=== PATIENT | female | born 1940 | race Caucasian/White ===

== ENCOUNTER → 2018-12-17 | Outpatient (CLI) | payer MEDICARE ==
--- NOTE | 2018-12-17 11:00 | Diagnostic Imaging Report ---
INDICATION: Acute back pain. TIME OF EXAM: 10:42 AM COMPARISON: No prior studies are available for comparison. FINDINGS: Curvature and alignment of the lumbar spine is normal. Vertebral body heights are maintained. No acute compression fracture is seen. There is degenerative disc disease with disc space narrowing at L5-S1 level. Left-sided double-J nephroureteral stent is in place. Aorta is heavily calcified. IMPRESSION: No acute bony abnormality is detected. Dictated by: Dictated on workstation # [id number]
--- NOTE | 2018-12-17 11:02 | Diagnostic Imaging Report ---
INDICATION: Recent T8 fracture. Patient complains of back pain. Time of exam 10:42 a.m. COMPARISON: No prior studies are available for comparison. FINDINGS: Curvature and alignment of the thoracic spine is normal. There is moderate compression fracture deformity involving T8 vertebral body. This does show a moderate central and anterior loss of height. No definite retropulsion is seen. Remaining thoracic vertebrae demonstrate normal stature. Pedicles appear to be intact. IMPRESSION: T8 compression fracture. No definite retropulsion is seen. Dictated by: Dictated on workstation # [id number]
== END ==
LOC: RAD FS 10:31
PROVIDERS: ATTEND Family Medicine
DX: S22.060A Wedge compression fracture of T7-T8 vertebra, initial encounter for closed fracture (principal); M54.5 Low back pain
CPT/HCPCS: 72072; 72100

== ENCOUNTER 2019-04-02 12:36 | Emergency (ER) | payer MEDICARE ==
[~2019-04-02] VITALS: Ht 154.9 cm; Wt 59.0 kg
[2019-04-02] MEDS ORDERED: fentaNYL INJECTION 100 MCG/2 ML AMP IVP STA ×2 (12:58→14:01)
[2019-04-02] MEDS ORDERED: TETANUS,DIPTH,PERTUSS P/F (BOOSTRIX) 0.5 ML VIAL IM ONE (13:00)
--- NOTE | 2019-04-02 13:02 | ED Integumentary General ---
General Chief Complaint: Skin/Wound Problems Stated Complaint: LACERATION ON LEG Source: patient, family (MICHELLE VAZQUEZ MD) History of Present Illness Date Seen by Provider: Apr 02, 2019 Time Seen by Provider: 12:36 Initial Comments 78 yo F presenting with injury to her LLE with a large laceration. She was trying to move a table by herself around 1030 this morning and dropped it. When it dropped it scraped down the front of her rae and caused a large cut to the skin down to the bone. She states she tried to doctor it at home and filled 2 towels with blood and finally decided to call her family to get some help. She denies any numbness or tingling in the leg. She has no foreign bodies to the wound. She was unsure of last tetanus update. She has severe pain to the wound, especially with any palpation or movement. She is able to bear weight and walk, but has pain with movement of the left leg. (MICHELLE VAZQUEZ MD) Allergies and Home Medications Allergies Coded Allergies: doxycycline (Verified Allergy, Unknown, 04/02/19) isosorbide (Verified Allergy, Unknown, 04/02/19) pitavastatin (Verified Allergy, Unknown, 04/02/19) shrimp (Verified Allergy, Unknown, 04/02/19) Uncoded Allergies: IV CONTRAST (Allergy, Unknown, 04/02/19) MIRATAZAPINE (Allergy, Unknown, 04/02/19) Home Medications Cephalexin 500 Mg Tablet, 500 MG PO QID Prescribed by: DUNIA PANTOJA on 04/02/19 1613 Hydrocodone Bit/Acetaminophen 1 Tab Tab, 1-2 EACH PO Q6H PRN for PAIN-MODERATE Prescribed by: DUNIA PANTOJA on 04/02/19 1613 Patient Home Medication List Home Medication List Reviewed: Yes (MICHELLE VAZQUEZ MD) Review of Systems Review of Systems Constitutional: No chills, No fever EENTM: no symptoms reported Respiratory: no symptoms reported Cardiovascular: no symptoms reported Gastrointestinal: no symptoms reported Genitourinary: no symptoms reported Musculoskeletal: see HPI Skin: see HPI Psychiatric/Neurological: No Symptoms Reported Endocrine: No Symptoms Reported Hematologic/Lymphatic: Easy Bleeding, Easy Bruising (MICHELLE VAZQUEZ MD) Past Fprtscb-Hpqehl-Fwtmbk Hx Past Med/Social Hx: Reviewed Nursing Past Med/Soc Hx (MICHELLE VAZQUEZ MD) Patient Social History Physical Abuse: No Sexual Abuse: No Mistreated: No Fear: No (MICHELLE VAZQUEZ MD) Past Medical History Coronary Artery Disease, Hypertension (MICHELLE VAZQUEZ MD) Physical Exam Vital Signs Vital Signs - First Documented 04/02/19 12:39 Temp 97.1 Pulse 65 Resp 16 B/P (MAP) 150/41 (77) Pulse Ox 95 O2 Delivery Room Air (BERNOT,DUNIA) Vital Signs Capillary Refill : (MICHELLE VAZQUEZ MD) General Appearance: WD/WN, mild distress Neck: full range of motion, supple Cardiovascular: normal peripheral pulses, regular rate, rhythm Respiratory: chest non-tender, lungs clear, normal breath sounds Extremities: normal range of motion, no pedal edema, normal capillary refill, other (large laceration to left anterior rae with exposed bone. Oozing blood from wound.) Neurologic/Psychiatric: alert, oriented x 3 Skin: normal color, warm/dry, other (large laceration to left rae. multiple areas of bruising in various stages of healing on extremities) Skin Problem Location: lower extremities (laceration left rae) Skin Problem Character: other (20 cm x 8 cm laceration to left anterior rae that extends down to the periosteum of the tibia ) (MICHELLE VAZQUEZ MD) Progress/Results/Core Measures Results/Orders Lab Results Laboratory Tests Test 04/02/19 13:00 04/02/19 13:41 Range/Units White Blood Count 7.2 4.3-11.0 10^3/uL Red Blood Count 3.28 L 4.35-5.85 10^6/uL Hemoglobin 9.8 L 11.5-16.0 G/DL Hematocrit 31 L 35-52 % Mean Corpuscular Volume 94 80-99 FL Mean Corpuscular Hemoglobin 30 25-34 PG Mean Corpuscular Hemoglobin Concent 32 32-36 G/DL Red Cell Distribution Width 15.3 H 10.0-14.5 % Platelet Count 297 130-400 10^3/uL Mean Platelet Volume 9.0 7.4-10.4 FL Neutrophils (%) (Auto) 68 42-75 % Lymphocytes (%) (Auto) 21 12-44 % Monocytes (%) (Auto) 6 0-12 % Eosinophils (%) (Auto) 4 0-10 % Basophils (%) (Auto) 1 0-10 % Neutrophils # (Auto) 4.9 1.8-7.8 X 10^3 Lymphocytes # (Auto) 1.5 1.0-4.0 X 10^3 Monocytes # (Auto) 0.4 0.0-1.0 X 10^3 Eosinophils # (Auto) 0.3 0.0-0.3 10^3/uL Basophils # (Auto) 0.0 0.0-0.1 10^3/uL Sodium Level 135 135-145 MMOL/L Potassium Level 5.2 H 3.6-5.0 MMOL/L Chloride Level 99 98-107 MMOL/L Carbon Dioxide Level 21 21-32 MMOL/L Anion Gap 15 H 5-14 MMOL/L Blood Urea Nitrogen 46 H 7-18 MG/DL Creatinine 1.98 H 0.60-1.30 MG/DL Estimat Glomerular Filtration Rate 24 BUN/Creatinine Ratio 23 Glucose Level 150 H 70-105 MG/DL Calcium Level 9.1 8.5-10.1 MG/DL Corrected Calcium 9.3 8.5-10.1 MG/DL Total Bilirubin 0.2 0.1-1.0 MG/DL Aspartate Amino Transf (AST/SGOT) 26 5-34 U/L Alanine Aminotransferase (ALT/SGPT) 15 0-55 U/L Alkaline Phosphatase 34 L 40-136 U/L Total Protein 6.4 6.4-8.2 GM/DL Albumin 3.7 3.2-4.5 GM/DL (DUNIA PANTOJA) My Orders Orders - DUNIA PANTOJA Fentanyl Injection (Sublimaze Injection (04/02/19 15:15) Lidocaine 1% Inj 20 Ml (Xylocaine 1% Inj (04/02/19 15:15) Lidocaine 1% Inj 20 Ml (Xylocaine 1% Inj (04/02/19 15:10) Morphine Injection (Morphine Injection (04/02/19 15:31) (DUNIA PANTOJA) Medications Given in ED Current Medications Medications Dose Ordered Sig/Brock Route Start Time Stop Time Status Last Admin Dose Admin Diphtheria/ Tetanus/Acell Pertussis 0.5 ml ONCE ONCE IM 04/02/19 13:00 04/02/19 13:01 DC 04/02/19 13:10 0.5 ML Fentanyl Citrate 50 mcg ONCE ONCE IVP 04/02/19 15:15 04/02/19 15:16 DC 04/02/19 15:10 50 MCG (DUNIA PANTOJA) Vital Signs/I&O 04/02/19 04/02/19 12:39 14:10 Temp 97.1 98.2 Pulse 65 54 Resp 16 16 B/P (MAP) 150/41 (77) 157/52 (87) Pulse Ox 95 94 O2 Delivery Room Air Room Air (DUNIA PANTOJA) Progress Progress Note : Progress Note wet dressing placed on wound to keep it moist and prevent it from drying out. IV established to send labs and give Fentanyl for pain and a gram of ancef for antibiotics. will update tetanus as well. Will contact surgeon court commissioner about the wound and see about management options as the wound is extensive and complicated with the depth and since it does extend to the periosteum and the skin has a crush injury to it as well. It might not be able to survive and may end up needing a skin graft ultimately. (MICHELLE VAZQUEZ MD) Progress Note : Time: 15:10 Progress Note I have seen and evaluated the patient. Her pain did return and fentanyl was ordered. Dr. Montez is here to evaluate the patient at this time. 1600: Dr. Montez has set up for the patient to return back to the [place] emergency room for a wound check tomorrow and will follow-up with his office on Thursday. The patient will be sent home with antibiotic prescription and pain medication. Patient agrees with plan of care, plans for discharge, return precautions were given. (DUNIA PANTOJA) Consults : Consulting Physician: AMANDEEP MONTEZ DO Consults Notes D/w Dr. Montez and reviewed the wound with him. Due to the extent of the wound and complexity of it he offered to repair it in the ED at [place] or have me repair it here in [place]. I felt it would be better for him to work on the wound due to the complexity of it so I did request that the pt come down to see him and he accepted her for transfer to the ED and said he planned to work on her at the bedside in the ED. (MICHELLE VAZQUEZ MD) Departure Impression Primary Impression: Lower leg laceration with complication Qualified Codes: S81.812A - Laceration without foreign body, left lower leg, initial encounter Disposition: T-TRM HOSP Condition: Stable Transfer Time Spoke to Accepting Phy: 13:22 Transfer Progress Notes [address] Montez and he accepted the pt to work on the wound in the ED at [facility]. I did update the patient and family. [address] Roca in the ED at [facility] and advised him of the patient coming to the ED for Dr. Montez to see her. Transfer Facility: [facility] ED Method of Transfer: EMS (MICHELLE VAZQUEZ MD) Departure-Patient Inst. Decision time for Depature: 16:11 (DUNIA PANTOJA) Referrals: AMANDEEP MOTNEZ MAXWELL MD (PCP/Family) Primary Care Physician Patient Instructions: Wound Care, Laceration Repair With Stitches (DC) Add. Discharge Instructions: Take medication as directed. Return back to the [place] emergency room tomorrow for a wound recheck. Follow-up with Dr. Montez's office Thursday for further evaluation. Return back to the emergency room for worsening symptoms or concerns as needed. All discharge instructions reviewed with patient and/or family. Voiced understanding. Scripts Cephalexin (Cephalexin) 500 Mg Tablet 500 MG PO QID for 7 Days, #28 TAB 0 Refills Prov: DUNIA PANTOJA 04/02/19 Hydrocodone Bit/Acetaminophen (Hydrocodone/Acetaminophen 5/325mg Tablet) 1 Tab Tab 1-2 EACH PO Q6H PRN for PAIN-MODERATE MDD 10 for 3 Days, #20 TAB 0 Refills Prov: DUNIA PANTOJA 04/02/19 MICHELLE VAZQUEZ MD Apr 02, 2019 13:02 DUNIA PANTOJA Apr 02, 2019 15:24
[2019-04-02 13:06] LABS: BASOPHILS % (AUTO) 1 % (0-10); EOSINOPHILS % (AUTO) 4 % (0-10); HEMATOCRIT 31 % (35-52); HEMOGLOBIN 9.8 G/DL (11.5-16.0); LYMPHOCYTES % (AUTO) 21 % (12-44); MEAN CORPUSCULAR HEMOGLOBIN 30 PG (25-34); MEAN CORPUSCULAR HGB CONC 32 G/DL (32-36); MEAN CORPUSCULAR VOLUME 94 FL (80-99); MONOCYTES % (AUTO) 6 % (0-12); NEUTROPHILS % (AUTO) 68 % (42-75); PLATELET COUNT 297 10^3/uL (130-400); RED CELL DISTRIBUTION WIDTH 15.3 % (10.0-14.5); WHITE BLOOD COUNT 7.2 10^3/uL (4.3-11.0)
[2019-04-02 13:07] LABS: EOSINOPHILS # (AUTO) 0.3 10^3/uL (0.0-0.3); LYMPHOCYTES # (AUTO) 1.5 X 10^3 (1.0-4.0); MONOCYTES # (AUTO) 0.4 X 10^3 (0.0-1.0); NEUTROPHILS # (AUTO) 4.9 X 10^3 (1.8-7.8)
[2019-04-02] MEDS ORDERED: ceFAZolin INJECTION 1,000 MG in WATER (STERILE) FOR INJECTION 10 ML IV STA (13:17)
[2019-04-02 14:09] LABS: ALBUMIN 3.7 GM/DL (3.2-4.5); BILIRUBIN,TOTAL 0.2 MG/DL (0.1-1.0); CALCIUM 9.1 MG/DL (8.5-10.1); CREATININE SERUM 1.98 MG/DL (0.60-1.30); POTASSIUM 5.2 MMOL/L (3.6-5.0); TOTAL PROTEIN 6.4 GM/DL (6.4-8.2)
[2019-04-02] MEDS ORDERED: LIDOCAINE 1% INJ 20 ML 20 ML VIAL ONE (15:10)
[2019-04-02] MEDS ORDERED: LIDOCAINE 1% INJ 20 ML 20 ML VIAL INJ ONE (15:15)
[2019-04-02] MEDS ORDERED: fentaNYL INJECTION 100 MCG/2 ML AMP IVP ONE (15:15)
[2019-04-02] MEDS ORDERED: morphine INJ 10 MG/ML 1ML (SYR OR VIAL) IVP STA (15:30)
[2019-04-02] MEDS ORDERED: morphine INJ 10 MG/ML 1ML (SYR OR VIAL) ONE (15:31)
[2019-04-02] MEDS ORDERED: CEPH500T PO (16:13)
[2019-04-02] MEDS ORDERED: ACHD5005 PO (16:13)
[2019-04-02 16:49] VITALS: BP 171/62
--- NOTE | 2019-04-03 15:23 | Consultation (Surgery) ---
History of Present Illness History of Present Illness Patient Consulted On(soham/time) 04/02/19 15:17 Date Seen by Provider: Apr 02, 2019 Time Seen by Provider: 15:00 History of Present Illness Consult requested by Dr. Lugo for left lower extremity wound Seen and evaluated in ED. Patient is a 78-year-old female who was trying to move a table around 1030 this morning. Patient dropped the table and it struck the left rae which cause laceration/avulsionto the anterior surface of left lower extremity. This was all the way down to the periosteum of the tibia. Patient states that she had quite a bit of bleeding from the wound and just tried keeping pressure on it for approximately 2 hours. She has moderate to severe pain. She is able to move her left lower extremities without difficulty except for the pain. No radiation of pain. She states nothing really makes it better except for the pain medication. Movement makes worse. She did have tetanus shot she states. She has no other complaints at this time. She denies any nausea vomiting fever sweats chills shortness of breath or chest pain. patient did seek evaluation at the emergency department in [place] review the complexity of the wound she was transferred to the emergency department in [place] for my evaluation.she i s approximately 5 hours after injury. Allergies and Home Medications Allergies Coded Allergies: doxycycline (Verified Allergy, Unknown, 04/02/19) isosorbide (Verified Allergy, Unknown, 04/02/19) pitavastatin (Verified Allergy, Unknown, 04/02/19) shrimp (Verified Allergy, Unknown, 04/02/19) Uncoded Allergies: IV CONTRAST (Allergy, Unknown, 04/02/19) MIRATAZAPINE (Allergy, Unknown, 04/02/19) Home Medications Cephalexin 500 Mg Tablet, 500 MG PO QID Prescribed by: DUNIA PANTOJA on 04/02/19 1613 Hydrocodone Bit/Acetaminophen 1 Tab Tab, 1-2 EACH PO Q6H PRN for PAIN-MODERATE Prescribed by: DUNIA PANTOJA on 04/02/19 1613 Patient Home Medication List Home Medication List Reviewed: Yes Past Vxfefam-Yqnxac-Xkdskq Hx Patient Social History Alcohol Use: Denies Use Recreational Drug Use: No Smoking Status: Former Smoker Former Smoker, Quit: Sep 25, 2008 Type Used: Cigarettes 2nd Hand Smoke Exposure: No Recent Foreign Travel: No Contact w/Someone Who Travel: No Recent Infectious Disease Expo: No Recent Hopitalizations: No Seasonal Allergies Seasonal Allergies: No Surgeries History of Surgeries: Yes (Carotid endarterectomy, carpal tunnel release, Rt Nephrectomy) Surgeries: Appendectomy, Cardiac, Gallbladder, Nephrectomy, Orthopedic Respiratory History of Respiratory Disorde: Yes (mycobacterium avium-intracellulare complex) Respiratory Disorders: COPD Cardiovascular History of Cardiac Disorders: Yes Cardiac Disorders: Coronary Artery Disease, Hypertension Neurological History of Neurological Disord: No 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 Genitourinary History of Genitourinary Disor: No (Chronic Kidney Disease) Gastrointestinal History of Gastrointestinal Di: Yes Gastrointestinal Disorders: Gastroesophageal Reflux Musculoskeletal History of Musculoskeletal Dis: Yes Musculoskeletal Disorders: Chronic Back Pain Endocrine History of Endocrine Disorders: Yes Endocrine Disorders: Hypothyroidsim, Diabetes, Non-Insulin dep HEENT History of HEENT Disorders: No Cancer History of Cancer: No Psychosocial History of Psychiatric Problem: Yes Behavioral Health Disorders: Anxiety Integumentary History of Skin or Integumenta: No Blood Transfusions History of Blood Disorders: No Family Medical History Significant Family History: No Pertinent Family Hx Review of Systems-General Constitutional: no symptoms reported EENTM: no symptoms reported Respiratory: no symptoms reported Cardiovascular: no symptoms reported Gastrointestinal: no symptoms reported Genitourinary: no symptoms reported Musculoskeletal: no symptoms reported Skin: see HPI Psychiatric/Neurological: No Symptoms Reported Physical Exam-General Problems Physical Exam Vital Signs Vital Signs - First Documented 04/02/19 12:39 Temp 97.1 Pulse 65 Resp 16 B/P (MAP) 150/41 (77) Pulse Ox 95 O2 Delivery Room Air Capillary Refill : Less Than 3 Seconds General Appearance: WD/WN, no apparent distress HEENT: PERRL/EOMI, normal ENT inspection Neck: non-tender, supple Respiratory: chest non-tender, normal breath sounds, no respiratory distress, no accessory muscle use Cardiovascular: regular rate, rhythm Gastrointestinal: normal bowel sounds Rectal: deferred Back: normal inspection, no CVA tenderness Extremities: other (patient with tenderness left lower extremity with large laceration/avulsion left anterior position with wound down to periosteum of left tibia, dimensions 20 x 8 cm, avulsed skin slightly dusky edges with the remainder of the skin questionable in terms of viability) 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 Patient given pain control. Patient given antibiotics. Patient with complex wound services down through the skin and simultaneous tissue and down to the periosteum of the tibia. discussed with patient that the skin might not be viable. The edges appeared dusky at this time but I feel that because the complexity of the wound that I feel it is worth a chance that if we tacked the skin some the skin might be viable but only time will tell. Patient may need ultimately a skin graft after the wound continues to heal. Patient will have wound check tomorrow at the [place] emergency department will see me Thursday in the office. Patient understands she may need further surgical intervention. Procedure: The wound was irrigated with copious amounts of saline and wound is cleaned and draped in a sterile fashion. The lateral aspect of the wound was injected with 10 mL of 1 percent lidocaine along with the base of the skin flap. The lateral aspect of the skin flap was then tacked with interrupted 3-0 Prolene's for total length of 18 cm. The medial aspect of the wound was tacked with 3-0 Prolene for a total of 3 cm. 5 more milliliters of 1 percent lidocaine was used anesthetize the medial aspect of the wound. At this point the skin could no longer be attached the skin therefore 3-0 Vicryl's were then used to tack the skin edge of the flap down to the subcutaneous tissue. This was done for a total of 15 more centimeters. Overall wound closure being 18 x 6 cm.the area was then washed and dried. The open portion of the wound was then dressed with wet to dry dressing and overall wound had sterile bandage placed. Patient tolerated procedure well without any complications. AMANDEEP MONTEZ DO Apr 03, 2019 15:23
== END 2019-04-02 16:49 | disposition short-term general hospital (02) ==
LOC: EDUNIT# 12:36 → ER FS 12:38 → ER 16:49
DX: S81.812A Laceration without foreign body, left lower leg, initial encounter (principal); I25.10 Atherosclerotic heart disease of native coronary artery without angina pectoris; I10 Essential (primary) hypertension; Z88.1 Allergy status to other antibiotic agents; Z88.8 Allergy status to other drugs, medicaments and biological substances; Z91.041 Radiographic dye allergy status; W20.8XXA Other cause of strike by thrown, projected or falling object, initial encounter
CPT/HCPCS: 12035; 36415; 80053; 85025; 90471; 90715; 96374; 96375; 96376

== ENCOUNTER 2019-04-03 11:47 | Emergency (ER) | payer MEDICARE ==
[~2019-04-03] VITALS: Ht 154.9 cm; Wt 59.0 kg
[~2019-04-03 11:47] MED LIST: ACHD5005 PO; CEPH500T PO
--- OUTSIDE RECORDS SUMMARY | 2019-04-03 11:52 | XMS REPORT | Continuity of Care Document ---
Author Organization Unknown Address Unknown Allergies There is no data. Medications There is no data. Problems There is no data. Procedures There is no data. Results Test Result Range CMP - 03/14/19 09:28 GLUCOSE 105 mg/dL 65-99 UREA NITROGEN (BUN) 48 mg/dL 7-25 CREATININE 2.19 mg/dL 0.60-0.93 eGFR NON-AFR. KAZAKH 21 mL/min/1.73m2 > OR=60 eGFR 24 mL/min/1.73m2 > OR=60 BUN/CREATININE RATIO 22 (calc) 6-22 SODIUM 136 mmol/L 135-146 POTASSIUM 4.4 mmol/L 3.5-5.3 CHLORIDE 102 mmol/L 98-110 CARBON DIOXIDE 19 mmol/L 20-32 CALCIUM 9.6 mg/dL 8.6-10.4 PROTEIN, TOTAL 6.7 g/dL 6.1-8.1 ALBUMIN 4.1 g/dL 3.6-5.1 GLOBULIN 2.6 g/dL (calc) 1.9-3.7 ALBUMIN/GLOBULIN RATIO 1.6 (calc) 1.0-2.5 BILIRUBIN, TOTAL 0.4 mg/dL 0.2-1.2 ALKALINE PHOSPHATASE 33 U/L 33-130 AST 26 U/L 10-35 ALT 13 U/L 6-29 VITAMIN D, 25-H - 03/14/19 09:28 VITAMIN D,25-OH,TOTAL,IA 25 ng/mL 30-100 A1C - 03/14/19 09:28 HEMOGLOBIN A1c 5.8 % of total Hgb <5.7 Encounters ACCT No. Visit Date/Time Discharge Status Pt. Type Provider Facility Loc./Unit Complaint [id number] 03/29/2019 09:20:00 03/29/2019 23:59:59 CLS Outpatient SELF, TYE Puente [facility] [id number] 03/14/2019 13:30:00 Document Registration
--- NOTE | 2019-04-03 12:15 | ED Integumentary General ---
General Stated Complaint: DRESSING CHANGE Source: patient, family, RN notes reviewed, old records Exam Limitations: no limitations History of Present Illness Date Seen by Provider: Apr 03, 2019 Time Seen by Provider: 11:58 Initial Comments Patient returns for recheck of extensive LLE wound incurred yesterday. Patient was initially seen here and transferred to [facility] and seen/treated by Dr. Maynard. Scheduled to see him tomorrow in follow up. Timing/Duration: yesterday Location: extremities (LLE) Possible Cause: other (extensive laceration) Modifying Factors: improves with other (none) Associated Symptoms: denies symptoms Allergies and Home Medications Allergies Coded Allergies: doxycycline (Verified Allergy, Unknown, 04/02/19) isosorbide (Verified Allergy, Unknown, 04/02/19) pitavastatin (Verified Allergy, Unknown, 04/02/19) shrimp (Verified Allergy, Unknown, 04/02/19) Uncoded Allergies: IV CONTRAST (Allergy, Unknown, 04/02/19) MIRATAZAPINE (Allergy, Unknown, 04/02/19) Home Medications Cephalexin 500 Mg Tablet, 500 MG PO QID Prescribed by: DUNIA PANTOJA on 04/02/19 1613 Hydrocodone Bit/Acetaminophen 1 Tab Tab, 1-2 EACH PO Q6H PRN for PAIN-MODERATE Prescribed by: DUNIA PANTOJA on 04/02/19 1613 Patient Home Medication List Home Medication List Reviewed: Yes Review of Systems Review of Systems Constitutional: see HPI Skin: see HPI, other (laceration LLE) All Other Systems Reviewed Negative Unless Noted: Yes (Negative excepted noted.) Past Tiakxxq-Kofyxk-Meexho Hx Patient Social History Type Used: Cigarettes Former Smoker, Quit: Sep 25, 2008 2nd Hand Smoke Exposure: No Recent Hopitalizations: No Seasonal Allergies Seasonal Allergies: No Past Medical History Surgeries: Yes (Carotid endarterectomy, carpal tunnel release, Rt Nephrectomy) Appendectomy, Cardiac, Gallbladder, Nephrectomy, Orthopedic Respiratory: Yes (mycobacterium avium-intracellulare complex) COPD Cardiac: Yes Coronary Artery Disease, Hypertension Neurological: No 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 History: Hysterectomy Genitourinary: No (Chronic Kidney Disease) Gastrointestinal: Yes Gastroesophageal Reflux Musculoskeletal: Yes Chronic Back Pain Endocrine: Yes Hypothyroidsim, Diabetes, Non-Insulin dep HEENT: No Cancer: No Psychosocial: Yes Anxiety Integumentary: No Blood Disorders: No Physical Exam Vital Signs Capillary Refill : General Appearance: WD/WN, no apparent distress Cardiovascular: regular rate, rhythm Respiratory: no respiratory distress Neurologic/Psychiatric: alert Skin: warm/dry Skin Problem Location: lower extremities (LLE) Skin Problem Character: other (extensive flap/partial avulsion laceration anterior LLE. It is clean and dry, although the viability of the large skin flap appears to be in question @ this time based on it's dark, almost black color.) Departure Impression Primary Impression: Encounter for re-check of laceration wound Additional Impression: Dressing change Disposition: 01 HOME, SELF-CARE Condition: Stable Departure-Patient Inst. Decision time for Depature: 12:16 Referrals: AMANDEEP MAYNARD MAXWELL MD (PCP/Family) Primary Care Physician Add. Discharge Instructions: KEEP FOLLOW UP APPOINTMENT TOMORROW, THURSDAY, 04/04, WITH DR. MAYNARD. DEQUAN REESE DO Apr 03, 2019 12:15
[2019-04-03 12:37] VITALS: BP 163/51
== END 2019-04-03 12:37 | disposition home or self-care (01) ==
LOC: EDUNIT# 11:47 → ER FS 11:48
DX: S81.812D Laceration without foreign body, left lower leg, subsequent encounter (principal); J44.9 Chronic obstructive pulmonary disease, unspecified; I25.10 Atherosclerotic heart disease of native coronary artery without angina pectoris; E11.22 Type 2 diabetes mellitus with diabetic chronic kidney disease; I12.9 Hypertensive chronic kidney disease with stage 1 through stage 4 chronic kidney disease, or unspecified chronic kidney disease; N18.9 Chronic kidney disease, unspecified; E03.9 Hypothyroidism, unspecified; F41.9 Anxiety disorder, unspecified; K21.9 Gastro-esophageal reflux disease without esophagitis; Z88.1 Allergy status to other antibiotic agents; Z88.8 Allergy status to other drugs, medicaments and biological substances; Z91.041 Radiographic dye allergy status; Z87.891 Personal history of nicotine dependence; Z90.49 Acquired absence of other specified parts of digestive tract; Z90.5 Acquired absence of kidney; Z98.890 Other specified postprocedural states; X58.XXXD Exposure to other specified factors, subsequent encounter
CPT/HCPCS: 99282

== ENCOUNTER → 2019-04-04 | Outpatient (CLI) | payer MEDICARE ==
--- NOTE | 2019-04-04 17:06 | Diagnostic Imaging Report ---
Indication: Left ankle pain Findings: AP and lateral views of the left ankle show some soft tissue swelling laterally. There is no dislocation. There is a tiny cortical fragment anterior to the distal tibia that could represent a small avulsion. Impression: Probable tiny cortical avulsion of the anterior aspect of the distal tibia near the articular surface. Dictated by: Dictated on workstation # [id number]
== END ==
LOC: RAD 15:58
PROVIDERS: ATTEND Surgery
DX: S99.912A Unspecified injury of left ankle, initial encounter (principal)
CPT/HCPCS: 73600

== ENCOUNTER → 2019-04-11 | Outpatient (CLI) | payer MEDICARE ==
[~2019-04-11] MED LIST changes: +ALPR0.254 PO; +AMLO5TAB9 PO; +ASPI-586 PO; +C250T PO; +CALC500T3 PO; +CHOL200059 PO; +CLIN300C11 PO; +CYCL10TA9 PO; +DILT180C54 PO; +ERGO50006 PO; +FEXO180T84 PO; +FLUO20CA42 PO; +FLUT9.9S NS; +FURO20TA4 PO; +GARL500C PO; +HYDR-3812 PO; +HYDR-700 PO; +LACT1CAP74 PO; +LEVA0.6320 INH; +LEVO75TA6 PO; +MAGN100T5 PO; +MELA10TA7 PO; +MULTIVITAMIN PO; +OM-31CAP4 PO; +OMEP20CA12 PO; +PITA2TAB2 PO; +RANO500T3 PO; +RT-ALBUINH IH; +SENN-137 PO; +TEMA15CA6 PO; +TIZA4TAB3 PO; +TRAM50TA2 PO; +TRAZ-222 PO; +UBID50CA PO; +UMEC1BLS IH
== END | disposition home or self-care (01) ==
LOC: PREOP 14:38
PROVIDERS: ATTEND Surgery
DX: Z01.818 Encounter for other preprocedural examination (principal)

== ENCOUNTER 2019-04-12 05:48 | Day surgery (SDC) | payer MEDICARE ==
[~2019-04-12] VITALS: Ht 154.9 cm; Wt 59.1 kg
[2019-04-12] VITALS (9 sets, daily range): BP systolic 154–185; BP diastolic 51–88
[~2019-04-12 05:48] MED LIST changes: -ALPR0.254 PO; -AMLO5TAB9 PO; -ASPI-586 PO; -C250T PO; -CALC500T3 PO; -CHOL200059 PO; -CLIN300C11 PO; -CYCL10TA9 PO; -DILT180C54 PO; -ERGO50006 PO; -FEXO180T84 PO; -FLUO20CA42 PO; -FLUT9.9S NS; -FURO20TA4 PO; -GARL500C PO; -HYDR-3812 PO; -HYDR-700 PO; -LACT1CAP74 PO; -LEVA0.6320 INH; -LEVO75TA6 PO; -MAGN100T5 PO; -MELA10TA7 PO; -MULTIVITAMIN PO; -OM-31CAP4 PO; -OMEP20CA12 PO; -PITA2TAB2 PO; -RANO500T3 PO; -RT-ALBUINH IH; -SENN-137 PO; -TEMA15CA6 PO; -TIZA4TAB3 PO; -TRAM50TA2 PO; -TRAZ-222 PO; -UBID50CA PO; -UMEC1BLS IH
--- OUTSIDE RECORDS SUMMARY | 2019-04-12 05:53 | XMS REPORT | Continuity of Care Document ---
Author Organization Unknown Address Unknown Allergies There is no data. Medications There is no data. Problems There is no data. Procedures There is no data. Results Test Result Range CMP - 03/14/19 09:28 GLUCOSE 105 mg/dL 65-99 UREA NITROGEN (BUN) 48 mg/dL 7-25 CREATININE 2.19 mg/dL 0.60-0.93 eGFR NON-AFR. GEORGIAN 21 mL/min/1.73m2 > OR=60 eGFR 24 mL/min/1.73m2 [...] Status Pt. Type Provider Facility Loc./Unit Complaint [id number] 03/29/2019 09:20:00 03/29/2019 23:59:59 CLS Outpatient SELF, TYE Puente [facility] [id number] 03/14/2019 13:30:00 Document Registration
[2019-04-12] MEDS ORDERED: NS IV 500 ML 500 ML IV PRN (06:39)
[2019-04-12] MEDS ORDERED: ONDANSETRON 4 MG/2 ML (SDV) Z0FRAN ONE (06:43)
[2019-04-12] MEDS ORDERED: fentaNYL INJECTION 100 MCG/2 ML AMP ONE (06:43)
[2019-04-12] MEDS ORDERED: SEVOFLURANE (ULTANE) 15 ML INHAL SOLN ONE ×6 (06:43→08:26)
[2019-04-12] MEDS ORDERED: LIDOCAINE PF 2% 5 ML (XYLOCAINE) VIAL ONE (06:43)
[2019-04-12] MEDS ORDERED: proPOfol 200 MG/20 ML (DIPRIVAN) VIAL IV ONE (06:43)
[2019-04-12] MEDS ORDERED: NEOSTIGMINE 1 MG/ML 5 ML SYRINGE ONE (06:44)
[2019-04-12] MEDS ORDERED: ROCURONIUM 10 MG/ML 5 ML SYRINGE IV ONE (06:44)
[2019-04-12] MEDS ORDERED: GLYCOPYRROLATE 0.2 MG/ML (ROBINUL) 2 ML VIAL ONE (06:44)
[2019-04-12] MEDS ORDERED: ceFAZolin INJECTION 1,000 MG ONE (06:47)
[2019-04-12 06:58] LABS: HEMOGLOBIN 9.9 G/DL (11.5-16.0); MEAN PLATELET VOLUME 8.8 FL (7.4-10.4); RED CELL DISTRIBUTION WIDTH 14.9 % (10.0-14.5); WHITE BLOOD COUNT 7.8 10^3/uL (4.3-11.0)
[2019-04-12] MEDS ORDERED: ceFAZolin INJECTION 1,000 MG in WATER (STERILE) FOR INJECTION 10 ML IV ONE (07:00)
[2019-04-12 07:20] LABS: CALCIUM 9.5 MG/DL (8.5-10.1); CREATININE SERUM 2.03 MG/DL (0.60-1.30); POTASSIUM 4.3 MMOL/L (3.6-5.0)
--- NOTE | 2019-04-12 07:44 | Progress Note-Pre Operative ---
Pre-Operative Progress Note H&P Reviewed The H&P was reviewed, patient examined and no changes noted. Date Seen by Provider: Apr 12, 2019 Time Seen by Provider: 07:44 Date H&P Reviewed: Apr 12, 2019 Time H&P Reviewed: 07:44 Pre-Operative Diagnosis: left lower ext wound AMANDEEP MONTEZ DO Apr 12, 2019 07:44
[2019-04-12] MEDS ORDERED: RT-ALBUINH IH (07:46)
[2019-04-12] MEDS ORDERED: FEXO180T84 PO (07:46)
[2019-04-12] MEDS ORDERED: ASPI-586 PO (07:46)
[2019-04-12] MEDS ORDERED: ALPR0.254 PO (07:46)
[2019-04-12] MEDS ORDERED: LEVO75TA6 PO (07:46)
[2019-04-12] MEDS ORDERED: DILT180C54 PO (07:46)
[2019-04-12] MEDS ORDERED: UMEC1BLS IH (07:46)
[2019-04-12] MEDS ORDERED: TRAZ-222 PO ×2 (07:46→08:09)
[2019-04-12] MEDS ORDERED: AMLO5TAB9 PO (07:46)
[2019-04-12] MEDS ORDERED: OMEP20CA12 PO (07:46)
[2019-04-12] MEDS ORDERED: MULTIVITAMIN PO (07:46)
[2019-04-12] MEDS ORDERED: GARL500C PO (08:09)
[2019-04-12] MEDS ORDERED: ERGO50006 PO (08:09)
[2019-04-12] MEDS ORDERED: UBID50CA PO (08:09)
[2019-04-12] MEDS ORDERED: FURO20TA4 PO (08:09)
[2019-04-12] MEDS ORDERED: PITA2TAB2 PO (08:09)
[2019-04-12] MEDS ORDERED: LEVA0.6320 INH (08:09)
[2019-04-12] MEDS ORDERED: CYCL10TA9 PO (08:09)
[2019-04-12] MEDS ORDERED: CALC500T3 PO (08:09)
[2019-04-12] MEDS ORDERED: MAGN100T5 PO (08:09)
[2019-04-12] MEDS ORDERED: SENN-137 PO (08:09)
[2019-04-12] MEDS ORDERED: TRAM50TA2 PO (08:09)
[2019-04-12] MEDS ORDERED: FLUO20CA42 PO (08:09)
[2019-04-12] MEDS ORDERED: CHOL200059 PO (08:09)
[2019-04-12] MEDS ORDERED: HYDR-700 PO (08:09)
[2019-04-12] MEDS ORDERED: TEMA15CA6 PO (08:09)
[2019-04-12] MEDS ORDERED: C250T PO (08:09)
[2019-04-12] MEDS ORDERED: OM-31CAP4 PO (08:09)
[2019-04-12] MEDS ORDERED: TIZA4TAB3 PO (08:09)
[2019-04-12] MEDS ORDERED: LACT1CAP74 PO (08:09)
[2019-04-12] MEDS ORDERED: RANO500T3 PO (08:09)
[2019-04-12] MEDS ORDERED: MELA10TA7 PO (08:09)
[2019-04-12] MEDS ORDERED: HYDR-3812 PO ×2 (08:09→08:34)
[2019-04-12] MEDS ORDERED: FLUT9.9S NS (08:09)
[2019-04-12] MEDS ORDERED: CLIN300C11 PO (08:36)
--- NOTE | 2019-04-12 08:37 | Progress Note-Post Operative ---
Post-Operative Progess Note Surgeon (s)/Perioperative Manager (s) Surgeon AMANDEEP MONTEZ DO Perioperative Manager: na Pre-Operative Diagnosis left lower ext wound Post-Operative Diagnosis same Procedure & Operative Findings Date of Procedure 04/12/19 Procedure Performed/Findings excisional debridement skin and subcutaneous tissue 16x6cm left lower extremity. Anesthesia Type gen Estimated Blood Loss Estimated blood loss (mL): min Specimens/Packing Specimens Removed AMANDEEP Berg DO Apr 12, 2019 08:37
[2019-04-12] MEDS ORDERED: morphine INJ 10 MG/ML 1ML (SYR OR VIAL) ONE (08:40)
--- NOTE | 2019-04-12 08:40 | Discharge Inst-Simple/Standard ---
Discharge Inst-Standard Discharge Medications New, Converted or Re-Newed RX: RX on Chart Patient Instructions/Follow Up Plan of Care/Instructions/FU: Set up wound care visits with Dr. Nagle. Maynard 2-3 weeks. Activity as Tolerated: No Discharge Diet: Regular Diet Other Inst to Patient Follow up Appt: Make appointment for 2-[address] Maynard. Set up appointment with wound care. Instructions: No lifting greater than 10 pounds. No strenuous activity. May shower in 24 hours, no tub bath or soaking. Use incentive spirometer at home as directed. No Smoking Skin/Wound Care: May remove bandages daily and prn. Wet to dry dressing as you were doing before. Symptoms to Report: Appetite Changes, Extremity Discoloration, Numbness/Tingling, Swelling Increased, Bleeding Excessive, Eyesight Changes, Pain Increased, Urine Color Change, Constipation(Persistent), Fever over 101 degree F, Pain/Pressure in chest, Urinating Difficulty, Cough Up/Vomit Blood, Heart Beat Irreg/Pounding, Pain/Pressure in jaw, Vaginal Bleeding Increase, Cramps in feet or legs, Lightheadedness, Pain/Pressure in shoulder, Diarrhea(Persistent), Memory Changes Suddenly, Questions/Concerns, Weight gain consecutive days, Dizziness/Fainting, Nausea/Vomiting, Shortness of Breath, Weight gain over 2 pounds If questions or concerns contact your physician Or seek help at emergency department. AMANDEEP MAYNARD DO Apr 12, 2019 08:40
[2019-04-12] MEDS ORDERED: morphine INJ 10 MG/ML 1ML (SYR OR VIAL) IVP ONE (08:45)
[2019-04-12] MEDS ORDERED: ONDANSETRON 4 MG/2 ML (SDV) Z0FRAN IVP PRN (08:45)
[2019-04-12] MEDS ORDERED: MEPERIDINE (DEMEROL) INJ 50 MG/ML IVP ONE (08:45)
[2019-04-12] MEDS ORDERED: HYDROcodone/APAP 5 MG/325 MG (LORTAB) TAB ONE (09:24)
--- NOTE | 2019-04-12 12:16 | Anesthesia-General Post-Op ---
General Patient Condition Mental Status/LOC: Same as Preop Cardiovascular: Satisfactory Nausea/Vomiting: Absent Respiratory: Satisfactory Pain: Controlled Complications: Absent Post Op Complications Complications None Follow Up Care/Instructions Patient Instructions None needed. Anesthesia/Patient Condition Patient Condition Patient is doing well, no complaints, stable vital signs, no apparent adverse anesthesia problems. No complications reported per nursing. JAMARCUS ALEGRE CRNA Apr 12, 2019 12:16
--- NOTE | 2019-04-12 13:55 | OPERATIVE REPORT ---
DATE OF SERVICE: 04/12/2019 PREOPERATIVE DIAGNOSIS: Left lower extremity wound. POSTOPERATIVE DIAGNOSIS: Left lower extremity wound. PROCEDURE: Excisional debridement of skin and subcutaneous tissue 16 x 6 cm, left lower extremity. SURGEON: Amandeep Maynard DO ANESTHESIA: General. ESTIMATED BLOOD LOSS: Minimal. COMPLICATIONS: None. INDICATIONS: The patient is a 78-year-old female who was moving a table when it fell and had a large wound to the left lower extremity with avulsion of the skin. The skin was questionable viability, which was reapproximated onto the wound. Over time, this has continued to become more ischemic. The patient was discussed risks and benefits of having this wound debrided and understands and wishes to proceed with procedure. Consent was signed in the chart. DESCRIPTION OF PROCEDURE: The patient was taken to the operating suite. She was prepped and draped in a sterile fashion. Timeout was performed. The sutures in place was removed. The ischemic skin was then elevated off of the wound with both blunt and . Once elevated to the area of viable skin, this was then transected, removing skin and subcutaneous tissue, removing the flap. Cautery cut was used to transect it. Hemostasis was achieved. The overall wound size of debridement was 16 x 6 cm. The wound was irrigated with copious amounts of irrigation. Hemostasis was achieved. The wound was then packed with wet to dry Kerlix. The patient was taken to the recovery room in stable condition. The patient will be set up with wound care due to the complexity of the wound with ongoing wound care needs. Job ID: [id number] DocumentID: [id number] Dictated Date: 04/12/2019 08:43:33 Business Segment Manager Date: 04/12/2019 13:54:43 Dictated By: AMANDEEP MAYNARD DO
== END 2019-04-12 10:10 | disposition home or self-care (01) ==
LOC: SDC 05:48
PROVIDERS: ATTEND Surgery
DX: S81.812A Laceration without foreign body, left lower leg, initial encounter (principal); I99.8 Other disorder of circulatory system; I10 Essential (primary) hypertension; E11.41 Type 2 diabetes mellitus with diabetic mononeuropathy; J44.9 Chronic obstructive pulmonary disease, unspecified; I25.10 Atherosclerotic heart disease of native coronary artery without angina pectoris; K21.9 Gastro-esophageal reflux disease without esophagitis; W20.8XXA Other cause of strike by thrown, projected or falling object, initial encounter; Z79.82 Long term (current) use of aspirin; Z79.84 Long term (current) use of oral hypoglycemic drugs; Z79.899 Other long term (current) drug therapy; Z87.891 Personal history of nicotine dependence
CPT/HCPCS: 36415; 80048; 85027; 87081

== ENCOUNTER → 2019-04-13 | Outpatient (CLI) | payer MEDICARE ==
[~2019-04-13] MED LIST changes: +ALPR0.254 PO; +AMLO5TAB9 PO; +ASPI-586 PO; +C250T PO; +CALC500T3 PO; +CHOL200059 PO; +CLIN300C11 PO; +CYCL10TA9 PO; +DILT180C54 PO; +ERGO50006 PO; +FEXO180T84 PO; +FLUO20CA42 PO; +FLUT9.9S NS; +FURO20TA4 PO; +GARL500C PO; +HYDR-3812 PO; +HYDR-700 PO; +LACT1CAP74 PO; +LEVA0.6320 INH; +LEVO75TA6 PO; +MAGN100T5 PO; +MELA10TA7 PO; +MULTIVITAMIN PO; +OM-31CAP4 PO; +OMEP20CA12 PO; +PITA2TAB2 PO; +RANO500T3 PO; +RT-ALBUINH IH; +SENN-137 PO; +TEMA15CA6 PO; +TIZA4TAB3 PO; +TRAM50TA2 PO; +TRAZ-222 PO; +UBID50CA PO; +UMEC1BLS IH
== END ==
LOC: WOUNDCARE 12:38
PROVIDERS: ATTEND Surgery
DX: E11.622 Type 2 diabetes mellitus with other skin ulcer (principal); L97.225 Non-pressure chronic ulcer of left calf with muscle involvement without evidence of necrosis; I70.242 Atherosclerosis of native arteries of left leg with ulceration of calf; I87.332 Chronic venous hypertension (idiopathic) with ulcer and inflammation of left lower extremity; S81.812A Laceration without foreign body, left lower leg, initial encounter
CPT/HCPCS: 36415; 84134; 99213

== ENCOUNTER → 2019-04-13 | Outpatient (CLI) | payer MEDICARE | LOC: LAB 11:20 | PROVIDERS: ATTEND Surgery | DX: E11.622 Type 2 diabetes mellitus with other skin ulcer (principal); L97.225 Non-pressure chronic ulcer of left calf with muscle involvement without evidence of necrosis ==

== ENCOUNTER → 2019-04-20 | Outpatient (CLI) | payer MEDICARE | LOC: WOUNDCARE 10:07 | PROVIDERS: ATTEND Surgery | DX: E11.622 Type 2 diabetes mellitus with other skin ulcer (principal); L97.225 Non-pressure chronic ulcer of left calf with muscle involvement without evidence of necrosis; I70.242 Atherosclerosis of native arteries of left leg with ulceration of calf; I87.332 Chronic venous hypertension (idiopathic) with ulcer and inflammation of left lower extremity; S81.812A Laceration without foreign body, left lower leg, initial encounter | CPT/HCPCS: 99212 ==

== ENCOUNTER → 2019-04-22 | Outpatient (CLI) | payer MEDICARE ==
[2019-04-22 12:15] LABS: BILIRUBIN,URINE NEGATIVE (NEGATIVE); GLUCOSE, URINE (UA) NEGATIVE (NEGATIVE); KETONES,URINE NEGATIVE (NEGATIVE); LEUKOCYTE ESTERASE ,URINE 3+ (NEGATIVE); NITRITE,URINE NEGATIVE (NEGATIVE); PH,URINE 6 (5-9); PROTEIN,URINE 4+ (NEGATIVE); UROBILINOGEN,URINE NORMAL (NORMAL)
[2019-04-22 12:15] LABS: ALBUMIN 3.6 GM/DL (3.2-4.5); CALCIUM 9.3 MG/DL (8.5-10.1); CREATININE SERUM 2.09 MG/DL (0.60-1.30); POTASSIUM 4.6 MMOL/L (3.6-5.0)
[2019-04-22 12:17] LABS: BACTERIA,URINE MODERATE /HPF; CLARITY,URINE CLEAR; COLOR,URINE YELLOW; WBC,URINE >100 /HPF
== END ==
LOC: LAB 11:32
PROVIDERS: ATTEND Thoracic Surgery (Cardiothoracic Vascular Surgery)
DX: N28.9 Disorder of kidney and ureter, unspecified (principal)
CPT/HCPCS: 36415; 80069; 81000; 82570; 84156; 87077; 87088; 87186

== ENCOUNTER → 2019-04-26 | Outpatient (CLI) | payer MEDICARE | LOC: WOUNDCARE 14:42 | PROVIDERS: ATTEND Surgery | DX: E11.622 Type 2 diabetes mellitus with other skin ulcer (principal); L97.225 Non-pressure chronic ulcer of left calf with muscle involvement without evidence of necrosis; I70.242 Atherosclerosis of native arteries of left leg with ulceration of calf; I87.332 Chronic venous hypertension (idiopathic) with ulcer and inflammation of left lower extremity; S81.812A Laceration without foreign body, left lower leg, initial encounter | CPT/HCPCS: 11042; 11045; 87070; 87077; 87181; 87205 ==

== ENCOUNTER → 2019-05-03 | Outpatient (CLI) | payer MEDICARE | LOC: WOUNDCARE 13:35 | PROVIDERS: ATTEND Surgery | DX: S81.811A Laceration without foreign body, right lower leg, initial encounter (principal); S81.812A Laceration without foreign body, left lower leg, initial encounter; L97.225 Non-pressure chronic ulcer of left calf with muscle involvement without evidence of necrosis; I70.242 Atherosclerosis of native arteries of left leg with ulceration of calf; I87.332 Chronic venous hypertension (idiopathic) with ulcer and inflammation of left lower extremity; E11.622 Type 2 diabetes mellitus with other skin ulcer; E11.52 Type 2 diabetes mellitus with diabetic peripheral angiopathy with gangrene; I96 Gangrene, not elsewhere classified | CPT/HCPCS: 11042; 11045 ==

== ENCOUNTER → 2019-05-10 | Outpatient (CLI) | payer MEDICARE, OTHER ==
[~2019-05-10] MED LIST changes: -CALC500T3 PO; +CALC500T64 PO; -OMEP20CA12 PO; +OMEP20CA13 PO; -TIZA4TAB3 PO; +TIZA4TAB4 PO
== END ==
LOC: WOUNDCARE 13:00
PROVIDERS: ATTEND Surgery
DX: S81.811A Laceration without foreign body, right lower leg, initial encounter (principal); L97.225 Non-pressure chronic ulcer of left calf with muscle involvement without evidence of necrosis; I70.242 Atherosclerosis of native arteries of left leg with ulceration of calf; I87.332 Chronic venous hypertension (idiopathic) with ulcer and inflammation of left lower extremity; E11.622 Type 2 diabetes mellitus with other skin ulcer; E11.52 Type 2 diabetes mellitus with diabetic peripheral angiopathy with gangrene; E11.22 Type 2 diabetes mellitus with diabetic chronic kidney disease; I96 Gangrene, not elsewhere classified; N18.4 Chronic kidney disease, stage 4 (severe); S81.812A Laceration without foreign body, left lower leg, initial encounter
CPT/HCPCS: 99213

== ENCOUNTER → 2019-05-17 | Outpatient (CLI) | payer MEDICARE, OTHER | LOC: WOUNDCARE 13:16 | PROVIDERS: ATTEND Surgery | DX: S81.811A Laceration without foreign body, right lower leg, initial encounter (principal); L97.225 Non-pressure chronic ulcer of left calf with muscle involvement without evidence of necrosis; I70.242 Atherosclerosis of native arteries of left leg with ulceration of calf; I87.332 Chronic venous hypertension (idiopathic) with ulcer and inflammation of left lower extremity; E11.622 Type 2 diabetes mellitus with other skin ulcer; E11.22 Type 2 diabetes mellitus with diabetic chronic kidney disease; N18.4 Chronic kidney disease, stage 4 (severe); E11.52 Type 2 diabetes mellitus with diabetic peripheral angiopathy with gangrene; I96 Gangrene, not elsewhere classified | CPT/HCPCS: 11042; 11045 ==

== ENCOUNTER → 2019-05-25 | Outpatient (CLI) | payer MEDICARE, OTHER | LOC: WOUNDCARE 13:23 | PROVIDERS: ATTEND Surgery | DX: E11.622 Type 2 diabetes mellitus with other skin ulcer (principal); E11.52 Type 2 diabetes mellitus with diabetic peripheral angiopathy with gangrene; E11.22 Type 2 diabetes mellitus with diabetic chronic kidney disease; N18.4 Chronic kidney disease, stage 4 (severe); I70.262 Atherosclerosis of native arteries of extremities with gangrene, left leg; I87.332 Chronic venous hypertension (idiopathic) with ulcer and inflammation of left lower extremity; L97.222 Non-pressure chronic ulcer of left calf with fat layer exposed; S81.811A Laceration without foreign body, right lower leg, initial encounter | CPT/HCPCS: 11042; 11045 ==

== ENCOUNTER → 2019-06-01 | Outpatient (CLI) | payer MEDICARE | LOC: WOUNDCARE 13:11 | PROVIDERS: ATTEND Surgery | DX: E11.622 Type 2 diabetes mellitus with other skin ulcer (principal); E11.52 Type 2 diabetes mellitus with diabetic peripheral angiopathy with gangrene; E11.22 Type 2 diabetes mellitus with diabetic chronic kidney disease; I70.262 Atherosclerosis of native arteries of extremities with gangrene, left leg; L97.222 Non-pressure chronic ulcer of left calf with fat layer exposed; I87.332 Chronic venous hypertension (idiopathic) with ulcer and inflammation of left lower extremity; N18.4 Chronic kidney disease, stage 4 (severe) | CPT/HCPCS: 11042; 11045 ==

== ENCOUNTER → 2019-06-06 | Outpatient (CLI) | payer MEDICARE ==
[2019-06-06 09:39] LABS: CREATININE SERUM 1.94 MG/DL (0.60-1.30); POTASSIUM 4.7 MMOL/L (3.6-5.0)
== END ==
LOC: LAB 08:47
PROVIDERS: ATTEND Thoracic Surgery (Cardiothoracic Vascular Surgery)
DX: I73.9 Peripheral vascular disease, unspecified (principal); I10 Essential (primary) hypertension
CPT/HCPCS: 36415; 80048

== ENCOUNTER → 2019-06-08 | Outpatient (CLI) | payer MEDICARE | LOC: WOUNDCARE 13:49 | PROVIDERS: ATTEND Surgery | DX: L97.222 Non-pressure chronic ulcer of left calf with fat layer exposed (principal); I87.332 Chronic venous hypertension (idiopathic) with ulcer and inflammation of left lower extremity; I70.242 Atherosclerosis of native arteries of left leg with ulceration of calf; E11.622 Type 2 diabetes mellitus with other skin ulcer; E11.22 Type 2 diabetes mellitus with diabetic chronic kidney disease; N18.4 Chronic kidney disease, stage 4 (severe); S81.811A Laceration without foreign body, right lower leg, initial encounter; E11.52 Type 2 diabetes mellitus with diabetic peripheral angiopathy with gangrene; I96 Gangrene, not elsewhere classified | CPT/HCPCS: 11042; 11045 ==

== ENCOUNTER → 2019-06-15 | Outpatient (CLI) | payer MEDICARE | LOC: WOUNDCARE 13:52 | PROVIDERS: ATTEND Surgery | DX: L97.222 Non-pressure chronic ulcer of left calf with fat layer exposed (principal); I87.332 Chronic venous hypertension (idiopathic) with ulcer and inflammation of left lower extremity; I70.242 Atherosclerosis of native arteries of left leg with ulceration of calf; E11.622 Type 2 diabetes mellitus with other skin ulcer; E11.22 Type 2 diabetes mellitus with diabetic chronic kidney disease; N18.4 Chronic kidney disease, stage 4 (severe); S81.811A Laceration without foreign body, right lower leg, initial encounter; E11.52 Type 2 diabetes mellitus with diabetic peripheral angiopathy with gangrene; I96 Gangrene, not elsewhere classified | CPT/HCPCS: 11042 ==

== ENCOUNTER → 2019-06-22 | Outpatient (CLI) | payer MEDICARE | LOC: WOUNDCARE 13:12 | PROVIDERS: ATTEND Surgery | DX: L97.222 Non-pressure chronic ulcer of left calf with fat layer exposed (principal); I87.332 Chronic venous hypertension (idiopathic) with ulcer and inflammation of left lower extremity; I70.232 Atherosclerosis of native arteries of right leg with ulceration of calf; E11.622 Type 2 diabetes mellitus with other skin ulcer; E11.22 Type 2 diabetes mellitus with diabetic chronic kidney disease; N18.4 Chronic kidney disease, stage 4 (severe); S81.811A Laceration without foreign body, right lower leg, initial encounter; E11.52 Type 2 diabetes mellitus with diabetic peripheral angiopathy with gangrene; I96 Gangrene, not elsewhere classified | CPT/HCPCS: 11042 ==

== ENCOUNTER → 2019-06-29 | Outpatient (CLI) | payer MEDICARE, OTHER ==
[2019-06-29 14:39] LABS: CHOLESTEROL 172 MG/DL (< 200); HDL CHOLESTEROL 49 MG/DL (40-60); TRIGLYCERIDES 139 MG/DL (<150); VLDL CHOLESTEROL 28 MG/DL (5-40)
== END ==
LOC: LAB 13:25
PROVIDERS: ATTEND Family Medicine
DX: E11.22 Type 2 diabetes mellitus with diabetic chronic kidney disease (principal); I12.9 Hypertensive chronic kidney disease with stage 1 through stage 4 chronic kidney disease, or unspecified chronic kidney disease; N18.4 Chronic kidney disease, stage 4 (severe)
CPT/HCPCS: 36415; 80061

== ENCOUNTER → 2019-06-29 | Outpatient (CLI) | payer MEDICARE, OTHER | LOC: WOUNDCARE 13:23 | PROVIDERS: ATTEND Surgery | DX: L97.222 Non-pressure chronic ulcer of left calf with fat layer exposed (principal); I87.332 Chronic venous hypertension (idiopathic) with ulcer and inflammation of left lower extremity; I70.242 Atherosclerosis of native arteries of left leg with ulceration of calf; E11.622 Type 2 diabetes mellitus with other skin ulcer; E11.52 Type 2 diabetes mellitus with diabetic peripheral angiopathy with gangrene; I96 Gangrene, not elsewhere classified; E11.22 Type 2 diabetes mellitus with diabetic chronic kidney disease; N18.4 Chronic kidney disease, stage 4 (severe); S81.811A Laceration without foreign body, right lower leg, initial encounter | CPT/HCPCS: 11042 ==

== ENCOUNTER → 2019-07-06 | Outpatient (CLI) | payer MEDICARE ==
[2019-07-06 13:17] LABS: BASOPHILS % (AUTO) 0 % (0-10); EOSINOPHILS # (AUTO) 0.3 10^3/uL (0.0-0.3); EOSINOPHILS % (AUTO) 4 % (0-10); HEMATOCRIT 32 % (35-52); HEMOGLOBIN 10.1 G/DL (11.5-16.0); LYMPHOCYTES # (AUTO) 1.8 X 10^3 (1.0-4.0); LYMPHOCYTES % (AUTO) 21 % (12-44); MEAN CORPUSCULAR HEMOGLOBIN 29 PG (25-34); MEAN CORPUSCULAR HGB CONC 32 G/DL (32-36); MEAN CORPUSCULAR VOLUME 90 FL (80-99); MONOCYTES # (AUTO) 0.5 X 10^3 (0.0-1.0); MONOCYTES % (AUTO) 6 % (0-12); NEUTROPHILS # (AUTO) 5.8 X 10^3 (1.8-7.8); NEUTROPHILS % (AUTO) 69 % (42-75); PLATELET COUNT 366 10^3/uL (130-400); RED CELL DISTRIBUTION WIDTH 14.5 % (10.0-14.5); WHITE BLOOD COUNT 8.5 10^3/uL (4.3-11.0)
== END ==
LOC: LAB 12:53
PROVIDERS: ATTEND Family Medicine
DX: I12.9 Hypertensive chronic kidney disease with stage 1 through stage 4 chronic kidney disease, or unspecified chronic kidney disease (principal); E11.22 Type 2 diabetes mellitus with diabetic chronic kidney disease; N18.4 Chronic kidney disease, stage 4 (severe)
CPT/HCPCS: 36415; 82306; 85025

== ENCOUNTER → 2019-07-06 | Outpatient (CLI) | payer MEDICARE | LOC: WOUNDCARE 13:24 | PROVIDERS: ATTEND Surgery | DX: L97.222 Non-pressure chronic ulcer of left calf with fat layer exposed (principal); I87.332 Chronic venous hypertension (idiopathic) with ulcer and inflammation of left lower extremity; I70.242 Atherosclerosis of native arteries of left leg with ulceration of calf; E11.622 Type 2 diabetes mellitus with other skin ulcer; E11.22 Type 2 diabetes mellitus with diabetic chronic kidney disease; N18.4 Chronic kidney disease, stage 4 (severe); S81.811A Laceration without foreign body, right lower leg, initial encounter; E11.52 Type 2 diabetes mellitus with diabetic peripheral angiopathy with gangrene | CPT/HCPCS: 11042 ==

== ENCOUNTER → 2019-07-13 | Outpatient (CLI) | payer MEDICARE | LOC: WOUNDCARE 13:31 | PROVIDERS: ATTEND Surgery | DX: L97.222 Non-pressure chronic ulcer of left calf with fat layer exposed (principal); I87.332 Chronic venous hypertension (idiopathic) with ulcer and inflammation of left lower extremity; I70.242 Atherosclerosis of native arteries of left leg with ulceration of calf; E11.622 Type 2 diabetes mellitus with other skin ulcer; E11.22 Type 2 diabetes mellitus with diabetic chronic kidney disease; N18.4 Chronic kidney disease, stage 4 (severe); S81.811A Laceration without foreign body, right lower leg, initial encounter; E11.52 Type 2 diabetes mellitus with diabetic peripheral angiopathy with gangrene | CPT/HCPCS: 11042 ==

== ENCOUNTER → 2019-07-20 | Outpatient (CLI) | payer MEDICARE | LOC: WOUNDCARE 13:45 | PROVIDERS: ATTEND Surgery | DX: L97.222 Non-pressure chronic ulcer of left calf with fat layer exposed (principal); I87.332 Chronic venous hypertension (idiopathic) with ulcer and inflammation of left lower extremity; I70.242 Atherosclerosis of native arteries of left leg with ulceration of calf; E11.622 Type 2 diabetes mellitus with other skin ulcer; E11.22 Type 2 diabetes mellitus with diabetic chronic kidney disease; N18.4 Chronic kidney disease, stage 4 (severe); S81.811A Laceration without foreign body, right lower leg, initial encounter | CPT/HCPCS: 99212 ==

== ENCOUNTER → 2019-08-03 | Outpatient (CLI) | payer MEDICARE | LOC: WOUNDCARE 10:40 | PROVIDERS: ATTEND Surgery | DX: L97.222 Non-pressure chronic ulcer of left calf with fat layer exposed (principal); I87.332 Chronic venous hypertension (idiopathic) with ulcer and inflammation of left lower extremity; I70.242 Atherosclerosis of native arteries of left leg with ulceration of calf; E11.622 Type 2 diabetes mellitus with other skin ulcer; E11.22 Type 2 diabetes mellitus with diabetic chronic kidney disease; N18.4 Chronic kidney disease, stage 4 (severe); E11.52 Type 2 diabetes mellitus with diabetic peripheral angiopathy with gangrene | CPT/HCPCS: 29581 ==

== ENCOUNTER → 2019-08-03 | Outpatient (CLI) | payer MEDICARE ==
[2019-08-03 13:11] LABS: BILIRUBIN,TOTAL 0.2 MG/DL (0.1-1.0); CALCIUM 9.4 MG/DL (8.5-10.1); CREATININE SERUM 2.03 MG/DL (0.60-1.30); POTASSIUM 4.3 MMOL/L (3.6-5.0); TOTAL PROTEIN 7.3 GM/DL (6.4-8.2)
== END ==
LOC: LAB 12:26
PROVIDERS: ATTEND Surgery
DX: E11.622 Type 2 diabetes mellitus with other skin ulcer (principal); L97.222 Non-pressure chronic ulcer of left calf with fat layer exposed
CPT/HCPCS: 36415; 80053; 83036; 84134

== ENCOUNTER → 2019-08-05 | Outpatient (CLI) | payer MEDICARE | LOC: WOUNDCARE 12:55 | PROVIDERS: ATTEND Nurse Practitioner | DX: L97.219 Non-pressure chronic ulcer of right calf with unspecified severity (principal) | CPT/HCPCS: 29581 ==

== ENCOUNTER → 2019-08-10 | Outpatient (CLI) | payer MEDICARE | LOC: WOUNDCARE 13:55 | PROVIDERS: ATTEND Surgery | DX: L97.222 Non-pressure chronic ulcer of left calf with fat layer exposed (principal); I87.332 Chronic venous hypertension (idiopathic) with ulcer and inflammation of left lower extremity; I70.242 Atherosclerosis of native arteries of left leg with ulceration of calf; E11.622 Type 2 diabetes mellitus with other skin ulcer; E11.52 Type 2 diabetes mellitus with diabetic peripheral angiopathy with gangrene; E11.22 Type 2 diabetes mellitus with diabetic chronic kidney disease; N18.4 Chronic kidney disease, stage 4 (severe) | CPT/HCPCS: 11042 ==

== ENCOUNTER → 2019-08-17 | Outpatient (CLI) | payer MEDICARE | LOC: WOUNDCARE 10:45 | PROVIDERS: ATTEND Surgery | DX: E11.622 Type 2 diabetes mellitus with other skin ulcer (principal); E11.22 Type 2 diabetes mellitus with diabetic chronic kidney disease; L97.222 Non-pressure chronic ulcer of left calf with fat layer exposed; I87.332 Chronic venous hypertension (idiopathic) with ulcer and inflammation of left lower extremity; I70.242 Atherosclerosis of native arteries of left leg with ulceration of calf; N18.4 Chronic kidney disease, stage 4 (severe) | CPT/HCPCS: 99212 ==

== ENCOUNTER 2019-12-10 09:42 | Emergency (ER) | payer MEDICARE, OTHER ==
[~2019-12-10] VITALS: Ht 154.9 cm; Wt 58.0 kg
[~2019-12-10 09:42] MED LIST changes: -GARL500C PO; +GARL500C11 PO; +OMEP-280 PO; -OMEP20CA13 PO; -TRAM50TA2 PO; -TRAZ-222 PO; +TRM50T PO; +TRZ50T PO
--- NOTE | 2019-12-10 09:44 | NUR ---
Arrival to ED ambulatory with family reporting patient c/o feeling weak, symptom reported dry mouth. Denies SOA, CP, or generalized pain at this time. Pt saw Dr Park's RESHIPPING CLERK on 12/06/19 and management of uncontrolled HTN continues with additional adjustments yesterday. Pt was stopped on Spironolactone as hx Stage III CKD with worsening functions recently. Pt started on Hydralazine 25 mg to take q 12 hrs and add prn dose for systolic >170 and diastolic>90. So may have up to every 6 hrs. The phone call follow up 12/09/[address] office finds report the patients NIBP remains >200 systolic. The office ordered 2 tabs Hydralazine TID. Pt did take these scheduled doses Thursday and awakens in the night with excessive dry mouth and tongue and feeling weak when getting up from supine position. Pt also has been told magnesium low and replacement magnesium caused diarrhea so patient stopped Mag 400mg. Clinic advised to cut dose in half and unclear if patient is taking it.
--- NOTE | 2019-12-10 10:06 | ED Neurological Problem ---
General Stated Complaint: WEAK,DEHYDRATED,BALANCE OFF Source: patient, family Exam Limitations: no limitations History of Present Illness Date Seen by Provider: Dec 10, 2019 Time Seen by Provider: 09:51 Initial Comments Patient complaints of feeling off balance and possibly dizzy. She does not describe whirling spinning or vertiginous symptoms. This started in the middle the night after she had readjusted her blood pressure medication yesterday by increasing her dose of hydralazine. She also had her diuretics discontinued because of volume depletion and beginning creatinine abnormalities. She denies fever chills dysuria chest pain shortness of breath Allergies and Home Medications Allergies Coded Allergies: doxycycline (Verified Allergy, Unknown, 04/02/19) isosorbide (Verified Allergy, Unknown, 04/02/19) pitavastatin (Verified Allergy, Unknown, 04/02/19) shrimp (Verified Allergy, Unknown, 04/02/19) Uncoded Allergies: IV CONTRAST (Allergy, Unknown, 04/02/19) MIRATAZAPINE (Allergy, Unknown, 04/02/19) Home Medications Alprazolam 0.25 Mg Tablet, 0.25 MG PO HS, (Reported) Amlodipine Besylate 5 Mg Tablet, 5 MG PO DAILY, (Reported) Ascorbic Acid 250 Mg Tab, 250 MG PO DAILY, (Reported) Aspirin 81 Mg Tablet.dr, 81 MG PO DAILY, (Reported) Calcium Carbonate 500 Mg Tablet, 2,000 MG PO DAILY, (Reported) Cholecalciferol (Vitamin D3) 2,000 Unit Tablet, 2,000 UNIT PO DAILY, (Reported) Clindamycin HCl 300 Mg Capsule, 300 MG PO TID Prescribed by: AMANDEEP MONTEZ on 04/12/19 0836 Cyclobenzaprine HCl 10 Mg Tablet, 10 MG PO TID, (Reported) Diltiazem HCl 180 Mg Cap.er.24h, 180 MG PO DAILY, (Reported) Ergocalciferol (Vitamin D2) 50,000 Unit Capsule, 50,000 UNIT PO WEEK, (Reported) Fexofenadine HCl 180 Mg Tablet, 180 MG PO DAILY, (Reported) Fluoxetine HCl 20 Mg Capsule, 20 MG PO DAILY, (Reported) Fluticasone Propionate 9.9 Ml [place].susp, 2 SPRAY NS HS, (Reported) 2 SPRAYS PER NOSTRIL DAILY X 2 DAYS THEN 1 SPRAY DAILY Furosemide 20 Mg Tablet, 20 MG PO UD, (Reported) Garlic 500 Mg Capsule, 500 MCG PO DAILY, (Reported) Hydrocodone/Acetaminophen 1 Each Tablet, 1 TAB PO Q8H Prescribed by: AMANDEEP MONTEZ on 04/12/19 0834 Hydroxyzine HCl 25 Mg Tablet, 25 MG PO TID, (Reported) Lactobacillus Combination No.4 1 Each Capsule, 1 EACH PO DAILY, (Reported) Levalbuterol HCl 0.63 Mg/3 Ml Vial.neb, 2 PUFF INH Q4H, (Reported) Levothyroxine Sodium 75 Mcg Tablet, 75 MCG PO DAILY, (Reported) Magnesium Amino Acid Chelate 100 Mg Tablet, 200 MG PO DAILY, (Reported) Melatonin 10 Mg Tab.rapdis, 10 MG PO HS, (Reported) Om-3/Dha/Epa/Fish Oil/L. Casei 1 Each Capsule, 1 EACH PO DAILY, (Reported) Omeprazole 20 Mg Capsule.dr, 20 MG PO DAILY, (Reported) Pitavastatin Calcium 2 Mg Tablet, 2 MG PO DAILY, (Reported) Ranolazine 500 Mg Tab.er.12h, 500 MG PO Q12H, (Reported) Sennosides 8.6 Mg Tablet, 8.6 MG PO DAILY, (Reported) Temazepam 15 Mg Capsule, 15 MG PO HS, (Reported) Tizanidine HCl 4 Mg Tablet, 4 MG PO Q8H, (Reported) Tramadol HCl 50 Mg Tablet, 100 MG PO Q6H, (Reported) Trazodone HCl 50 Mg Tablet, 50 MG PO DAILY, (Reported) Trazodone HCl 50 Mg Tablet, 50 MG PO HS, (Reported) Ubidecarenone 50 Mg Capsule, 100 MG PO DAILY, (Reported) Umeclidinium Brm/Vilanterol Tr 1 Each Blst.w.dev, 1 EACH IH DAILY, (Reported) [Multivitamin ] , 1 TAB PO DAILY, (Reported) Patient Home Medication List Home Medication List Reviewed: Yes Review of Systems Review of Systems Constitutional: No chills, No fever; weakness Eyes: No Symptoms Reported; Denies Blindness, Denies Blurred Vision, Denies Vision Changes Ears, Nose, Mouth, Throat: no symptoms reported, mouth pain (dry mouth) Respiratory: no symptoms reported; No cough, No dyspnea on exertion Cardiovascular: no symptoms reported; No chest pain, No edema Gastrointestinal: no symptoms reported Genitourinary: no symptoms reported Musculoskeletal: No no symptoms reported Skin: no symptoms reported Under neurologic there's been no change in speech no change in vision no loss of use of arms or legs and the family did report some what appeared to be confusion this morning since resolved Past Qfatrgg-Ndcana-Xjwglp Hx Patient Social History Type Used: Cigarettes Former Smoker, Quit: Sep 25, 2008 2nd Hand Smoke Exposure: No Recent Foreign Travel: No Contact w/Someone Who Travel: No Recent Hopitalizations: No Seasonal Allergies Seasonal Allergies: No Past Medical History Surgeries: Yes (Carotid endarterectomy, carpal tunnel release, Rt Nephrectomy) Appendectomy, Cardiac, Gallbladder, Nephrectomy, Orthopedic Respiratory: Yes (mycobacterium avium-intracellulare complex) COPD Cardiac: Yes Coronary Artery Disease, Hypertension 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 6.0oz. 59.999905go; 24.6 BMI Method:Stated General Appearance: WD/WN, no apparent distress HEENT: PERRL/EOMI, normal ENT inspection, pharynx normal Neck: non-tender, full range of motion, normal inspection Respiratory: chest non-tender, lungs clear, normal breath sounds, no respiratory distress Cardiovascular: normal peripheral pulses, regular rate, rhythm, no edema Gastrointestinal: normal bowel sounds, non tender, soft, no organomegaly Back: normal inspection, no CVA tenderness, no vertebral tenderness Extremities: normal range of motion, non-tender, normal inspection, no pedal edema Neurologic/Psychiatric: 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 II-XII nml as tested, no motor/sensory deficits, alert, oriented x 3 Crainal Nerves: No normal hearing (hard of hearing) Coordination/Gait: normal finger to nose, normal gait, negative Romberg's sign Motor/Sensory: no motor deficit, no sensory deficit, no pronator drift Reflexes: 3+ Bicep (R), 3+ Bicep (L), 3+ Tricep (R), 3+ Tricep (L), 3+ Ankle (R), 3+ Ankle (L) Skin: normal color, warm/dry Lymphatic: no adenopathy Focused Exam Lactate Level 12/10/19 10:50: Lactic Acid Level Laboratory Tests Test 12/10/19 10:50 Progress/Results/Core Measures Results/Orders Lab Results Laboratory Tests Test 12/10/19 10:50 12/10/19 11:12 Range/Units White Blood Count 9.0 4.3-11.0 10^3/uL Red Blood Count 3.73 L 4.35-5.85 10^6/uL Hemoglobin 10.3 L 11.5-16.0 G/DL Hematocrit 33 L 35-52 % Mean Corpuscular Volume 88 80-99 FL Mean Corpuscular Hemoglobin 28 25-34 PG Mean Corpuscular Hemoglobin Concent 32 32-36 G/DL Red Cell Distribution Width 15.1 H 10.0-14.5 % Platelet Count 341 130-400 10^3/uL Mean Platelet Volume 9.3 7.4-10.4 FL Neutrophils (%) (Auto) 75 42-75 % Lymphocytes (%) (Auto) 15 12-44 % Monocytes (%) (Auto) 6 0-12 % Eosinophils (%) (Auto) 2 0-10 % Basophils (%) (Auto) 1 0-10 % Neutrophils # (Auto) 6.8 1.8-7.8 X 10^3 Lymphocytes # (Auto) 1.4 1.0-4.0 X 10^3 Monocytes # (Auto) 0.6 0.0-1.0 X 10^3 Eosinophils # (Auto) 0.2 0.0-0.3 10^3/uL Basophils # (Auto) 0.1 0.0-0.1 10^3/uL Neutrophils % (Manual) 61 % Lymphocytes % (Manual) 12 % Monocytes % (Manual) 5 % Eosinophils % (Manual) 3 % Basophils % (Manual) 1 % Metamyelocytes % 1 % Band Neutrophils 17 % Sodium Level 133 L 135-145 MMOL/L Potassium Level 5.5 H 3.6-5.0 MMOL/L Chloride Level 100 98-107 MMOL/L Carbon Dioxide Level 18 L 21-32 MMOL/L Anion Gap 15 H 5-14 MMOL/L Blood Urea Nitrogen 32 H 7-18 MG/DL Creatinine 2.16 H 0.60-1.30 MG/DL Estimat Glomerular Filtration Rate 22 BUN/Creatinine Ratio 15 Glucose Level 116 H 70-105 MG/DL Calcium Level 9.4 8.5-10.1 MG/DL Corrected Calcium 9.6 8.5-10.1 MG/DL Magnesium Level 1.4 L 1.6-2.4 MG/DL Total Bilirubin 0.2 0.1-1.0 MG/DL Aspartate Amino Transf (AST/SGOT) 21 5-34 U/L Alanine Aminotransferase (ALT/SGPT) 9 0-55 U/L Alkaline Phosphatase 56 40-136 U/L Troponin I < 0.30 <0.30 NG/ML Pro-B-Type Natriuretic Peptide 7125.0 H <75.0 PG/ML Total Protein 6.8 6.4-8.2 GM/DL Albumin 3.7 3.2-4.5 GM/DL Urine Color YELLOW Urine Clarity CLEAR Urine pH 7.5 5-9 Urine Specific [place] 1.020 1.016-1.022 Urine Protein 3+ H NEGATIVE Urine Glucose (UA) NEGATIVE NEGATIVE Urine Ketones NEGATIVE NEGATIVE Urine Nitrite NEGATIVE NEGATIVE Urine Bilirubin NEGATIVE NEGATIVE Urine Urobilinogen 0.2 < = 1.0 MG/DL Urine Leukocyte Esterase TRACE H NEGATIVE Urine RBC (Auto) TRACE H NEGATIVE Urine RBC RARE /HPF Urine WBC 2-5 /HPF Urine Squamous Epithelial Cells 2-5 /HPF Urine Crystals NONE /LPF Urine Bacteria TRACE /HPF Urine Casts NONE /LPF Urine Mucus NONE /LPF Urine Culture Indicated NO My Orders Orders - CHANTAL LOPEZ B DO Ct Head Wo (12/10/19 10:12) Cbc And Manual Diff (12/10/19 10:12) Comprehensive Metabolic Panel (12/10/19 10:12) Troponin I Fs (12/10/19 10:12) Ekg Tracing (12/10/19 10:12) Chest 1 View Ap/Pa Only (12/10/19 10:12) Lactic Acid Analyzer (12/10/19 10:12) Ua Culture If Indicated (12/10/19 10:12) Probnp Fs (12/10/19 10:12) Orthostatic Vital Signs (Adult (12/10/19 10:12) Magnesium (12/10/19 10:33) Ns (Ivpb) (Sodium C... W/Nicardipine Iv (12/10/19 12:15) Magnesium 1 Gm/100 Ml Ivpb (Magnesium [place] (12/10/19 12:45) Vital Signs/I&O 12/10/19 12/10/19 09:44 11:00 Temp 36.7 Pulse 86 77 82 97 Resp 20 B/P (MAP) 210/83 (125) 192/85 (120) 157/109 (125) 144/68 (93) Pulse Ox 96 O2 Delivery Room Air Progress Progress Note : Progress Note Patient presents with elevated blood pressure and some weakness and out of balance. She has no headache no neurologic deficits other than some confusion which seems to have resolved. She says she still feels somewhat dizzy though all of but she walked into the department with a steady gait Romberg's and gait testing at bedside were normal differential is broad given her past history of renal failure diuretic changes blood pressure medicine changes could be a combination of entities as well as ACS CHF and CVA plan will be broad testing including advanced neuro imaging cardiac and chemistry testing EKG and blood pressure monitoring Discussed the case with the program management intern at [facility] who accepts the patient in admission for blood pressure control FELIPE treatment orthostatic treatment replacement of her magnesium Initial ECG Impression Date: Dec 10, 2019 Initial ECG Impression Time: 10:26 Initial ECG Rate: 75 Initial ECG Rhythm: Normal Sinus Initial ECG Intervals: Normal Initial ECG Impression: Normal EKG : Rhythm: Normal Sinus Intervals: Normal ECG Comparisson: No Previous ECG Available ECG Impression: Normal Departure Impression Primary Impression: FELIPE (acute kidney injury) Additional Impressions: Hypertension Orthostasis Hyperkalemia Disposition: T-TRM HOSP Condition: Improved Admissions Decision to Admit Reason: Admit from ER (General) Decision to Admit/Date: Dec 10, 2019 Time/Decision to Admit Time: 12:42 Transfer Transfer Reason: Exceeds level of care Time Spoke to Accepting Phy: 12:43 Transfer Progress Notes Discussed the case with the program management intern at [facility] who accepts the patient for admission Transfer Time: 12:43 Transfer Facility: [facility] step down Dr. Licea Method of Transfer: EMS Departure-Patient Inst. Referrals: SELF,TYE ELAINE (PCP/Family) Primary Care Physician CHANTAL LOPEZ DO Dec 10, 2019 10:06
[2019-12-10 11:00] VITALS: BP_SYST 144; BP_SYST 157; BP_SYST 192; BP_DIAS 109; BP_DIAS 68; BP_DIAS 85
--- NOTE | 2019-12-10 11:00 | NUR ---
Orthostatic BP's taken: lying 192/85, P-79 sitting 157/109, P-82 standing 144/68, P-97. Reported to Dr Stack.
[2019-12-10 11:04] LABS: HEMOGLOBIN 10.3 G/DL (11.5-16.0); MEAN CORPUSCULAR HEMOGLOBIN 28 PG (25-34)
[2019-12-10 11:05] LABS: BASOPHILS # (AUTO) 0.1 10^3/uL (0.0-0.1); BASOPHILS % (AUTO) 1 % (0-10); EOSINOPHILS # (AUTO) 0.2 10^3/uL (0.0-0.3); EOSINOPHILS % (AUTO) 2 % (0-10); HEMATOCRIT 33 % (35-52); LYMPHOCYTES # (AUTO) 1.4 X 10^3 (1.0-4.0); LYMPHOCYTES % (AUTO) 15 % (12-44); MEAN CORPUSCULAR HGB CONC 32 G/DL (32-36); MEAN CORPUSCULAR VOLUME 88 FL (80-99); MEAN PLATELET VOLUME 9.3 FL (7.4-10.4); MONOCYTES # (AUTO) 0.6 X 10^3 (0.0-1.0); MONOCYTES % (AUTO) 6 % (0-12); NEUTROPHILS # (AUTO) 6.8 X 10^3 (1.8-7.8); NEUTROPHILS % (AUTO) 75 % (42-75); PLATELET COUNT 341 10^3/uL (130-400); RED CELL DISTRIBUTION WIDTH 15.1 % (10.0-14.5)
--- NOTE | 2019-12-10 11:06 | Diagnostic Imaging Report ---
PROCEDURE: CT head without contrast. TECHNIQUE: Multiple contiguous axial images were obtained through the brain without the use of intravenous contrast. Auto Exposure Controls were utilized during the CT exam to meet ALARA standards for radiation dose reduction. INDICATION: Generalized weakness and hypertension. No comparison available FINDINGS: There is advanced global volume loss. There also are moderate to advanced chronic microvascular changes demonstrated within the white matter. There is no territorial loss of lindsey-white differentiation to suggest acute ischemia. There is no abnormal low density within the basal ganglia and bhupendra No findings of hemorrhage, mass effect, hydrocephalus or abnormal extra-axial collection. Mastoid air cells are clear. Visualized paranasal sinuses clear. Orbital contents unremarkable. No suspicious calvarial abnormality demonstrated IMPRESSION: 1. Advanced global volume loss with moderate to advanced chronic microvascular changes in the white matter. 2. No CT findings of an acute intracranial abnormality. Dictated by: Dictated on workstation # [id number]
--- NOTE | 2019-12-10 11:11 | Diagnostic Imaging Report ---
CHEST 1 VIEW AP/PA ONLY Indication: Weakness and hypertension Comparison: 10/15/2016 Findings: No focal airspace disease in the visualized lungs. Please note that the posterior lower lobes are poorly evaluated by portable radiography. No pleural effusion or pneumothorax. Normal cardiomediastinal silhouette. Hazy opacities of cardiac apex are compatible with mediastinal fat and are unchanged. Impression: 1. No acute cardiopulmonary process by portable radiography. Dictated by: Dictated on workstation # [id number]
--- NOTE | 2019-12-10 11:15 | NUR ---
Vitals post ambulating 206/63 and pulse 83.
[2019-12-10 11:18] LABS: BAND NEUTROPHILS 17 %; BASOPHILS % (MANUAL) 1 %; EOSINOPHILS % (MANUAL) 3 %; LYMPHOCYTES % (MANUAL) 12 %; METAMYELOCYTES % 1 %; MONOCYTES % (MANUAL) 5 %; NEUTROPHILS % (MANUAL) 61 %
[2019-12-10 11:34] LABS: BILIRUBIN,URINE NEGATIVE (NEGATIVE); CLARITY,URINE CLEAR; COLOR,URINE YELLOW; GLUCOSE, URINE (UA) NEGATIVE (NEGATIVE); KETONES,URINE NEGATIVE (NEGATIVE); LEUKOCYTE ESTERASE ,URINE TRACE (NEGATIVE); NITRITE,URINE NEGATIVE (NEGATIVE); PH,URINE 7.5 (5-9); PROTEIN,URINE 3+ (NEGATIVE)
[2019-12-10 11:35] LABS: BACTERIA,URINE TRACE /HPF; RBC,URINE RARE /HPF
[2019-12-10 11:36] LABS: ALKALINE PHOSPHATASE 56 U/L (40-136); BILIRUBIN,TOTAL 0.2 MG/DL (0.1-1.0); BUN/CREATININE RATIO 15; CALCIUM 9.4 MG/DL (8.5-10.1); CARBON DIOXIDE 18 MMOL/L (21-32); CHLORIDE 100 MMOL/L (98-107); CREATININE SERUM 2.16 MG/DL (0.60-1.30); GFR ESTIMATED 22; GLUCOSE 116 MG/DL (70-105); MAGNESIUM 1.4 MG/DL (1.6-2.4); POTASSIUM 5.5 MMOL/L (3.6-5.0); SODIUM 133 MMOL/L (135-145)
[2019-12-10 11:37] LABS: ALANINE AMINOTRANSFERASE 9 U/L (0-55); ALBUMIN 3.7 GM/DL (3.2-4.5); TOTAL PROTEIN 6.8 GM/DL (6.4-8.2)
[2019-12-10] MEDS ORDERED: niCARdipine IV 50 MG in NS (IVPB) 230 ML IV SCH (12:15)
[2019-12-10] MEDS ORDERED: NITRO DRIP 25000 MCG/D5W 250 ML IV SCH (12:15)
[2019-12-10] MEDS ORDERED: NS (IVPB) 250 ML ONE (12:43)
[2019-12-10] MEDS ORDERED: niCARdipine IV FOR DRIP 50 MG KIT ONE (12:43)
[2019-12-10] MEDS ORDERED: MAGNESIUM 1 GM/100 ML IVPB 100 ML IV SCH (12:45)
--- NOTE | 2019-12-10 13:10 | NUR ---
Began on niCARdipine drip at 5 mg/hr = 25 ml/hr. NIBP-213/83, P-73. Explained to patient and family this requires strict bedrest.
--- NOTE | 2019-12-10 13:30 | NUR ---
Discussed with Dr Stack the poor venous access and multiple attemples with 1 IV obtained 22 ga. The Magnesium is on hold till further access obtained.
--- NOTE | 2019-12-10 14:32 | NUR ---
[facility] with [facility] to ask for assist with transfer to [place] and there are no extra trucks on duty and decline.
--- NOTE | 2019-12-10 14:35 | NUR ---
Call to [facility] to request for mutual assistance to transfer a pt to [facility] on a Nicardepine drip for hypertension. Their county is also in route on transfer with a 3 hr [id number] to getting back into service.
--- NOTE | 2019-12-10 14:40 | NUR ---
Call to Shruthi BARRAGAN and spoke to 2 different stations and no one can take a transfer.
--- NOTE | 2019-12-10 14:55 | NUR ---
Call to [facility]ARRAG[facility] with referral from [facility] BARRAGAN that we are looking for mutual assist to transfer to [facility] a pt on cardiac monitoring with a Nicardipene drip.
--- NOTE | 2019-12-10 15:30 | NUR ---
Patient is resting with eyes closed. No verbalized c/o's.
--- NOTE | 2019-12-10 16:25 | NUR ---
Call placed to [facility] at [place] to request any assistance with ambulance for transfer.
--- NOTE | 2019-12-10 16:27 | NUR ---
Call from [facility] requesting update. Still on hold for transferring as no transportation. Recently placed request to [facility].
--- NOTE | 2019-12-10 16:30 | NUR ---
[facility] declined ability to assist.
--- NOTE | 2019-12-10 17:00 | NUR ---
[facility] updates that they are running the other transfer that is [place] to [place] from [facility] ER and will call next crew on return to [facility] line to respond to [facility] for this [facility] transfer.
--- NOTE | 2019-12-10 17:15 | NUR ---
Called [facility] dispatch to leave pending transfer info and inform that Livan GOODRICH notified Kvng KP in his return to [place] at this time to be prepared shortly for this next transfer.
--- NOTE | 2019-12-10 17:50 | NUR ---
Notified by Livan GOODRICH that they are going to call [facility] dispatch when back on county line from [place], dispatch already has our pending transfer info.
[2019-12-10] MEDS ORDERED: ACETAMINOPHEN 500 MG TAB (TYLENOL) ONE (17:59)
--- NOTE | 2019-12-10 18:05 | NUR ---
Stopped Nicardipine drip per Dr Stack verbal order NIBP down to systolics 140's; NIBP 148/72. End critical care time of frequent assessment of patient vitals with hypertension urgency.
[2019-12-10] MEDS ORDERED: MAGNESIUM 1 GM/100 ML IVPB 100 ML IV ONE (18:07)
[2019-12-10] MEDS ORDERED: ACETAMINOPHEN 500 MG TAB (TYLENOL) PO ONE (18:15)
--- NOTE | 2019-12-10 18:30 | NUR ---
Monitoring of frequent vitals recorded on monitor strips placed into chart. Remains Sinus rhythm without ectopy rate 70's.
[2019-12-10 18:35] VITALS: BP 149/67
--- NOTE | 2019-12-10 18:35 | NUR ---
Departing at this time to [facility] per [facility]. Pt is off Cardene drip 1805 for achieved NIBP goal and is on Magnesium 1 gm drip infusing to [place]. Delay in initiation r/t to limited IV access. Pt was near refusal to this medication as not taking at home as causes diarrhea. Pt hx of known hypomagnesium since 12/06/19 Lab value 1.2 at that time.
--- NOTE | 2019-12-10 18:40 | NUR ---
Called to [facility] Richey RN to update the patient report: 1) in route 1835, 2) Cardene drip stopped 1805 r/t achieving a NIBP range now down to 140's systolic, 3) Pt has used a bedpan numerous times while on strict bedrest on Cardene, 4) Pt is being transported with 1st bag Magnesium 1 GM infusing. Delay was related to poor venous access, 1 IV.
== END 2019-12-10 18:35 | disposition short-term general hospital (02) ==
LOC: EDUNIT# 09:42 → ER FS 09:43
DX: N17.9 Acute kidney failure, unspecified (principal); E11.22 Type 2 diabetes mellitus with diabetic chronic kidney disease; I12.9 Hypertensive chronic kidney disease with stage 1 through stage 4 chronic kidney disease, or unspecified chronic kidney disease; N18.9 Chronic kidney disease, unspecified; I95.1 Orthostatic hypotension; E87.5 Hyperkalemia; J44.9 Chronic obstructive pulmonary disease, unspecified; I25.10 Atherosclerotic heart disease of native coronary artery without angina pectoris; K21.9 Gastro-esophageal reflux disease without esophagitis; E03.9 Hypothyroidism, unspecified; F41.9 Anxiety disorder, unspecified; Z88.1 Allergy status to other antibiotic agents; Z91.041 Radiographic dye allergy status; Z90.5 Acquired absence of kidney; Z88.8 Allergy status to other drugs, medicaments and biological substances; Z79.82 Long term (current) use of aspirin; Z79.51 Long term (current) use of inhaled steroids
CPT/HCPCS: 36415; 70450; 71045; 80053; 81000; 83605; 83735; 83880; 84484; 85007; 85027; 93005; 96365; 96366; 96367

== ENCOUNTER → 2019-12-23 | Outpatient (CLI) | payer MEDICARE ==
[~2019-12-23] MED LIST changes: -HYDR-3812 PO; -OMEP-280 PO; +OMEP20CA18 PO
[2019-12-23 09:58] LABS: HEMOGLOBIN 9.3 G/DL (11.5-16.0); MEAN PLATELET VOLUME 9.4 FL (7.4-10.4); RED CELL DISTRIBUTION WIDTH 14.8 % (10.0-14.5); WHITE BLOOD COUNT 7.7 10^3/uL (4.3-11.0)
[2019-12-23 10:17] LABS: BACTERIA,URINE NEGATIVE /HPF; BILIRUBIN,URINE NEGATIVE (NEGATIVE); CLARITY,URINE CLEAR; COLOR,URINE YELLOW; GLUCOSE, URINE (UA) TRACE (NEGATIVE); KETONES,URINE NEGATIVE (NEGATIVE); LEUKOCYTE ESTERASE ,URINE NEGATIVE (NEGATIVE); NITRITE,URINE NEGATIVE (NEGATIVE); PROTEIN,URINE 3+ (NEGATIVE); RENAL EPITHELIAL CELLS,URINE 0-2 /HPF; SQUAMOUS EPITHELIAL CELL,UR 0-2 /HPF
[2019-12-23 14:56] LABS: PHOSPHORUS 3.3 MG/DL (2.3-4.7)
[2019-12-23 16:11] LABS: ALBUMIN 3.5 GM/DL (3.2-4.5); CALCIUM 8.9 MG/DL (8.5-10.1); CREATININE SERUM 1.62 MG/DL (0.60-1.30); POTASSIUM 4.4 MMOL/L (3.6-5.0)
== END ==
LOC: LAB FS 09:35
PROVIDERS: ATTEND Internal Medicine Nephrology
DX: I13.10 Hypertensive heart and chronic kidney disease without heart failure, with stage 1 through stage 4 chronic kidney disease, or unspecified chronic kidney disease (principal); E11.21 Type 2 diabetes mellitus with diabetic nephropathy; E78.5 Hyperlipidemia, unspecified; N18.4 Chronic kidney disease, stage 4 (severe); Q60.5 Renal hypoplasia, unspecified; Q60.2 Renal agenesis, unspecified; N25.0 Renal osteodystrophy; Z90.5 Acquired absence of kidney
CPT/HCPCS: 80069; 81000; 82570; 84100; 84156; 85027

== ENCOUNTER → 2019-12-23 | Outpatient (CLI) | payer MEDICARE ==
[2019-12-23 10:25] LABS: ALBUMIN 3.5 GM/DL (3.2-4.5); BILIRUBIN,TOTAL 0.2 MG/DL (0.1-1.0); CALCIUM 8.9 MG/DL (8.5-10.1); CREATININE SERUM 1.62 MG/DL (0.60-1.30); POTASSIUM 4.4 MMOL/L (3.6-5.0); TOTAL PROTEIN 6.5 GM/DL (6.4-8.2)
== END ==
LOC: LAB FS 09:33
PROVIDERS: ATTEND Family Medicine
DX: I95.1 Orthostatic hypotension (principal)
CPT/HCPCS: 36415; 80053

== ENCOUNTER → 2020-01-20 | Outpatient (CLI) | payer MEDICARE ==
[2020-01-20 10:43] LABS: HEMOGLOBIN 9.8 G/DL (11.5-16.0); WHITE BLOOD COUNT 8.4 10^3/uL (4.3-11.0)
[2020-01-20 10:44] LABS: MEAN PLATELET VOLUME 9.5 FL (7.4-10.4)
[2020-01-20 10:58] LABS: BACTERIA,URINE TRACE /HPF; BILIRUBIN,URINE NEGATIVE (NEGATIVE); CLARITY,URINE CLEAR; COLOR,URINE YELLOW; GLUCOSE, URINE (UA) NEGATIVE (NEGATIVE); KETONES,URINE NEGATIVE (NEGATIVE); LEUKOCYTE ESTERASE ,URINE TRACE (NEGATIVE); NITRITE,URINE NEGATIVE (NEGATIVE); PROTEIN,URINE 3+ (NEGATIVE); WBC,URINE 25-50 /HPF
[2020-01-20 10:59] LABS: GRANULAR CASTS,URINE RARE /LPF; SQUAMOUS EPITHELIAL CELL,UR 0-2 /HPF
[2020-01-20 15:03] LABS: PHOSPHORUS 4.7 MG/DL (2.3-4.7); URIC ACID 8.3 MG/DL (2.6-7.2)
[2020-01-20 15:28] LABS: POTASSIUM 4.9 MMOL/L (3.6-5.0)
[2020-01-20 15:29] LABS: CALCIUM 9.2 MG/DL (8.5-10.1); CREATININE SERUM 2.71 MG/DL (0.60-1.30)
[2020-01-20 15:32] LABS: ALBUMIN 3.8 GM/DL (3.2-4.5); MAGNESIUM 1.5 MG/DL (1.6-2.4)
== END ==
LOC: LAB FS 09:15
PROVIDERS: ATTEND Nurse Practitioner
DX: I13.10 Hypertensive heart and chronic kidney disease without heart failure, with stage 1 through stage 4 chronic kidney disease, or unspecified chronic kidney disease (principal); E11.21 Type 2 diabetes mellitus with diabetic nephropathy; N90.5 Atrophy of vulva; N25.0 Renal osteodystrophy; N18.4 Chronic kidney disease, stage 4 (severe); E78.5 Hyperlipidemia, unspecified; Z90.5 Acquired absence of kidney
CPT/HCPCS: 36415; 80061; 80069; 81000; 82306; 82570; 83735; 83970; 84156; 84550; 85027; 87088

== ENCOUNTER → 2020-01-30 | Outpatient (CLI) | payer MEDICARE ==
[2020-01-30 16:26] LABS: ALBUMIN 3.7 GM/DL (3.2-4.5); CALCIUM 9.2 MG/DL (8.5-10.1); CREATININE SERUM 2.49 MG/DL (0.60-1.30); POTASSIUM 5.3 MMOL/L (3.6-5.0)
[2020-01-30 18:59] LABS: PHOSPHORUS 3.6 MG/DL (2.3-4.7)
== END ==
LOC: LAB 13:13
PROVIDERS: ATTEND Nurse Practitioner
DX: E78.5 Hyperlipidemia, unspecified (principal); E11.21 Type 2 diabetes mellitus with diabetic nephropathy; E11.22 Type 2 diabetes mellitus with diabetic chronic kidney disease; I13.10 Hypertensive heart and chronic kidney disease without heart failure, with stage 1 through stage 4 chronic kidney disease, or unspecified chronic kidney disease; N18.4 Chronic kidney disease, stage 4 (severe); N25.0 Renal osteodystrophy; D63.1 Anemia in chronic kidney disease; R80.9 Proteinuria, unspecified; Z90.5 Acquired absence of kidney
CPT/HCPCS: 36415; 80069

== ENCOUNTER 2020-05-03 21:39 | Inpatient (IN) | payer MEDICARE ==
[~2020-05-03] VITALS: Ht 154.9 cm; Wt 67.7 kg
[~2020-05-03 21:39] MED LIST changes: -FLUT9.9S NS; +FLUT9.9S NSEACH; -GARL500C11 PO; +GARL500C2 PO
[2020-05-03] MEDS ORDERED: NS IV 1000 ML 1,000 ML ONE (21:55)
[2020-05-03] MEDS ORDERED: VANCOMYCIN INJECTION 1,000 MG in NS (IVPB) 250 ML IV ONE (22:00)
[2020-05-03] MEDS ORDERED: CEFEPIME INJECTION 1,000 MG in WATER (STERILE) FOR INJECTION 10 ML IV ONE (22:00)
[2020-05-03] MEDS ORDERED: NS IV 1000 ML 1,000 ML IV ONE (22:00)
--- NOTE | 2020-05-03 22:07 | ED General ---
General Stated Complaint: COVID-19 SYMPTOMS Source of Information: Patient, Family Exam Limitations: No Limitations History of Present Illness Date Seen by Provider: May 03, 2020 Time Seen by Provider: 21:44 Initial Comments Patient resents ER by private conveyance with chief complaint that she started feeling a little ill and shaky around 4:00 and her family the checked her fever and found it to be 103F. She has no known sick contacts but she was at a picnic for her 80th birthday this afternoon at noon. She has a history of a stent in her left ureter that being replaced every 6 months for the next one being due in less than a month. She is followed by nephrology at [place], [place]. She's not having a cough or shortness of air. She does have baseline oxygen dependence and COPD. She quit smoking 20 years ago. She does not drink alcohol or use recreational drugs. She took Tylenol and upon arrival nursing says her temperature is 37.5C. She says she's not feeling any symptoms right now. No dysuria nausea vomiting diarrhea constipation, sore throat, cough, wheezing. Family thought that she might of been a little confused earlier and this typically happens when she gets a bad urinary tract infection and needs her stent replaced. Allergies and Home Medications Allergies Coded Allergies: doxycycline (Verified Allergy, Unknown, 04/02/19) isosorbide (Verified Allergy, Unknown, 04/02/19) pitavastatin (Verified Allergy, Unknown, 04/02/19) shrimp (Verified Allergy, Unknown, 04/02/19) Uncoded Allergies: IV CONTRAST (Allergy, Unknown, 04/02/19) MIRATAZAPINE (Allergy, Unknown, 04/02/19) Home Medications Albuterol Sulfate 1 Puff Puff, 2 PUFF IH for SHORTNESS OF BREATH, (Reported) Amlodipine Besylate 5 Mg Tablet, 5 MG PO 1600, (Reported) Ascorbic Acid 250 Mg Tab, 250 MG PO DAILY, (Reported) Aspirin 81 Mg Tablet.dr, 81 MG PO DAILY, (Reported) Cholecalciferol (Vitamin D3) 50 Mcg Capsule, 50 MCG PO DAILY, (Reported) Clopidogrel Bisulfate 75 Mg Tablet, 75 MG PO DAILY, (Reported) Diltiazem HCl 180 Mg Cap.er.24h, 180 MG PO DAILY, (Reported) LAST FILLED 01-21-2020 #90) Ergocalciferol (Vitamin D2) 1,250 Mcg Capsule, 1,250 MCG PO THURSDAY, (Reported) Fexofenadine HCl 180 Mg Tablet, 180 MG PO DAILY PRN for ALLERGY SYMPTOMS, (Reported) Fluoxetine HCl 10 Mg Capsule, 10 MG PO DAILY, (Reported) PT TAKES 10MG & 20MG TO EQUAL 30MG DAILY Fluoxetine HCl 20 Mg Capsule, 20 MG PO DAILY, (Reported) TAKES 10MG + 20MG TO EQUAL 30 MG DAILY Fluticasone Propionate 9.9 Ml [place].susp, 2 SPRAY NSEACH HS PRN for CONGESTION, (Reported) Fluticasone/Salmeterol 1 Each Blst.w.dev, 1 EACH IH BID, (Reported) Levothyroxine Sodium 75 Mcg Tablet, 75 MCG PO DAILY, (Reported) Lisinopril 5 Mg Tablet, 5 MG PO DAILY, (Reported) Melatonin 10 Mg Tab.rapdis, 10 MG PO HS PRN for SLEEP, (Reported) Multivitamin 1 Each Tablet, 1 EACH PO DAILY, (Reported) Omeprazole 20 Mg Capsule.dr, 20 MG PO DAILY, (Reported) Sennosides 8.6 Mg Tablet, 8.6 MG PO DAILY PRN for CONSTIPATION-1ST LINE, (Reported) Temazepam 15 Mg Capsule, 15 MG PO HS, (Reported) Ubidecarenone 50 Mg Capsule, 100 MG PO DAILY, (Reported) Patient Home Medication List Home Medication List Reviewed: Yes Review of Systems Review of Systems Constitutional: chills, fever, malaise EENTM: No ear discharge, No ear pain Respiratory: No cough, No phlegm, No short of breath Cardiovascular: No edema, No vascular heart diseas Gastrointestinal: No abdominal pain, No constipation, No diarrhea, No nausea, No vomiting Genitourinary: see HPI; No discharge, No dysuria Musculoskeletal: No back pain, No joint pain Skin: No pruritus, No rash Psychiatric/Neurological: Denies Anxiety, Denies Depressed, Denies Headache, Denies Numbness, Denies Paresthesia All Other Systems Reviewed Negative Unless Noted: Yes Past Lobexyt-Mpgkcx-Rrpoxr Hx Patient Social History Alcohol Use: Denies Use Recreational Drug Use: No Smoking Status: Former Smoker Type Used: Cigarettes Former Smoker, Quit: Sep 25, 2008 2nd Hand Smoke Exposure: No Recent Foreign Travel: No Contact w/Someone Who Travel: No Recent Hopitalizations: No Seasonal Allergies Seasonal Allergies: No Past Medical History Surgeries: Yes (carotid endarterectomy, carpal tunnel release, R nephrectomy) Nephrectomy, Orthopedic Respiratory: Yes (mycobacterium avium-intracellulae complex) COPD Cardiac: Yes High Cholesterol, Hypertension 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 6.0oz. [id number]; 24.00 BMI Method:Stated General Appearance: No Apparent Distress, WD/WN Eyes: Bilateral Eye Normal Inspection, Bilateral Eye PERRL, Bilateral Eye EOMI HEENT: PERRL/EOMI, TMs Normal, Normal ENT Inspection, Pharynx Normal, Moist Mucous Membranes Neck: Full Range of Motion, Normal Inspection Respiratory: Chest Non Tender, Lungs Clear, Normal Breath Sounds, No Accessory Muscle Use, No Respiratory Distress Cardiovascular: Regular Rate, Rhythm, No Edema, Normal Peripheral Pulses Gastrointestinal: Normal Bowel Sounds, Non Tender, Soft Extremity: Normal Capillary Refill, Normal Inspection, No Pedal Edema Neurologic/Psychiatric: Alert, Oriented x3, No Motor/Sensory Deficits, Normal Mood/Affect Skin: normal color, warm/dry Focused Exam Sepsis Stage: Sepsis Possible Source: Genitouriary Lactate Level 05/03/20 22:28: Lactic Acid Level 0.87 Time of Focused Exam: 23:19 Respiratory: Lungs Clear, Normal Breath Sounds, No Accessory Muscle Use, No Respiratory Distress (SpO2 96%) Cardiovascular: Regular Rate, Rhythm, No Edema, Normal Peripheral Pulses Capillary Refill: Less Than 3 Seconds Peripheral Pulses: 2+ Radial Pulses (R), 2+ Radial Pulses (L) Skin: normal color, warm/dry Lactic Acid Level Laboratory Tests Test 05/03/20 22:28 Lactic Acid Level 0.87 MMOL/L (0.50-2.00) Within 3hrs of presentation: Admin fluids, Admin ABX, Blood cultures prior to ABX's, Focus exam, Lactate level Progress/Results/Core Measures Suspected Sepsis SIRS Temperature: Pulse: Respiratory Rate: Laboratory Tests 05/03/20 22:28: White Blood Count 9.4 Blood Pressure / Mean: 05/03/20 22:28: Lactic Acid Level 0.87 Laboratory Tests 05/03/20 22:28: Creatinine 1.82H, INR Comment 0.9, Platelet Count 316, Total Bilirubin < 0.2 Results/Orders Lab Results Laboratory Tests Test 05/03/20 22:28 Range/Units White Blood Count 9.4 4.3-11.0 10^3/uL Red Blood Count 2.70 L 4.35-5.85 10^6/uL Hemoglobin 7.7 L 11.5-16.0 G/DL Hematocrit 24 L 35-52 % Mean Corpuscular Volume 87 80-99 FL Mean Corpuscular Hemoglobin 29 25-34 PG Mean Corpuscular Hemoglobin Concent 33 32-36 G/DL Red Cell Distribution Width 14.9 H 10.0-14.5 % Platelet Count 316 130-400 10^3/uL Mean Platelet Volume 9.3 7.4-10.4 FL Neutrophils (%) (Auto) 86 H 42-75 % Lymphocytes (%) (Auto) 4 L 12-44 % Monocytes (%) (Auto) 5 0-12 % Eosinophils (%) (Auto) 4 0-10 % Basophils (%) (Auto) 0 0-10 % Neutrophils # (Auto) 8.1 H 1.8-7.8 X 10^3 Lymphocytes # (Auto) 0.4 L 1.0-4.0 X 10^3 Monocytes # (Auto) 0.5 0.0-1.0 X 10^3 Eosinophils # (Auto) 0.4 H 0.0-0.3 10^3/uL Basophils # (Auto) 0.0 0.0-0.1 10^3/uL Prothrombin Time 12.9 12.2-14.7 SEC INR Comment 0.9 0.8-1.4 Activated Partial Thromboplast Time 25 24-35 SEC Urine Color YELLOW Urine Clarity CLOUDY Urine pH 7.0 5-9 Urine Specific [place] 1.015 L 1.016-1.022 Urine Protein 3+ H NEGATIVE Urine Glucose (UA) NEGATIVE NEGATIVE Urine Ketones NEGATIVE NEGATIVE Urine Nitrite NEGATIVE NEGATIVE Urine Bilirubin NEGATIVE NEGATIVE Urine Urobilinogen 0.2 < = 1.0 MG/DL Urine Leukocyte Esterase 1+ H NEGATIVE Urine RBC (Auto) TRACE-I NEGATIVE Urine RBC NONE /HPF Urine WBC >100 H /HPF Urine Squamous Epithelial Cells 5-10 /HPF Urine Crystals NONE /LPF Urine Bacteria MODERATE H /HPF Urine Casts NONE /LPF Urine Mucus NEGATIVE /LPF Urine Culture Indicated YES Sodium Level 136 135-145 MMOL/L Potassium Level 5.2 H 3.6-5.0 MMOL/L Chloride Level 107 98-107 MMOL/L Carbon Dioxide Level 17 L 21-32 MMOL/L Anion Gap 12 5-14 MMOL/L Blood Urea Nitrogen 45 H 7-18 MG/DL Creatinine 1.82 H 0.60-1.30 MG/DL Estimat Glomerular Filtration Rate 27 BUN/Creatinine Ratio 25 Glucose Level 132 H 70-105 MG/DL Lactic Acid Level 0.87 0.50-2.00 MMOL/L Calcium Level 8.5 8.5-10.1 MG/DL Corrected Calcium 9.1 8.5-10.1 MG/DL Total Bilirubin < 0.2 0.1-1.0 MG/DL Aspartate Amino Transf (AST/SGOT) 24 5-34 U/L Alanine Aminotransferase (ALT/SGPT) 16 0-55 U/L Alkaline Phosphatase 80 40-136 U/L Total Protein 6.1 L 6.4-8.2 GM/DL Albumin 3.3 3.2-4.5 GM/DL My Orders Orders - LULI,KERRY J Ns Iv 1000 Ml (Sodium Chloride 0.9%) (05/03/20 21:55) Cbc With Automated Diff (05/03/20 21:57) Comprehensive Metabolic Panel (05/03/20 21:57) Blood Culture (05/03/20 21:57) Sputum Culture (05/03/20 21:57) Urinalysis (05/03/20 21:57) Urine Culture (05/03/20 21:57) Protime With Inr (05/03/20 21:57) Partial Thromboplastin Time (05/03/20 21:57) Chest 1 View Ap/Pa Only (05/03/20 21:57) Ed Iv/Invasive Line Start (05/03/20 21:57) Ed Iv/Invasive Line Start (05/03/20 21:57) Vital Signs Adult Sepsis Patie Q15M (05/03/20 21:57) O2 (05/03/20 21:57) Remove Rings In Anticipation O (05/03/20 21:57) Lactic Acid Analyzer (05/03/20 21:57) Ns Iv 1000 Ml (Sodium Chloride 0.9%) (05/03/20 22:00) Cefepime Injection (Maxipime Injection) (05/03/20 22:00) Vancomycin Injection (Vancomycin Injecti (05/03/20 22:00) Manual Differential (05/03/20 22:28) Ct Abdomen/Pelvis Wo (05/03/20 23:00) Medications Given in ED Current Medications Medications Dose Ordered Sig/Brock Route Start Time Stop Time Status Last Admin Dose Admin Cefepime HCl 1000 mg/Sterile Water 10 ml @ 200 mls/hr ONCE ONCE IV 05/03/20 22:00 05/03/20 22:02 DC 05/03/20 22:00 200 MLS/HR Sodium Chloride 1,000 ml @ 1,000 mls/hr ONCE ONCE IV 05/03/20 22:00 05/03/20 23:00 DC 05/03/20 22:00 1,000 MLS/HR Vancomycin HCl 1000 mg/Sodium Chloride 250 ml @ 250 mls/hr ONCE ONCE IV 05/03/20 22:00 05/03/20 23:00 DC 05/03/20 22:00 250 MLS/HR Vital Signs/I&O 05/03/20 05/03/20 21:39 22:57 Temp 37.6 Pulse 90 Resp 16 B/P (MAP) 141/61 (87) Pulse Ox 95 95 O2 Delivery Room Air Nasal Cannula O2 Flow Rate 2.00 05/04/20 00:00 Intake Total 1260 ml Balance 1260 ml Capillary Refill : Progress Note #1: Time: 22:06 Progress Note Septic workup including 20 mL/kg which would be about 1 L of saline based on 125 pounds. We'll give her cefepime and vancomycin in her history of multiple UTIs and stent placement. Progress Note #2: Time: 23:08 Progress Note We don't have ultrasound available but we did add a CT scan looking for evidence of hydronephrosis or other evidence that the stent was failing. [facility] does not have urology available tomorrow or over the weekend. [facility] [place] however they are on diversion. She is not thrilled about the prospect staying in the hospital. We explained to her that it is the only way to get IV antibiotics and fast follow-up with urology if necessary. Patient accepted this plan. Urinalysis likely represents UTI although there is quite a bit of squamous cell contamination. Given her fever and heart rate in the 90s we have pursued a septic workup. 2330: [place], [place]: [place] Triage contacting Dr Myers Medicine team. Dr. Myers returned our phone call and accepted the patient to the floor. Progress Note #3: Time: 00:25 Progress Note Several times patient has stated her desire to go home on oral antibiotics. We do have a room assignment as well as the accepting physician. We have asked the patient speak to her family first before making decision to go AGAINST MEDICAL ADVICE and she talked a couple family members on the phone and her daughter has arrived and were going to allow her to visit with her. I do not feel this time is patient has any significant risk for COVID-19 infection. Progress Note #4: Time: 00:51 Progress Note After several discussions negotiations the patient has agreed to go to [facility] in [place] for IV fluids and antibiotics. Like to go POV which we have recommended against however this is what the patient wants. She is alert and oriented 4 and able to make decisions and has her own capacity. Diagnostic Imaging Diagonstic Imaging: Xray Plain Films/CT/US/NM/MRI: chest (1v) Comments No acute cardiopulmonary process on one view chest x-ray. 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 No significant dilatation left upper renal collecting system. No acute findings in the left side involving the remaining unenhanced solid abdominal organs. There is a fascial defect of the right of midline near the level of the umbilicus that contains a short loop of colon. Hernia does not result in obstruction or evidence of bowel strangulation. The second hernia in the anterior pelvis contains small segments of bowel loops, again without evidence of obstruction or bowel strangulation. There is mild fluid distention of the small bowel and liquid stool in the colon suggestive of acute enteritis. Negative for pneumatosis or pneumoperitoneum. Reviewed: Reviewed by Me Departure Impression Primary Impression: Sepsis Qualified Codes: A41.9 - Sepsis, unspecified organism Additional Impressions: UTI (urinary tract infection) Qualified Codes: N30.00 - Acute cystitis without hematuria History of ureter stent Disposition: ADMITTED INPATIENT Condition: Stable Transfer Transfer Reason: Exceeds level of care (no urology or nephrology.) Time Spoke to Accepting Phy: 00:[address] Espinosa on behalf of [facility] accepts the patient to [facility] for IV fluids and antibiotics to the floor. Transfer Facility: [facility]/[place], [place] Method of Transfer: EMS Departure-Patient Inst. Referrals: TYE ROY MD (PCP/Family) Primary Care Physician KERRY ROCKWELL May 03, 2020 22:07
[2020-05-03 22:39] LABS: CLARITY,URINE CLOUDY; COLOR,URINE YELLOW; GLUCOSE, URINE (UA) NEGATIVE (NEGATIVE); PROTEIN,URINE 3+ (NEGATIVE)
[2020-05-03 22:40] LABS: BILIRUBIN,URINE NEGATIVE (NEGATIVE); KETONES,URINE NEGATIVE (NEGATIVE); LEUKOCYTE ESTERASE ,URINE 1+ (NEGATIVE); NITRITE,URINE NEGATIVE (NEGATIVE); WBC,URINE >100 /HPF
[2020-05-03 22:41] LABS: BACTERIA,URINE MODERATE /HPF
[2020-05-03 22:42] LABS: BASOPHILS % (AUTO) 0 % (0-10); EOSINOPHILS # (AUTO) 0.4 10^3/uL (0.0-0.3); EOSINOPHILS % (AUTO) 4 % (0-10); HEMATOCRIT 24 % (35-52); HEMOGLOBIN 7.7 G/DL (11.5-16.0); LYMPHOCYTES # (AUTO) 0.4 X 10^3 (1.0-4.0); LYMPHOCYTES % (AUTO) 4 % (12-44); MEAN CORPUSCULAR HEMOGLOBIN 29 PG (25-34); MEAN CORPUSCULAR HGB CONC 33 G/DL (32-36); MEAN CORPUSCULAR VOLUME 87 FL (80-99); MEAN PLATELET VOLUME 9.3 FL (7.4-10.4); MONOCYTES # (AUTO) 0.5 X 10^3 (0.0-1.0); MONOCYTES % (AUTO) 5 % (0-12); NEUTROPHILS # (AUTO) 8.1 X 10^3 (1.8-7.8); NEUTROPHILS % (AUTO) 86 % (42-75); PLATELET COUNT 316 10^3/uL (130-400); RED CELL DISTRIBUTION WIDTH 14.9 % (10.0-14.5); WHITE BLOOD COUNT 9.4 10^3/uL (4.3-11.0)
[2020-05-03 22:52] LABS: INR 0.9 (0.8-1.4); PROTHROMBIN TIME PATIENT 12.9 SEC (12.2-14.7)
[2020-05-03 22:53] LABS: POTASSIUM 5.2 MMOL/L (3.6-5.0); SODIUM 136 MMOL/L (135-145)
[2020-05-03 22:54] LABS: ALANINE AMINOTRANSFERASE 16 U/L (0-55); ALBUMIN 3.3 GM/DL (3.2-4.5); ALKALINE PHOSPHATASE 80 U/L (40-136); BILIRUBIN,TOTAL < 0.2 MG/DL (0.1-1.0); BUN/CREATININE RATIO 25; CALCIUM 8.5 MG/DL (8.5-10.1); CARBON DIOXIDE 17 MMOL/L (21-32); CHLORIDE 107 MMOL/L (98-107); CREATININE SERUM 1.82 MG/DL (0.60-1.30); GFR ESTIMATED 27; GLUCOSE 132 MG/DL (70-105); TOTAL PROTEIN 6.1 GM/DL (6.4-8.2)
[2020-05-04] VITALS (9 sets, daily range): BP systolic 141–191; BP diastolic 60–75
--- NOTE | 2020-05-04 02:35 | NUR ---
ALISHA STACK admitted to room 414-1, with an admitting diagnosis of SEPSIS AND UTI, on 05/04/20 from [facility] , accompanied by ED STAFF. ALISHA STACK introduced to surroundings, call light, bed controls, phone, TV, temperature control, lights, meal times, smoking policy, visitor policy, side rail policy, bathrooms and showers. Patient Rights given to patient in the handbook. ALISHA STACK verbalizes understanding that [facility] is not responsible for the loss or damage to any personal effects or valuables that are kept in the patients posession during their hospitalization. ALISHA STACK verbalizes understanding of Interdisciplinary Patient Education. Patient and/or family were informed about the Rapid Response Team and its purpose.
[2020-05-04] MEDS ORDERED: ALPRAZolam 0.25 MG (XANAX) TAB PO PRN (03:00)
[2020-05-04] MEDS: ACETAMINOPHEN 325 MG TABLET PO PRN ×3 (03:26→16:11)
[2020-05-04] MEDS: ONDANSETRON 4 MG/2 ML (SDV) Z0FRAN IV PRN ×2 (03:28→10:15)
[2020-05-04] MEDS: NS IV 1000 ML 1,000 ML IV SCH ×3 (03:28→20:18)
--- OUTSIDE RECORDS SUMMARY | 2020-05-04 03:28 | XMS REPORT ---
Author Author Mirna ROY [facility] Address [address] [place] [address] Care Team Providers Care Matrix Supervisor Name Role Phone LUCILA ROYWELL Unavailable PROBLEMS Type Condition ICD9-CM Code LSB31-CP Code Onset Dates Condition S tatus SNOMED Code Problem Pulmonary hypertension I27.20 February, Acti ve 22310921 Problem Diastolic dysfunction, left ventricle I51.9 Jul, Active 12920530 Problem Hypokalemia E87.6 Active 39523522 Problem Anemia D64.9 Active 844861794 Problem Essential (primary) hypertension I10 Active 80220024 Problem Hypomagnesemia E83.42 Active 94803 5004 Problem Nocturnal hypoxemia G47.34 Active 728691225 Problem CKD (chronic kidney disease) stage 4, GFR 15-29 ml/min N18.4 Active 765202515 Problem Controlled type 2 diabetes mellitus E11.9 Active 430112076 Problem COPD (chronic obstructive pulmonary disease) J44.9 Active 93000607 Problem GERD (gastroesophageal reflux disease) K21.9 Active 388152428 Problem COPD exacerbation J44.1 Active 19 4135989 Problem Osteoporosis M81.0 Active 0884536 6 Problem Chronic kidney disease, stage 3 (moderate) N18.3 Active 170886076 Problem Vitamin D deficiency E55.9 Active 23138153 Problem Acquired hypothyroidism E03.9 February, Act kalli 373334516 Problem Anxiety F41.9 Active 16594715 Problem Major depressive disorder, single episode, mild F3 2.0 Active 63180424 Problem Type 2 diabetes mellitus with diabetic chronic kidney disease E11.22 Active 656509882 Problem Seasonal allergic rhinitis due to pollen J30.1 Active 88752784 ALLERGIES No Information ENCOUNTERS Encounter Location Date Diagnosis [facility] [id number] [place] [address] Dec, [address] [address] Dec, [address] [address] Dec, [address] [place] [address] Nov, Essential (primary) hyperten vannessa I10 and Chronic kidney disease, stage 3 (moderate) N18.3 [address] [address] Nov, Delirium R41.0 [address] [address] Nov, Delirium R41.0 ; Orthostatic hypotension I95.1 and CKD (chronic kidney disease) stage 4, GFR 15-29 ml/min N18.4 [facility] [address] [address] Nov, [address] [place] [address] Nov, [facility] [address] [address] Nov, [facility] [address] [address] Nov, [address] [place] [address] Oct, [address] [place] [address] Sep, Essential (primary) hyperten vannessa I10 ; Anemia D64.9 ; Type 2 diabetes mellitus with diabetic chronic kidney disease E11.22 ; CKD (chronic kidney disease) stage 4, GFR 15-29 ml/min N18.4 ; Acquired hypot hyroidism E03.9 and Vitamin D deficiency E55.9 [address] [place] [address] Sep, Essential (primary) hyperten vannessa I10 and Controlled type 2 diabetes mellitus E11.9 [facility] [place] [address] [place] [address] Sep, [address] [place] [address] Sep, Possible urinary tract infec tion N39.0 ; Essential (primary) hypertension I10 and Controlled type 2 diabetes mellitus E11.9 [facility] [address] [address] [place] [address] Sep, Possible urinary tract infec tion N39.0 [facility] [address] [address] [place] [address] Aug, Essential (primary) hyperten vannessa I10 [facility] [address] [address] [place] [address] Aug, Essential (primary) hyperten vannessa I10 [facility] [place] [address] [place] [address] Aug, Pulmonary hypertension I27.2 0 [facility] [address] [address] [place] [address] Aug, CKD (chronic kidney disease) stage 4, GFR 15-29 ml/min N18.4 and Pulmonary hypertension I27.20 [facility] [place] [address] [place] [address] Aug, [address] [place] [address] Aug, Pulmonary hypertension I27.2 0 and CKD (chronic kidney disease) stage 4, GFR 15-29 ml/min N18.4 [facility] [address] [place] [address] Aug, COPD exacerbation J44.1 [facility] [address] [place] [address] Jul, [facility] [address] [place] [address] Jul, [facility] [address] [facility] [place] [address] Jul, Encounter for wound care Z51.[address] [facility] [place] [address] [place] [address] Jun, [facility] [place] [address] [place] [address] Jun, Cough R[address] [facility] [place] [address] [place] [address] Jun, [facility] [address] [place] [address] Jun, [facility] [address] [place] [address] Jun, Cough R05 [facility] [place] [address] [place] [address] Jun, [facility] [place] [address] [place] [address] Jun, Vitamin D deficiency E55.[address] [place] [facility] [address] [place] [address] May, Seasonal allergic rhinitis d ue to pollen J30.1 [facility] [place] [address] [place] [address] May, Essential (primary) hyperten vannessa I10 ; Type 2 diabetes mellitus with diabetic chronic kidney disease E11.22 and CKD (chronic kidney disease) stage 4, GFR 15-29 ml/min N18.4 [facility] [place] [address] [place] [address] May, [facility] [place] [address] [place] [address] May, [facility] [place] [address] [place] [address] May, [facility] [address] [place] [address] Apr, Encounter for Medicare annua l wellness exam Z00.00 ; Anxiety F41.9 ; CKD (chronic kidney disease) stage 4, GFR 15-29 ml/min N18.4 ; COPD (chronic obstructive pulmonary disease) J44.9 ; Major depressive disorder, single episode, mild F32.0 ; Essential (primary) hypertension I10 ; Acquired hypothyroidism E03.9 ; Osteoporosis M81.0 ; GERD (gastroesophageal reflux disease) K21.9 and Diastolic dysfunction, left ventricle I51.9 [facility] [place] [address] [place] [address] Apr, [facility] [place] [address] [place] [address] Apr, [facility] [place] [address] [place] [address] Apr, [facility] [place] [address] [place] [address] Mar, [facility] [place] [address] [place] [address] Mar, [facility] [place] [address] [place] [address] Mar, [facility] [place] [address] [place] [address] Mar, [facility] [place] [address] [place] [address] Mar, [facility] [place] [facility] [address] [facility] [address] [place] [address] Mar, [facility] [place] [address] [place] [address] Mar, [facility] [place] [address] [place] [address] February, [facility] [place] [address] [place] [address] February, Type 2 diabetes mellitus wit h diabetic chronic kidney disease E11.22 ; CKD (chronic kidney disease) stage 4, GFR 15-29 ml/min N18.4 ; Major depressive disorder, single episode, mild F32.0 ; Osteoporosis M81.0 ; Controlled type 2 diabetes mellitus E11.9 ; Vitamin D deficiency E55.9 and Pulmonary hypertension I27.20 [facility] [address] [place] [address] February, [address] [place] [address] Jan, [facility] [address] [facility] [place] [address] Jan, [address] [place] [address] Dec, [address] [place] [address] Nov, Osteoporosis M81.0 [address] [place] [address] Nov, [address] [place] [address] Nov, Osteoporosis M81.0 ; Essenti al (primary) hypertension I10 ; Anxiety F41.9 ; Depression F32.9 ; Controlled type 2 diabetes mellitus E11.9 ; Hypokalemia E87.6 ; CKD (chronic kidney disease) stage 4, GFR 15-29 ml/min N18.4 ; Hypomagnesemia E83.42 ; GERD (gastroesophageal reflux disease) K21.9 ; Anemia D64.9 ; COPD (chronic obstructive pulmonary disease) J44.9 ; Nocturnal hypoxemia G47.34 and Vitamin D deficiency E55.9 [address] [place] [address] Nov, [address] [place] [address] Nov, Screening mammogram, encount er for Z12.31 [facility] [address] [place] [address] Nov, [facility] [address] [place] [address] Nov, Acute back pain, unspecified back location, unspecified back pain laterality M54.9 [facility] [address] [place] [address] Nov, Essential (primary) hyperten vannessa I10 [facility] [address] [place] [address] Nov, [facility] [address] [place] [address] Nov, [facility] [address] [place] [address] Nov, [facility] [id number] [place] [address] Nov, [facility] [id number] [place] [address] Sep, [facility] [id number] [place] [address] Sep, [facility] [id number] [place] [address] Sep, [facility] [id number] [place] [address] Sep, [facility] [id number] [place] [address] Aug, [facility] [id number] [place] [address] Aug, [facility] [id number] [place] [address] Aug, [facility] [id number] [place] [address] Jul, [facility] [id number] [place] [address] Jul, IMMUNIZATIONS No Known Immunizations SOCIAL HISTORY Never Assessed REASON FOR VISIT zpak PLAN OF CARE VITAL SIGNS MEDICATIONS Medication Instructions Dosage Frequency Start Date End Date Duration S neva Zithromax Z-Josafat 250 MG Orally Once a day 2 tablets on the first day, then 1 tablet daily for 4 days 24h Dec, 5 day(s) Acti ve RESULTS No Results PROCEDURES No Known procedures INSTRUCTIONS MEDICATIONS ADMINISTERED No Known Medications MEDICAL (GENERAL) HISTORY Type Description Date Medical History Osteoporosis Medical History Anxiety Medical History Controlled type 2 diabetes mellitus Medical History Hypokalemia Medical History Hypomagnesemia Medical History Anemia Medical History CKD (chronic kidney disease) stage 4, GF R 15-29 ml/min Medical History Essential (primary) hypertension Medical History GERD (gastroesophageal reflux disease) Medical History COPD (chronic obstructive pulmonary dise ase) Medical History Nocturnal hypoxemia Medical History Vitamin D deficiency Medical History Major depressive disorder, single episod e, mild Medical History Pulmonary hypertension Medical History Diastolic dysfunction, left ventricle Surgical History appendectomy Surgical History carpal tunnel release Surgical History heart cath Surgical History carotid endarterectomy Surgical History EGD Surgical History hysterectomy Surgical History rotator cuff tear repair Surgical History exploratory laparoscopy Surgical History nephrectomy Surgical History cholecystectomy Surgical History EGD Hospitalization History surgeries Hospitalization History pneumonia
--- OUTSIDE RECORDS SUMMARY | 2020-05-04 03:29 | XMS REPORT | Continuity of Care Document ---
Author Organization Unknown Address Unknown Phone Unavailable Allergies Active Description Code Type Severity Reaction Onset Reported/Identified Relationship to Patient Clinical Status Yes doxycycline [id number] Drug Aller gy Unknown N/A 04/02/2019 Yes isosorbide [id number] Drug Allerg y Unknown N/A 04/02/2019 Yes IV CONTRAST IV CONTRAST Unknown N/A 04/02/2019 Yes MIRATAZAPINE MIRATAZAPINE Unknown N/A 04/02/2019 Yes pitavastatin [id number] Drug Allergy Unknown N/A 04/02/2019 Yes shrimp [id number] Drug Allergy Unknown N/A 04/02/2019 Medications There is no data. 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 11/24/2016 DERIK RIVAS MD S Ot J47.9 BRONCHIECTASIS, UNCOMPLICATED 12/03/2016 DERIK RIVAS MD S Ot 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 12/03/2016 DERIK RIVAS MD S Ot J47.9 BRONCHIECTASIS, UNCOMPLICATED 12/17/2018 DERIK RIVAS MD S Ot 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 12/17/2018 DERIK RIVAS MD S Ot J47.9 BRONCHIECTASIS, UNCOMPLICATED 12/22/2018 TYE ROY MD Ot M54.5 LOW BACK PAIN 12/22/2018 SELF TYE ELAINE Ot S22.06 0A WEDGE COMPRESSION FRACTURE OF T7-T8 VERT 01/10/2019 SELF TYE ELAINE Ot M54.5 LOW BACK PAIN 01/10/2019 SELF TYE ELAINE Ot S22.06 0A WEDGE COMPRESSION FRACTURE OF T7-T8 VERT 04/02/2019 DUNIA PANTOJA Ot I10 ESSENTIAL (PRIMARY) HYPERTENSION 04/02/2019 DUNIA PANTOJA Ot I25.10 ATHSCL HEART DISEASE OF [place] CORONARY 04/02/2019 DUNIA PANTOJA Ot S81.812A LACERATION WITHOUT FOREIGN BODY, LEFT LO 04/02/2019 DUNIA PANTOJA Ot W20.8XXA OTH CAUSE OF STRIKE BY THROWN, PROJECTED 04/02/2019 DUNIA PANTOJA Ot Z88.1 ALLERGY STATUS TO OTHER ANTIBIOTIC AGENT 04/02/2019 DUNIA PANTOJA Ot Z88.8 ALLERGY STATUS TO OTH DRUG/MEDS/BIOL SUB 04/02/2019 DUNIA PANTOJA Ot Z91.041 RADIOGRAPHIC DYE ALLERGY STATUS 04/03/2019 DEQUAN REESE DO, Ot E03.9 HYPOTHYROIDISM, UNSPECIFIED 04/03/2019 DEQUAN REESE DO, Ot 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 04/03/2019 DEQUAN REESE DO, Ot F41.9 ANXIETY DISORDER, UNSPECIFIED 04/03/2019 DEQUAN REESE DO, Ot I12.9 HYPERTENSIVE CHRONIC KIDNEY DISEASE W ST 04/03/2019 DEQUAN REESE DO, Ot I25.10 ATHSCL HEART DISEASE OF [place] CORONARY 04/03/2019 DEQUAN REESE DO, Ot J44.9 CHRONIC OBSTRUCTIVE PULMONARY DISEASE, U 04/03/2019 DEQUAN REESE DO, Ot K21.9 GASTRO-ESOPHAGEAL REFLUX DISEASE WITHOUT 04/03/2019 DEQUAN REESE DO, Ot N18.9 CHRONIC KIDNEY DISEASE, UNSPECIFIED 04/03/2019 DEQUAN REESE DO, Ot S81.812D LACERATION WITHOUT FOREIGN BODY, LEFT LO 04/03/2019 DEQUAN REESE DO, Ot X58.XXXD EXPOSURE TO OTHER SPECIFIED FACTORS, SUB 04/03/2019 DEQUAN REESE DO, Ot Z87.891 PERSONAL HISTORY OF NICOTINE DEPENDENCE 04/03/2019 DEQUAN REESE DO, Ot Z88.1 ALLERGY STATUS TO OTHER ANTIBIOTIC AGENT 04/03/2019 DEQUAN REESE DO, Ot Z88.8 ALLERGY STATUS TO OT DRUG/MEDS/BIOL SUB 04/03/2019 DEQUAN REESE DO, Ot Z90.49 ACQUIRED ABSENCE OF OTHER SPECIFIED PART 04/03/2019 DEQUAN REESE DO, Ot Z90.5 ACQUIRED ABSENCE OF KIDNEY 04/03/2019 DEQUAN REESE DO, Ot Z91.041 RADIOGRAPHIC DYE ALLERGY STATUS 04/03/2019 DEQUAN REESE DO, Ot Z98.890 OTHER SPECIFIED POSTPROCEDURAL STATES 04/04/2019 EVELYN ELAINE, DERIK Fried Ot 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 04/04/2019 EVELYN ELAINE, DERIK Fried Ot J47.9 BRONCHIECTASIS, UNCOMPLICATED 04/04/2019 KIRILL ELAINE, TYE Ot M54.5 LOW BACK PAIN 04/04/2019 TYE ROY MD Ot S22.06 0A WEDGE COMPRESSION FRACTURE OF T7-T8 VERT 04/07/2019 DEQUAN REESE DO, Ot E03.9 HYPOTHYROIDISM, UNSPECIFIED 04/07/2019 DEQUAN REESE DO, Ot 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 04/07/2019 DEQUAN REESE DO, Ot F41.9 ANXIETY DISORDER, UNSPECIFIED 04/07/2019 DEQUAN REESE DO, Ot I12.9 HYPERTENSIVE CHRONIC KIDNEY DISEASE W ST 04/07/2019 DEQUAN REESE DO, Ot I25.10 ATHSCL HEART DISEASE OF [place] CORONARY 04/07/2019 DEQUAN REESE DO, Ot J44.9 CHRONIC OBSTRUCTIVE PULMONARY DISEASE, U 04/07/2019 DEQUAN REESE DO, Ot K21.9 GASTRO-ESOPHAGEAL REFLUX DISEASE WITHOUT 04/07/2019 DEQUAN REESE DO, Ot N18.9 CHRONIC KIDNEY DISEASE, UNSPECIFIED 04/07/2019 DEQUAN REESE DO, Ot S81.812D LACERATION WITHOUT FOREIGN BODY, LEFT LO 04/07/2019 DEQUAN REESE DO, Ot X58.XXXD EXPOSURE TO OTHER SPECIFIED FACTORS, SUB 04/07/2019 DEQUAN REESE DO, Ot Z87.891 PERSONAL HISTORY OF NICOTINE DEPENDENCE 04/07/2019 DEQUAN REESE DO, Ot Z88.1 ALLERGY STATUS TO OTHER ANTIBIOTIC AGENT 04/07/2019 HUGH DO, DEQUAN D Ot Z88.8 ALLERGY STATUS TO OTH DRUG/MEDS/BIOL SUB 04/07/2019 DEQUAN REESE DO [employer] Ot Z90.49 ACQUIRED ABSENCE OF OTHER SPECIFIED PART 04/07/2019 DEQUAN REESE DO [employer] Ot Z90.5 ACQUIRED ABSENCE OF KIDNEY 04/07/2019 DEQUAN REESE DO [employer] Ot Z91.041 RADIOGRAPHIC DYE ALLERGY STATUS 04/07/2019 DEQUAN REESE DO [employer] Ot Z98.890 OTHER SPECIFIED POSTPROCEDURAL STATES 04/08/2019 DUNIA PANTOJA Ot I10 ESSENTIAL (PRIMARY) HYPERTENSION 04/08/2019 DUNIA PANTOJA Ot I25.10 ATHSCL HEART DISEASE OF [place] CORONARY 04/08/2019 DUNIA PANTOJA Ot S81.812A LACERATION WITHOUT FOREIGN BODY, LEFT LO 04/08/2019 DUNIA PANTOJA Ot W20.8XXA OTH CAUSE OF STRIKE BY THROWN, PROJECTED 04/08/2019 DUNIA PANTOJA Ot Z88.1 ALLERGY STATUS TO OTHER ANTIBIOTIC AGENT 04/08/2019 DUNIA PANTOJA Ot Z88.8 ALLERGY STATUS TO OTH DRUG/MEDS/BIOL SUB 04/08/2019 DUNIA PANTOJA Ot Z91.041 RADIOGRAPHIC DYE ALLERGY STATUS 04/10/2019 AMANDEEP MONTEZ DO Ot S99.912A UNSPECIFIED INJURY OF LEFT ANKLE, INITIA 04/12/2019 AMANDEEP MONTEZ DO Ot E11. 41 TYPE 2 DIABETES MELLITUS WITH DIABETIC M 04/12/2019 AMANDEEP MONTEZ DO Ot I10 ESSENTIAL (PRIMARY) HYPERTENSION 04/12/2019 AMANDEEP MONTEZ DO Ot I25. 10 ATHSCL HEART DISEASE OF [place] CORONARY 04/12/2019 AMANDEEP MONTEZ DO Ot I99. 8 OTHER DISORDER OF CIRCULATORY SYSTEM 04/12/2019 AMANDEEP MONTEZ DO Ot J44. 9 CHRONIC OBSTRUCTIVE PULMONARY DISEASE, U 04/12/2019 AMANDEEP MONTEZ DO Ot K21. 9 GASTRO-ESOPHAGEAL REFLUX DISEASE WITHOUT 04/12/2019 AMANDEEP MONTEZ DO Ot S81.812A LACERATION WITHOUT FOREIGN BODY, LEFT LO 04/12/2019 AMANDEEP MONTEZ DO Ot W20.8XXA OTH CAUSE OF STRIKE BY THROWN, PROJECTED 04/12/2019 AMANDEEP MONTEZ DO Ot Z79. 82 BROKER ASSISTANT (CURRENT) USE OF ASPIRIN 04/12/2019 AMANDEEP MONTEZ DO Ot Z79. 84 [facility] (CURRENT) USE OF ORAL HYPOGLYC 04/12/2019 AMANDEEP MONTEZ DO, Ot Z79.899 OTHER BROKER ASSISTANT (CURRENT) DRUG THERAPY 04/12/2019 AMANDEEP MONTEZ DO, Ot Z87.891 PERSONAL HISTORY OF NICOTINE DEPENDENCE 04/12/2019 AMANDEEP MONTEZ DO Ot Z01.818 ENCOUNTER FOR OTHER PREPROCEDURAL EXAMIN 04/15/2019 AMANDEEP MONTEZ DO Ot E11. 41 TYPE 2 DIABETES MELLITUS WITH DIABETIC M 04/15/2019 AMANDEEP MONTEZ DO Ot I10 ESSENTIAL (PRIMARY) HYPERTENSION 04/15/2019 AMANDEEP MONTEZ DO Ot I25. 10 ATHSCL HEART DISEASE OF [place] CORONARY 04/15/2019 AMANDEEP MONTEZ DO Ot I99. 8 OTHER DISORDER OF CIRCULATORY SYSTEM 04/15/2019 AMANDEEP MONTEZ DO Ot J44. 9 CHRONIC OBSTRUCTIVE PULMONARY DISEASE, U 04/15/2019 AMANDEEP MONTEZ DO Ot K21. 9 GASTRO-ESOPHAGEAL REFLUX DISEASE WITHOUT 04/15/2019 AMANDEEP MONTEZ DO Ot S81.812A LACERATION WITHOUT FOREIGN BODY, LEFT LO 04/15/2019 AMANDEEP MONTEZ DO Ot W20.8XXA OTH CAUSE OF STRIKE BY THROWN, PROJECTED 04/15/2019 AMANDEEP MONTEZ DO Ot Z79. 82 BROKER ASSISTANT (CURRENT) USE OF ASPIRIN 04/15/2019 AMANDEEP MONTEZ DO Ot Z79. 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 04/17/2019 JONATHAN JACOBSON MD Ot L97.225 NON-PRS CHR ULCER OF LEFT CALF WITH MSL 04/17/2019 JONATHAN JACOBSON MD, Ot S81.812A LACERATION WITHOUT FOREIGN BODY, LEFT LO 04/17/2019 JONATHAN JACOBSON MD, Ot E11.622 TYPE 2 DIABETES MELLITUS WITH OTHER SKIN 04/17/2019 JONATHAN JACOBSON MD, Ot L97.225 NON-PRS CHR ULCER OF LEFT CALF WITH MSL 04/22/2019 JONATHAN JACOBSON MD, Ot E11.622 TYPE 2 DIABETES MELLITUS WITH OTHER SKIN 04/22/2019 JONATHAN JACOBSON MD, Ot 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 04/22/2019 JONATHAN JACOBSON MD, Ot 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 04/22/2019 JONATHAN JACOBSON MD, Ot L97.225 NON-PRS CHR ULCER OF LEFT CALF WITH MSL 04/22/2019 JONATHAN JACOBSON MD, Ot S81.812A LACERATION WITHOUT FOREIGN BODY, LEFT LO 04/26/2019 JONATHAN JACOBSON MD, Ot E11.622 TYPE 2 DIABETES MELLITUS WITH OTHER SKIN 04/26/2019 JONATHAN JACOBSON MD, Ot 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 04/26/2019 JONATHAN JACOBSON MD, Ot 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 04/26/2019 JONATHAN JACOBSON MD, Ot L97.225 NON-PRS CHR ULCER OF LEFT CALF WITH MSL 04/26/2019 JONATHAN JACOBSON MD Ot S81.812A LACERATION WITHOUT FOREIGN BODY, LEFT LO 04/26/2019 FRANCISCA ELAINE, IOANA Solis Ot N28 .9 DISORDER OF KIDNEY AND URETER, UNSPECIFI 04/26/2019 DERIK RIVAS MD Ot 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 04/26/2019 DERIK RIVAS MD Ot J47.9 BRONCHIECTASIS, UNCOMPLICATED 04/26/2019 SELF TYE ELAINE Ot M54.5 LOW BACK PAIN 04/26/2019 TYE ROY MD Ot S22.06 0A WEDGE COMPRESSION FRACTURE OF T7-T8 VERT 04/26/2019 AMANDEEP MONTEZ DO Ot S99.912A UNSPECIFIED INJURY OF LEFT ANKLE, INITIA 04/26/2019 AMANDEEP MONTEZ DO Ot Z01.818 ENCOUNTER FOR OTHER PREPROCEDURAL EXAMIN 04/26/2019 JONATHAN JACOBSON MD, Ot E11.622 TYPE 2 DIABETES MELLITUS WITH OTHER SKIN 04/26/2019 JONATHAN JACOBSON MD Ot 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 [facility] 04/26/2019 JONATHAN JACOBSON MD Ot 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 04/26/2019 JONATHAN JACOBSON MD Ot L97.225 NON-PRS CHR ULCER OF LEFT CALF WITH MSL 04/26/2019 JONATHAN JACOBSON MD Ot S81.812A LACERATION WITHOUT FOREIGN BODY, LEFT LO 04/26/2019 JONATHAN JACOBSON MD, Ot E11.622 TYPE 2 DIABETES MELLITUS WITH OTHER SKIN 04/26/2019 JONATHAN JACOBSON MD, Ot L97.225 NON-PRS CHR ULCER OF LEFT CALF WITH MSL 04/26/2019 JONATHAN JACOBSON MD, Ot E11.622 TYPE 2 DIABETES MELLITUS WITH OTHER SKIN 04/26/2019 JONATHAN JACOBSON MD Ot 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 04/26/2019 JONATHAN JACOBSON MD Ot L97.225 NON-PRS CHR ULCER OF LEFT CALF WITH MSL 04/26/2019 JONATHAN JACOBSON MD Ot S81.812A LACERATION WITHOUT FOREIGN BODY, LEFT LO 04/26/2019 JONATHAN JACOBSON MD Ot E11.622 TYPE 2 DIABETES MELLITUS WITH OTHER SKIN 04/26/2019 JONATHAN JACOBSON MD Ot 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 [facility] 04/26/2019 JONATHAN JACOBSON MD Ot 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 04/26/2019 JONATHAN JACOBSON MD, Ot L97.225 NON-PRS CHR ULCER OF LEFT CALF WITH MSL 04/26/2019 JONATHAN JACOBSON MD Ot S81.812A LACERATION WITHOUT FOREIGN BODY, LEFT LO 04/29/2019 JONATHAN JACOBSON MD Ot E11.622 TYPE 2 DIABETES MELLITUS WITH OTHER SKIN 04/29/2019 JONATHAN JACOBSON MD Ot 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 04/29/2019 JONATHAN JACOBSON MD, Ot 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 04/29/2019 JONATHAN JACOBSON MD, Ot L97.225 NON-PRS CHR ULCER OF LEFT CALF WITH MSL 04/29/2019 JONATHAN JAOCBSON MD, Ot S81.812A LACERATION WITHOUT FOREIGN BODY, LEFT LO 05/09/2019 JONATHAN JACOBSON MD, Ot E11.622 TYPE 2 DIABETES MELLITUS WITH OTHER SKIN 05/09/2019 JONATHAN JACOBSON MD, Ot 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 [facility] 05/09/2019 JONATHAN JACOBSON MD, Ot 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 05/09/2019 JONATHAN JACOBSON MD, Ot L97.225 NON-PRS CHR ULCER OF LEFT CALF WITH MSL 05/09/2019 JONATHAN JACOBSON MD, Ot S81.812A LACERATION WITHOUT FOREIGN BODY, LEFT LO 05/11/2019 JONATHAN JACOBSON MD Ot E11.52 TYPE 2 DIABETES W DIABETIC PERIPHERAL AN 05/11/2019 JONATHAN JACOBSON MD, Ot E11.622 TYPE 2 DIABETES MELLITUS WITH OTHER SKIN 05/11/2019 JONATHAN JACOBSON MD, Ot 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 [facility] 05/11/2019 JONATHAN JACOBSON MD, Ot 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 05/11/2019 JONATHAN JACOBSON MD Ot I96 GANGRENE, NOT ELSEWHERE CLASSIFIED 05/11/2019 JONATHAN JACOBSON MD, Ot L97.225 NON-PRS CHR ULCER OF LEFT CALF WITH MSL 05/11/2019 JONATHAN JACOBSON MD, Ot S81.811A LACERATION W/O FOREIGN BODY, RIGHT LOWER 05/11/2019 JONATHAN JACOBSON MD Ot S81.812A LACERATION WITHOUT FOREIGN BODY, LEFT LO 05/13/2019 FRANCISCA ELAINE, IOANA Solis Ot N28 .9 DISORDER OF KIDNEY AND URETER, UNSPECIFI 05/19/2019 EVELYN ELIANE, DERIK Fried Ot 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 05/19/2019 EVELYN ELAINE, DERIK Fried Ot J47.9 BRONCHIECTASIS, UNCOMPLICATED 05/19/2019 KIRILL ELAINE, TYE Ot M54.5 LOW BACK PAIN 05/19/2019 KIRILL ELAINE, TYE Ot S22.06 0A WEDGE COMPRESSION FRACTURE OF T7-T8 VERT 05/19/2019 AMANDEEP MONTEZ DO Ot S99.912A UNSPECIFIED INJURY OF LEFT ANKLE, INITIA 05/19/2019 AMANDEEP MONTEZ DO Ot Z01.818 ENCOUNTER FOR OTHER PREPROCEDURAL EXAMIN 05/19/2019 JONATHAN JACOBSON MD Ot E11.622 TYPE 2 DIABETES MELLITUS WITH OTHER SKIN 05/19/2019 JONATHAN JACOBSON MD Ot 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 [facility] 05/19/2019 JONATHAN JACOBSON MD Ot 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 05/19/2019 JONATHAN JACOBSON MD Ot L97.225 NON-PRS CHR ULCER OF LEFT CALF WITH MSL 05/19/2019 JONATHAN JACOBSON MD Ot S81.812A LACERATION WITHOUT FOREIGN BODY, LEFT LO 05/19/2019 JONATHAN JACOBSON MD Ot E11.622 TYPE 2 DIABETES MELLITUS WITH OTHER SKIN 05/19/2019 JONATHAN JACOBSON MD Ot L97.225 NON-PRS CHR ULCER OF LEFT CALF WITH MSL 05/19/2019 JONATHAN JACOBSON MD Ot E11.622 TYPE 2 DIABETES MELLITUS WITH OTHER SKIN 05/19/2019 JONATHAN JACOBSON MD Ot 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 05/19/2019 JONATHAN JACOBSON MD Ot 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 05/19/2019 JONATHAN JACOBSON MD Ot L97.225 NON-PRS CHR ULCER OF LEFT CALF WITH MSL 05/19/2019 JONATHAN JACOBSON MD Ot S81.812A LACERATION WITHOUT FOREIGN BODY, LEFT LO 05/19/2019 FRANCISCA ELAINE, IOANA Solis Ot N28 .9 DISORDER OF KIDNEY AND URETER, UNSPECIFI 05/19/2019 JONATHAN JACOBSON MD Ot E11.622 TYPE 2 DIABETES MELLITUS WITH OTHER SKIN 05/19/2019 JONATHAN JACOBSON MD Ot 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 [facility] 05/19/2019 JONATHAN JACOBSON MD Ot 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 05/19/2019 JONATHAN JACOBSON MD, Ot L97.225 NON-PRS CHR ULCER OF LEFT CALF WITH MSL 05/19/2019 JONATHAN JACOBSON MD Ot S81.812A LACERATION WITHOUT FOREIGN BODY, LEFT LO 05/19/2019 JONATHAN JACOBSON MD Ot E11.52 TYPE 2 DIABETES W DIABETIC PERIPHERAL AN 05/19/2019 JONATHAN JACOBSON MD, Ot E11.622 TYPE 2 DIABETES MELLITUS WITH OTHER SKIN 05/19/2019 JONATHAN JACOBSON MD, Ot 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 [facility] 05/19/2019 JONATHAN JACOBSON MD, Ot 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 05/19/2019 JONATHAN JACOBSON MD Ot I96 GANGRENE, NOT ELSEWHERE CLASSIFIED 05/19/2019 JONATHAN JACOBSON MD Ot L97.225 NON-PRS CHR ULCER OF LEFT CALF WITH MSL 05/19/2019 JONATHAN JACOBSON MD Ot S81.811A LACERATION W/O FOREIGN BODY, RIGHT LOWER 05/19/2019 JONATHAN JACOBSON MD, Ot S81.812A LACERATION WITHOUT FOREIGN BODY, LEFT LO 05/19/2019 JONATHAN JACOBSON MD Ot L97.225 NON-PRS CHR ULCER OF LEFT CALF WITH MSL 05/24/2019 JONATHAN JACOBSON MD Ot E11.52 TYPE 2 DIABETES W DIABETIC PERIPHERAL AN 05/24/2019 JONATHAN JACOBSON MD Ot E11.622 TYPE 2 DIABETES MELLITUS WITH OTHER SKIN 05/24/2019 JONATHAN JACOBSON MD Ot 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 [facility] 05/24/2019 JONATHAN JACOBSON MD Ot 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 05/24/2019 JONATHAN JACOBSON MD Ot I96 GANGRENE, NOT ELSEWHERE CLASSIFIED 05/24/2019 JONATHAN JACOBSON MD Ot L97.225 NON-PRS CHR ULCER OF LEFT CALF WITH MSL 05/24/2019 JONATHAN JACOBSON MD, Ot S81.811A LACERATION W/O FOREIGN BODY, RIGHT LOWER 05/24/2019 JONATHAN JACOBSON MD, Ot S81.812A LACERATION WITHOUT FOREIGN BODY, LEFT LO 05/25/2019 EVELYN ELAINE, DERIK Fried Ot 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 05/25/2019 EVELYN ELAINE, DERIK S Ot J47.9 BRONCHIECTASIS, UNCOMPLICATED 05/25/2019 SELF , TYE Ot M54.5 LOW BACK PAIN 05/25/2019 KIRILL ELAINE, TYE Ot S22.06 0A WEDGE COMPRESSION FRACTURE OF T7-T8 VERT 05/25/2019 AMANDEEP MONTEZ DO Ot S99.912A UNSPECIFIED INJURY OF LEFT ANKLE, INITIA 05/25/2019 AMANDEEP MONTEZ DO Ot Z01.818 ENCOUNTER FOR OTHER PREPROCEDURAL EXAMIN 05/25/2019 JONATHAN JACOBSON MD Ot E11.622 TYPE 2 DIABETES MELLITUS WITH OTHER SKIN 05/25/2019 JONATHAN JACOBSON MD Ot 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 05/25/2019 JONATHAN JACOBSON MD Ot 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 05/25/2019 JONATHAN JACOBSON MD, Ot L97.225 NON-PRS CHR ULCER OF LEFT CALF WITH MSL 05/25/2019 JONATHAN JACOBSON MD, Ot S81.812A LACERATION WITHOUT FOREIGN BODY, LEFT LO 05/25/2019 JONATHAN JACOBSON MD Ot E11.622 TYPE 2 DIABETES MELLITUS WITH OTHER SKIN 05/25/2019 JONATHAN JACOBSON MD, Ot L97.225 NON-PRS CHR ULCER OF LEFT CALF WITH MSL 05/25/2019 JONATHAN JACOBSON MD, Ot E11.622 TYPE 2 DIABETES MELLITUS WITH OTHER SKIN 05/25/2019 JONATHAN JACOBSON MD Ot 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 05/25/2019 JONATHAN JACOBSON MD Ot 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 05/25/2019 JONATHAN JACOBSON MD Ot L97.225 NON-PRS CHR ULCER OF LEFT CALF WITH MSL 05/25/2019 KAVON MD, JONATHAN G Ot S81.812A LACERATION WITHOUT FOREIGN BODY, LEFT LO 05/25/2019 FRANCISCA ELAINE, IOANA Will Ot N28 .9 DISORDER OF KIDNEY AND URETER, UNSPECIFI 05/25/2019 JONATHAN JACOBSON MD Ot E11.622 TYPE 2 DIABETES MELLITUS WITH OTHER SKIN 05/25/2019 JONATHAN JACOBSON MD Ot 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 05/25/2019 JONATHAN JACOBSON MD, Ot 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 05/25/2019 JONATHAN JACOBSON MD, Ot L97.225 NON-PRS CHR ULCER OF LEFT CALF WITH MSL 05/25/2019 JONATHAN JACOBSON MD, Ot S81.812A LACERATION WITHOUT FOREIGN BODY, LEFT LO 05/25/2019 JONATHAN JACOBSON MD Ot E11.52 TYPE 2 DIABETES W DIABETIC PERIPHERAL AN 05/25/2019 JONATHAN JACOBSON MD, Ot E11.622 TYPE 2 DIABETES MELLITUS WITH OTHER SKIN 05/25/2019 JONATHAN JACOBSON MD Ot 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 05/25/2019 JONATHAN JACOBSON MD Ot 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 05/25/2019 JONATHAN JACOBSON MD Ot I96 GANGRENE, NOT ELSEWHERE CLASSIFIED 05/25/2019 JONATHAN JACOBSON MD Ot L97.225 NON-PRS CHR ULCER OF LEFT CALF WITH MSL 05/25/2019 JONATHAN JACOBSON MD Ot S81.811A LACERATION W/O FOREIGN BODY, RIGHT LOWER 05/25/2019 JONATHAN JACOBSON MD, Ot S81.812A LACERATION WITHOUT FOREIGN BODY, LEFT LO 05/25/2019 JONATHAN JACOBSON MD Ot L97.225 NON-PRS CHR ULCER OF LEFT CALF WITH MSL 05/25/2019 JONATHAN JACOBSON MD Ot L97.225 NON-PRS CHR ULCER OF LEFT CALF WITH MSL 05/25/2019 JONATHAN JACOBSON MD Ot E11.52 TYPE 2 DIABETES W DIABETIC PERIPHERAL AN 05/25/2019 JONATHAN JACOBSON MD Ot E11.622 TYPE 2 DIABETES MELLITUS WITH OTHER SKIN 05/25/2019 JONATHAN JACOBSON MD Ot 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 05/25/2019 JONATHAN JACOBSON MD Ot 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 05/25/2019 JONATHAN JACOBSON MD Ot I96 GANGRENE, NOT ELSEWHERE CLASSIFIED 05/25/2019 JONATHAN JACOBSON MD, Ot L97.225 NON-PRS CHR ULCER OF LEFT CALF WITH MSL 05/25/2019 JONATHAN JACOBSON MD, Ot S81.811A LACERATION W/O FOREIGN BODY, RIGHT LOWER 05/25/2019 JONATHAN JACOBSON MD, Ot S81.812A LACERATION WITHOUT FOREIGN BODY, LEFT LO 05/25/2019 JONATHAN JACOBSON MD Ot E11.622 TYPE 2 DIABETES MELLITUS WITH OTHER SKIN 05/25/2019 JONATHAN JACOBSON MD, Ot 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 05/25/2019 JONATHAN JACOBSON MD, Ot 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 05/25/2019 JONATHAN JACOBSON MD, Ot L97.225 NON-PRS CHR ULCER OF LEFT CALF WITH MSL 05/25/2019 JONATHAN JACOBSON MD, Ot S81.812A LACERATION WITHOUT FOREIGN BODY, LEFT LO 05/25/2019 JONATHAN JACOBSON MD, Ot E11.622 TYPE 2 DIABETES MELLITUS WITH OTHER SKIN 05/25/2019 JONATHAN JACOBSON MD Ot 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 05/25/2019 JONATHAN JACOBSON MD Ot 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 05/25/2019 JONATHAN JACOBSON MD Ot L97.225 NON-PRS CHR ULCER OF LEFT CALF WITH MSL 05/25/2019 JONATHAN JACOBSON MD, Ot S81.812A LACERATION WITHOUT FOREIGN BODY, LEFT LO 05/25/2019 JONATHAN JACOBSON MD Ot E11.622 TYPE 2 DIABETES MELLITUS WITH OTHER SKIN 05/25/2019 JONATHAN JACOBSON MD Ot 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 05/25/2019 JONATHAN JACOBSON MD, Ot 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 05/25/2019 JONATHAN JACOBSON MD Ot L97.225 NON-PRS CHR ULCER OF LEFT CALF WITH MSL 05/25/2019 JONATHAN JACOBSON MD Ot S81.812A LACERATION WITHOUT FOREIGN BODY, LEFT LO 05/25/2019 AMANDEEP MONTEZ DO Ot S99.912A UNSPECIFIED INJURY OF LEFT ANKLE, INITIA 05/31/2019 JONATHAN JACOBSON MD Ot 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 05/31/2019 JONATHAN JACOBSON MD, Ot E11.52 TYPE 2 DIABETES W DIABETIC PERIPHERAL AN 05/31/2019 JONATHAN JACOBSON MD, Ot E11.622 TYPE 2 DIABETES MELLITUS WITH OTHER SKIN 05/31/2019 JONATHAN JACOBSON MD Ot I70.262 ATHSCL [place] ARTERIES OF EXTREMITIES W 05/31/2019 JONATHAN JACOBSON MD, Ot 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 05/31/2019 JONATHAN JACOBSON MD, Ot L97.222 NON-PRESSURE CHRONIC ULCER OF LEFT CALF 05/31/2019 JONATHAN JACOBSON MD, Ot N18 .4 CHRONIC KIDNEY DISEASE, STAGE 4 (SEVERE) 05/31/2019 JONATHAN JACOBSON MD, Ot S81.811A LACERATION W/O FOREIGN BODY, RIGHT LOWER 05/31/2019 JONATHAN JACOBSON MD, Ot 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 05/31/2019 JONATHAN JACOBSON MD, Ot E11.52 TYPE 2 DIABETES W DIABETIC PERIPHERAL AN 05/31/2019 JONATHAN JACOBSON MD, Ot E11.622 TYPE 2 DIABETES MELLITUS WITH OTHER SKIN 05/31/2019 JONATHAN JACOBSON MD Ot 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 05/31/2019 JONATHAN JACOBSON MD, Ot 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 05/31/2019 JONATHAN JACOBSON MD Ot I96 GANGRENE, NOT ELSEWHERE CLASSIFIED 05/31/2019 JONATHAN JACOBSON MD, Ot L97.225 NON-PRS CHR ULCER OF LEFT CALF WITH MSL 05/31/2019 JONATHAN JACOBSON MD, Ot N18 .4 CHRONIC KIDNEY DISEASE, STAGE 4 (SEVERE) 05/31/2019 JONATHAN JACOBSON MD, Ot S81.811A LACERATION W/O FOREIGN BODY, RIGHT LOWER 05/31/2019 JONATHAN JACOBSON MD, Ot S81.812A LACERATION WITHOUT FOREIGN BODY, LEFT LO 06/02/2019 JONATHAN JACOBSON MD, Ot 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 06/02/2019 JONATHAN JACOBSON MD, Ot E11.52 TYPE 2 DIABETES W DIABETIC PERIPHERAL AN 06/02/2019 KAVON MD, JONATHAN G Ot E11.622 TYPE 2 DIABETES MELLITUS WITH OTHER SKIN 06/02/2019 JONATHAN JACOBSON MD Ot 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 06/02/2019 JONATHAN JACOBSON MD Ot 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 06/02/2019 JONATHAN JACOBSON MD Ot I96 GANGRENE, NOT ELSEWHERE CLASSIFIED 06/02/2019 JONATHAN JACOBSON MD Ot L97.225 NON-PRS CHR ULCER OF LEFT CALF WITH MSL 06/02/2019 JONATHAN JACOBSON MD Ot N18 .4 CHRONIC KIDNEY DISEASE, STAGE 4 (SEVERE) 06/02/2019 JONATHAN JACOBSON MD, Ot S81.811A LACERATION W/O FOREIGN BODY, RIGHT LOWER 06/03/2019 JONATHAN JACOBSON MD, Ot 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 06/03/2019 JONATHAN JACOBSON MD, Ot E11.52 TYPE 2 DIABETES W DIABETIC PERIPHERAL AN 06/03/2019 JONATHAN JACOBSON MD, Ot E11.622 TYPE 2 DIABETES MELLITUS WITH OTHER SKIN 06/03/2019 JONATHAN JACOBSON MD Ot I70.262 ATHSCL [place] ARTERIES OF EXTREMITIES W 06/03/2019 JONATHAN JACOBSON MD Ot 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 06/03/2019 JONATHAN JACOBSON MD Ot L97.222 NON-PRESSURE CHRONIC ULCER OF LEFT CALF 06/03/2019 JONATHAN JACOBSON MD, Ot N18 .4 CHRONIC KIDNEY DISEASE, STAGE 4 (SEVERE) 06/08/2019 FRANCISCA ELAINE, IOANA Solis Ot I10 ESSENTIAL (PRIMARY) HYPERTENSION 06/08/2019 IOANA ESPINOSA MD Ot I73 .9 PERIPHERAL VASCULAR DISEASE, UNSPECIFIED 06/14/2019 JONATHAN JACOBSON MD Ot 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 06/14/2019 JONATHAN JACOBSON MD Ot E11.52 TYPE 2 DIABETES W DIABETIC PERIPHERAL AN 06/14/2019 JONATHAN JACOBSON MD, Ot E11.622 TYPE 2 DIABETES MELLITUS WITH OTHER SKIN 06/14/2019 JONATHAN JACOBSON MD Ot I70.262 A[facility] [place] ARTERIES OF EXTREMITIES W 06/14/2019 JONATHAN JACOBSON MD Ot 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 06/14/2019 JONATHAN JACOBSON MD Ot L97.222 NON-PRESSURE CHRONIC ULCER OF LEFT CALF 06/14/2019 JONATHAN JACOBSON MD Ot N18 .4 CHRONIC KIDNEY DISEASE, STAGE 4 (SEVERE) 06/14/2019 JONATHAN JACOBSON MD, Ot S81.811A LACERATION W/O FOREIGN BODY, RIGHT LOWER 06/16/2019 JONATHAN JACOBSON MD Ot 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 06/16/2019 JONATHAN JACOBSON MD Ot E11.52 TYPE 2 DIABETES W DIABETIC PERIPHERAL AN 06/16/2019 JONATHAN JACOBSON MD, Ot E11.622 TYPE 2 DIABETES MELLITUS WITH OTHER SKIN 06/16/2019 JONATHAN JACOBSON MD Ot 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 06/16/2019 JONATHAN JACOBSON MD Ot 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 06/16/2019 JONATHAN JACOBSON MD Ot I96 GANGRENE, NOT ELSEWHERE CLASSIFIED 06/16/2019 JONATHAN JACOBSON MD Ot L97.225 NON-PRS CHR ULCER OF LEFT CALF WITH MSL 06/16/2019 JONATHAN JACOBSON MD, Ot N18 .4 CHRONIC KIDNEY DISEASE, STAGE 4 (SEVERE) 06/16/2019 JONATHAN JACOBSON MD, Ot S81.811A LACERATION W/O FOREIGN BODY, RIGHT LOWER 06/16/2019 JONATHAN JACOBSON MD Ot 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 06/16/2019 JONATHAN JACOBSON MD Ot E11.52 TYPE 2 DIABETES W DIABETIC PERIPHERAL AN 06/16/2019 JONATHAN JACOBSON MD, Ot E11.622 TYPE 2 DIABETES MELLITUS WITH OTHER SKIN 06/16/2019 JONATHAN JACOBSON MD Ot I70.262 ATHSCL [place] ARTERIES OF EXTREMITIES W 06/16/2019 JONATHAN JACOBSON MD Ot 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 06/16/2019 JONATHAN JACOBSON MD Ot L97.222 NON-PRESSURE CHRONIC ULCER OF LEFT CALF 06/16/2019 JONATHAN JACOBSON MD Ot N18 .4 CHRONIC KIDNEY DISEASE, STAGE 4 (SEVERE) 06/17/2019 JONATHAN JACOBSON MD Ot 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 06/17/2019 JONATHAN JACOBSON MD Ot E11.52 TYPE 2 DIABETES W DIABETIC PERIPHERAL AN 06/17/2019 JONATHAN JACOBSON MD Ot E11.622 TYPE 2 DIABETES MELLITUS WITH OTHER SKIN 06/17/2019 JONATHAN JACOBSON MD Ot 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 06/17/2019 JONATHAN JACOBSON MD Ot 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 06/17/2019 JONATHNA JACOBSON MD Ot I96 GANGRENE, NOT ELSEWHERE CLASSIFIED 06/17/2019 JONATHAN JACOBSON MD Ot L97.222 NON-PRESSURE CHRONIC ULCER OF LEFT CALF 06/17/2019 JONATHAN JACOBSON MD Ot N18 .4 CHRONIC KIDNEY DISEASE, STAGE 4 (SEVERE) 06/17/2019 JONATHAN JACOBSON MD Ot S81.811A LACERATION W/O FOREIGN BODY, RIGHT LOWER 06/21/2019 JONATHAN JACOBSON MD, Ot 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 06/21/2019 JONATHAN JACOBSON MD, Ot E11.52 TYPE 2 DIABETES W DIABETIC PERIPHERAL AN 06/21/2019 JONATHAN JACOBSON MD, Ot E11.622 TYPE 2 DIABETES MELLITUS WITH OTHER SKIN 06/21/2019 JONATHAN JACOBSON MD Ot 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 06/21/2019 JONATHAN JACOBSON MD Ot 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 06/21/2019 JONATHAN JACOBSON MD, Ot I96 GANGRENE, NOT ELSEWHERE CLASSIFIED 06/21/2019 JONATHAN JACOBSON MD Ot L97.222 NON-PRESSURE CHRONIC ULCER OF LEFT CALF 06/21/2019 JONATHAN JACOBSON MD, Ot N18 .4 CHRONIC KIDNEY DISEASE, STAGE 4 (SEVERE) 06/21/2019 JONATHAN JACOBSON MD, Ot S81.811A LACERATION W/O FOREIGN BODY, RIGHT LOWER 06/22/2019 JONATHAN JACOBSON MD Ot 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 06/22/2019 JONATHAN JACOBSON MD Ot E11.52 TYPE 2 DIABETES W DIABETIC PERIPHERAL AN 06/22/2019 JONATHAN JACOBSON MD, Ot E11.622 TYPE 2 DIABETES MELLITUS WITH OTHER SKIN 06/22/2019 JONATHAN JACOBSON MD Ot 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 06/22/2019 JONATHAN JACOBSON MD Ot 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 06/22/2019 JONATHAN JACOBSON MD, Ot I96 GANGRENE, NOT ELSEWHERE CLASSIFIED 06/22/2019 JONATHAN JACOBSON MD, Ot L97.222 NON-PRESSURE CHRONIC ULCER OF LEFT CALF 06/22/2019 JONATHAN JACOBSON MD, Ot N18 .4 CHRONIC KIDNEY DISEASE, STAGE 4 (SEVERE) 06/22/2019 JONATHAN JACOBSON MD, Ot S81.811A LACERATION W/O FOREIGN BODY, RIGHT LOWER 06/24/2019 JONATHAN JACOBSON MD Ot 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 06/24/2019 JONATHAN JACOBSON MD Ot E11.52 TYPE 2 DIABETES W DIABETIC PERIPHERAL AN 06/24/2019 JONATHAN JACOBSON MD, Ot E11.622 TYPE 2 DIABETES MELLITUS WITH OTHER SKIN 06/24/2019 JONATHAN JACOBSON MD, Ot I70.232 A[facility] [place] ARTERIES OF RIGHT LEG W UL 06/24/2019 JONATHAN JACOBSON MD Ot 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 06/24/2019 JONATHAN JACOBSON MD, Ot I96 GANGRENE, NOT ELSEWHERE CLASSIFIED 06/24/2019 JONATHAN JACOBSON MD, Ot L97.222 NON-PRESSURE CHRONIC ULCER OF LEFT CALF 06/24/2019 JONATHAN JACOBSON MD, Ot N18 .4 CHRONIC KIDNEY DISEASE, STAGE 4 (SEVERE) 06/24/2019 JONATHAN JACOBSON MD, Ot S81.811A LACERATION W/O FOREIGN BODY, RIGHT LOWER 06/24/2019 JONATHAN JACOBSON MD, Ot 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 06/24/2019 JONATHAN JACOBSON MD Ot E11.52 TYPE 2 DIABETES W DIABETIC PERIPHERAL AN 06/24/2019 JONATHAN JACOBSON MD, Ot E11.622 TYPE 2 DIABETES MELLITUS WITH OTHER SKIN 06/24/2019 JONATHAN JACOBSON MD Ot 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 06/24/2019 JONATHAN JACOBSON MD, Ot 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 06/24/2019 JONATHAN JACOBSON MD Ot I96 GANGRENE, NOT ELSEWHERE CLASSIFIED 06/24/2019 JONATHAN JACOBSON MD, Ot L97.222 NON-PRESSURE CHRONIC ULCER OF LEFT CALF 06/24/2019 JONATHAN JACOBSON MD, Ot N18 .4 CHRONIC KIDNEY DISEASE, STAGE 4 (SEVERE) 06/24/2019 JONATHAN JACOBSON MD, Ot S81.811A LACERATION W/O FOREIGN BODY, RIGHT LOWER 06/29/2019 JONATHAN JACOBSON MD Ot 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 06/29/2019 JONATHAN JACOBSON MD, Ot E11.52 TYPE 2 DIABETES W DIABETIC PERIPHERAL AN 06/29/2019 JONATHAN JACOBSON MD Ot E11.622 TYPE 2 DIABETES MELLITUS WITH OTHER SKIN 06/29/2019 JONATHAN JACOBSON MD Ot I70.262 A[facility] [place] ARTERIES OF EXTREMITIES W 06/29/2019 JONATHAN JACOBSON MD Ot 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 06/29/2019 JONATHAN JACOBSON MD Ot L97.222 NON-PRESSURE CHRONIC ULCER OF LEFT CALF 06/29/2019 JONATHAN JACOBSON MD, Ot N18 .4 CHRONIC KIDNEY DISEASE, STAGE 4 (SEVERE) 06/29/2019 JONATHAN JACOBSON MD, Ot 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 06/29/2019 JONATHAN JACOBSON MD, Ot E11.52 TYPE 2 DIABETES W DIABETIC PERIPHERAL AN 06/29/2019 JONATHAN JACOBSON MD, Ot E11.622 TYPE 2 DIABETES MELLITUS WITH OTHER SKIN 06/29/2019 JONATHAN JACOBSON MD Ot 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 06/29/2019 JONATHAN JACOBSON MD Ot 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 06/29/2019 JONATHAN JACOBSON MD Ot I96 GANGRENE, NOT ELSEWHERE CLASSIFIED 06/29/2019 JONATHAN JACOBSON MD, Ot L97.222 NON-PRESSURE CHRONIC ULCER OF LEFT CALF 06/29/2019 JONATHAN JACOBSON MD, Ot N18 .4 CHRONIC KIDNEY DISEASE, STAGE 4 (SEVERE) 06/29/2019 JONATHAN JACOBSON MD Ot S81.811A LACERATION W/O FOREIGN BODY, RIGHT LOWER 06/29/2019 JONATHAN JACOBSON MD Ot 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 06/29/2019 JONATHAN JACOBSON MD Ot E11.52 TYPE 2 DIABETES W DIABETIC PERIPHERAL AN 06/29/2019 JONATHAN JACOBSON MD Ot E11.622 TYPE 2 DIABETES MELLITUS WITH OTHER SKIN 06/29/2019 JONATHAN JACOBSON MD Ot 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 06/29/2019 JONATHAN JACOBSON MD Ot 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 06/29/2019 JONATHAN JACOBSON MD Ot I96 GANGRENE, NOT ELSEWHERE CLASSIFIED 06/29/2019 JONATHAN JACOBSON MD Ot L97.222 NON-PRESSURE CHRONIC ULCER OF LEFT CALF 06/29/2019 JONATHAN JACOBSON MD Ot N18 .4 CHRONIC KIDNEY DISEASE, STAGE 4 (SEVERE) 06/29/2019 JONATHAN JACOBSON MD, Ot S81.811A LACERATION W/O FOREIGN BODY, RIGHT LOWER 06/29/2019 TYE ROY MD Ot I10 ESSENTIAL (PRIMARY) HYPERTENSION 06/29/2019 JONATHAN JACOBSON MD Ot 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 06/29/2019 JONATHAN JACOBSON MD Ot E11.52 TYPE 2 DIABETES W DIABETIC PERIPHERAL AN 06/29/2019 JONATHAN JACOBSON MD Ot E11.622 TYPE 2 DIABETES MELLITUS WITH OTHER SKIN 06/29/2019 JONATHAN JACOBSON MD Ot I70.232 ATHSCL [place] ARTERIES OF RIGHT LEG W UL 06/29/2019 JONATHAN JACOBSON MD Ot 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 06/29/2019 JONATHAN JACOBSON MD Ot I96 GANGRENE, NOT ELSEWHERE CLASSIFIED 06/29/2019 JONATHAN JACOBSON MD Ot L97.222 NON-PRESSURE CHRONIC ULCER OF LEFT CALF 06/29/2019 JONATHAN JACOBSON MD Ot N18 .4 CHRONIC KIDNEY DISEASE, STAGE 4 (SEVERE) 06/29/2019 JONATHAN JACOBSON MD Ot S81.811A LACERATION W/O FOREIGN BODY, RIGHT LOWER 07/01/2019 TYE ROY MD Ot 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 07/01/2019 TYE ROY MD Ot I12.9 HYPERTENSIVE CHRONIC KIDNEY DISEASE W ST 07/01/2019 TYE ROY MD Ot N18.4 CHRONIC KIDNEY DISEASE, STAGE 4 (SEVERE) 07/05/2019 EVELYN ELAINE, DERIK Fried Ot 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 07/05/2019 DERIK RIVAS MD Ot J47.9 BRONCHIECTASIS, UNCOMPLICATED 07/05/2019 TYE ROY MD Ot M54.5 LOW BACK PAIN 07/05/2019 TYE ROY MD Ot S22.06 0A WEDGE COMPRESSION FRACTURE OF T7-T8 VERT 07/05/2019 AMANDEEP MONTEZ DO Ot S99.912A UNSPECIFIED INJURY OF LEFT ANKLE, INITIA 07/05/2019 AMANDEEP MONTEZ DO Ot Z01.818 ENCOUNTER FOR OTHER PREPROCEDURAL EXAMIN 07/05/2019 JONATHAN JACOBSON MD, Ot E11.622 TYPE 2 DIABETES MELLITUS WITH OTHER SKIN 07/05/2019 JONATHAN JACOBSON MD, Ot 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 07/05/2019 JONATHAN JACOBSON MD, Ot 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 07/05/2019 JONATHAN JACOBSON MD, Ot L97.225 NON-PRS CHR ULCER OF LEFT CALF WITH MSL 07/05/2019 JONATHAN JACOBSON MD, Ot S81.812A LACERATION WITHOUT FOREIGN BODY, LEFT LO 07/05/2019 JONATHAN JACOBSON MD, Ot E11.622 TYPE 2 DIABETES MELLITUS WITH OTHER SKIN 07/05/2019 JONATHAN JACOBSON MD, Ot L97.225 NON-PRS CHR ULCER OF LEFT CALF WITH MSL 07/05/2019 JONATHAN JACOBSON MD, Ot E11.622 TYPE 2 DIABETES MELLITUS WITH OTHER SKIN 07/05/2019 JONATHAN JACOBSON MD Ot 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 [facility] 07/05/2019 JONATHAN JACOBSON MD Ot 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 07/05/2019 JONATHAN JACOBSON MD Ot L97.225 NON-PRS CHR ULCER OF LEFT CALF WITH MSL 07/05/2019 JONATHAN JACOBSON MD, Ot S81.812A LACERATION WITHOUT FOREIGN BODY, LEFT LO 07/05/2019 FRANCISCA ELAINE, IOANA Solis Ot N28 .9 DISORDER OF KIDNEY AND URETER, UNSPECIFI 07/05/2019 JONATHAN JACOBSON MD, Ot E11.622 TYPE 2 DIABETES MELLITUS WITH OTHER SKIN 07/05/2019 JONATHAN JACOBSON MD Ot 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 [facility] 07/05/2019 JONATHAN JACOBSON MD Ot 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 07/05/2019 JONATHAN JACOBSON MD Ot L97.225 NON-PRS CHR ULCER OF LEFT CALF WITH MSL 07/05/2019 JONATHAN JACOBSON MD Ot S81.812A LACERATION WITHOUT FOREIGN BODY, LEFT LO 07/05/2019 JONATHAN JACOBSON MD Ot E11.52 TYPE 2 DIABETES W DIABETIC PERIPHERAL AN 07/05/2019 JONATHAN JACOBSON MD Ot E11.622 TYPE 2 DIABETES MELLITUS WITH OTHER SKIN 07/05/2019 JONATHAN JACOBSON MD Ot 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 07/05/2019 JONATHAN JACOBSON MD Ot 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 07/05/2019 JONATHAN AJCOBSON MD Ot I96 GANGRENE, NOT ELSEWHERE CLASSIFIED 07/05/2019 JONATHAN JACOBSON MD Ot L97.225 NON-PRS CHR ULCER OF LEFT CALF WITH MSL 07/05/2019 JONATHAN JACOBSON MD, Ot S81.811A LACERATION W/O FOREIGN BODY, RIGHT LOWER 07/05/2019 JONATHAN JACOBSON MD, Ot S81.812A LACERATION WITHOUT FOREIGN BODY, LEFT LO 07/05/2019 JONATHAN JACOBSON MD Ot 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 07/05/2019 JONATHAN JACOBSON MD Ot E11.52 TYPE 2 DIABETES W DIABETIC PERIPHERAL AN 07/05/2019 JONATHAN JACOBOSN MD Ot E11.622 TYPE 2 DIABETES MELLITUS WITH OTHER SKIN 07/05/2019 JONATHAN JACOBSON MD Ot 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 07/05/2019 JONATHAN JACOBSON MD Ot 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 07/05/2019 JONATHAN JACOBSON MD Ot I96 GANGRENE, NOT ELSEWHERE CLASSIFIED 07/05/2019 JONATHAN JACOBSON MD Ot L97.225 NON-PRS CHR ULCER OF LEFT CALF WITH MSL 07/05/2019 JONATHAN JACOBSON MD Ot N18 .4 CHRONIC KIDNEY DISEASE, STAGE 4 (SEVERE) 07/05/2019 JONATHAN JACOBSON MD Ot S81.811A LACERATION W/O FOREIGN BODY, RIGHT LOWER 07/05/2019 JONATHAN JACOBSON MD Ot S81.812A LACERATION WITHOUT FOREIGN BODY, LEFT LO 07/05/2019 JONATHAN JACOBSON MD Ot 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 07/05/2019 JONATHAN JACOBSON MD Ot E11.52 TYPE 2 DIABETES W DIABETIC PERIPHERAL AN 07/05/2019 JONATHAN JACOBSON MD, Ot E11.622 TYPE 2 DIABETES MELLITUS WITH OTHER SKIN 07/05/2019 JONATHAN JACOBSON MD Ot 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 07/05/2019 JONATHAN JACOBSON MD, Ot 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 07/05/2019 JONATHAN JACOBSON MD Ot I96 GANGRENE, NOT ELSEWHERE CLASSIFIED 07/05/2019 JONATHAN JACOBSON MD, Ot L97.225 NON-PRS CHR ULCER OF LEFT CALF WITH MSL 07/05/2019 JONATHAN JACOBSON MD, Ot N18 .4 CHRONIC KIDNEY DISEASE, STAGE 4 (SEVERE) 07/05/2019 JONATHAN JACOBSON MD, Ot S81.811A LACERATION W/O FOREIGN BODY, RIGHT LOWER 07/05/2019 JONATHAN JACOBSON MD, Ot 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 07/05/2019 JONATHAN JACOBSON MD, Ot E11.52 TYPE 2 DIABETES W DIABETIC PERIPHERAL AN 07/05/2019 JONATHAN JACOBSON MD, Ot E11.622 TYPE 2 DIABETES MELLITUS WITH OTHER SKIN 07/05/2019 JONATHAN JACOBSON MD Ot I70.262 ATHSCL [place] ARTERIES OF EXTREMITIES W 07/05/2019 JONATHAN JACOBSON MD, Ot 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 07/05/2019 JONATHAN JACOBSON MD, Ot L97.222 NON-PRESSURE CHRONIC ULCER OF LEFT CALF 07/05/2019 JONATHAN JACOBSON MD, Ot N18 .4 CHRONIC KIDNEY DISEASE, STAGE 4 (SEVERE) 07/05/2019 JONATHAN JACOBSON MD, Ot S81.811A LACERATION W/O FOREIGN BODY, RIGHT LOWER 07/05/2019 JONATHAN JACOBSON MD, Ot 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 07/05/2019 JONATHAN JACOBSON MD Ot E11.52 TYPE 2 DIABETES W DIABETIC PERIPHERAL AN 07/05/2019 JONATHAN JACOBSON MD, Ot E11.622 TYPE 2 DIABETES MELLITUS WITH OTHER SKIN 07/05/2019 JONATHAN JACOBSON MD, Ot I70.262 ATHSCL [place] ARTERIES OF EXTREMITIES W 07/05/2019 JONATHAN JACOBSON MD, Ot 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 07/05/2019 JONATHAN JACOBSON MD, Ot L97.222 NON-PRESSURE CHRONIC ULCER OF LEFT CALF 07/05/2019 JONATHAN JACOBSON MD Ot N18 .4 CHRONIC KIDNEY DISEASE, STAGE 4 (SEVERE) 07/05/2019 FRANCISCA ELAINE, IOANA Solis Ot I10 ESSENTIAL (PRIMARY) HYPERTENSION 07/05/2019 FRANCISCA ELAINE, IOANA Solis Ot I73 .9 PERIPHERAL VASCULAR DISEASE, UNSPECIFIED 07/05/2019 JONATHAN JACOBSON MD Ot 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 07/05/2019 JONATHAN JACOBSON MD Ot E11.52 TYPE 2 DIABETES W DIABETIC PERIPHERAL AN 07/05/2019 JONATHAN JACOBSON MD, Ot E11.622 TYPE 2 DIABETES MELLITUS WITH OTHER SKIN 07/05/2019 JONATHAN JACOBSON MD, Ot 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 07/05/2019 JONATHAN JACOBSON MD, Ot 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 07/05/2019 JONATHAN JACOBSON MD Ot I96 GANGRENE, NOT ELSEWHERE CLASSIFIED 07/05/2019 JONATHAN JACOBSON MD, Ot L97.222 NON-PRESSURE CHRONIC ULCER OF LEFT CALF 07/05/2019 JONATHAN JACOBSON MD, Ot N18 .4 CHRONIC KIDNEY DISEASE, STAGE 4 (SEVERE) 07/05/2019 JONATHAN JACOBSON MD, Ot S81.811A LACERATION W/O FOREIGN BODY, RIGHT LOWER 07/05/2019 JONATHAN JACOBSON MD Ot 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 07/05/2019 JONATHAN JACOBSON MD, Ot E11.52 TYPE 2 DIABETES W DIABETIC PERIPHERAL AN 07/05/2019 JONATHAN JACOBSON MD, Ot E11.622 TYPE 2 DIABETES MELLITUS WITH OTHER SKIN 07/05/2019 JONATHAN JACOBSON MD Ot 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 07/05/2019 JONATHAN JACOBSON MD Ot 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 07/05/2019 JONATHAN JACOBSON MD Ot I96 GANGRENE, NOT ELSEWHERE CLASSIFIED 07/05/2019 JONATHAN JACOBSON MD, Ot L97.222 NON-PRESSURE CHRONIC ULCER OF LEFT CALF 07/05/2019 JONATHAN JACOBSON MD Ot N18 .4 CHRONIC KIDNEY DISEASE, STAGE 4 (SEVERE) 07/05/2019 JONATHAN JACOBSON MD, Ot S81.811A LACERATION W/O FOREIGN BODY, RIGHT LOWER 07/05/2019 JONATHAN JACOBSON MD Ot 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 07/05/2019 JONATHAN JACOBSON MD Ot E11.52 TYPE 2 DIABETES W DIABETIC PERIPHERAL AN 07/05/2019 JONATHAN JACOBSON MD Ot E11.622 TYPE 2 DIABETES MELLITUS WITH OTHER SKIN 07/05/2019 JONATHAN JACOBSON MD Ot I70.232 ATHSCL [place] ARTERIES OF RIGHT LEG W UL 07/05/2019 JONATHAN JACOBSON MD Ot 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 07/05/2019 JONATHAN JACOBSON MD Ot I96 GANGRENE, NOT ELSEWHERE CLASSIFIED 07/05/2019 JONATHAN JACOBSON MD Ot L97.222 NON-PRESSURE CHRONIC ULCER OF LEFT CALF 07/05/2019 JONATHAN JACOBSON MD Ot N18 .4 CHRONIC KIDNEY DISEASE, STAGE 4 (SEVERE) 07/05/2019 JONATHAN JACOBSON MD, Ot S81.811A LACERATION W/O FOREIGN BODY, RIGHT LOWER 07/05/2019 JONATHAN JACOBSON MD Ot 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 07/05/2019 JONATHAN JACOBSON MD Ot E11.52 TYPE 2 DIABETES W DIABETIC PERIPHERAL AN 07/05/2019 JONATHAN JACOBSON MD Ot E11.622 TYPE 2 DIABETES MELLITUS WITH OTHER SKIN 07/05/2019 JONATHAN JACOBSON MD Ot 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 07/05/2019 JONATHAN JACOBSON MD Ot 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 07/05/2019 JONATHAN JACOBSON MD Ot I96 GANGRENE, NOT ELSEWHERE CLASSIFIED 07/05/2019 JONATHAN JACOBSON MD Ot L97.222 NON-PRESSURE CHRONIC ULCER OF LEFT CALF 07/05/2019 JONATHAN JACOBSON MD Ot N18 .4 CHRONIC KIDNEY DISEASE, STAGE 4 (SEVERE) 07/05/2019 JONATHAN JACOBSON MD Ot S81.811A LACERATION W/O FOREIGN BODY, RIGHT LOWER 07/05/2019 TYE ROY MD Ot 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 07/05/2019 TYE ROY MD Ot I12.9 HYPERTENSIVE CHRONIC KIDNEY DISEASE W ST 07/05/2019 TYE ROY MD Ot N18.4 CHRONIC KIDNEY DISEASE, STAGE 4 (SEVERE) 07/05/2019 JONATHAN JACOBSON MD Ot 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 07/05/2019 JONATHAN JACOBSON MD, Ot E11.52 TYPE 2 DIABETES W DIABETIC PERIPHERAL AN 07/05/2019 JONATHAN JACOBSON MD, Ot E11.622 TYPE 2 DIABETES MELLITUS WITH OTHER SKIN 07/05/2019 JONATHAN JACOBSON MD Ot 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 07/05/2019 JONATHAN JACOBSON MD, Ot 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 07/05/2019 JONATHAN JACOBSON MD Ot I96 GANGRENE, NOT ELSEWHERE CLASSIFIED 07/05/2019 JONATHAN JACOBSON MD, Ot L97.222 NON-PRESSURE CHRONIC ULCER OF LEFT CALF 07/05/2019 JONATHAN JACOBSON MD, Ot N18 .4 CHRONIC KIDNEY DISEASE, STAGE 4 (SEVERE) 07/05/2019 JONATHAN JACOBSON MD Ot S81.811A LACERATION W/O FOREIGN BODY, RIGHT LOWER 07/05/2019 JONATHAN JACOBSON MD, Ot 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 07/05/2019 JONATHAN JACOBSON MD, Ot E11.52 TYPE 2 DIABETES W DIABETIC PERIPHERAL AN 07/05/2019 JONATHAN JACOBSON MD, Ot E11.622 TYPE 2 DIABETES MELLITUS WITH OTHER SKIN 07/05/2019 JONATHAN JACOBSON MD, Ot I70.262 ATHSCL [place] ARTERIES OF EXTREMITIES W 07/05/2019 JONATHAN JACOBSON MD, Ot 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 07/05/2019 JONATHAN JACOBSON MD, Ot L97.222 NON-PRESSURE CHRONIC ULCER OF LEFT CALF 07/05/2019 JONATHAN JACOBSON MD Ot N18 .4 CHRONIC KIDNEY DISEASE, STAGE 4 (SEVERE) 07/05/2019 JONATHAN JACOBSON MD Ot 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 07/05/2019 JONATHAN JACOBSON MD, Ot E11.52 TYPE 2 DIABETES W DIABETIC PERIPHERAL AN 07/05/2019 JONATHAN JACOBSON MD, Ot E11.622 TYPE 2 DIABETES MELLITUS WITH OTHER SKIN 07/05/2019 JONATHAN JACOBSON MD Ot I70.262 ATHSCL [place] ARTERIES OF EXTREMITIES W 07/05/2019 JONATHAN JACOBSON MD, Ot 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 07/05/2019 JONATHAN JACOBSON MD Ot L97.222 NON-PRESSURE CHRONIC ULCER OF LEFT CALF 07/05/2019 JONATHAN JACOBSON MD, Ot N18 .4 CHRONIC KIDNEY DISEASE, STAGE 4 (SEVERE) 07/05/2019 JONATHAN JACOBSON MD, Ot S81.811A LACERATION W/O FOREIGN BODY, RIGHT LOWER 07/05/2019 JONATHAN JACOBSON MD Ot 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 07/05/2019 JONATHAN JACOBSON MD Ot E11.52 TYPE 2 DIABETES W DIABETIC PERIPHERAL AN 07/05/2019 JONATHAN JACOBSON MD, Ot E11.622 TYPE 2 DIABETES MELLITUS WITH OTHER SKIN 07/05/2019 JONATHAN JACOBSON MD, Ot 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 07/05/2019 JONATHAN JACOBSON MD Ot 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 07/05/2019 JONATHAN JACOBSON MD Ot I96 GANGRENE, NOT ELSEWHERE CLASSIFIED 07/05/2019 JONATHAN JACOBSON MD, Ot L97.225 NON-PRS CHR ULCER OF LEFT CALF WITH MSL 07/05/2019 JONATHAN JACOBSON MD, Ot N18 .4 CHRONIC KIDNEY DISEASE, STAGE 4 (SEVERE) 07/05/2019 JONATHAN JACOBSON MD, Ot S81.811A LACERATION W/O FOREIGN BODY, RIGHT LOWER 07/05/2019 JONATHAN JACOBSON MD Ot E11.52 TYPE 2 DIABETES W DIABETIC PERIPHERAL AN 07/05/2019 JONATHAN JACOBSON MD Ot E11.622 TYPE 2 DIABETES MELLITUS WITH OTHER SKIN 07/05/2019 JONATHAN JACOBSON MD Ot 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 07/05/2019 JONATHAN JACOBSON MD Ot 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 07/05/2019 JONATHAN JACOBSON MD Ot I96 GANGRENE, NOT ELSEWHERE CLASSIFIED 07/05/2019 JONATHAN JACOBSON MD Ot L97.225 NON-PRS CHR ULCER OF LEFT CALF WITH MSL 07/05/2019 JONATHAN JACOBSON MD, Ot S81.811A LACERATION W/O FOREIGN BODY, RIGHT LOWER 07/05/2019 JONATHAN JACOBSON MD, Ot S81.812A LACERATION WITHOUT FOREIGN BODY, LEFT LO 07/05/2019 JONATHAN JACOBSON MD Ot E11.622 TYPE 2 DIABETES MELLITUS WITH OTHER SKIN 07/05/2019 JONATHAN JACOBSON MD Ot 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 07/05/2019 JONATHAN JACOBSON MD Ot 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 07/05/2019 JONATHAN JACOBSON MD Ot L97.225 NON-PRS CHR ULCER OF LEFT CALF WITH MSL 07/05/2019 JONATHAN JACOBSON MD Ot S81.812A LACERATION WITHOUT FOREIGN BODY, LEFT LO 07/08/2019 SELF , TYE Ot E55.9 VITAMIN D DEFICIENCY, UNSPECIFIED 07/08/2019 SELF TYE ELAINE Ot E55.9 VITAMIN D DEFICIENCY, UNSPECIFIED 07/08/2019 SELF TYE ELAINE Ot 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 07/08/2019 SELF TYE ELAINE Ot I12.9 HYPERTENSIVE CHRONIC KIDNEY DISEASE W ST 07/08/2019 SELF TYE ELAINE Ot N18.4 CHRONIC KIDNEY DISEASE, STAGE 4 (SEVERE) 07/08/2019 SELF TYE ELAINE Ot 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 07/08/2019 SELF TYE ELAINE Ot I12.9 HYPERTENSIVE CHRONIC KIDNEY DISEASE W ST 07/08/2019 SELF TYE ELAINE Ot N18.4 CHRONIC KIDNEY DISEASE, STAGE 4 (SEVERE) 07/11/2019 JONATHAN JACOBSON MD Ot 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 07/11/2019 JONATHAN JACOBSON MD Ot E11.52 TYPE 2 DIABETES W DIABETIC PERIPHERAL AN 07/11/2019 JONATHAN JACOBSON MD Ot E11.622 TYPE 2 DIABETES MELLITUS WITH OTHER SKIN 07/11/2019 JONATHAN JACOBSON MD Ot I70.232 ATHSCL [place] ARTERIES OF RIGHT LEG W UL 07/11/2019 JONATHAN JACOBSON MD Ot 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 07/11/2019 JONATHAN JACOBSON MD Ot I96 GANGRENE, NOT ELSEWHERE CLASSIFIED 07/11/2019 JONATHAN JACOBSON MD Ot L97.222 NON-PRESSURE CHRONIC ULCER OF LEFT CALF 07/11/2019 JONATHAN JACOBSNO MD Ot N18 .4 CHRONIC KIDNEY DISEASE, STAGE 4 (SEVERE) 07/11/2019 KAVON MD, JONATHAN G Ot S81.811A LACERATION W/O FOREIGN BODY, RIGHT LOWER 07/15/2019 JONATHAN JACOBSON MD Ot 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 07/15/2019 JONATHAN JACOBSON MD, Ot E11.52 TYPE 2 DIABETES W DIABETIC PERIPHERAL AN 07/15/2019 JONATHAN JACOBSON MD, Ot E11.622 TYPE 2 DIABETES MELLITUS WITH OTHER SKIN 07/15/2019 JONATHAN JACOBSON MD Ot 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 07/15/2019 JONATHAN JACOBSON MD, Ot 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 07/15/2019 JONATHAN JACOBSON MD Ot L97.222 NON-PRESSURE CHRONIC ULCER OF LEFT CALF 07/15/2019 JONATHAN JACOBSON MD, Ot N18 .4 CHRONIC KIDNEY DISEASE, STAGE 4 (SEVERE) 07/15/2019 JONATHAN JACOBSON MD, Ot S81.811A LACERATION W/O FOREIGN BODY, RIGHT LOWER 07/19/2019 JONATHAN JACOBSON MD, Ot 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 07/19/2019 JONATHAN JACOBSON MD, Ot E11.52 TYPE 2 DIABETES W DIABETIC PERIPHERAL AN 07/19/2019 JONATHAN JACOBSON MD, Ot E11.622 TYPE 2 DIABETES MELLITUS WITH OTHER SKIN 07/19/2019 JONATHAN JACOBSON MD Ot I70.232 ATHSCL HO-[place] ARTERIES OF RIGHT LEG W UL 07/19/2019 JONATHAN JACOBSON MD Ot 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 07/19/2019 JONATHAN JACOBSON MD Ot I96 GANGRENE, NOT ELSEWHERE CLASSIFIED 07/19/2019 JONATHAN JACOBSON MD, Ot L97.222 NON-PRESSURE CHRONIC ULCER OF LEFT CALF 07/19/2019 JONATHAN JACOBSON MD Ot N18 .4 CHRONIC KIDNEY DISEASE, STAGE 4 (SEVERE) 07/19/2019 JONATHAN JACOBSON MD, Ot S81.811A LACERATION W/O FOREIGN BODY, RIGHT LOWER 07/22/2019 JONATHAN JACOBSON MD Ot 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 07/22/2019 JONATHAN JACOBSON MD, Ot E11.622 TYPE 2 DIABETES MELLITUS WITH OTHER SKIN 07/22/2019 JONATHAN JACOBSON MD Ot 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 07/22/2019 JONATHAN JACOBSON MD, Ot 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 07/22/2019 JONATHAN JACOBSON MD, Ot L97.222 NON-PRESSURE CHRONIC ULCER OF LEFT CALF 07/22/2019 JONATHAN JACOBSON MD, Ot N18 .4 CHRONIC KIDNEY DISEASE, STAGE 4 (SEVERE) 07/22/2019 JONATHAN JACOBSON MD, Ot S81.811A LACERATION W/O FOREIGN BODY, RIGHT LOWER 07/29/2019 JONATHAN JACOBSON MD Ot 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 07/29/2019 JONATHAN JACOBSON MD, Ot E11.52 TYPE 2 DIABETES W DIABETIC PERIPHERAL AN 07/29/2019 JONATHAN JACOBSON MD, Ot E11.622 TYPE 2 DIABETES MELLITUS WITH OTHER SKIN 07/29/2019 JONATHAN JACOBSON MD, Ot 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 07/29/2019 JONATHAN JACOBSON MD, Ot 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 07/29/2019 JONATHAN JACOBSON MD, Ot L97.222 NON-PRESSURE CHRONIC ULCER OF LEFT CALF 07/29/2019 JONATHAN JACOBSNO MD, Ot N18 .4 CHRONIC KIDNEY DISEASE, STAGE 4 (SEVERE) 07/29/2019 JONATHAN JACOBSON MD, Ot S81.811A LACERATION W/O FOREIGN BODY, RIGHT LOWER 08/03/2019 JONATHAN JACOBSON MD, Ot 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 08/03/2019 JONATHAN JACOBSON MD, Ot E11.52 TYPE 2 DIABETES W DIABETIC PERIPHERAL AN 08/03/2019 JONATHAN JACOBSON MD, Ot E11.622 TYPE 2 DIABETES MELLITUS WITH OTHER SKIN 08/03/2019 JONATHAN JACOBSON MD Ot 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 08/03/2019 JONATHAN JACOBSON MD, Ot 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 08/03/2019 JONATHAN JACOBSON MD, Ot L97.222 NON-PRESSURE CHRONIC ULCER OF LEFT CALF 08/03/2019 JONATHAN JACOBSON MD Ot N18 .4 CHRONIC KIDNEY DISEASE, STAGE 4 (SEVERE) 08/03/2019 JONATHAN JACOBSON MD, Ot S81.811A LACERATION W/O FOREIGN BODY, RIGHT LOWER 08/05/2019 JONATHAN JACOBSON MD Ot 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 08/05/2019 JONATHAN JACOBSON MD Ot E11.52 TYPE 2 DIABETES W DIABETIC PERIPHERAL AN 08/05/2019 JONATHAN JACOBSON MD, Ot E11.622 TYPE 2 DIABETES MELLITUS WITH OTHER SKIN 08/05/2019 JONATHAN JACOBSON MD Ot 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 08/05/2019 JONATHAN JACOBSON MD Ot 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 08/05/2019 JONATHAN JACOBSON MD Ot L97.222 NON-PRESSURE CHRONIC ULCER OF LEFT CALF 08/05/2019 JONATHAN JACOBSON MD Ot N18 .4 CHRONIC KIDNEY DISEASE, STAGE 4 (SEVERE) 08/07/2019 JONATHAN JACOBSON MD, Ot E11.622 TYPE 2 DIABETES MELLITUS WITH OTHER SKIN 08/07/2019 JONATHAN JACOBSON MD Ot L97.222 NON-PRESSURE CHRONIC ULCER OF LEFT CALF 08/12/2019 ELISABET HERNANDES APRN Ot L97.219 NON-PRESSURE CHRONIC ULCER OF RIGHT CALF 08/12/2019 JONATHAN JAOCBSON MD Ot 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 08/12/2019 JONATHAN JACOBSON MD, Ot E11.52 TYPE 2 DIABETES W DIABETIC PERIPHERAL AN 08/12/2019 JONATHAN JACOBSON MD, Ot E11.622 TYPE 2 DIABETES MELLITUS WITH OTHER SKIN 08/12/2019 JONATHAN JACOBSON MD Ot 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 08/12/2019 JONATHAN JACOBSON MD Ot 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 08/12/2019 JONATHAN JACOBSON MD Ot L97.222 NON-PRESSURE CHRONIC ULCER OF LEFT CALF 08/12/2019 JONATHAN JACOBSON MD Ot N18 .4 CHRONIC KIDNEY DISEASE, STAGE 4 (SEVERE) 08/15/2019 JONATHAN AJCOBSON MD Ot 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 08/15/2019 JONATHAN JACOBSON MD Ot E11.52 TYPE 2 DIABETES W DIABETIC PERIPHERAL AN 08/15/2019 JONATHAN JACOBSON MD, Ot E11.622 TYPE 2 DIABETES MELLITUS WITH OTHER SKIN 08/15/2019 JONATHAN JACOBSON MD Ot 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 08/15/2019 JONATHAN JACOBSON MD Ot 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 08/15/2019 JONATHAN JACOBSON MD Ot L97.222 NON-PRESSURE CHRONIC ULCER OF LEFT CALF 08/15/2019 JONATHAN JACOBSON MD Ot N18 .4 CHRONIC KIDNEY DISEASE, STAGE 4 (SEVERE) 08/15/2019 JONATHAN JACOBSON MD Ot S81.811A LACERATION W/O FOREIGN BODY, RIGHT LOWER 08/29/2019 JONATHAN JACOBSON MD Ot 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 08/29/2019 JONATHAN JACOBSON MD Ot E11.52 TYPE 2 DIABETES W DIABETIC PERIPHERAL AN 08/29/2019 JONATHAN JACOBSON MD, Ot E11.622 TYPE 2 DIABETES MELLITUS WITH OTHER SKIN 08/29/2019 JONATHAN JACOBSON MD Ot 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 08/29/2019 JONATHAN JACOBSON MD Ot 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 08/29/2019 JONATHAN JACOBSON MD Ot L97.222 NON-PRESSURE CHRONIC ULCER OF LEFT CALF 08/29/2019 JONATHAN JACOBSON MD Ot N18 .4 CHRONIC KIDNEY DISEASE, STAGE 4 (SEVERE) 08/29/2019 JONATHAN JACOBSON MD, Ot S81.811A LACERATION W/O FOREIGN BODY, RIGHT LOWER 08/29/2019 JONATHAN JACOBSON MD Ot 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 08/29/2019 JONATHAN JACOBSON MD Ot E11.52 TYPE 2 DIABETES W DIABETIC PERIPHERAL AN 08/29/2019 JONATHAN JACOBSON MD Ot E11.622 TYPE 2 DIABETES MELLITUS WITH OTHER SKIN 08/29/2019 JONATHAN JACOBSON MD Ot 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 08/29/2019 JONATHAN JACOBSON MD Ot 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 08/29/2019 JONATHAN JACOBSON MD Ot L97.222 NON-PRESSURE CHRONIC ULCER OF LEFT CALF 08/29/2019 JONATHAN JACOBSON MD Ot N18 .4 CHRONIC KIDNEY DISEASE, STAGE 4 (SEVERE) 08/29/2019 JONATHAN JACOBSON MD Ot S81.811A LACERATION W/O FOREIGN BODY, RIGHT LOWER 08/29/2019 EVELYN ELAINE, DERIK Fried Ot 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 08/29/2019 EVELYN ELAINE, DERIK Fried Ot J47.9 BRONCHIECTASIS, UNCOMPLICATED 08/29/2019 TYE ROY MD Ot M54.5 LOW BACK PAIN 08/29/2019 TYE ROY MD Ot S22.06 0A WEDGE COMPRESSION FRACTURE OF T7-T8 VERT 08/29/2019 AMANDEEP MONTEZ DO Ot S99.912A UNSPECIFIED INJURY OF LEFT ANKLE, INITIA 08/29/2019 AMANDEEP MONTEZ DO Ot Z01.818 ENCOUNTER FOR OTHER PREPROCEDURAL EXAMIN 08/29/2019 JONATHAN JACOBSON MD Ot E11.622 TYPE 2 DIABETES MELLITUS WITH OTHER SKIN 08/29/2019 JONATHAN JACOBSON MD Ot 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 08/29/2019 JONATHAN JACOBSON MD Ot 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 08/29/2019 JONATHAN JACOBSON MD Ot L97.225 NON-PRS CHR ULCER OF LEFT CALF WITH MSL 08/29/2019 JONATHAN JACOBSON MD Ot S81.812A LACERATION WITHOUT FOREIGN BODY, LEFT LO 08/29/2019 JONATHAN JACOBSON MD Ot E11.622 TYPE 2 DIABETES MELLITUS WITH OTHER SKIN 08/29/2019 JONATHAN JACOBSON MD Ot L97.225 NON-PRS CHR ULCER OF LEFT CALF WITH MSL 08/29/2019 JONATHAN JACOBSON MD Ot E11.622 TYPE 2 DIABETES MELLITUS WITH OTHER SKIN 08/29/2019 JONATHAN JACOBSON MD Ot 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 08/29/2019 JONATHAN JACOBSON MD Ot 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 08/29/2019 JONATHAN JACOBSON MD Ot L97.225 NON-PRS CHR ULCER OF LEFT CALF WITH MSL 08/29/2019 JONATHAN JACOBSON MD Ot S81.812A LACERATION WITHOUT FOREIGN BODY, LEFT LO 08/29/2019 FRANCISCA ELAINE, IOANA Solis Ot N28 .9 DISORDER OF KIDNEY AND URETER, UNSPECIFI 08/29/2019 JONATHAN JACOBSON MD Ot E11.622 TYPE 2 DIABETES MELLITUS WITH OTHER SKIN 08/29/2019 JONATHAN JACOBSON MD Ot 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 08/29/2019 JONATHAN JACOBSON MD Ot 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 08/29/2019 JONATHAN JACOBSON MD Ot L97.225 NON-PRS CHR ULCER OF LEFT CALF WITH MSL 08/29/2019 JONATHAN JACOBSON MD Ot S81.812A LACERATION WITHOUT FOREIGN BODY, LEFT LO 08/29/2019 JONATHAN JACOBSON MD Ot E11.52 TYPE 2 DIABETES W DIABETIC PERIPHERAL AN 08/29/2019 JONATHAN JACOBSON MD Ot E11.622 TYPE 2 DIABETES MELLITUS WITH OTHER SKIN 08/29/2019 JONATHAN JACOBSON MD Ot 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 08/29/2019 JONATHAN JACOBSON MD, Ot 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 08/29/2019 JONATHAN JACOBSON MD Ot I96 GANGRENE, NOT ELSEWHERE CLASSIFIED 08/29/2019 JONATHAN JACOBSON MD, Ot L97.225 NON-PRS CHR ULCER OF LEFT CALF WITH MSL 08/29/2019 JONATHAN JACOBSON MD Ot S81.811A LACERATION W/O FOREIGN BODY, RIGHT LOWER 08/29/2019 JONATHAN JACOBSON MD, Ot S81.812A LACERATION WITHOUT FOREIGN BODY, LEFT LO 08/29/2019 JONATHAN JACOBSON MD Ot 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 08/29/2019 JONATHAN JACOBSON MD Ot E11.52 TYPE 2 DIABETES W DIABETIC PERIPHERAL AN 08/29/2019 JONATHAN JACOBSON MD Ot E11.622 TYPE 2 DIABETES MELLITUS WITH OTHER SKIN 08/29/2019 JONATHAN JACOBSON MD Ot 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 08/29/2019 JONATHAN JACOBSON MD Ot 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 08/29/2019 JONATHAN JACOBSON MD Ot I96 GANGRENE, NOT ELSEWHERE CLASSIFIED 08/29/2019 JONATHAN JACOBSON MD Ot L97.225 NON-PRS CHR ULCER OF LEFT CALF WITH MSL 08/29/2019 JONATHAN JACOBSON MD Ot N18 .4 CHRONIC KIDNEY DISEASE, STAGE 4 (SEVERE) 08/29/2019 JONATHAN JACOBSON MD Ot S81.811A LACERATION W/O FOREIGN BODY, RIGHT LOWER 08/29/2019 JONATHAN JACOBSON MD, Ot S81.812A LACERATION WITHOUT FOREIGN BODY, LEFT LO 08/29/2019 JONATHAN JACOBSON MD Ot 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 08/29/2019 JONATHAN JACOBSON MD, Ot E11.52 TYPE 2 DIABETES W DIABETIC PERIPHERAL AN 08/29/2019 JONATHAN JACOBSON MD, Ot E11.622 TYPE 2 DIABETES MELLITUS WITH OTHER SKIN 08/29/2019 JONATHAN JACOBSON MD Ot 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 08/29/2019 JONATHAN JACOBSON MD Ot 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 08/29/2019 JONATHAN JACOBSON MD Ot I96 GANGRENE, NOT ELSEWHERE CLASSIFIED 08/29/2019 JONATHAN JACOBSON MD Ot L97.225 NON-PRS CHR ULCER OF LEFT CALF WITH MSL 08/29/2019 JONATHAN JACOBSON MD Ot N18 .4 CHRONIC KIDNEY DISEASE, STAGE 4 (SEVERE) 08/29/2019 JONATHAN JACOBSON MD, Ot S81.811A LACERATION W/O FOREIGN BODY, RIGHT LOWER 08/29/2019 JONATHAN JACOBSON MD Ot 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 08/29/2019 JONATHAN JACOBSON MD Ot E11.52 TYPE 2 DIABETES W DIABETIC PERIPHERAL AN 08/29/2019 JONATHAN JACOBSON MD, Ot E11.622 TYPE 2 DIABETES MELLITUS WITH OTHER SKIN 08/29/2019 JONATHAN JACOBSON MD Ot I70.262 ATHSCL [place] ARTERIES OF EXTREMITIES W 08/29/2019 JONATHAN JACOBSON MD Ot 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 08/29/2019 JONATHAN JACOBSON MD Ot L97.222 NON-PRESSURE CHRONIC ULCER OF LEFT CALF 08/29/2019 JONATHAN JACOBSON MD Ot N18 .4 CHRONIC KIDNEY DISEASE, STAGE 4 (SEVERE) 08/29/2019 JONATHAN JACOBSON MD Ot S81.811A LACERATION W/O FOREIGN BODY, RIGHT LOWER 08/29/2019 JONATHAN JACOBSON MD Ot 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 08/29/2019 JONATHAN JACOBSON MD Ot E11.52 TYPE 2 DIABETES W DIABETIC PERIPHERAL AN 08/29/2019 JONATHAN JACOBSON MD Ot E11.622 TYPE 2 DIABETES MELLITUS WITH OTHER SKIN 08/29/2019 JONATHAN JACOBSON MD Ot I70.262 ATHSCL [place] ARTERIES OF EXTREMITIES W 08/29/2019 JONATHAN JACOBSON MD Ot 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 08/29/2019 JONATHAN JACOBSON MD, Ot L97.222 NON-PRESSURE CHRONIC ULCER OF LEFT CALF 08/29/2019 JONATHAN JACOBSON MD, Ot N18 .4 CHRONIC KIDNEY DISEASE, STAGE 4 (SEVERE) 08/29/2019 FRANCISCA ELAINE, IOANA Solis Ot I10 ESSENTIAL (PRIMARY) HYPERTENSION 08/29/2019 FRANCISCA ELAINE, IOANA Solis Ot I73 .9 PERIPHERAL VASCULAR DISEASE, UNSPECIFIED 08/29/2019 JONATHAN JACOBSON MD Ot 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 08/29/2019 JONATHAN JACOBSON MD, Ot E11.52 TYPE 2 DIABETES W DIABETIC PERIPHERAL AN 08/29/2019 JONATHAN JACOBSON MD, Ot E11.622 TYPE 2 DIABETES MELLITUS WITH OTHER SKIN 08/29/2019 JONATHAN JACOBSON MD, Ot 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 08/29/2019 JONATHAN JACOBSON MD, Ot 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 08/29/2019 JONATHAN JACOBSON MD, Ot I96 GANGRENE, NOT ELSEWHERE CLASSIFIED 08/29/2019 JONATHAN JACOBSON MD, Ot L97.222 NON-PRESSURE CHRONIC ULCER OF LEFT CALF 08/29/2019 JONATHAN JACOBSON MD, Ot N18 .4 CHRONIC KIDNEY DISEASE, STAGE 4 (SEVERE) 08/29/2019 JONATHAN JACOBSON MD Ot S81.811A LACERATION W/O FOREIGN BODY, RIGHT LOWER 08/29/2019 JONATHAN JACOBSON MD Ot 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 08/29/2019 JONATHAN JACOBSON MD, Ot E11.52 TYPE 2 DIABETES W DIABETIC PERIPHERAL AN 08/29/2019 JONATHAN JACOBSON MD Ot E11.622 TYPE 2 DIABETES MELLITUS WITH OTHER SKIN 08/29/2019 JONATHAN JACOBSON MD Ot 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 08/29/2019 JONATHAN JACOBSON MD Ot 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 08/29/2019 JONATHAN JACOBSON MD Ot I96 GANGRENE, NOT ELSEWHERE CLASSIFIED 08/29/2019 JONATHAN JACOBSON MD, Ot L97.222 NON-PRESSURE CHRONIC ULCER OF LEFT CALF 08/29/2019 JONATHAN JACOBSON MD, Ot N18 .4 CHRONIC KIDNEY DISEASE, STAGE 4 (SEVERE) 08/29/2019 JONATHAN JACOBSON MD, Ot S81.811A LACERATION W/O FOREIGN BODY, RIGHT LOWER 08/29/2019 JONATHAN JACOBSON MD Ot 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 08/29/2019 JONATHAN JACOBSON MD Ot E11.52 TYPE 2 DIABETES W DIABETIC PERIPHERAL AN 08/29/2019 JONATHAN JACOBSON MD, Ot E11.622 TYPE 2 DIABETES MELLITUS WITH OTHER SKIN 08/29/2019 JONATHAN JACOBSON MD Ot I70.232 ATHSCL [place] ARTERIES OF RIGHT LEG W UL 08/29/2019 JONATHAN JACOBSON MD, Ot 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 08/29/2019 JONATHAN JACOBSON MD, Ot I96 GANGRENE, NOT ELSEWHERE CLASSIFIED 08/29/2019 JONATHAN JACOBSON MD, Ot L97.222 NON-PRESSURE CHRONIC ULCER OF LEFT CALF 08/29/2019 JONATHAN JACOBSON MD, Ot N18 .4 CHRONIC KIDNEY DISEASE, STAGE 4 (SEVERE) 08/29/2019 JONATHAN JACOBSON MD, Ot S81.811A LACERATION W/O FOREIGN BODY, RIGHT LOWER 08/29/2019 JONATHAN JACOBSON MD, Ot 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 08/29/2019 JONATHAN JACOBSON MD, Ot E11.52 TYPE 2 DIABETES W DIABETIC PERIPHERAL AN 08/29/2019 JONATHAN JACOBSON MD, Ot E11.622 TYPE 2 DIABETES MELLITUS WITH OTHER SKIN 08/29/2019 JONATHAN JACOBSON MD Ot 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 08/29/2019 JONATHAN JACOBSON MD, Ot 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 08/29/2019 JONATHAN JACOBSON MD Ot I96 GANGRENE, NOT ELSEWHERE CLASSIFIED 08/29/2019 JONATHAN JACOBSON MD, Ot L97.222 NON-PRESSURE CHRONIC ULCER OF LEFT CALF 08/29/2019 JONATHAN JACOBSON MD, Ot N18 .4 CHRONIC KIDNEY DISEASE, STAGE 4 (SEVERE) 08/29/2019 JONATHAN JACOBSON MD, Ot S81.811A LACERATION W/O FOREIGN BODY, RIGHT LOWER 08/29/2019 TYE ROY MD Ot 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 08/29/2019 SELF , TYE Ot I12.9 HYPERTENSIVE CHRONIC KIDNEY DISEASE W ST 08/29/2019 SELF , TYE Ot N18.4 CHRONIC KIDNEY DISEASE, STAGE 4 (SEVERE) 08/29/2019 SELF , TYE Ot 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 08/29/2019 SELF , TYE Ot I12.9 HYPERTENSIVE CHRONIC KIDNEY DISEASE W ST 08/29/2019 SELF , TYE Ot N18.4 CHRONIC KIDNEY DISEASE, STAGE 4 (SEVERE) 08/29/2019 JONATHAN JACOBSON MD Ot 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 08/29/2019 JONATHAN JACOBSON MD, Ot E11.52 TYPE 2 DIABETES W DIABETIC PERIPHERAL AN 08/29/2019 JONATHAN JACOBSON MD, Ot E11.622 TYPE 2 DIABETES MELLITUS WITH OTHER SKIN 08/29/2019 JONATHAN JACOBSON MD Ot 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 08/29/2019 JONATHAN JACOBSON MD Ot 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 08/29/2019 JONATHAN JACOBSON MD Ot L97.222 NON-PRESSURE CHRONIC ULCER OF LEFT CALF 08/29/2019 JONATHAN JACOBSON MD, Ot N18 .4 CHRONIC KIDNEY DISEASE, STAGE 4 (SEVERE) 08/29/2019 JONATHAN JACOBSON MD Ot S81.811A LACERATION W/O FOREIGN BODY, RIGHT LOWER 08/29/2019 JONATHAN JACOBSON MD Ot 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 08/29/2019 JONATHAN JACOBSON MD Ot E11.52 TYPE 2 DIABETES W DIABETIC PERIPHERAL AN 08/29/2019 JONATHAN JACOBSON MD, Ot E11.622 TYPE 2 DIABETES MELLITUS WITH OTHER SKIN 08/29/2019 JONATHAN JACOBSON MD Ot 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 08/29/2019 JONATHAN JACOBSON MD Ot 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 08/29/2019 JONATHAN JACOBSON MD Ot L97.222 NON-PRESSURE CHRONIC ULCER OF LEFT CALF 08/29/2019 JONATHAN JACOBSON MD Ot N18 .4 CHRONIC KIDNEY DISEASE, STAGE 4 (SEVERE) 08/29/2019 JONATHAN JACOBSON MD, Ot S81.811A LACERATION W/O FOREIGN BODY, RIGHT LOWER 08/29/2019 JONATHAN JACOBSON MD Ot 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 08/29/2019 JONATHAN JACOBSON MD, Ot E11.622 TYPE 2 DIABETES MELLITUS WITH OTHER SKIN 08/29/2019 JONATHAN JACOBSON MD Ot 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 08/29/2019 JONATHAN JACOBSON MD Ot 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 08/29/2019 JONATHAN JACOBSON MD Ot L97.222 NON-PRESSURE CHRONIC ULCER OF LEFT CALF 08/29/2019 JONATHAN JACOBSON MD, Ot N18 .4 CHRONIC KIDNEY DISEASE, STAGE 4 (SEVERE) 08/29/2019 JONATHAN JACOBSON MD, Ot S81.811A LACERATION W/O FOREIGN BODY, RIGHT LOWER 08/29/2019 JONATHAN JACOBSON MD, Ot 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 08/29/2019 JONATHAN JACOBSON MD, Ot E11.52 TYPE 2 DIABETES W DIABETIC PERIPHERAL AN 08/29/2019 JONATHAN JACOBSON MD, Ot E11.622 TYPE 2 DIABETES MELLITUS WITH OTHER SKIN 08/29/2019 JONATHAN JACOBSON MD Ot 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 08/29/2019 JONATHAN JACOBSON MD, Ot 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 08/29/2019 JONATHAN JACOBSON MD Ot L97.222 NON-PRESSURE CHRONIC ULCER OF LEFT CALF 08/29/2019 JONATHAN JACOBSON MD, Ot N18 .4 CHRONIC KIDNEY DISEASE, STAGE 4 (SEVERE) 08/29/2019 JONATHAN JACOBSON MD, Ot E11.622 TYPE 2 DIABETES MELLITUS WITH OTHER SKIN 08/29/2019 JONATHAN JACOBSON MD Ot L97.222 NON-PRESSURE CHRONIC ULCER OF LEFT CALF 08/29/2019 ELISABET HERNANDES APRN Ot L97.219 NON-PRESSURE CHRONIC ULCER OF RIGHT CALF 08/29/2019 JONATHAN JACOBSON MD Ot 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 08/29/2019 JONATHAN JACOBSON MD Ot E11.52 TYPE 2 DIABETES W DIABETIC PERIPHERAL AN 08/29/2019 JONATHAN JACOBSON MD, Ot E11.622 TYPE 2 DIABETES MELLITUS WITH OTHER SKIN 08/29/2019 JONATHAN JACOBSON MD Ot 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 08/29/2019 JONATHAN JACOBSON MD Ot 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 08/29/2019 JONATHAN JACOBSON MD Ot L97.222 NON-PRESSURE CHRONIC ULCER OF LEFT CALF 08/29/2019 JONATHAN JACOBSON MD Ot N18 .4 CHRONIC KIDNEY DISEASE, STAGE 4 (SEVERE) 08/29/2019 JONATHAN JACOBSON MD Ot 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 08/29/2019 JONATHAN JACOBSON MD, Ot E11.622 TYPE 2 DIABETES MELLITUS WITH OTHER SKIN 08/29/2019 JONATHAN JACOBSON MD, Ot 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 [facility] 08/29/2019 JONATHAN JACOBSON MD, Ot 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 08/29/2019 JONATHAN JACOBSON MD Ot L97.222 NON-PRESSURE CHRONIC ULCER OF LEFT CALF 08/29/2019 JONATHAN JACOBSON MD, Ot N18 .4 CHRONIC KIDNEY DISEASE, STAGE 4 (SEVERE) 08/29/2019 ELISABET HERNANDES APRN Ot L97.219 NON-PRESSURE CHRONIC ULCER OF RIGHT CALF 08/29/2019 JONATHAN JACOBSON MD Ot 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 08/29/2019 JONATHAN JACOBSON MD Ot E11.52 TYPE 2 DIABETES W DIABETIC PERIPHERAL AN 08/29/2019 JONATHAN JACOBSON MD, Ot E11.622 TYPE 2 DIABETES MELLITUS WITH OTHER SKIN 08/29/2019 JONATHAN JACOBSON MD Ot 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 08/29/2019 JONATHAN JACOBSON MD Ot 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 08/29/2019 JONATHAN JACOBSON MD Ot L97.222 NON-PRESSURE CHRONIC ULCER OF LEFT CALF 08/29/2019 JONATHAN JACOBSON MD Ot N18 .4 CHRONIC KIDNEY DISEASE, STAGE 4 (SEVERE) 08/29/2019 JONATHAN JACOBSON MD Ot E11.622 TYPE 2 DIABETES MELLITUS WITH OTHER SKIN 08/29/2019 JONATHAN JACOBSON MD Ot L97.222 NON-PRESSURE CHRONIC ULCER OF LEFT CALF 08/29/2019 JONATHAN JACOBSON MD Ot 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 08/29/2019 JONATHAN JACOBSON MD, Ot E11.52 TYPE 2 DIABETES W DIABETIC PERIPHERAL AN 08/29/2019 JONATHAN JACOBSON MD, Ot E11.622 TYPE 2 DIABETES MELLITUS WITH OTHER SKIN 08/29/2019 JONATHAN JACOBSON MD Ot 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 08/29/2019 JONATHAN JACOBSON MD Ot 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 08/29/2019 JONATHAN JACOBSON MD Ot L97.222 NON-PRESSURE CHRONIC ULCER OF LEFT CALF 08/29/2019 JONATHAN JACOBSON MD Ot N18 .4 CHRONIC KIDNEY DISEASE, STAGE 4 (SEVERE) 09/01/2019 JONATHAN JACOBSON MD, Ot E11.622 TYPE 2 DIABETES MELLITUS WITH OTHER SKIN 09/01/2019 JONATHAN JACOBSON MD Ot L97.222 NON-PRESSURE CHRONIC ULCER OF LEFT CALF 09/01/2019 JONATHAN JACOBSON MD, Ot E11.622 TYPE 2 DIABETES MELLITUS WITH OTHER SKIN 09/01/2019 JONATHAN JACOBSON MD Ot L97.222 NON-PRESSURE CHRONIC ULCER OF LEFT CALF 09/06/2019 ELISABET HERNANDES APRN Ot L97.219 NON-PRESSURE CHRONIC ULCER OF RIGHT CALF 09/06/2019 JONATHAN JACOBSON MD, Ot 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 09/06/2019 JONATHAN JACOBSON MD, Ot E11.52 TYPE 2 DIABETES W DIABETIC PERIPHERAL AN 09/06/2019 JONATHAN JACOBSON MD, Ot E11.622 TYPE 2 DIABETES MELLITUS WITH OTHER SKIN 09/06/2019 JONATHAN JACOBSON MD Ot 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 09/06/2019 JONATHAN JACOBSON MD Ot 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 09/06/2019 JONATHAN JACOBSON MD Ot L97.222 NON-PRESSURE CHRONIC ULCER OF LEFT CALF 09/06/2019 JONATHAN JACOBSON MD Ot N18 .4 CHRONIC KIDNEY DISEASE, STAGE 4 (SEVERE) 09/06/2019 JONATHAN JACOBSON MD Ot 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 09/06/2019 JONATHAN JACOBSON MD, Ot E11.622 TYPE 2 DIABETES MELLITUS WITH OTHER SKIN 09/06/2019 JONATHAN JACOBSON MD Ot 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 09/06/2019 JONATHAN JACOBSON MD Ot 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 09/06/2019 JONATHAN JACOBSON MD Ot L97.222 NON-PRESSURE CHRONIC ULCER OF LEFT CALF 09/06/2019 JONATHAN JACOBSON MD, Ot N18 .4 CHRONIC KIDNEY DISEASE, STAGE 4 (SEVERE) 09/07/2019 ELISABET HERNANDES APRN Ot L97.219 NON-PRESSURE CHRONIC ULCER OF RIGHT CALF 09/07/2019 JONATHAN JACOBSON MD Ot 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 09/07/2019 JONATHAN JACOBSON MD, Ot E11.52 TYPE 2 DIABETES W DIABETIC PERIPHERAL AN 09/07/2019 JONATHAN JACOBSON MD, Ot E11.622 TYPE 2 DIABETES MELLITUS WITH OTHER SKIN 09/07/2019 JONATHAN JACOBSON MD Ot 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 09/07/2019 JONATHAN JACOBSON MD, Ot 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 09/07/2019 JONATHAN JACOBSON MD Ot L97.222 NON-PRESSURE CHRONIC ULCER OF LEFT CALF 09/07/2019 JONATHAN JACOBSON MD, Ot N18 .4 CHRONIC KIDNEY DISEASE, STAGE 4 (SEVERE) 09/27/2019 ELISABET HERNANDES APRN Ot L97.219 NON-PRESSURE CHRONIC ULCER OF RIGHT CALF 09/27/2019 JONATHAN JACOBSON MD Ot 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 09/27/2019 JONATHAN JACOBSON MD, Ot E11.52 TYPE 2 DIABETES W DIABETIC PERIPHERAL AN 09/27/2019 JONATHAN JACOBSON MD, Ot E11.622 TYPE 2 DIABETES MELLITUS WITH OTHER SKIN 09/27/2019 JONATHAN JACOBSON MD Ot 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 09/27/2019 JONATHAN JACOBSON MD Ot 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 09/27/2019 JONATHAN JACOBSON MD Ot L97.222 NON-PRESSURE CHRONIC ULCER OF LEFT CALF 09/27/2019 JONATHAN JACOBSON MD Ot N18 .4 CHRONIC KIDNEY DISEASE, STAGE 4 (SEVERE) 09/27/2019 JONATHAN JACOBSON MD Ot 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 09/27/2019 JONATHAN JACOBSON MD, Ot E11.622 TYPE 2 DIABETES MELLITUS WITH OTHER SKIN 09/27/2019 JONATHAN JACOBSON MD Ot 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 09/27/2019 JONATHAN JACOBSON MD Ot 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 09/27/2019 JONATHAN JACOBSON MD, Ot L97.222 NON-PRESSURE CHRONIC ULCER OF LEFT CALF 09/27/2019 JONATHAN JACOBSON MD, Ot N18 .4 CHRONIC KIDNEY DISEASE, STAGE 4 (SEVERE) 10/13/2019 AMANDEEP MONTEZ DO Ot S99.912A UNSPECIFIED INJURY OF LEFT ANKLE, INITIA 10/21/2019 JONATHAN JACOBSON MD, Ot E11.622 TYPE 2 DIABETES MELLITUS WITH OTHER SKIN 10/21/2019 JONATHAN JACOBSON MD, Ot L97.222 NON-PRESSURE CHRONIC ULCER OF LEFT CALF 10/25/2019 JONATHAN JACOBSON MD, Ot 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 10/25/2019 JONATHAN JACOBSON MD Ot E11.52 TYPE 2 DIABETES W DIABETIC PERIPHERAL AN 10/25/2019 JONATHAN JACOBSON MD, Ot E11.622 TYPE 2 DIABETES MELLITUS WITH OTHER SKIN 10/25/2019 JONATHAN JACOBSON MD, Ot 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 10/25/2019 JONATHAN JACOBSON MD, Ot 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 10/25/2019 JONATHAN JACOBSON MD, Ot L97.222 NON-PRESSURE CHRONIC ULCER OF LEFT CALF 10/25/2019 JONATHAN JACOBSON MD Ot N18 .4 CHRONIC KIDNEY DISEASE, STAGE 4 (SEVERE) 12/10/2019 LOPEZ DO, CHANTAL Katelynn Ot E03.9 HYPOTHYROIDISM, UNSPECIFIED 12/10/2019 LOPEZ DO, CHANTAL B Ot E11.2 2 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 12/10/2019 LOPEZ DO, CHANTAL Katelynn Ot E87.5 HYPERKALEMIA 12/10/2019 LOPEZ DO, CHANTAL Katelynn Ot F41.9 ANXIETY DISORDER, UNSPECIFIED 12/10/2019 LOPEZ DO, CHANTAL B Ot I12.9 HYPERTENSIVE CHRONIC KIDNEY DISEASE W ST 12/10/2019 LOPEZ DO, CHANTAL Pace Ot I25.1 0 ATHSCL HEART DISEASE OF [place] CORONARY 12/10/2019 LOPEZ DO, CHANTAL B Ot I95.1 ORTHOSTATIC HYPOTENSION 12/10/2019 LOPEZ DO, CHANTAL Pace Ot J44.9 CHRONIC OBSTRUCTIVE PULMONARY DISEASE, U 12/10/2019 LOPEZ DO, CHANTAL Pace Ot K21.9 GASTRO-ESOPHAGEAL REFLUX DISEASE WITHOUT 12/10/2019 LOPEZ DO, CHANTAL Pace Ot N17.9 ACUTE KIDNEY FAILURE, UNSPECIFIED 12/10/2019 LOPEZ DO, CHANTAL Pace Ot N18.9 CHRONIC KIDNEY DISEASE, UNSPECIFIED 12/10/2019 LOPEZ DO, CHANTAL Pace Ot R53.1 WEAKNESS 12/10/2019 LOPEZ DO, CHANATL Pace Ot Z79.5 1 [facility] (CURRENT) USE OF INHALED STERO 12/10/2019 LOPEZ DO, CHANTAL Pace Ot Z79.8 2 [facility] (CURRENT) USE OF ASPIRIN 12/10/2019 LOPEZ DO, CHANTAL Pace Ot Z88.1 ALLERGY STATUS TO OTHER ANTIBIOTIC AGENT 12/10/2019 LOPEZ DO, CHANTAL Pace Ot Z88.8 ALLERGY STATUS TO OTH DRUG/MEDS/BIOL SUB 12/10/2019 LOPEZ DO, CHANTAL Pace Ot Z90.5 ACQUIRED ABSENCE OF KIDNEY 12/10/2019 LOPEZ DO, CHANTAL Pace Ot Z91.0 41 RADIOGRAPHIC DYE ALLERGY STATUS 12/18/2019 LOPEZ DO, CHANTAL Pace Ot E03.9 HYPOTHYROIDISM, UNSPECIFIED 12/18/2019 LOPEZ DO, CHANTAL Pace Ot E11.2 2 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 12/18/2019 LOPEZ DOCHANTAL Ot E87.5 HYPERKALEMIA 12/18/2019 LOPEZ DO, CHANTAL Pace Ot F41.9 ANXIETY DISORDER, UNSPECIFIED 12/18/2019 LOPEZ DOCHANTAL Ot I12.9 HYPERTENSIVE CHRONIC KIDNEY DISEASE W ST 12/18/2019 LOPEZ DOCHANTAL Ot I25.1 0 ATHSCL HEART DISEASE OF [place] CORONARY 12/18/2019 LOPEZ DO, CHANTAL Pace Ot I95.1 ORTHOSTATIC HYPOTENSION 12/18/2019 LOPEZ DO, CHANTAL Pace Ot J44.9 CHRONIC OBSTRUCTIVE PULMONARY DISEASE, U 12/18/2019 LOPEZ DO, CHANTAL Pace Ot K21.9 GASTRO-ESOPHAGEAL REFLUX DISEASE WITHOUT 12/18/2019 LOPEZ DO, CHANTAL Pace Ot N17.9 ACUTE KIDNEY FAILURE, UNSPECIFIED 12/18/2019 LOPEZ DO, CHANTAL Pace Ot N18.9 CHRONIC KIDNEY DISEASE, UNSPECIFIED 12/18/2019 LOPEZ DO, CHANTAL Pace Ot R53.1 WEAKNESS 12/18/2019 LOPEZ DO, CHANTAL B Ot Z79.5 1 [employer]IST[employer] (CURRENT) USE OF INHALED STERO 12/18/2019 [facility], CHANTAL B Ot 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 12/18/2019 MAYODAN DO, CHANTAL B Ot Z88.1 ALLERGY STATUS TO OTHER ANTIBIOTIC AGENT 12/18/2019 MAYODAN DO, CHANTAL B Ot Z88.8 ALLERGY STATUS TO OTH DRUG/MEDS/BIOL SUB 12/18/2019 [facility], CHANTAL B Ot Z90.5 ACQUIRED ABSENCE OF KIDNEY 12/18/2019 [facility], CHANTAL B Ot Z91.0 41 RADIOGRAPHIC DYE ALLERGY STATUS 12/26/2019 TYE ROY MD Ot I95.1 ORTHOSTATIC HYPOTENSION 12/27/2019 KHANH DOLAN MD Ot 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 12/27/2019 KHANH DOLAN MD Ot E78.5 HYPERLIPIDEMIA, UNSPECIFIED 12/27/2019 KHANH DOLAN MD Ot 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, W S 12/27/2019 KHANH DOLAN MD Ot N18.4 CHRONIC KIDNEY DISEASE, STAGE 4 (SEVERE) 12/27/2019 KHANH DOLAN MD Ot N25.0 RENAL OSTEODYSTROPHY 12/27/2019 KHANH DOLAN MD Ot Q60.2 RENAL AGENESIS, UNSPECIFIED 12/27/2019 KHANH DOLAN MD Ot Q60.5 RENAL HYPOPLASIA, UNSPECIFIED 12/27/2019 KHANH DOLAN MD Ot Z90.5 ACQUIRED ABSENCE OF KIDNEY 01/04/2020 KHANH DOLAN MD Ot 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 01/04/2020 KHANH DOLAN MD Ot E78.5 HYPERLIPIDEMIA, UNSPECIFIED 01/04/2020 KHANH DOLAN MD Ot 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, W S 01/04/2020 KHANH DOLAN MD Ot N18.4 CHRONIC KIDNEY DISEASE, STAGE 4 (SEVERE) 01/04/2020 KHANH DOLAN MD Ot N25.0 RENAL OSTEODYSTROPHY 01/04/2020 MAGDALENO ELAINE, KHANH S Ot Q60.2 RENAL AGENESIS, UNSPECIFIED 01/04/2020 MAGDALENO ELAINE, KHANH S Ot Q60.5 RENAL HYPOPLASIA, UNSPECIFIED 01/04/2020 MAGDALENO ELAINE, KHANH S Ot Z90.5 ACQUIRED ABSENCE OF KIDNEY 01/12/2020 MAGDALENO ELAINE, KHANH S Ot 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 01/12/2020 MAGDALENO ELAINE, MED S Ot E78.5 HYPERLIPIDEMIA, UNSPECIFIED 01/12/2020 MAGDALENO ELAINE, CELENAMED S Ot 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, W S 01/12/2020 MAGDALENO ELAINE, KHANH S Ot N18.4 CHRONIC KIDNEY DISEASE, STAGE 4 (SEVERE) 01/12/2020 MAGDALENO ELAINE, KHANH S Ot N25.0 RENAL OSTEODYSTROPHY 01/12/2020 MAGDALENO ELAINE, KHANH S Ot Q60.2 RENAL AGENESIS, UNSPECIFIED 01/12/2020 MAGDALENO ELAINE, ALICIA S Ot Q60.5 RENAL HYPOPLASIA, UNSPECIFIED 01/12/2020 MAGDALENO ELAINE, KHANH S Ot Z90.5 ACQUIRED ABSENCE OF KIDNEY 01/12/2020 SELF TYE ELAINE Ot I95.1 ORTHOSTATIC HYPOTENSION 01/13/2020 TYE ROY MD Ot I95.1 ORTHOSTATIC HYPOTENSION 01/24/2020 BHARATI FABIAN APRN Ot 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 01/24/2020 BHARATI FABIAN APRN Ot E78.5 HYPERLIPIDEMIA, UNSPECIFIED 01/24/2020 BHARATI FABIAN APRN Ot 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, W S 01/24/2020 BHARATI FABIAN APRN Ot N18.4 CHRONIC KIDNEY DISEASE, STAGE 4 (SEVERE) 01/24/2020 BHARATI FABIAN APRN Ot N25.0 RENAL OSTEODYSTROPHY 01/24/2020 BHARATI FABIAN APRN Ot 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 01/24/2020 BHARATI FABIAN APRN Ot Z90.5 ACQUIRED ABSENCE OF KIDNEY 01/31/2020 BHARATI FABIAN APRN Ot D63.1 ANEMIA IN CHRONIC KIDNEY DISEASE 01/31/2020 BHARATI FABIAN HEAD GREENSKEEPER Ot 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 01/31/2020 DOPARIS, BHARATI Pace HEAD GREENSKEEPER Ot 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 01/31/2020 RUI, BHARATI Pace APRN Ot E78.5 HYPERLIPIDEMIA, UNSPECIFIED 01/31/2020 BHARATI FABIAN APRN Ot 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, W S 01/31/2020 DOPARIS, BHARATI Pace HEAD GREENSKEEPER Ot N18.4 CHRONIC KIDNEY DISEASE, STAGE 4 (SEVERE) 01/31/2020 BHARATI FABIAN HEAD GREENSKEEPER Ot N25.0 RENAL OSTEODYSTROPHY 01/31/2020 BHARATI FABIAN APRN Ot R80.9 PROTEINURIA, UNSPECIFIED 01/31/2020 BHARATI FABIAN APRN Ot Z90.5 ACQUIRED ABSENCE OF KIDNEY 02/02/2020 MAGDALENO ELAINE, KHANH S Ot 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 02/02/2020 MAGDALENO ELAINE, KHANH S Ot E78.5 HYPERLIPIDEMIA, UNSPECIFIED 02/02/2020 MAGDALENO ELAINE, CELENAMED S Ot 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, W S 02/02/2020 MAGDALENO ELAINE, CELENAMED S Ot N18.4 CHRONIC KIDNEY DISEASE, STAGE 4 (SEVERE) 02/02/2020 MAGDALENO ELAINE, CELENAMED S Ot N25.0 RENAL OSTEODYSTROPHY 02/02/2020 MAGDALENO ELAINE, CELENAMED S Ot Q60.2 RENAL AGENESIS, UNSPECIFIED 02/02/2020 MAGDALENO ELAINE, CELENAMED S Ot Q60.5 RENAL HYPOPLASIA, UNSPECIFIED 02/02/2020 MAGDALENO ELAINE, AHMED S Ot Z90.5 ACQUIRED ABSENCE OF KIDNEY 02/09/2020 BHARATI FABIAN HEAD GREENSKEEPER Ot 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 02/09/2020 RUI, BHARATI Pace APRN Ot E78.5 HYPERLIPIDEMIA, UNSPECIFIED 02/09/2020 BHARATI FABIAN APRN Ot 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, W S 02/09/2020 BHARATI FABIAN APRN Ot N18.4 CHRONIC KIDNEY DISEASE, STAGE 4 (SEVERE) 02/09/2020 BHARATI FABIAN APRN Ot N25.0 RENAL OSTEODYSTROPHY 02/09/2020 BHARATI FABIAN APRN Ot 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 02/09/2020 BHARATI FABIAN APRN Ot Z90.5 ACQUIRED ABSENCE OF KIDNEY 02/22/2020 BHARATI FABIAN APRN Ot D63.1 ANEMIA IN CHRONIC KIDNEY DISEASE 02/22/2020 BHARATI FABIAN APRN Ot 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 Results Test Result Range [facility] - 03/14/19 09:28 GLUCOSE 105 mg/dL 65-99 UREA NITROGEN (BUN) 48 mg/dL 7-25 CREATININE 2.19 mg/dL 0.60-0.93 eGFR NON-AFR. QATARI 21 mL/min/1.73m2 > OR = 60 eGFR 24 mL/min/1.73m2 > OR = 60 BUN/CREATININE RATIO 22 (calc) 6-22 SODIUM 136 mmol/L 135-146 POTASSIUM 4.4 mmol/L 3.5-5.3 CHLORIDE 102 mmol/L 98-110 CARBON DIOXIDE 19 mmol/L 20-32 CALCIUM 9.6 mg/dL 8.6-10.4 PROTEIN, TOTAL 6.7 g/dL 6.1-8.1 ALBUMIN 4.1 g/dL 3.6-5.1 GLOBULIN 2.6 g/dL (calc) 1.9-3.7 ALBUMIN/GLOBULIN RATIO 1.6 (calc) 1.0-2. 5 BILIRUBIN, TOTAL 0.4 mg/dL 0.2-1.2 ALKALINE PHOSPHATASE 33 U/L 33-130 AST 26 U/L 10-35 ALT 13 U/L 6-29 VITAMIN D, 25-H - 03/14/19 09:28 VITAMIN D,25-OH,TOTAL,IA 25 ng/mL 30-10 0 A1C - 03/14/19 09:28 HEMOGLOBIN A1c 5.8 % of total Hgb <5.7 Complete blood count (CBC) with automate d white blood cell (WBC) differential - 04/02/19 13:00 Blood leukocytes automated count (number/volume) 7.2 10*3/uL 4.3-11.0 Blood erythrocytes automated count (number/volume) 3.28 10*6/uL 4.35-5.85 Venous blood hemoglobin measurement (mass/volume) 9.8 g/dL 11.5-16.0 Blood hematocrit (volume fraction) 31 % 35-52 Automated erythrocyte mean corpuscular volume 94 [ foz_us] 80-99 Automated erythrocyte mean corpuscular h emoglobin (mass per erythrocyte) 30 pg 25-34 Automated erythrocyte mean corpuscular h emoglobin concentration measurement (mass/volume) 32 g/dL 32-36 Automated erythrocyte distribution width ratio 15. 3 % 10.0- 14.5 Automated blood platelet count (count/volume) 297 10*3/uL 130-400 Automated blood platelet mean volume measurement 9.0 [foz_us] 7.4-10.4 Automated blood neutrophils/100 leukocytes 68 % 42-75 Automated blood lymphocytes/100 leukocytes 21 % 12-44 Blood monocytes/100 leukocytes 6 % 0-12 Automated blood eosinophils/100 leukocytes 4 % 0-10 Automated blood basophils/100 leukocytes 1 % 0-10 Blood neutrophils automated count (number/volume) 4.9 10*3 1.8-7.8 Blood lymphocytes automated count (number/volume) 1.5 10*3 1.0-4.0 Blood monocytes automated count (number/volume) 0. 4 10*3 0.0-1.0 Automated eosinophil count 0.3 10*3/uL 0 .0-0.3 Automated blood basophil count (count/volume) 0.0 10*3/uL 0.0-0.1 Comprehensive metabolic panel - 04/02/19 13:41 Serum or plasma sodium measurement (moles/volume) 135 mmol/L 135-145 Serum or plasma potassium measurement (moles/volume) 5.2 mmol/L 3.6-5.0 Serum or plasma chloride measurement (moles/volume) 99 mmol/L 98-107 Carbon dioxide 21 mmol/L 21-32 Serum or plasma anion gap determination (moles/volume) 15 mmol/L 5-14 Serum or plasma urea nitrogen measurement (mass/volume ) 46 mg/dL 7-18 Serum or plasma creatinine measurement (mass/volume) 1.98 mg/dL 0.60-1.30 Serum or plasma urea nitrogen/creatinine mass ratio 23 NRG Serum or plasma creatinine measurement w ith calculation of estimated glomerular filtration rate 24 NRG Serum or plasma glucose measurement (mass/volume) 150 mg/dL 70-105 Serum or plasma calcium measurement (mass/volume) 9.1 mg/dL 8.5-10.1 Serum or plasma total bilirubin measurement (mass/volu me) 0.2 mg/dL 0.1-1.0 Serum or plasma alkaline phosphatase prema surement (enzymatic activity/volume) 34 U/L 40-136 Serum or plasma aspartate aminotransfera se measurement (enzymatic activity/volume) 26 U/L 5-34 Serum or plasma alanine aminotransferase measurement (enzymatic activity/volume) 15 U/L 0-55 Serum or plasma protein measurement (mass/volume) 6.4 g/dL 6.4-8.2 Serum or plasma albumin measurement (mass/volume) 3.7 g/dL 3.2-4.5 CALCIUM CORRECTED 9.3 mg/dL 8.5-10.1 Methicillin resistant Staphylococcus aur eus (MRSA) screening culture - 04/12/19 06:35 Methicillin resistant Staphylococcus aureus (MRSA) scr eening culture NEG NRG Automated blood complete blood count (he mogram) panel - 04/12/19 06:40 Blood leukocytes automated count (number/volume) 7.8 10*3/uL 4.3-11.0 Blood erythrocytes automated count (number/volume) 3.33 10*6/uL 4.35-5.85 Venous blood hemoglobin measurement (mass/volume) 9.9 g/dL 11.5-16.0 Blood hematocrit (volume fraction) 31 % 35-52 Automated erythrocyte mean corpuscular volume 92 [ foz_us] 80-99 Automated erythrocyte mean corpuscular h emoglobin (mass per erythrocyte) 30 pg 25-34 Automated erythrocyte mean corpuscular h emoglobin concentration measurement (mass/volume) 32 g/dL 32-36 Automated erythrocyte distribution width ratio 14. 9 % 10.0- 14.5 Automated blood platelet count (count/volume) 462 10*3/uL 130-400 Automated blood platelet mean volume measurement 8.8 [foz_us] 7.4-10.4 Whole blood basic metabolic panel - 03/26 06/13 06:40 Serum or plasma sodium measurement (moles/volume) 137 mmol/L 135-145 Serum or plasma potassium measurement (moles/volume) 4.3 mmol/L 3.6-5.0 Serum or plasma chloride measurement (moles/volume) 108 mmol/L 98-107 Carbon dioxide 15 mmol/L 21-32 Serum or plasma anion gap determination (moles/volume) 14 mmol/L 5-14 Serum or plasma urea nitrogen measurement (mass/volume ) 42 mg/dL 7-18 Serum or plasma creatinine measurement (mass/volume) 2.03 mg/dL 0.60-1.30 Serum or plasma urea nitrogen/creatinine mass ratio 21 NRG Serum or plasma creatinine measurement w ith calculation of estimated glomerular filtration rate 24 NRG Serum or plasma glucose measurement (mass/volume) 110 mg/dL 70-105 Serum or plasma calcium measurement (mass/volume) 9.5 mg/dL 8.5-10.1 Serum or plasma renal function panel (Na , K, Cl, CO2, BUN, Cr, glucose,Ca, phos, alb) - 04/22/19 11:50 Serum or plasma sodium measurement (moles/volume) 135 mmol/L 135-145 Serum or plasma potassium measurement (moles/volume) 4.6 mmol/L 3.6-5.0 Serum or plasma chloride measurement (moles/volume) 104 mmol/L 98-107 Carbon dioxide 20 mmol/L 21-32 Serum or plasma anion gap determination (moles/volume) 11 mmol/L 5-14 Serum or plasma urea nitrogen measurement (mass/volume ) 54 mg/dL 7-18 Serum or plasma creatinine measurement (mass/volume) 2.09 mg/dL 0.60-1.30 Serum or plasma urea nitrogen/creatinine mass ratio 26 NRG Serum or plasma creatinine measurement w ith calculation of estimated glomerular filtration rate 23 NRG Serum or plasma glucose measurement (mass/volume) 121 mg/dL 70-105 Serum or plasma calcium measurement (mass/volume) 9.3 mg/dL 8.5-10.1 Serum or plasma albumin measurement (mass/volume) 3.6 g/dL 3.2-4.5 Serum or plasma phosphate measurement (mass/volume) 3.0 mg/dL 2.3-4.7 Complete urinalysis with reflex to cultu re - 04/22/19 11:56 Urine color determination YELLOW NRG Urine clarity determination CLEAR NR G Urine pH measurement by test strip 6 5-9 Specific gravity of urine by test strip 1.015 1.016-1.022 Urine protein assay by test strip, semi-quantitative 4+ NEGATIVE Urine glucose detection by automated test strip NE GATIVE NEGATIVE Erythrocytes detection in urine sediment by light micr oscopy 4+ NEGATIVE Urine ketones detection by automated test strip NE GATIVE NEGATIVE Urine nitrite detection by test strip NEGATIVE NEGATIVE Urine total bilirubin detection by test strip NEGA TIVE NEGATIVE Urine urobilinogen measurement by automated test strip (mass/volume) NORMAL NORMAL Urine leukocyte esterase detection by dipstick 3+ NEGATIVE Automated urine sediment erythrocyte cou nt by microscopy (number/high power field) [HPF] NRG Automated urine sediment leukocyte count by microscopy (number/high power field) > [HPF] NRG Bacteria detection in urine sediment by light microsco py MODERATE NRG Crystals detection in urine sediment by light microsco py NONE NRG Casts detection in urine sediment by light microscopy NONE NRG Mucus detection in urine sediment by light microscopy NEGATIVE NRG Complete urinalysis with reflex to culture YES NRG Urine protein/creatinine mass ratio - 11:56 Urine protein measurement (mass/volume) 282 mg/dL 6-12 Urine creatinine measurement (mass/volume) 80 mg/d L 30-125 Urine protein/creatinine mass ratio 3.53 NRG Bacterial urine culture - 04/22/19 11:56 Bacterial urine culture [id number] NRG COLONY COUNT >100,000/ML NR FTX;REPORTABLE SUSCEPTIBILITY REPORTED 04/25 11:30 NRG Dirithromycin susceptibility test by dis k diffusion - 04/22/19 11:56 Gentamicin susceptibility test by minimum inhibitory c oncentration <= NRG Trimethoprim/sulfamethoxazole susceptibi lity test by minimum inhibitoryconcentration <= NRG Levofloxacin susceptibility test by minimum inhibitory concentration <= NRG Ampicillin susceptibility test by minimum inhibitory c oncentration > NRG Cefazolin susceptibility test by minimum inhibitory co ncentration <= NRG Ceftriaxone susceptibility test by minimum inhibitory concentration <= NRG Ciprofloxacin susceptibility test by minimum inhibitor y concentration <= NRG Meropenem susceptibility test by minimum inhibitory co ncentration <= NRG Nitrofurantoin susceptibility test by mi nimum inhibitory concentration 64 NRG Amoxicillin and clavulanate potassium susc PAVAN <= NRG Dirithromycin susceptibility test by dis k diffusion - 04/22/19 11:56 Gentamicin susceptibility test by minimum inhibitory c oncentration <= NRG Trimethoprim/sulfamethoxazole susceptibi lity test by minimum inhibitoryconcentration <= NRG Levofloxacin susceptibility test by minimum inhibitory concentration <= NRG Ampicillin susceptibility test by minimum inhibitory c oncentration R NRG Cefazolin susceptibility test by minimum inhibitory co ncentration <= NRG Ceftriaxone susceptibility test by minimum inhibitory concentration <= NRG Ciprofloxacin susceptibility test by minimum inhibitor y concentration <= NRG Meropenem susceptibility test by minimum inhibitory co ncentration <= NRG Nitrofurantoin susceptibility test by mi nimum inhibitory concentration 32 NRG Amoxicillin and clavulanate potassium susc PAVAN <= NRG Gram stain microscopy - 04/26/19 15:33 Gram stain microscopy No bacteria seen NR Bacteria identification in wound by cult ure - 04/26/19 15:33 Bacteria identification in wound by culture [id number] NR FREE TEXT EXTERNAL SUSCEPTIBILITY REPORTED 04/29/19 15:35 NRG QUANTITY OF GROWTH Rare NR FREE TEXT ENTRY 2 ID REPORTED 04/28/19 13:05 NRG Whole blood basic metabolic panel - 05/26 12/14 09:11 Serum or plasma sodium measurement (moles/volume) 135 mmol/L 135-145 Serum or plasma potassium measurement (moles/volume) 4.7 mmol/L 3.6-5.0 Serum or plasma chloride measurement (moles/volume) 100 mmol/L 98-107 Carbon dioxide 19 mmol/L 21-32 Serum or plasma anion gap determination (moles/volume) 16 mmol/L 5-14 Serum or plasma urea nitrogen measurement (mass/volume ) 51 mg/dL 7-18 Serum or plasma creatinine measurement (mass/volume) 1.94 mg/dL 0.60-1.30 Serum or plasma urea nitrogen/creatinine mass ratio 26 NRG Serum or plasma creatinine measurement w ith calculation of estimated glomerular filtration rate 25 NRG Serum or plasma glucose measurement (mass/volume) 105 mg/dL 70-105 Serum or plasma calcium measurement (mass/volume) 9.0 mg/dL 8.5-10.1 Lipid 1996 panel - 06/29/19 14:15 Serum or plasma triglyceride measurement (mass/volume) 139 mg/dL <150 Serum or plasma cholesterol measurement (mass/volume) 172 mg/dL < 200 Serum or plasma cholesterol in HDL measurement (mass/v olume) 49 mg/dL 40-60 Cholesterol in LDL [mass/volume] in serum or plasma by direct assay 82 mg/dL 1-129 Serum or plasma cholesterol in VLDL measurement (mass/ volume) 28 mg/dL 5-40 Complete blood count (CBC) with automate d white blood cell (WBC) differential - 07/06/19 12:14 Blood leukocytes automated count (number/volume) 8.5 10*3/uL 4.3-11.0 Blood erythrocytes automated count (number/volume) 3.55 10*6/uL 4.35-5.85 Venous blood hemoglobin measurement (mass/volume) 10.1 g/dL 11.5-16.0 Blood hematocrit (volume fraction) 32 % 35-52 Automated erythrocyte mean corpuscular volume 90 [ foz_us] 80-99 Automated erythrocyte mean corpuscular h emoglobin (mass per erythrocyte) 29 pg 25-34 Automated erythrocyte mean corpuscular h emoglobin concentration measurement (mass/volume) 32 g/dL 32-36 Automated erythrocyte distribution width ratio 14. 5 % 10.0- 14.5 Automated blood platelet count (count/volume) 366 10*3/uL 130-400 Automated blood platelet mean volume measurement 9.0 [foz_us] 7.4-10.4 Automated blood neutrophils/100 leukocytes 69 % 42-75 Automated blood lymphocytes/100 leukocytes 21 % 12-44 Blood monocytes/100 leukocytes 6 % 0-12 Automated blood eosinophils/100 leukocytes 4 % 0-10 Automated blood basophils/100 leukocytes 0 % 0-10 Blood neutrophils automated count (number/volume) 5.8 10*3 1.8-7.8 Blood lymphocytes automated count (number/volume) 1.8 10*3 1.0-4.0 Blood monocytes automated count (number/volume) 0. 5 10*3 0.0-1.0 Automated eosinophil count 0.3 10*3/uL 0 .0-0.3 Automated blood basophil count (count/volume) 0.0 10*3/uL 0.0-0.1 VITAMIN D 25-HYDROXY - 07/06/19 12:14 VITAMIN D 25-HYDROXY (TOTAL) 26.0 % 3 0.0-100.0 Comprehensive metabolic panel - 08/03/19 12:50 Serum or plasma sodium measurement (moles/volume) 139 mmol/L 135-145 Serum or plasma potassium measurement (moles/volume) 4.3 mmol/L 3.6-5.0 Serum or plasma chloride measurement (moles/volume) 108 mmol/L 98-107 Carbon dioxide 19 mmol/L 21-32 Serum or plasma anion gap determination (moles/volume) 12 mmol/L 5-14 Serum or plasma urea nitrogen measurement (mass/volume ) 59 mg/dL 7-18 Serum or plasma creatinine measurement (mass/volume) 2.03 mg/dL 0.60-1.30 Serum or plasma urea nitrogen/creatinine mass ratio 29 NRG Serum or plasma creatinine measurement w ith calculation of estimated glomerular filtration rate 24 NRG Serum or plasma glucose measurement (mass/volume) 80 mg/dL 70-105 Serum or plasma calcium measurement (mass/volume) 9.4 mg/dL 8.5-10.1 Serum or plasma total bilirubin measurement (mass/volu me) 0.2 mg/dL 0.1-1.0 Serum or plasma alkaline phosphatase prema surement (enzymatic activity/volume) 49 U/L 40-136 Serum or plasma aspartate aminotransfera se measurement (enzymatic activity/volume) 39 U/L 5-34 Serum or plasma alanine aminotransferase measurement (enzymatic activity/volume) 32 U/L 0-55 Serum or plasma protein measurement (mass/volume) 7.3 g/dL 6.4-8.2 Serum or plasma albumin measurement (mass/volume) 4.0 g/dL 3.2-4.5 CALCIUM CORRECTED 9.4 mg/dL 8.5-10.1 Hemoglobin A1c measurement - 08/03/19 12 :50 Blood hemoglobin A1C measurement (mass/volume) 5.8 % 4.0-5.6 MEAN BLOOD GLUCOSE 120 % <=126 Prealbumin - 08/03/19 12:50 Serum or plasma prealbumin measurement (mass/volume) 24.2 % 18.0-37.0 CMP - 09/16/19 10:13 GLUCOSE 93 mg/dL 65-99 UREA NITROGEN (BUN) 42 mg/dL 7-25 CREATININE 1.43 mg/dL 0.60-0.93 eGFR NON-AFR. QATARI 35 mL/min/1.73m2 > OR = 60 eGFR 40 mL/min/1.73m2 > OR = 60 BUN/CREATININE RATIO 29 (calc) 6-22 SODIUM 135 mmol/L 135-146 POTASSIUM 5.1 mmol/L 3.5-5.3 CHLORIDE 108 mmol/L 98-110 CARBON DIOXIDE 20 mmol/L 20-32 CALCIUM 8.7 mg/dL 8.6-10.4 PROTEIN, TOTAL 6.1 g/dL 6.1-8.1 ALBUMIN 3.6 g/dL 3.6-5.1 GLOBULIN 2.5 g/dL (calc) 1.9-3.7 ALBUMIN/GLOBULIN RATIO 1.4 (calc) 1.0-2. 5 BILIRUBIN, TOTAL 0.2 mg/dL 0.2-1.2 ALKALINE PHOSPHATASE 42 U/L 33-130 AST 17 U/L 10-35 ALT 13 U/L 6-29 CULTURE, URINE - 10/05/19 13:22 CULTURE, URINE, ROUTINE SEE NOTE NRG Blood CBC with ordered manual differenti al panel - 12/10/19 10:50 Blood leukocytes automated count (number/volume) 9.0 10*3/uL 4.3-11.0 Blood erythrocytes automated count (number/volume) 3.73 10*6/uL 4.35-5.85 Venous blood hemoglobin measurement (mass/volume) 10.3 g/dL 11.5-16.0 Blood hematocrit (volume fraction) 33 % 35-52 Automated erythrocyte mean corpuscular volume 88 [ foz_us] 80-99 Automated erythrocyte mean corpuscular h emoglobin (mass per erythrocyte) 28 pg 25-34 Automated erythrocyte mean corpuscular h emoglobin concentration measurement (mass/volume) 32 g/dL 32-36 Automated erythrocyte distribution width ratio 15. 1 % 10.0- 14.5 Automated blood platelet count (count/volume) 341 10*3/uL 130-400 Automated blood platelet mean volume measurement 9.3 [foz_us] 7.4-10.4 Automated blood neutrophils/100 leukocytes 75 % 42-75 Automated blood lymphocytes/100 leukocytes 15 % 12-44 Blood monocytes/100 leukocytes 5 % NRG Automated blood eosinophils/100 leukocytes 2 % 0-10 Automated blood basophils/100 leukocytes 1 % 0-10 Blood neutrophils automated count (number/volume) 6.8 10*3 1.8-7.8 Blood lymphocytes automated count (number/volume) 1.4 10*3 1.0-4.0 Blood monocytes automated count (number/volume) 0. 6 10*3 0.0-1.0 Automated eosinophil count 0.2 10*3/uL 0 .0-0.3 Automated blood basophil count (count/volume) 0.1 10*3/uL 0.0-0.1 Manual blood segmented neutrophils/100 leukocytes 61 % NRG Blood band neutrophils/100 leukocytes 17 % NRG Manual blood lymphocytes/100 leukocytes 12 % NRG Manual eosinophils/100 leukocytes in nose 3 % NRG Manual blood basophils/100 leukocytes 1 % NRG Manual blood metamyelocytes/100 leukocytes 1 % NRG Comprehensive metabolic panel - 12/10/19 10:50 Serum or plasma sodium measurement (moles/volume) 133 mmol/L 135-145 Serum or plasma potassium measurement (moles/volume) 5.5 mmol/L 3.6-5.0 Serum or plasma chloride measurement (moles/volume) 100 mmol/L 98-107 Carbon dioxide 18 mmol/L 21-32 Serum or plasma anion gap determination (moles/volume) 15 mmol/L 5-14 Serum or plasma urea nitrogen measurement (mass/volume ) 32 mg/dL 7-18 Serum or plasma creatinine measurement (mass/volume) 2.16 mg/dL 0.60-1.30 Serum or plasma urea nitrogen/creatinine mass ratio 15 NRG Serum or plasma creatinine measurement w ith calculation of estimated glomerular filtration rate 22 NRG Serum or plasma glucose measurement (mass/volume) 116 mg/dL 70-105 Serum or plasma calcium measurement (mass/volume) 9.4 mg/dL 8.5-10.1 Serum or plasma total bilirubin measurement (mass/volu me) 0.2 mg/dL 0.1-1.0 Serum or plasma alkaline phosphatase prema surement (enzymatic activity/volume) 56 U/L 40-136 Serum or plasma aspartate aminotransfera se measurement (enzymatic activity/volume) 21 U/L 5-34 Serum or plasma alanine aminotransferase measurement (enzymatic activity/volume) 9 U/L 0-55 Serum or plasma protein measurement (mass/volume) 6.8 g/dL 6.4-8.2 Serum or plasma albumin measurement (mass/volume) 3.7 g/dL 3.2-4.5 CALCIUM CORRECTED 9.6 mg/dL 8.5-10.1 Magnesium - 12/10/19 10:50 Magnesium 1.4 mg/dL 1.6-2.4 TROPONIN I FS - 12/10/19 10:50 TROPONIN I FS < 0.30 <0.30 PROBNP FS - 12/10/19 10:50 PROBNP FS 7125.0 pg/mL <75.0 Blood lactic acid measurement (moles/vol ume) - 12/10/19 10:50 Blood lactic acid measurement (moles/volume) 0.75 mmol/L 0.50-2.00 Complete urinalysis with reflex to cultu re - 12/10/19 11:12 Urine color determination YELLOW NRG Urine clarity determination CLEAR NR G Urine pH measurement by test strip 7.5 5-9 Specific gravity of urine by test strip 1.020 1.016-1.022 Urine protein assay by test strip, semi-quantitative 3+ NEGATIVE Urine glucose detection by automated test strip NE GATIVE NEGATIVE Erythrocytes detection in urine sediment by light micr oscopy TRACE NEGATIVE Urine ketones detection by automated test strip NE GATIVE NEGATIVE Urine nitrite detection by test strip NEGATIVE NEGATIVE Urine total bilirubin detection by test strip NEGA TIVE NEGATIVE Urine urobilinogen measurement by automated test strip (mass/volume) 0.2 mg/dL < = 1.0 Urine leukocyte esterase detection by dipstick TRA CE NEGATIVE Automated urine sediment erythrocyte cou nt by microscopy (number/high power field) RARE NRG Automated urine sediment leukocyte count by microscopy (number/high power field) [HPF] NRG Bacteria detection in urine sediment by light microsco py TRACE NRG Squamous epithelial cells detection in u rine sediment by light microscopy 2-5 NRG Crystals detection in urine sediment by light microsco py NONE NRG Casts detection in urine sediment by light microscopy NONE NRG Mucus detection in urine sediment by light microscopy NONE NRG Complete urinalysis with reflex to culture NO NRG Automated blood complete blood count (he mogram) panel - 12/23/19 09:48 Blood leukocytes automated count (number/volume) 7.7 10*3/uL 4.3-11.0 Blood erythrocytes automated count (number/volume) 3.29 10*6/uL 4.35-5.85 Venous blood hemoglobin measurement (mass/volume) 9.3 g/dL 11.5-16.0 Blood hematocrit (volume fraction) 30 % 35-52 Automated erythrocyte mean corpuscular volume 91 [ foz_us] 80-99 Automated erythrocyte mean corpuscular h emoglobin (mass per erythrocyte) 28 pg 25-34 Automated erythrocyte mean corpuscular h emoglobin concentration measurement (mass/volume) 31 g/dL 32-36 Automated erythrocyte distribution width ratio 14. 8 % 10.0- 14.5 Automated blood platelet count (count/volume) 299 10*3/uL 130-400 Automated blood platelet mean volume measurement 9.4 [foz_us] 7.4-10.4 Comprehensive metabolic panel - 12/23/19 09:48 Serum or plasma sodium measurement (moles/volume) 138 mmol/L 135-145 Serum or plasma potassium measurement (moles/volume) 4.4 mmol/L 3.6-5.0 Serum or plasma chloride measurement (moles/volume) 105 mmol/L 98-107 Carbon dioxide 21 mmol/L 21-32 Serum or plasma anion gap determination (moles/volume) 12 mmol/L 5-14 Serum or plasma urea nitrogen measurement (mass/volume ) 28 mg/dL 7-18 Serum or plasma creatinine measurement (mass/volume) 1.62 mg/dL 0.60-1.30 Serum or plasma urea nitrogen/creatinine mass ratio 17 NRG Serum or plasma creatinine measurement w ith calculation of estimated glomerular filtration rate 31 NRG Serum or plasma glucose measurement (mass/volume) 116 mg/dL 70-105 Serum or plasma calcium measurement (mass/volume) 8.9 mg/dL 8.5-10.1 Serum or plasma total bilirubin measurement (mass/volu me) 0.2 mg/dL 0.1-1.0 Serum or plasma alkaline phosphatase prema surement (enzymatic activity/volume) 61 U/L 40-136 Serum or plasma aspartate aminotransfera se measurement (enzymatic activity/volume) 19 U/L 5-34 Serum or plasma alanine aminotransferase measurement (enzymatic activity/volume) 9 U/L 0-55 Serum or plasma protein measurement (mass/volume) 6.5 g/dL 6.4-8.2 Serum or plasma albumin measurement (mass/volume) 3.5 g/dL 3.2-4.5 CALCIUM CORRECTED 9.3 mg/dL 8.5-10.1 Serum or plasma renal function panel (Na , K, Cl, CO2, BUN, Cr, glucose,Ca, phos, alb) - 12/23/19 09:48 Serum or plasma sodium measurement (moles/volume) 138 mmol/L 135-145 Serum or plasma potassium measurement (moles/volume) 4.4 mmol/L 3.6-5.0 Serum or plasma chloride measurement (moles/volume) 105 mmol/L 98-107 Carbon dioxide 21 mmol/L 21-32 Serum or plasma anion gap determination (moles/volume) 12 mmol/L 5-14 Serum or plasma urea nitrogen measurement (mass/volume ) 28 mg/dL 7-18 Serum or plasma creatinine measurement (mass/volume) 1.62 mg/dL 0.60-1.30 Serum or plasma urea nitrogen/creatinine mass ratio 17 NRG Serum or plasma creatinine measurement w ith calculation of estimated glomerular filtration rate 31 NRG Serum or plasma glucose measurement (mass/volume) 116 mg/dL 70-105 Serum or plasma calcium measurement (mass/volume) 8.9 mg/dL 8.5-10.1 Serum or plasma albumin measurement (mass/volume) 3.5 g/dL 3.2-4.5 Serum or plasma phosphate measurement (mass/volume) 3.3 mg/dL 2.3-4.7 Complete urinalysis with reflex to cultu re - 12/23/19 09:50 Urine color determination YELLOW NRG Urine clarity determination CLEAR NR G Urine pH measurement by test strip 7.0 5-9 Specific gravity of urine by test strip 1.020 1.016-1.022 Urine protein assay by test strip, semi-quantitative 3+ NEGATIVE Urine glucose detection by automated test strip TR JASWINDER NEGATIVE Erythrocytes detection in urine sediment by light micr oscopy NEGATIVE NEGATIVE Urine ketones detection by automated test strip NE GATIVE NEGATIVE Urine nitrite detection by test strip NEGATIVE NEGATIVE Urine total bilirubin detection by test strip NEGA TIVE NEGATIVE Urine urobilinogen measurement by automated test strip (mass/volume) 0.2 mg/dL < = 1.0 Urine leukocyte esterase detection by dipstick NEG ATIVE NEGATIVE Automated urine sediment erythrocyte cou nt by microscopy (number/high power field) NONE NRG Automated urine sediment leukocyte count by microscopy (number/high power field) [HPF] NRG Bacteria detection in urine sediment by light microsco py NEGATIVE NRG Squamous epithelial cells detection in u rine sediment by light microscopy 0-2 NRG Crystals detection in urine sediment by light microsco py NONE NRG Casts detection in urine sediment by light microscopy NONE NRG Mucus detection in urine sediment by light microscopy NONE NRG Complete urinalysis with reflex to culture NO NRG Renal epithelial cells detection in urin e sediment by light microscopy 0-2 NRG Urine protein/creatinine mass ratio - 09:50 Urine protein measurement (mass/volume) 1094 mg/dL 6-12 Urine creatinine measurement (mass/volume) 89 mg/d L 30-125 Urine protein/creatinine mass ratio 12.29 NRG Complete urinalysis with reflex to cultu re - 01/20/20 10:00 Urine color determination YELLOW NRG Urine clarity determination CLEAR NR G Urine pH measurement by test strip 6.0 5-9 Specific gravity of urine by test strip 1.020 1.016-1.022 Urine protein assay by test strip, semi-quantitative 3+ NEGATIVE Urine glucose detection by automated test strip NE GATIVE NEGATIVE Erythrocytes detection in urine sediment by light micr oscopy NEGATIVE NEGATIVE Urine ketones detection by automated test strip NE GATIVE NEGATIVE Urine nitrite detection by test strip NEGATIVE NEGATIVE Urine total bilirubin detection by test strip NEGA TIVE NEGATIVE Urine urobilinogen measurement by automated test strip (mass/volume) 0.2 mg/dL < = 1.0 Urine leukocyte esterase detection by dipstick TRA CE NEGATIVE Automated urine sediment erythrocyte cou nt by microscopy (number/high power field) NONE NRG Automated urine sediment leukocyte count by microscopy (number/high power field) [HPF] NRG Bacteria detection in urine sediment by light microsco py TRACE NRG Squamous epithelial cells detection in u rine sediment by light microscopy 0-2 NRG Crystals detection in urine sediment by light microsco py NONE NRG Casts detection in urine sediment by light microscopy PRESENT NRG Mucus detection in urine sediment by light microscopy NONE NRG Complete urinalysis with reflex to culture YES NRG Granular casts detection in urine sediment by light mi croscopy RARE NRG Urine protein/creatinine mass ratio - 10:00 Urine protein measurement (mass/volume) 656 mg/dL 6-12 Urine creatinine measurement (mass/volume) 104 mg/ dL 30-125 Urine protein/creatinine mass ratio 6.31 NRG Bacterial urine culture - 01/20/20 10:00 Bacterial urine culture 3 OR MORE NRG COLONY COUNT >100,000/ML NRG SUSCEPTIBILITY GRAM POSITIVE; SUGGESTING PROBABLE NRG MRSA SCREEN COLLECTION CONTAMINATION WITH SKIN LIDA RA NRG RAPID ID NO SUSCEPTIBILITY PERFORMED N RG Automated blood complete blood count (he mogram) panel - 01/20/20 10:15 Blood leukocytes automated count (number/volume) 8.4 10*3/uL 4.3-11.0 Blood erythrocytes automated count (number/volume) 3.43 10*6/uL 4.35-5.85 Venous blood hemoglobin measurement (mass/volume) 9.8 g/dL 11.5-16.0 Blood hematocrit (volume fraction) 31 % 35-52 Automated erythrocyte mean corpuscular volume 91 [ foz_us] 80-99 Automated erythrocyte mean corpuscular h emoglobin (mass per erythrocyte) 29 pg 25-34 Automated erythrocyte mean corpuscular h emoglobin concentration measurement (mass/volume) 32 g/dL 32-36 Automated erythrocyte distribution width ratio 14. 0 % 10.0- 14.5 Automated blood platelet count (count/volume) 377 10*3/uL 130-400 Automated blood platelet mean volume measurement 9.5 [foz_us] 7.4-10.4 Serum or plasma renal function panel (Na , K, Cl, CO2, BUN, Cr, glucose,Ca, phos, alb) - 01/20/20 10:30 Serum or plasma sodium measurement (moles/volume) 138 mmol/L 135-145 Serum or plasma potassium measurement (moles/volume) 4.9 mmol/L 3.6-5.0 Serum or plasma chloride measurement (moles/volume) 108 mmol/L 98-107 Carbon dioxide 17 mmol/L 21-32 Serum or plasma anion gap determination (moles/volume) 13 mmol/L 5-14 Serum or plasma urea nitrogen measurement (mass/volume ) 58 mg/dL 7-18 Serum or plasma creatinine measurement (mass/volume) 2.71 mg/dL 0.60-1.30 Serum or plasma urea nitrogen/creatinine mass ratio 21 NRG Serum or plasma creatinine measurement w ith calculation of estimated glomerular filtration rate 17 NRG Serum or plasma glucose measurement (mass/volume) 94 mg/dL 70-105 Serum or plasma calcium measurement (mass/volume) 9.2 mg/dL 8.5-10.1 Serum or plasma albumin measurement (mass/volume) 3.8 g/dL 3.2-4.5 Serum or plasma phosphate measurement (mass/volume) 4.7 mg/dL 2.3-4.7 Serum or plasma uric acid measurement (m ass/volume) - 01/20/20 10:30 Serum or plasma uric acid measurement (mass/volume) 8.3 mg/dL 2.6-7.2 Magnesium - 01/20/20 10:30 Magnesium 1.5 mg/dL 1.6-2.4 Lipid 1996 panel - 01/20/20 10:30 Serum or plasma triglyceride measurement (mass/volume) 311 mg/dL <150 Serum or plasma cholesterol measurement (mass/volume) 182 mg/dL < 200 Serum or plasma cholesterol in HDL measurement (mass/v olume) 37 mg/dL 40-60 Cholesterol in LDL [mass/volume] in serum or plasma by direct assay 89 mg/dL 1-129 Serum or plasma cholesterol in VLDL measurement (mass/ volume) 62 mg/dL 5-40 Serum or plasma intact pararthyroid horm one measurement (mass/volume) - 01/20/20 10:30 Serum or plasma intact parathyroid hormone measurement (mass/volume) 65.7 pg/mL 9.0-77.0 Bio-intact parathyroid hormone (PTH) measurement with calcium 8.8 % 8.5-10.5 VITAMIN D 25-HYDROXY - 01/20/20 10:30 VITAMIN D 25-HYDROXY (TOTAL) 23.0 % 3 0.0-100.0 Serum or plasma renal function panel (Na , K, Cl, CO2, BUN, Cr, glucose,Ca, phos, alb) - 01/30/20 14:10 Serum or plasma sodium measurement (moles/volume) 137 mmol/L 135-145 Serum or plasma potassium measurement (moles/volume) 5.3 mmol/L 3.6-5.0 Serum or plasma chloride measurement (moles/volume) 106 mmol/L 98-107 Carbon dioxide 18 mmol/L 21-32 Serum or plasma anion gap determination (moles/volume) 13 mmol/L 5-14 Serum or plasma urea nitrogen measurement (mass/volume ) 44 mg/dL 7-18 Serum or plasma creatinine measurement (mass/volume) 2.49 mg/dL 0.60-1.30 Serum or plasma urea nitrogen/creatinine mass ratio 18 NRG Serum or plasma creatinine measurement w ith calculation of estimated glomerular filtration rate 19 NRG Serum or plasma glucose measurement (mass/volume) 89 mg/dL 70-105 Serum or plasma calcium measurement (mass/volume) 9.2 mg/dL 8.5-10.1 Serum or plasma albumin measurement (mass/volume) 3.7 g/dL 3.2-4.5 Serum or plasma phosphate measurement (mass/volume) 3.6 mg/dL 2.3-4.7 TSH w/ FREE T4 - 03/14/20 12:19 TSH 0.47 mIU/L 0.40-4.50 T4, FREE 1.1 ng/dL 0.8-1.8 CBC w/MANUAL DIFF - 03/14/20 12:19 WHITE BLOOD CELL COUNT 9.8 Thousand/uL 3 .8-10.8 RED BLOOD CELL COUNT 3.65 Million/uL 3.8 0-5.10 HEMOGLOBIN 9.8 g/dL 11.7-15.5 HEMATOCRIT 31.1 % 35.0-45.0 MCV 85.2 fL 80.0-100.0 MCH 26.8 pg 27.0-33.0 MCHC 31.5 g/dL 32.0-36.0 RDW 14.4 % 11.0-15.0 PLATELET COUNT 304 Thousand/uL 140-400 MPV 9.4 fL 7.5-12.5 ABSOLUTE NEUTROPHILS 4185 cells/uL 1500- 7800 ABSOLUTE MONOCYTES 382 cells/uL 200-950 ABSOLUTE EOSINOPHILS 568 cells/uL 15-500 ABSOLUTE BASOPHILS 284 cells/uL 0-200 NEUTROPHILS 42.7 % NRG LYMPHOCYTES 21.4 % NRG MONOCYTES 3.9 % NRG EOSINOPHILS 5.8 % NRG BASOPHILS 2.9 % NRG ABSOLUTE BAND NEUTROPHILS 2283 cells/uL 0-750 ABSOLUTE LYMPHOCYTES 2097 cells/uL 850-3 900 BAND NEUTROPHILS 23.3 % NRG PLATELET ESTIMATION ADEQUATE ADEQUATE CBC MORPHOLOGY NORMAL COMMENT(S) NRG VITAMIN D, 25-H - 03/14/20 12:19 VITAMIN D,25-OH,TOTAL,IA 18 ng/mL 30-10 0 A1C - 03/14/20 12:19 HEMOGLOBIN A1c 5.8 % of total Hgb <5.7 Complete urinalysis with reflex to cultu re - 05/03/20 22:28 Urine color determination YELLOW NRG Urine clarity determination CLOUDY NR G Urine pH measurement by test strip 7.0 5-9 Specific gravity of urine by test strip 1.015 1.016-1.022 Urine protein assay by test strip, semi-quantitative 3+ NEGATIVE Urine glucose detection by automated test strip NE GATIVE NEGATIVE Erythrocytes detection in urine sediment by light micr oscopy TRACE-I NEGATIVE Urine ketones detection by automated test strip NE GATIVE NEGATIVE Urine nitrite detection by test strip NEGATIVE NEGATIVE Urine total bilirubin detection by test strip NEGA TIVE NEGATIVE Urine urobilinogen measurement by automated test strip (mass/volume) 0.2 mg/dL < = 1.0 Urine leukocyte esterase detection by dipstick 1+ NEGATIVE Automated urine sediment erythrocyte cou nt by microscopy (number/high power field) NONE NRG Automated urine sediment leukocyte count by microscopy (number/high power field) > [HPF] NRG Bacteria detection in urine sediment by light microsco py MODERATE NRG Squamous epithelial cells detection in u rine sediment by light microscopy 5-10 NRG Crystals detection in urine sediment by light microsco py NONE NRG Casts detection in urine sediment by light microscopy NONE NRG Mucus detection in urine sediment by light microscopy NEGATIVE NRG Complete urinalysis with reflex to culture YES NRG Complete blood count (CBC) with automate d white blood cell (WBC) differential - 05/03/20 22:28 Blood leukocytes automated count (number/volume) 9.4 10*3/uL 4.3-11.0 Blood erythrocytes automated count (number/volume) 2.70 10*6/uL 4.35-5.85 Venous blood hemoglobin measurement (mass/volume) 7.7 g/dL 11.5-16.0 Blood hematocrit (volume fraction) 24 % 35-52 Automated erythrocyte mean corpuscular volume 87 [ foz_us] 80-99 Automated erythrocyte mean corpuscular h emoglobin (mass per erythrocyte) 29 pg 25-34 Automated erythrocyte mean corpuscular h emoglobin concentration measurement (mass/volume) 33 g/dL 32-36 Automated erythrocyte distribution width ratio 14. 9 % 10.0- 14.5 Automated blood platelet count (count/volume) 316 10*3/uL 130-400 Automated blood platelet mean volume measurement 9.3 [foz_us] 7.4-10.4 Automated blood neutrophils/100 leukocytes 86 % 42-75 Automated blood lymphocytes/100 leukocytes 4 % 12-44 Blood monocytes/100 leukocytes 5 % 0-12 Automated blood eosinophils/100 leukocytes 4 % 0-10 Automated blood basophils/100 leukocytes 0 % 0-10 Blood neutrophils automated count (number/volume) 8.1 10*3 1.8-7.8 Blood lymphocytes automated count (number/volume) 0.4 10*3 1.0-4.0 Blood monocytes automated count (number/volume) 0. 5 10*3 0.0-1.0 Automated eosinophil count 0.4 10*3/uL 0 .0-0.3 Automated blood basophil count (count/volume) 0.0 10*3/uL 0.0-0.1 Blood lactic acid measurement (moles/vol ume) - 05/03/20 22:28 Blood lactic acid measurement (moles/volume) 0.87 mmol/L 0.50-2.00 PT panel in platelet poor plasma by coag ulation assay - 05/03/20 22:28 Prothrombin time (PT) in platelet poor plasma by coagu lation assay 12.9 s 12.2-14.7 INR in platelet poor plasma or blood by coagulation as say 0.9 0.8-1.4 Activated partial thromboplastin time (a PTT) in platelet poor plasma bycoagulation assay - 05/03/20 22:28 Activated partial thromboplastin time (a PTT) in platelet poor plasma bycoagulation assay 25 s 24-35 Comprehensive metabolic panel - 05/03/20 22:28 Serum or plasma sodium measurement (moles/volume) 136 mmol/L 135-145 Serum or plasma potassium measurement (moles/volume) 5.2 mmol/L 3.6-5.0 Serum or plasma chloride measurement (moles/volume) 107 mmol/L 98-107 Carbon dioxide 17 mmol/L 21-32 Serum or plasma anion gap determination (moles/volume) 12 mmol/L 5-14 Serum or plasma urea nitrogen measurement (mass/volume ) 45 mg/dL 7-18 Serum or plasma creatinine measurement (mass/volume) 1.82 mg/dL 0.60-1.30 Serum or plasma urea nitrogen/creatinine mass ratio 25 NRG Serum or plasma creatinine measurement w ith calculation of estimated glomerular filtration rate 27 NRG Serum or plasma glucose measurement (mass/volume) 132 mg/dL 70-105 Serum or plasma calcium measurement (mass/volume) 8.5 mg/dL 8.5-10.1 Serum or plasma total bilirubin measurement (mass/volu me) < mg/dL 0.1-1.0 Serum or plasma alkaline phosphatase prema surement (enzymatic activity/volume) 80 U/L 40-136 Serum or plasma aspartate aminotransfera se measurement (enzymatic activity/volume) 24 U/L 5-34 Serum or plasma alanine aminotransferase measurement (enzymatic activity/volume) 16 U/L 0-55 Serum or plasma protein measurement (mass/volume) 6.1 g/dL 6.4-8.2 Serum or plasma albumin measurement (mass/volume) 3.3 g/dL 3.2-4.5 CALCIUM CORRECTED 9.1 mg/dL 8.5-10.1 Encounters ACCT No. Visit Date/Time Discharge Status Pt. Type Provider Facility Loc./Unit Complaint [id number] 12/23/2019 11:00:00 12/23/2019 23:59: 59 CLS Outpatient KIRILL, TYE [facility] [id number] 03/14/2020 10:15:00 Document Registration [id number] 10/05/2019 09:45:00 Document Registration [id number] 09/16/2019 10:00:00 Document Registration [id number] 03/14/2019 13:30:00 Document Registration [id number] 01/30/2020 13:53:00 020 23:59:59 CLS Outpatient BHARATI FABIAN APRN [facility] LAB FS OTH UNS HYPERLIPIDEMIA,CHRONIC KIDNEY DISEASE STAG [id number] 01/20/2020 09:15:00 23:59:59 CLS Outpatient BHARATI FABIAN APRN [facility] LAB FS RENAL PNL CBC L IPID VIT D 25 URIC ACID IPTH SPOT P [id number] 12/23/2019 09:35:00 23:59:59 CLS Outpatient MAGDALENO ELAINE, KHANH Fried [facility] LAB FS I12.9 E78.5 I10 Z90.5 Q60.5 N18.4 E11.21 I13.10 [id number] 12/23/2019 09:33:00 23:59:59 CLS Outpatient TYE ROY MD [facility] LAB FS I95.1 [id number] 12/10/2019 09:43:00 18:35:00 DIS Emergency CHANTAL LOPEZ DO [facility] ER FS WEAK,DEHYDRATED,BALANCE OFF [id number] 08/17/2019 10:45:00 23:59:59 CLS Outpatient JONATHAN JACOBSON MD [facility] [id number] 08/10/2019 13:55:00 23:59:59 CLS Outpatient JONATHAN JACOBSON MD [facility] [id number] 08/05/2019 12:55:00 23:59:59 CLS Outpatient ELISABET HERNANDES APRN [facility] [id number] 08/03/2019 12:26:00 23:59:59 CLS Outpatient JONATHAN JACOBSON MD [facility] LAB NON PRESSURE CHRONIC UL CER [id number] 08/03/2019 10:40:00 23:59:59 CLS Outpatient JONATHAN JACOBSON MD [facility] [id number] 07/20/2019 13:45:00 23:59:59 CLS Outpatient JONATHAN JACOBSON MD [facility] WOUND[facility] [id number] 07/13/2019 13:31:00 23:59:59 CLS Outpatient JONATHAN JACOBSON MD [facility] W[facility] [id number] 07/06/2019 13:24:00 23:59:59 CLS Outpatient JONATHAN JCAOBSON MD [facility] WOUNDCARE [id number] 07/06/2019 12:53:00 23:59:59 CLS Outpatient SELF TYE ELAINE [facility] LAB CBC W MANUAL DIFF, RAMSES MIN D [id number] 06/29/2019 13:25:00 23:59:59 CLS Outpatient TYE ROY MD [facility] LAB I10 [id number] 06/29/2019 13:23:00 23:59:59 CLS Outpatient JONATHAN JACOBSON MD [facility] WOUNDCARE [id number] 06/22/2019 13:12:00 23:59:59 CLS Outpatient JONATHAN JACOBSON MD [facility] WOUND[facility] [id number] 06/15/2019 13:52:00 23:59:59 CLS Outpatient JONATHAN JACOBSON MD [facility] WOUND[facility] [id number] 06/08/2019 13:49:00 23:59:59 CLS Outpatient JONATHAN JACOBSON MD [facility] WOUND[facility] [id number] 06/06/2019 08:47:00 23:59:59 CLS Outpatient IOANA ESPINOSA MD [facility] LAB HTN,PAD [id number] 06/01/2019 13:11:00 23:59:59 CLS Outpatient JONATHAN JACOBSON MD [facility] WOUNDCARE [id number] 05/25/2019 13:23:00 23:59:59 CLS Outpatient JONATHAN JACOBSON MD [facility] WOUND[facility] [id number] 05/17/2019 13:16:00 23:59:59 CLS Outpatient JONATHAN JACOBSON MD [facility] WOUND[facility] [id number] 05/10/2019 13:00:00 23:59:59 CLS Outpatient JONATHAN JACOBSON MD [facility] WOUND[facility] [id number] 05/03/2019 13:35:00 23:59:59 CLS Outpatient JONATHAN JACOBSON MD [facility] WOUND[facility] [id number] 04/26/2019 14:42:00 23:59:59 CLS Outpatient JONATHAN JACOBSON MD [facility] [id number] 04/22/2019 11:32:00 23:59:59 CLS Outpatient IOANA ESPINOSA MD [facility] LAB RENAL INSUF [id number] 04/20/2019 12:29:00 23:59:59 CLS Outpatient JONATHAN JACOBSON MD [facility] WOUNDCARE [id number] 04/13/2019 12:38:00 23:59:59 CLS Outpatient JONATHAN JACOBSON MD [facility] WOUND[facility] [id number] 04/13/2019 11:20:00 23:59:59 CLS Outpatient JONATHAN JACOBSON MD [facility] LAB 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 [id number] 04/12/2019 05:48:00 10:10:00 DIS Outpatient AMANDEEP MONTEZ DO [facility] SDC LEFT LEG LACERATION [id number] 04/11/2019 14:38:00 23:59:59 CLS Outpatient AMANDEEP MONTEZ DO [facility] PREOP LEFT LEG LACERATION [id number] 04/04/2019 15:58:00 23:59:59 CLS Outpatient AMANDEEP MONTEZ DO [facility] RAD X-RAY ON ANKLE [id number] 04/03/2019 11:48:00 019 12:37:00 DIS Emergency DEQUAN REESE DO [facility] ER FS DRESSING CHANGE [id number] 04/02/2019 12:38:00 019 16:49:00 DIS Emergency DUNIA PANTOJA [facility] ER LACERATION ON LEG [id number] 12/17/2018 10:31:00 23:59:59 CLS Outpatient TYE ROY MD [facility] RAD FS M54.9 [id number] 10/15/2016 10:03:00 016 23:59:59 CLS Outpatient EVELYN ELAINE, DERIK Fried [facility] RAD A31.2,J47.9 [id number] 05/03/2020 22:41:00 Document Registration
[2020-05-04] MEDS ORDERED: RT-ALBUTEROL SULF 2.5 MG/3 ML PRE-MIX VIAL INH PRN (04:15)
[2020-05-04] MEDS ORDERED: CEFEPIME 1 GM (MAXIPIME) VIAL ONE ×3 (05:40→22:10)
[2020-05-04] MEDS ORDERED: WATER (STERILE) FOR INJECTION 10 ML ONE ×3 (05:40→22:11)
[2020-05-04] MEDS: CEFEPIME 1,000 MG/SWFI 10 ML IV PUSH IV SCH ×6 (05:48→22:20)
[2020-05-04] MEDS: LEVOTHYROXINE 75 MCG (LEVOTHROID) TABLET PO SCH (05:50)
[2020-05-04 06:26] LABS: BASOPHILS % (AUTO) 0 % (0-10); EOSINOPHILS # (AUTO) 0.3 10^3/uL (0.0-0.3); EOSINOPHILS % (AUTO) 4 % (0-10); HEMATOCRIT 26 % (35-52); HEMOGLOBIN 8.2 G/DL (11.5-16.0); LYMPHOCYTES # (AUTO) 0.4 X 10^3 (1.0-4.0); LYMPHOCYTES % (AUTO) 5 % (12-44); MEAN CORPUSCULAR HEMOGLOBIN 28 PG (25-34); MEAN CORPUSCULAR HGB CONC 32 G/DL (32-36); MEAN CORPUSCULAR VOLUME 88 FL (80-99); MEAN PLATELET VOLUME 9.5 FL (7.4-10.4); MONOCYTES # (AUTO) 0.5 X 10^3 (0.0-1.0); MONOCYTES % (AUTO) 6 % (0-12); NEUTROPHILS # (AUTO) 6.7 X 10^3 (1.8-7.8); NEUTROPHILS % (AUTO) 85 % (42-75); PLATELET COUNT 247 10^3/uL (130-400); RED CELL DISTRIBUTION WIDTH 14.9 % (10.0-14.5); WHITE BLOOD COUNT 7.9 10^3/uL (4.3-11.0)
[2020-05-04 06:45] LABS: POTASSIUM 4.9 MMOL/L (3.6-5.0)
[2020-05-04 06:46] LABS: CALCIUM 7.9 MG/DL (8.5-10.1)
[2020-05-04 06:48] LABS: TOTAL PROTEIN 5.5 GM/DL (6.4-8.2)
[2020-05-04 06:49] LABS: BILIRUBIN,TOTAL 0.2 MG/DL (0.1-1.0)
[2020-05-04 06:51] LABS: CREATININE SERUM 1.77 MG/DL (0.60-1.30)
--- NOTE | 2020-05-04 07:00 | Diagnostic Imaging Report ---
PROCEDURE: CT abdomen and pelvis without contrast. TECHNIQUE: Multiple contiguous axial images were obtained through the abdomen and pelvis without the use of intravenous contrast. Auto Exposure Controls were utilized during the CT exam to meet ALARA standards for radiation dose reduction. INDICATION: Fever, abdominal pain. COMPARISON: None FINDINGS: The lung bases are clear. The gallbladder is nonvisualized and presumed surgically absent. Otherwise, solid organs are unremarkable. The right kidney is severely atrophied. There is compensatory hypertrophy of the left kidney. Left kidney does contain a double-J stent, which extends from the left renal collecting system into the urinary bladder. There is no overt hydronephrosis. There is no free air or free fluid. Mild to moderate diverticulosis of the sigmoid colon is seen without diverticulitis. Distal left ureter and urinary bladder are grossly unremarkable. There are 2 abdominal wall hernias. There is a right periumbilical abdominal wall hernia containing a loop of transverse colon as well as a 2nd hernia overlying the pelvis which contains small bowel loops. There is no distention or obstruction. No inflammatory process is seen. Osseous structures are age-appropriate. IMPRESSION: 1. Severe atrophy of the right kidney, compensatory hypertrophy of the left kidney containing the double-J stent. No hydronephrosis is seen. 2. Abdominal wall hernias without obstruction. 3. Diverticulosis of the sigmoid colon without diverticulitis. 4. Not mentioned above, surgically absent uterus and likely surgically absent gallbladder. 5. Not mentioned above, atherosclerosis is seen throughout the abdominal aorta and visceral branch vessels. There appears to be significant atherosclerotic disease of the SMA. However, there is no direct evidence of bowel ischemia. Consider CTA of the abdomen and pelvis. Please note preliminary report was not provided. Dictated by: Dictated on workstation # [id number]
--- NOTE | 2020-05-04 07:13 | Diagnostic Imaging Report ---
Indication: Fever, shortness of breath. Comparison: 12/10/2019 Findings: Single view of the chest demonstrates new interstitial infiltrates throughout both lungs. This is most pronounced in the left upper lobe. There is no pneumothorax or effusion. The heart is prominent. Osseous structures stable. Impression: Bilateral interstitial infiltrates. Followup recommended. Dictated by: Dictated on workstation # [id number]
--- NOTE | 2020-05-04 07:47 | NUR ---
PHARMACY TO DOSE VANCOMYCIN: PATIENT WEIGHT 56.3KG, SCr 1.77, CrCl 19.1, BMI 23.5. PATIENT RECEIVED LOADING DOSE OF 1 G 05/03 @ 2200 (20MG/KG X 56.3KG = 1126 ~ 1G); MAINTENANCE DOSE 15MG/KG X 56.3KG = 844.5 ~ 750MG Q24H STARTING 05/04 @ 2200. VANCOMYCIN TROUGH DUE 05/06 @ 2100. IF TROUGH IS >20, HOLD DOSE AND NOTIFY PHARMACY FOR ADJUSTMENTS.
--- NOTE | 2020-05-04 08:35 | History & Physical-Hospitalist ---
BERNICE BARRAZA MED STUDENT 05/04/20 0835: History of Present Illness HPI/Chief Complaint Ms. Nassar is an 80 year old female who had a 103F fever yesterday and was brought to the ER. She describes having a fever and chills yesterday, and being brought to the ER by her family. She reports having a headache at the time, denies having any confusion or lightheadedness. While interviewing her, her granddaughter called on the phone, and speaking to me stated that over the past three days she had been to several graduation parties around children and teenagers, and is concerned about the possibility of Covid-19. The granddaughter is aware that the ER suspected a UTI, but reported that she is still concerned since Ms. Nassar has UTIs fairly frequently, and they do not normally cause a fever as high as 103F. Today Ms. Nassar reports feeling cold, and is wrapped in many blankets. She continues to have a headache. She reports coughing up white sputum overnight. She denies having a cough at the time I spoke to her, and denies having any SOB beyond what she normally has due to her COPD. Source: patient, family Exam Limitations: no limitations Date Seen 05/04/20 Time Seen by a Provider: 08:[address] Ventura, DO PCP Self,Jose Manuel ELAINE Referring Physician Date of Admission May 04, 2020 at 02:30 Home Medications & Allergies Home Medications Reviewed patient Home Medication Reconciliation performed by pharmacy medication reconciliations ground water technician and/or nursing. Patients Allergies have been reviewed. Allergies Allergies Coded Allergies doxycycline (Verified Allergy, Unknown, 04/02/19) isosorbide (Verified Allergy, Unknown, 04/02/19) pitavastatin (Verified Allergy, Unknown, 04/02/19) shrimp (Verified Allergy, Unknown, 04/02/19) Uncoded Allergies IV CONTRAST ( Allergy, Unknown, 04/02/19) MIRATAZAPINE ( Allergy, Unknown, 04/02/19) Past Sbivoef-Bejqwp-Jcwhbq Hx Patient Social History Employed/Student: retired Alcohol Use: Rarely Uses Recreational Drug Use: No Smoking Status: Former Smoker (quit 20 years ago, smoked cigarettes for 13 years) Former Smoker, Quit: Sep 25, 2008 Type Used: Cigarettes 2nd Hand Smoke Exposure: No Recent Foreign Travel: No Contact w/other who traveled: No Recent Hopitalizations: No Recent Infectious Disease Expo: No Seasonal Allergies Seasonal Allergies: No Past Medical History Surgeries: Gallbladder, Nephrectomy, Orthopedic Respiratory: COPD Cardiac: High Cholesterol, Hypertension Hysterectomy Gastrointestinal: Gastroesophageal Reflux Musculoskeletal: Chronic Back Pain Endocrine: Diabetes, Non-Insulin dep Psychosocial: Anxiety History of Blood Disorders: No Family History Diabetes (Mother, father, siblings, several children), Stroke (mother, brother), Other Conditions/Hx (ALS - brother) Review of Systems Constitutional: chills; No dizziness; fever EENTM: No blurred vision, No double vision, No vision loss, No nose congestion Respiratory: cough, phlegm (coughing up white sputum), short of breath (attributes to COPD) Cardiovascular: No chest pain, No palpitations, No syncope Gastrointestinal: No abdominal pain, No constipation, No diarrhea, No nausea, No vomiting Genitourinary: No decreased output, No dysuria; frequency (attributes to drinking lots of water) Psychiatric/Neurological: Denies Anxiety, Denies Depressed, Denies Numbness, Denies Tingling Physical Exam Physical Exam Vital Signs Vital Signs - First Documented 05/03/20 05/03/20 21:39 22:57 Temp 37.6 Pulse 90 Resp 16 B/P (MAP) 141/61 (87) Pulse Ox 95 O2 Delivery Room Air O2 Flow Rate 2.00 Capillary Refill : Less Than 3 Seconds Height, Weight, BMI Height: 5'1.00" Weight: 130lbs. 6.0oz. 59.240961fc; 23.46 BMI Method:Stated General Appearance: No Apparent Distress, WD/WN HEENT: PERRL/EOMI; No Pale Conjunctivae (L), No Pale Conjunctivae (R), No Photophobia Neck: Normal Inspection, Non Tender, Supple; No Lymphadenopathy (L), No Lymphadenopathy (R) Respiratory: Lungs Clear, Normal Breath Sounds, No Accessory Muscle Use, No Respiratory Distress Cardiovascular: Regular Rate, Rhythm, No Edema, No Gallop, No Murmur, Normal Peripheral Pulses Gastrointestinal: Normal Bowel Sounds, No Organomegaly, No Pulsatile Mass, Non Tender, Soft, Hernia (RLQ) Extremity: Normal Capillary Refill, Non Tender, No Pedal Edema Neurologic/Psychiatric: Alert, Oriented x3, Normal Mood/Affect Skin: Normal Color, Warm/Dry, Ecchymosis (scattered on distal upper and low extremities) Results Results/Procedures Labs Laboratory Tests 05/03/20 22:28 05/04/20 05:27 Patient resulted labs reviewed. Assessment/Plan Admission Diagnosis Sepsis, suspected UTI Assessment and Plan Assessment: 1. Sepsis 2. Suspected UTI 3. HTN 4. COPD 5. CKD s/p R nephrectomy 6. HChl 7. DM 8. GERD 9. Hypothyroid Plan: 1. Continue cefepime/vancomycin, IV fluids 2. Start Norvasc 5 mg 3. Continue O2, Albuterol 4. Continue levothyroxine Clinical Quality Measures DVT/VTE Risk/Contraindication: Risk Factor Score Per Nursin RFS Level Per Nursing on Admit: 2=Moderate VENTURADIANN CALDWELL DO 05/04/20 1108: History of Present Illness HPI/Chief Complaint CC: Fever with UTI HPI: This is an 80 year old white female who presented to ER with fever and chest Xray revealed normal no evidence of PNA so she was diagnosed with UTI placed on Cefepime and Vancomycin and culture is pending. Will restart her home meds and oxygen. Consulting Dr. Velasquez and he requested COVID swab to be done and that will be done. Source: patient Exam Limitations: no limitations Past Ihrnzcq-Nbkota-Qhhjqb Hx Past Med/Social Hx: Reviewed Nursing Past Med/Soc Hx, Reviewed and Corrections made Patient Social History Marrital Status: single Employed/Student: retired Alcohol Use: Rarely Uses Smoking Status: Former Smoker (quit 20 years ago, smoked cigarettes for 13 years) Review of Systems Constitutional: see HPI, fever, malaise, weakness Respiratory: dyspnea on exertion Physical Exam Physical Exam General Appearance: Anxious, Chronically ill, Cachetic Respiratory: Crackles, Decreased Breath Sounds, Wheezing Cardiovascular: Regular Rate, Rhythm Neurologic/Psychiatric: Alert, Oriented x3, No Motor/Sensory Deficits, Normal Mood/Affect Assessment/Plan Admission Diagnosis Assessment: Sepsis UTI Oxygen dependent Dyspnea COVID swab pending PVD CAD Plan: Broad spectrum antibiotics COVID swab Dr. Velasquez consultation Admission Status: Inpatient Order (span 2 midnights) Reason for Inpatient Admission: fever with uti and O2 dependence Assessment and Plan Assessment: Fever Sepsis UTI COPD PVD CAD Frail status Plan: COVID swab Oxyen Home meds IV antibiotics Diagnosis/Problems Diagnosis/Problems (1) Sepsis Status: Acute Qualifiers: Sepsis type: sepsis due to unspecified organism Sepsis acute organ dysfunction status: without acute organ dysfunction Qualified Codes: A41.9 - Sepsis, unspecified organism (2) UTI (urinary tract infection) Status: Acute Qualifiers: Urinary tract infection type: acute cystitis Hematuria presence: without hematuria Qualified Codes: N30.00 - Acute cystitis without hematuria (3) Hypertension Status: Acute (4) History of ureter stent Status: Acute (5) FELIPE (acute kidney injury) Status: Acute Supervisory-Addendum Brief Verification & Attestation Participated in pt care: history, MDM, physical Personally performed: exam, history, MDM, supervision of care Care discussed with: Medical Student Procedures: n/a Results interpretation: Verified all documentation Verification and Attestation of Medical Student E/M Service A medical student performed and documented this service in my presence. I reviewed and verified all information documented by the medical student and made modifications to such information, when appropriate. I personally performed the physical exam and medical decision making. Diann Ventura, May 04, 2020,17:27 BERNICE BARRAZA MED STUDENT May 04, 2020 08:35 DIANN VENTURA DO May 04, 2020 11:08
[2020-05-04] MEDS: traZODone 50 MG (DESYREL) TAB PO SCH ×2 (10:09→20:15)
[2020-05-04] MEDS: RANOLAZINE ER 500 MG TAB (RANEXA) PO SCH ×2 (10:09→20:15)
[2020-05-04] MEDS ORDERED: amLODIPine 5 MG (NORVASC) TAB PO ONE (10:15)
--- NOTE | 2020-05-04 10:36 | NUR ---
CM/SS: Visited with pt as to plan for discharge Plan: Pt is from home, and reports she lives alone, and has supportive family living near her. Summary: Pt's initial complaint is she is cold. This worker gets a blanket from the warmer and gives it to pt. Pt reports coming from home and that she has a granddaughter and daughter that live near her. Both daughter and granddaughter are known to this worker from the [facility]. She report that they can help her if needed and check on her. Pt is asked about home care and she reports she had it in the past when she hurt her leg, and they were very helpful. She had [facility]. Pt seems to be open if she were to need home care again upon dismissal. This worker will follow up.
[2020-05-04] MEDS ORDERED: FLUT1DIS26 IH (10:48)
[2020-05-04] MEDS ORDERED: FLUO20CA46 PO (10:48)
[2020-05-04] MEDS ORDERED: CLOP75TA28 PO (10:48)
[2020-05-04] MEDS ORDERED: CHOL20002 PO (10:48)
[2020-05-04] MEDS ORDERED: MULT-1136 PO (10:48)
[2020-05-04] MEDS ORDERED: FLUO10CA30 PO (10:48)
[2020-05-04] MEDS ORDERED: TEMA15CA PO (10:48)
[2020-05-04] MEDS ORDERED: LISI-556 PO (10:48)
[2020-05-04] MEDS ORDERED: DILT180C85 PO (10:48)
[2020-05-04] MEDS ORDERED: ERGO50006 PO (10:48)
--- NOTE | 2020-05-04 11:03 | NUR ---
SPOKE WITH THE PT, WENT THRU THE EXT MED HISTORY AND CALLED [facility] AND [facility] IN [place] TO COMPLETE THE MED REC 04-20-2020 ADVAIR 250/50 #1- THIS IS NOT LISTED ON THE EXT MED HISTORY CLONIDINE 0.1MG (LAST FILLED 12-29-2019 #30) HYDRALAZINE 50MG (LAST FILLED 12-16-2019) AND METOPROLOL SUCC 50MG (LAST FILLED 12-16-2019 #30) ARE ALL MEDS THE PT SAYS SHE ISNT TAKING AND INDICATED THAT OVER THE LAST COUPLE MONTHS A LOT OF HER BP MEDS HAVE BEEN CHANGED. OTC MEDS: VIT C VIT D COQ10 SENNA JEROME PRN FLONASE PRN MELATONIN PRN MTV ASPIRIN 81
[2020-05-04] MEDS: PHENAZOPYRIDINE 100 MG (PYRIDIUM) TABLET PO SCH ×3 (11:30→18:33)
[2020-05-04 11:46] LABS: BAND NEUTROPHILS 4 %; BASOPHILS % (MANUAL) 0 %; EOSINOPHILS % (MANUAL) 4 %; LYMPHOCYTES % (MANUAL) 4 %; MONOCYTES % (MANUAL) 3 %; NEUTROPHILS % (MANUAL) 83 %
[2020-05-04 11:47] LABS: RBC MORPH NORMAL
--- NOTE | 2020-05-04 13:00 | NUR ---
RECEIVED REPORT FROM ANGELINA CHUN RN, THIS NURSE ENGINE RESEARCH ENGINEER NOW TAKING OVER CARE OF PT. SHE IS NOW IN ROOM 422
--- NOTE | 2020-05-04 13:00 | NUR ---
REPORT GIVEN TO MELE ARROYO
--- NOTE | 2020-05-04 15:35 | NUR ---
PTS FAMILY BROUGHT HER BELONGINGS TO HER IN A LARGE PINK BAG. IN THE BAG THERE WAS HER PURSE, GLASSES AND A BOOK. STAFF ALSO BROUGHT HER SHOES FROM HER FORMER ROOM TO HER IN A PLASTIC BAG. PT IS AWARE OF BELONGINGS ARE NOW WITH HER IN ROOM.
--- NOTE | 2020-05-04 16:56 | Consultation-Cardiology ---
HPI-Cardiology Cardiology Consultation Date of Consultation 05/04/20 Date of Admission Time Seen by Provider: 08:45 HPI 80 years old lady with history of coronary artery disease, cardiac arrhythmia, following with Dr. Pacheco. Admitted for generalized weakness and fever. Has been having fever and chills came in to the emergency room and admitted, currently PUI for COVID-19, reported some shortness of breath while she is having high fever. She has been having increased urinary frequency. Reported that she has renal stent that get replaced every 6 months. Usually start having symptoms prior to changing her stent. On my evaluation she was laying down in bed, still having chills and fatigue. No chest pain. No shortness of breath at this time. Home Medications & Allergies Allergies: Coded Allergies: doxycycline (Verified Allergy, Unknown, 04/02/19) isosorbide (Verified Allergy, Unknown, 04/02/19) pitavastatin (Verified Allergy, Unknown, 04/02/19) shrimp (Verified Allergy, Unknown, 04/02/19) Uncoded Allergies: IV CONTRAST (Allergy, Unknown, 04/02/19) MIRATAZAPINE (Allergy, Unknown, 04/02/19) Home Medication List Reviewed: Yes BTX-Xautxp-Nemcbv Hx Patient Social History Marital Status: Employed/Student: retired Alcohol Use: Rarely Uses Recreational Drug Use: No Smoking Status: Former Smoker (quit 20 years ago, smoked cigarettes for 13 years) Type Used: Cigarettes 2nd Hand Smoke Exposure: No Recent Foreign Travel: No Recent Infectious Disease Expo: No Recent Hopitalizations: No Past Medical History Discussed below Family Medical History Significant Family History: Diabetes (Mother, father, siblings, several children), Stroke (mother, brother), Other Conditions/Hx (ALS - brother) Family Medical Hx Noncontributory Review of Systems-General Review of Systems Constitutional: see HPI, chills; No dizziness; fever, malaise EENTM: see HPI; No blurred vision, No double vision, No vision loss, No nose congestion Respiratory: see HPI, cough, phlegm (coughing up white sputum), short of breath (attributes to COPD) Cardiovascular: see HPI; No chest pain, No palpitations, No syncope Gastrointestinal: no symptoms reported, see HPI; No abdominal pain, No constipation, No diarrhea, No nausea, No vomiting Genitourinary: see HPI; No decreased output, No dysuria; frequency (attributes to drinking lots of water) Musculoskeletal: see HPI; No back pain, No joint pain Skin: see HPI; No pruritus, No rash Psychiatric/Neurological: See HPI; Denies Anxiety, Denies Depressed, Denies Numbness, Denies Tingling All Other Systems Reviewed Negative Unless Noted: Yes Reviewed Test Results Reviewed Test Results Lab Laboratory Tests Test 05/03/20 22:28 05/04/20 05:27 05/04/20 12:10 Range/Units White Blood Count 9.4 7.9 4.3-11.0 10^3/uL Red Blood Count 2.70 L 2.92 L 4.35-5.85 10^6/uL Hemoglobin 7.7 L 8.2 L 11.5-16.0 G/DL Hematocrit 24 L 26 L 35-52 % Mean Corpuscular Volume 87 88 80-99 FL Mean Corpuscular Hemoglobin 29 28 25-34 PG Mean Corpuscular Hemoglobin Concent 33 32 32-36 G/DL Red Cell Distribution Width 14.9 H 14.9 H 10.0-14.5 % Platelet Count 316 247 130-400 10^3/uL Mean Platelet Volume 9.3 9.5 7.4-10.4 FL Neutrophils (%) (Auto) 86 H 85 H 42-75 % Lymphocytes (%) (Auto) 4 L 5 L 12-44 % Monocytes (%) (Auto) 5 6 0-12 % Eosinophils (%) (Auto) 4 4 0-10 % Basophils (%) (Auto) 0 0 0-10 % Neutrophils # (Auto) 8.1 H 6.7 1.8-7.8 X 10^3 Lymphocytes # (Auto) 0.4 L 0.4 L 1.0-4.0 X 10^3 Monocytes # (Auto) 0.5 0.5 0.0-1.0 X 10^3 Eosinophils # (Auto) 0.4 H 0.3 0.0-0.3 10^3/uL Basophils # (Auto) 0.0 0.0 0.0-0.1 10^3/uL Neutrophils % (Manual) 83 % Lymphocytes % (Manual) 4 % Monocytes % (Manual) 3 % Eosinophils % (Manual) 4 % Basophils % (Manual) 0 % Band Neutrophils 4 % Blood Morphology Comment NORMAL Prothrombin Time 12.9 12.2-14.7 SEC INR Comment 0.9 0.8-1.4 Activated Partial Thromboplast Time 25 24-35 SEC Urine Color YELLOW Urine Clarity CLOUDY Urine pH 7.0 5-9 Urine Specific Arminto 1.015 L 1.016-1.022 Urine Protein 3+ H NEGATIVE Urine Glucose (UA) NEGATIVE NEGATIVE Urine Ketones NEGATIVE NEGATIVE Urine Nitrite NEGATIVE NEGATIVE Urine Bilirubin NEGATIVE NEGATIVE Urine Urobilinogen 0.2 < = 1.0 MG/DL Urine Leukocyte Esterase 1+ H NEGATIVE Urine RBC (Auto) TRACE-I NEGATIVE Urine RBC NONE /HPF Urine WBC >100 H /HPF Urine Squamous Epithelial Cells 5-10 /HPF Urine Crystals NONE /LPF Urine Bacteria MODERATE H /HPF Urine Casts NONE /LPF Urine Mucus NEGATIVE /LPF Urine Culture Indicated YES Sodium Level 136 139 135-145 MMOL/L Potassium Level 5.2 H 4.9 3.6-5.0 MMOL/L Chloride Level 107 114 H 98-107 MMOL/L Carbon Dioxide Level 17 L 15 L 21-32 MMOL/L Anion Gap 12 10 5-14 MMOL/L Blood Urea Nitrogen 45 H 39 H 7-18 MG/DL Creatinine 1.82 H 1.77 H 0.60-1.30 MG/DL Estimat Glomerular Filtration Rate 27 28 BUN/Creatinine Ratio 25 22 Glucose Level 132 H 123 H 70-105 MG/DL Lactic Acid Level 0.87 0.50-2.00 MMOL/L Calcium Level 8.5 7.9 L 8.5-10.1 MG/DL Corrected Calcium 9.1 8.7 8.5-10.1 MG/DL Total Bilirubin < 0.2 0.2 0.1-1.0 MG/DL Aspartate Amino Transf (AST/SGOT) 24 51 H 5-34 U/L Alanine Aminotransferase (ALT/SGPT) 16 28 0-55 U/L Alkaline Phosphatase 80 72 40-136 U/L Total Protein 6.1 L 5.5 L 6.4-8.2 GM/DL Albumin 3.3 3.0 L 3.2-4.5 GM/DL Physical Exam Physical Exam Vital Signs Vital Signs - First Documented 05/03/20 05/03/20 05/04/20 21:39 22:57 14:17 Temp 37.6 Pulse 90 Resp 16 B/P (MAP) 141/61 (87) Pulse Ox 95 O2 Delivery Room Air O2 Flow Rate 2.00 FiO2 28 Capillary Refill : Less Than 3 Seconds Height, Weight, BMI Height: 5'1.00" Weight: 130lbs. 6.0oz. 59.248718cu; 23.46 BMI Method:Stated General Appearance: No Apparent Distress, WD/WN Eyes: Bilateral Eye Normal Inspection, Bilateral Eye PERRL, Bilateral Eye EOMI HEENT: PERRL/EOMI; No Pale Conjunctivae (L), No Pale Conjunctivae (R), No Photophobia Neck: Normal Inspection, Non Tender, Supple; No Lymphadenopathy (L), No Lymphadenopathy (R) Respiratory: Lungs Clear, Normal Breath Sounds, No Accessory Muscle Use, No Respiratory Distress Cardiovascular: Regular Rate, Rhythm, No Edema, No Gallop, No Murmur, Normal Peripheral Pulses Gastrointestinal: Normal Bowel Sounds, No Organomegaly, No Pulsatile Mass, Non Tender, Soft, Hernia (RLQ) Extremity: Normal Capillary Refill, Non Tender, No Pedal Edema Neurologic/Psychiatric: Alert, Oriented x3, Normal Mood/Affect Skin: Normal Color, Warm/Dry, Ecchymosis (scattered on distal upper and low extremities) A/P-Cardiology Admission Diagnosis UTI Sepsis Coronary artery disease Hypertension Assessment/Plan UTI, sepsis, managed by primary care team asked Fever and chills secondary to sepsis History of coronary artery disease, history of cardiac arrhythmia, following with Dr. Pacheco, currently asymptomatic Cough and shortness of breath, feeling better at this time. Managed by primary care team Hypertension, restart home medication and monitor blood pressure Hyperlipidemia, monitor lipids COVID pending, patient had significant exposure to multiple family members teenager and young adults recent Clinical Quality Measures DVT/VTE Risk/Contraindication: Risk Factor Score Per Nursin RFS Level Per Nursing on Admit: 2=Moderate BETTY CHEW MD May 04, 2020 16:56
[2020-05-04] MEDS ORDERED: RT-ALBUTEROL INHALER HFA (VENTOLIN HFA) 18 GM IH PRN (17:00)
[2020-05-04] MEDS ORDERED: NON-FORMULARY MEDICATION 1 EA EA (Fexofenadine HCl (Allegra Allergy) 180 MG) PO PRN (17:45)
[2020-05-04] MEDS ORDERED: NON-FORMULARY MEDICATION 1 EA EA (Melatonin 10 MG) PO PRN (17:45)
[2020-05-04] MEDS ORDERED: diphenhydrAMINE 25 MG TAB (BENADRYL) PO PRN (18:00)
[2020-05-04] MEDS ORDERED: CALCIUM CARBONATE 500 MG (TUMS) TAB.CHEW PO PRN (18:00)
[2020-05-04] MEDS ORDERED: BISACODYL 10 MG SUPP (DULCOLAX) PR PRN (18:00)
[2020-05-04] MEDS ORDERED: DOCUSATE SODIUM 100 MG (COLACE) CAP PO PRN (18:00)
[2020-05-04] MEDS: HYDROcodone/APAP 7.5 MG/325 MG (LORTAB, LORCET PLUS) TABLET PO PRN (18:34)
[2020-05-04] MEDS ORDERED: LORATADINE (CLARITIN) 10 MG TAB PO PRN (18:45)
[2020-05-04] MEDS: MELATONIN 10 MG TABLET PO PRN (20:15)
[2020-05-04] MEDS: TEMAZEPAM 15 MG (RESTORIL) CAP PO SCH (20:16)
[2020-05-04] MEDS: ALPRAZolam 0.25 MG (XANAX) TAB PO PRN (20:16)
[2020-05-04] MEDS ORDERED: NON-FORMULARY MEDICATION 1 EA EA (Fluticasone/Salmeterol (Advair 250-50 Diskus) 1 EACH) IH SCH (21:00)
[2020-05-04 21:31] LABS: SMEAR SCAN COMMENT PELGER-HUET ANAMOLY
[2020-05-04] MEDS: RT-ALBUTEROL INHALER HFA (VENTOLIN HFA) 18 GM IH SCH ×2 (21:38→22:24)
[2020-05-04] MEDS: ADVAIR HFA 115/21 MCG INHALER 8 GM IH SCH (21:39)
[2020-05-04] MEDS: VANCOMYCIN 750 MG/NS 250 ML IVPB IV SCH ×2 (22:24)
[2020-05-05] VITALS: BP 152/60
[2020-05-05] MEDS: RT-ALBUTEROL INHALER HFA (VENTOLIN HFA) 18 GM IH SCH ×4 (03:00→20:05)
[2020-05-05] MEDS ORDERED: CEFEPIME 1 GM (MAXIPIME) VIAL ONE (06:02)
[2020-05-05] MEDS ORDERED: WATER (STERILE) FOR INJECTION 10 ML ONE (06:02)
[2020-05-05] MEDS: LEVOTHYROXINE 75 MCG (LEVOTHROID) TABLET PO SCH (06:14)
[2020-05-05] MEDS: CEFEPIME 1,000 MG/SWFI 10 ML IV PUSH IV SCH ×4 (06:14→15:48)
[2020-05-05] MEDS: MULTIVIT W/MINERALS TAB (THERAGRAN M) PO SCH (06:14)
[2020-05-05] MEDS: ACETAMINOPHEN 325 MG TABLET PO PRN (06:15)
--- NOTE | 2020-05-05 07:24 | NUR ---
pt is covid neg dr corona is aware and gave the ok order to move to a reg room
[2020-05-05] MEDS: CLOPIDOGREL 75 MG (PLAVIX) TABLET PO SCH (08:02)
[2020-05-05] MEDS: FLUoxetine HCL 20 MG (PROzac) CAP PO SCH (08:02)
[2020-05-05] MEDS: FLUoxetine HCL 10 MG (PROzac) CAPSULE/TABLET PO SCH (08:03)
[2020-05-05] MEDS: lisINopril 5 MG (PRINIVIL) TABLET PO SCH (08:04)
[2020-05-05] MEDS: RANOLAZINE ER 500 MG TAB (RANEXA) PO SCH ×2 (08:04→21:05)
[2020-05-05] MEDS: ASPIRIN E.C. 81 MG (ECOTRIN) TAB PO SCH (08:04)
[2020-05-05] MEDS: PHENAZOPYRIDINE 100 MG (PYRIDIUM) TABLET PO SCH ×3 (08:04→18:21)
[2020-05-05] MEDS: traZODone 50 MG (DESYREL) TAB PO SCH ×2 (08:04→21:05)
[2020-05-05] MEDS: PANTOPRAZOLE 20 MG TABLET (PROTONIX) PO SCH (08:05)
[2020-05-05] MEDS: HYDROcodone/APAP 7.5 MG/325 MG (LORTAB, LORCET PLUS) TABLET PO PRN ×2 (08:13→19:34)
[2020-05-05] MEDS ORDERED: UBIDECARENONE 100 MG PO SCH (09:00)
[2020-05-05] MEDS ORDERED: NON-FORMULARY MEDICATION 1 EA EA (Multivitamin 1 EACH) PO SCH (09:00)
[2020-05-05] MEDS ORDERED: amLODIPine 5 MG (NORVASC) TAB PO SCH (09:00)
[2020-05-05] MEDS ORDERED: LEVOTHYROXINE 75 MCG (LEVOTHROID) TABLET PO SCH (09:00)
[2020-05-05] MEDS ORDERED: OMEPRAZOLE 20 MG (PriLOSEC) CAP NON-FORMULARY PO SCH (09:00)
[2020-05-05] MEDS: ADVAIR HFA 115/21 MCG INHALER 8 GM IH SCH ×2 (09:41→20:05)
--- NOTE | 2020-05-05 10:26 | Progress Note - Hospitalist ---
Subjective HPI/CC On Admission Date Seen by Provider: May 05, 2020 Time Seen by Provider: 10:30 CC: Fever with UTI HPI: This is an 80 year old white female who presented to ER with fever and chest Xray revealed normal no evidence of PNA so she was diagnosed with UTI placed on Cefepime and Vancomycin and culture is pending. Will restart her home meds and oxygen. Consulting Dr. Velasquez and he requested COVID swab to be done and that will be done. 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 of Systems General: Fatigue, Malaise Focused Exam Lactate Level 05/03/20 22:28: Lactic Acid Level 0.87 Time of Focused Exam: 23:19 Objective Exam Vital Signs Vital Signs Date Time Temp Pulse Resp B/P (MAP) Pulse Ox O2 Delivery O2 Flow Rate FiO2 05/05/20 16:00 37.1 60 20 124/65 (84) 96 Nasal Cannula 2.00 05/04/20 14:17 28 Capillary Refill : Less Than 3 Seconds General Appearance: No Apparent Distress, WD/WN, Chronically ill, Thin Respiratory: Chest Non Tender, Lungs Clear, Normal Breath Sounds, No Accessory Muscle Use, No Respiratory Distress Cardiovascular: Regular Rate, Rhythm, No Edema, No Gallop, No JVD, No Murmur, Normal Peripheral Pulses Neurologic/Psychiatric: Alert, Oriented x3, No Motor/Sensory Deficits, Normal Mood/Affect Results/Procedures Lab Laboratory Tests 05/05/20 10:46 Patient resulted labs reviewed. Assessment/Plan Assessment and Plan Assess & Plan/Chief Complaint Assessment: Fever Sepsis UTI COPD PVD CAD Frail status CRF Plan: COVID swab negative Oxyen Home meds IV antibiotics Monitor creatinine Diagnosis/Problems Diagnosis/Problems (1) Sepsis Status: Acute Qualifiers: Sepsis type: sepsis due to unspecified organism Sepsis acute organ dysfunction status: without acute organ dysfunction Qualified Codes: A41.9 - Sepsis, unspecified organism (2) UTI (urinary tract infection) Status: Acute Qualifiers: Urinary tract infection type: acute cystitis Hematuria presence: without hematuria Qualified Codes: N30.00 - Acute cystitis without hematuria (3) Hypertension Status: Acute (4) History of ureter stent Status: Acute (5) FELIPE (acute kidney injury) Status: Acute Clinical Quality Measures DVT/VTE Risk/Contraindication: Risk Factor Score Per Nursin RFS Level Per Nursing on Admit: 2=Moderate MARTHA VENTURA DO May 05, 2020 10:26
[2020-05-05 11:08] LABS: BASOPHILS % (AUTO) 0 % (0-10); EOSINOPHILS # (AUTO) 0.3 10^3/uL (0.0-0.3); EOSINOPHILS % (AUTO) 3 % (0-10); HEMATOCRIT 25 % (35-52); HEMOGLOBIN 7.8 G/DL (11.5-16.0); LYMPHOCYTES # (AUTO) 1.2 X 10^3 (1.0-4.0); LYMPHOCYTES % (AUTO) 12 % (12-44); MEAN CORPUSCULAR HEMOGLOBIN 28 PG (25-34); MEAN CORPUSCULAR HGB CONC 32 G/DL (32-36); MEAN CORPUSCULAR VOLUME 90 FL (80-99); MEAN PLATELET VOLUME 9.4 FL (7.4-10.4); MONOCYTES # (AUTO) 0.6 X 10^3 (0.0-1.0); MONOCYTES % (AUTO) 6 % (0-12); NEUTROPHILS # (AUTO) 7.5 X 10^3 (1.8-7.8); NEUTROPHILS % (AUTO) 79 % (42-75); PLATELET COUNT 198 10^3/uL (130-400); RED CELL DISTRIBUTION WIDTH 15.5 % (10.0-14.5); WHITE BLOOD COUNT 9.5 10^3/uL (4.3-11.0)
[2020-05-05 11:15] LABS: ALBUMIN 2.8 GM/DL (3.2-4.5)
[2020-05-05 11:16] LABS: POTASSIUM 4.4 MMOL/L (3.6-5.0)
[2020-05-05 11:17] LABS: CALCIUM 7.9 MG/DL (8.5-10.1)
[2020-05-05 11:18] LABS: TOTAL PROTEIN 5.3 GM/DL (6.4-8.2)
[2020-05-05 11:20] LABS: BILIRUBIN,TOTAL 0.2 MG/DL (0.1-1.0)
[2020-05-05 11:22] LABS: CREATININE SERUM 2.01 MG/DL (0.60-1.30)
--- NOTE | 2020-05-05 11:48 | NUR ---
PT HAS NO IV ACCESS AT THIS TIME. DR. VENTURA IS AWARE AND OK WITH THAT PENDING LABS.
[2020-05-05 12:00] VITALS: BP 109/58
--- NOTE | 2020-05-05 12:22 | Physical Therapy Evaluation ---
PT Evaluation-General Medical Diagnosis Admission Date May 04, 2020 at 02:30 Medical Diagnosis: UTI; sepsis Onset Date: Apr 25, 2020 Therapy Diagnosis Therapy Diagnosis: weakness Height/Weight Height (Feet): 5 Height (Inches): 1.00 Weight (Pounds): 130 Weight (Ounces): 6.0 Precautions Precautions/Isolations: Standard Precautions Weight Bear Status Full Weight Bearing Full Weight Bearing Referral Physician: Berhane Reason for Referral: Evaluation/Treatment Medical History Pertinent Medical History: COPD, HTN Current History Admitted via ER secondary to fever. Found to have UTI. Social History Home: Single Level Current Living Status: Alone Entry Into Home: Stairs With Railing PT Steps Into Home: 3 Prior Prior Level of Function SCALE: Activities may be completed with or without assistive devices. 9-Ymfgvxwqof-wiayuit completes the activity by him/herself with no assistance from a helper. 5-Set-up or Clean-up Assistance-helper sets up or cleans up; patient completes activity. [place] assists only prior to or following the activity. 4-Supervision or Touching Assistance-helper provides verbal cues and/or touchi ng/steadying and/or contact guard assistance as patient completes activity. Assistance may be provided throughout the activity or intermittently. 3-Partial/Moderate Assistance-helper does LESS THAN HALF the effort. [place] lifts, holds or supports trunk or limbs, but provides less than half the effort. 2-Substantial/Maximal Assistance-helper does MORE THAN HALF the effort. [place] lifts or holds trunk or limbs and provides more than half the effort. 1-Cgprfeudp-qyslco does ALL the effort. Patient does none of the effort to complete the activity. Or, the assistance of 2 or more helpers is required for the patient to complete the activity. If activity was not attempted, code reason: 7-Patient Refused. 9-Not Applicable-not attempted and the patient did not perform the activity before the current illness, exacerbation or injury. 10-Not Attempted due to Environmental Limitations-(lack of equipment, weather restraints, etc.). 88-Not Attempted due to Medical Conditions or Safety Concerns. Bed Mobility: 6 Transfers (B,C,W/C): 6 Gait: 6 Stairs: 6 PT Evaluation-Current Subjective Pt lives home alone. She has family available to help. She has attended several graduation parties this summer and when she came down with a fever, family was afraid of COVID 19. Pt admitted with fever and found to have UTI. Objective Patient Orientation: Normal For Age ROM/Strength ROM Upper Extremities normal ROM Lower Extremities normal Strength Upper Extremities gross 4/5 Strength Lower Extremities gross 4/5 Sensory Vision: Functional Hearing: Functional Sensation Right Lower Extremit: Intact Sensation Left Lower Extremity: Intact Transfers Roll Left to Right (QC): 6 Sit to Lying (QC): 6 Lying to Sitting/Side of Bed(Q: 6 Sit to Stand (QC): 6 Chair/Nwa-ek-Zvojj Xfer(QC): 6 Toilet Transfer (QC): 6 Pt stable with mobility in her room including up to bathroom, bathing, and bed mobility. Gait Does the Patient Walk?: Yes Mode of Locomotion: Walk Walk 150 ft (QC): 5 Gait Assistive Device: Cane Single Point Comments/Gait Description Ambulate 300ft with 2 standing rests to recover breathing. Pt had one loss of balance with self correct but did require 2 lateral steps to regain balance. Balance Sitting Static: Normal Sitting Dynamic: Normal Standing Static: Good Standing Dynamic: Fair Assessment/Needs Patient demonstrates safe mobility in the room where she has jonas and furniture for intermittent steadying of balance. When walking in wide open spaces with single point cane she has fair balance. She demonstrated loss of balance when distracted by conversation. Pt will benefit from increased out of bed activity and progressive return to long distance walking. Rehab Potential: Good PT Snf Goals Motor Mechanic Goals PT Motor Mechanic Goals Time Frame: May 09, 2020 Roll Left & Right (QC): 6 Sit to Lying (QC): 6 Lying-Sitting on Side/Bed(QC): 6 Sit to Stand (QC): 6 Chair/Glb-vx-Prjfx Xfer(QC): 6 Toilet Transfer (QC): 6 Does the Patient Walk: Yes Walk 10 feet (QC): 6 Walk 50ft with 2 Turns (QC): 5 Walk 150 ft (QC): 5 PT Plan Problem List Problem List: Balance, Gait Treatment/Plan Treatment Plan: Continue Plan of Care Treatment Plan: Gait, Safety Treatment Duration: May 09, 2020 Frequency: 6 times per week Estimated Hrs Per Day: .25 hour per day Patient and/or Family Agrees t: Yes Discharge Recommendations Target Placement home with intermittent supervision from family Time/GCodes Time In: 1225 Time Out: 1245 Total Billed Treatment Time: 20 Total Billed Treatment visit, eval low complexity 20 min SHAYY SAINI PT May 05, 2020 12:22
--- NOTE | 2020-05-05 14:51 | Cardiology Progress Note ---
Cardiology SOAP Progress Note Subjective: No significant cardiac complaints. Objective: I&O/Vital Signs 05/05/20 05/05/20 05/05/20 03:00 08:00 12:00 Temp 36.3 Pulse 55 Resp 18 B/P (MAP) 109/58 (75) Pulse Ox 93 93 90 O2 Delivery Room Air Room Air Room Air 05/05/20 00:00 Intake Total 1150 ml Output Total 1600 ml Balance -450 ml Weight (Pounds): 130 Weight (Ounces): 6.0 Weight (Calculated Kilograms): 59.521455 Constitutional: AAO x 3, PERRL, well-developed, well-nourished Respiratory: chest is bilaterally symmetric, lungs clear to auscultation Cardiovascular: regular rate-rhythm, S1 and S2 Gastrointestional: soft, audible bowel sounds Extremities: normal range of motion, non-tender, normal inspection Neurologic/Psychiatric: no motor/sensory deficits, alert, normal mood/affect, oriented x 3 Skin: normal color, warm/dry Results/Procedures: Labs Laboratory Tests 05/05/20 10:46: White Blood Count 9.5, Red Blood Count 2.76L, Hemoglobin 7.8L, Hematocrit 25L, Mean Corpuscular Volume 90, Mean Corpuscular Hemoglobin 28, Mean Corpuscular Hemoglobin Concent 32, Red Cell Distribution Width 15.5H, Platelet Count 198, Mean Platelet Volume 9.4, Neutrophils (%) (Auto) 79H, Lymphocytes (%) (Auto) 12, Monocytes (%) (Auto) 6, Eosinophils (%) (Auto) 3, Basophils (%) (Auto) 0, Neutrophils # (Auto) 7.5, Lymphocytes # (Auto) 1.2, Monocytes # (Auto) 0.6, Eosinophils # (Auto) 0.3, Basophils # (Auto) 0.0, Sodium Level 139, Potassium Level 4.4, Chloride Level 115H, Carbon Dioxide Level 15L, Anion Gap 9, Blood Urea Nitrogen 35H, Creatinine 2.01H, Estimat Glomerular Filtration Rate 24, BUN/Creatinine Ratio 17, Glucose Level 116H, Calcium Level 7.9L, Corrected Calcium 8.9, Total Bilirubin 0.2, Aspartate Amino Transf (AST/SGOT) 39H, Alanine Aminotransferase (ALT/SGPT) 42, Alkaline Phosphatase 89, Total Protein 5.3L, Albumin 2.8L Microbiology 05/03/20 Urine Culture - Preliminary, Resulted Culture In Progress 05/03/20 Gram Stain - Final, Resulted 05/03/20 Sputum Culture - Preliminary, Resulted Usual upper respiratory shailesh A/P: Assessment/Dx: UTI Sepsis Coronary artery disease Hypertension Plan: UTI, sepsis, managed by primary care team Fever and chills secondary to sepsis History of coronary artery disease, history of cardiac arrhythmia, following with Dr. Pacheco, currently asymptomatic Cough and shortness of breath, feeling better at this time. Managed by primary care team Hypertension, restart home medication and monitor blood pressure Hyperlipidemia, monitor lipids COVID negative. Thank you for your consultation. Please call me if you have any questions. Ivania Roberson MD, FACP, FACC, FSCAI, FHRS, CCDS Interventional Cardiology Cardiac Electrophysiology Vascular Medicine and Endovascular Interventions Focused Exam Lactate Level 05/03/20 22:28: Lactic Acid Level 0.87 Time of Focused Exam: 23:19 Merary ROBERSON MD May 05, 2020 14:51
[2020-05-05] MEDS ORDERED: CEFEPIME 1,000 MG/SWFI 10 ML IV PUSH IV SCH ×2 (15:08)
[2020-05-05] MEDS: amLODIPine 5 MG (NORVASC) TAB PO SCH (15:48)
[2020-05-05 16:00] VITALS: BP 124/65
[2020-05-05 20:00] VITALS: BP 137/61
[2020-05-05 21:03] VITALS: BP 124/65
[2020-05-05] MEDS: TEMAZEPAM 15 MG (RESTORIL) CAP PO SCH (21:05)
[2020-05-05] MEDS: VANCOMYCIN 750 MG/NS 250 ML IVPB IV SCH ×2 (22:35)
[2020-05-06] VITALS: BP 120/56
[2020-05-06 04:06] VITALS: BP 131/65
[2020-05-06] MEDS: MULTIVIT W/MINERALS TAB (THERAGRAN M) PO SCH (06:32)
[2020-05-06] MEDS: LEVOTHYROXINE 75 MCG (LEVOTHROID) TABLET PO SCH (06:32)
[2020-05-06 07:04] LABS: BASOPHILS % (AUTO) 0 % (0-10); EOSINOPHILS # (AUTO) 0.7 10^3/uL (0.0-0.3); EOSINOPHILS % (AUTO) 9 % (0-10); HEMATOCRIT 23 % (35-52); HEMOGLOBIN 7.2 G/DL (11.5-16.0); LYMPHOCYTES # (AUTO) 0.7 X 10^3 (1.0-4.0); LYMPHOCYTES % (AUTO) 10 % (12-44); MEAN CORPUSCULAR HEMOGLOBIN 28 PG (25-34); MEAN CORPUSCULAR HGB CONC 31 G/DL (32-36); MEAN CORPUSCULAR VOLUME 89 FL (80-99); MEAN PLATELET VOLUME 9.8 FL (7.4-10.4); MONOCYTES # (AUTO) 0.5 X 10^3 (0.0-1.0); MONOCYTES % (AUTO) 7 % (0-12); NEUTROPHILS # (AUTO) 5.5 X 10^3 (1.8-7.8); NEUTROPHILS % (AUTO) 75 % (42-75); PLATELET COUNT 189 10^3/uL (130-400); RED CELL DISTRIBUTION WIDTH 15.2 % (10.0-14.5); WHITE BLOOD COUNT 7.3 10^3/uL (4.3-11.0)
[2020-05-06 07:27] LABS: ALBUMIN 2.6 GM/DL (3.2-4.5); POTASSIUM 4.7 MMOL/L (3.6-5.0)
[2020-05-06] MEDS: ADVAIR HFA 115/21 MCG INHALER 8 GM IH SCH ×2 (07:28→18:28)
[2020-05-06 07:30] LABS: TOTAL PROTEIN 4.9 GM/DL (6.4-8.2)
[2020-05-06 07:32] LABS: BILIRUBIN,TOTAL 0.2 MG/DL (0.1-1.0)
[2020-05-06 07:33] LABS: CREATININE SERUM 2.33 MG/DL (0.60-1.30)
[2020-05-06 08:00] VITALS: BP 125/57
[2020-05-06] MEDS: FLUoxetine HCL 20 MG (PROzac) CAP PO SCH (08:52)
[2020-05-06] MEDS: PHENAZOPYRIDINE 100 MG (PYRIDIUM) TABLET PO SCH ×3 (08:52→18:45)
[2020-05-06] MEDS: CLOPIDOGREL 75 MG (PLAVIX) TABLET PO SCH (08:52)
[2020-05-06] MEDS: PANTOPRAZOLE 20 MG TABLET (PROTONIX) PO SCH (08:52)
[2020-05-06] MEDS: RANOLAZINE ER 500 MG TAB (RANEXA) PO SCH ×2 (08:52→20:54)
[2020-05-06] MEDS: lisINopril 5 MG (PRINIVIL) TABLET PO SCH (08:52)
[2020-05-06] MEDS: traZODone 50 MG (DESYREL) TAB PO SCH ×2 (08:53→20:54)
[2020-05-06] MEDS: ASPIRIN E.C. 81 MG (ECOTRIN) TAB PO SCH (08:53)
[2020-05-06] MEDS: FLUoxetine HCL 10 MG (PROzac) CAPSULE/TABLET PO SCH (08:53)
--- NOTE | 2020-05-06 10:54 | Progress Note - Hospitalist ---
Subjective HPI/CC On Admission Date Seen by Provider: May 06, 2020 Time Seen by Provider: 10:00 CC: Fever with UTI HPI: This is an 80 year old white female who presented to ER with fever and chest Xray revealed normal no evidence of PNA so she was diagnosed with UTI placed on Cefepime and Vancomycin and culture is pending. Will restart her home meds and oxygen. Consulting Dr. Velasquez and he requested COVID swab to be done and that will be done. Subjective/Events-last exam Creatinine keep rising Unknown what her baseline creatinine is and she doesn't know She sees Nephrology at [facility] so may need to reach out to them tomorrow Awaiting UCx results Vanc and Cefepime maintained Prelim Enterococcus so need Vanc to maintain Breathing ok No pain reported Needs BM so ordered meds Iron infusion given, level 15 Review of Systems General: Fatigue, Malaise Neurological: Weakness Focused Exam Lactate Level 05/03/20 22:28: Lactic Acid Level 0.87 Time of Focused Exam: 23:19 Objective Exam Vital Signs Vital Signs Date Time Temp Pulse Resp B/P (MAP) Pulse Ox O2 Delivery O2 Flow Rate FiO2 05/06/20 16:45 37.0 05/06/20 16:00 64 20 137/58 (84) 97 Nasal Cannula 3.00 05/04/20 14:17 28 Capillary Refill : Less Than 3 Seconds General Appearance: No Apparent Distress, WD/WN, Chronically ill Respiratory: Chest Non Tender, Lungs Clear, Normal Breath Sounds, No Accessory Muscle Use, No Respiratory Distress Cardiovascular: Regular Rate, Rhythm, No Edema, No Gallop, No JVD, No Murmur, Normal Peripheral Pulses Neurologic/Psychiatric: Alert, Oriented x3, No Motor/Sensory Deficits, Normal Mood/Affect Results/Procedures Lab Laboratory Tests 05/06/20 06:27 Patient resulted labs reviewed. Assessment/Plan Assessment and Plan Assess & Plan/Chief Complaint Assessment: Fever Sepsis UTI COPD PVD CAD Frail status CRF worsened Iron deficiency Plan: COVID swab negative Oxyen Home meds IV antibiotics Monitor creatinine Iron infusions Await UCx Diagnosis/Problems Diagnosis/Problems (1) Sepsis Status: Acute Qualifiers: Sepsis type: sepsis due to unspecified organism Sepsis acute organ dysfunction status: without acute organ dysfunction Qualified Codes: A41.9 - Sepsis, unspecified organism (2) UTI (urinary tract infection) Status: Acute Qualifiers: Urinary tract infection type: acute cystitis Hematuria presence: without hematuria Qualified Codes: N30.00 - Acute cystitis without hematuria (3) Hypertension Status: Acute (4) History of ureter stent Status: Acute (5) FELIPE (acute kidney injury) Status: Acute Clinical Quality Measures DVT/VTE Risk/Contraindication: Risk Factor Score Per Nursin RFS Level Per Nursing on Admit: 2=Moderate MARTHA VENTURA DO May 06, 2020 10:54
[2020-05-06] MEDS ORDERED: IRON SUCROSE 200 MG/10 ML (VENOFER) VIAL IV ONE (11:45)
[2020-05-06 12:00] VITALS: BP 138/60
[2020-05-06] MEDS ORDERED: LACTULOSE SYRUP 10GM/15ML (ENULOSE) 30ML UDC PO ONE (12:00)
[2020-05-06] MEDS ORDERED: polyethylene glycoL POWDER 17 GM (MIRALAX) PACK PO ONE (12:00)
[2020-05-06] MEDS ORDERED: BISACODYL 10 MG SUPP (DULCOLAX) PR PRN (12:00)
[2020-05-06] MEDS ORDERED: SENNA W/DOCUSATE (SENOKOT S) TABLET PO ONE (12:00)
[2020-05-06] MEDS: 1/2 NS IV SOLUTION 1,000 ML IV SCH (12:58)
--- NOTE | 2020-05-06 15:14 | Cardiology Progress Note ---
Cardiology SOAP Progress Note Subjective: No cardiac complaints. Objective: I&O/Vital Signs 05/06/20 05/06/20 05/06/20 05/06/20 04:06 08:00 08:01 12:00 Temp 37.5 36.8 37.0 Pulse 68 61 65 Resp 18 18 16 B/P (MAP) 131/65 (87) 125/57 (79) 138/60 (86) Pulse Ox 92 95 91 O2 Delivery Nasal Cannula Nasal Cannula Nasal Cannula Nasal Cannula O2 Flow Rate 2.00 2.00 2.00 2.00 05/06/20 00:00 Intake Total 1710 ml Balance 1710 ml Weight (Pounds): 130 Weight (Ounces): 6.0 Weight (Calculated Kilograms): 59.594517 Constitutional: AAO x 3, PERRL, well-developed, well-nourished Respiratory: chest is bilaterally symmetric, lungs clear to auscultation Cardiovascular: regular rate-rhythm, S1 and S2 Gastrointestional: soft, audible bowel sounds Extremities: normal range of motion, non-tender, normal inspection Neurologic/Psychiatric: no motor/sensory deficits, alert, normal mood/affect, oriented x 3 Skin: normal color, warm/dry Results/Procedures: Labs Laboratory Tests 05/06/20 06:27: White Blood Count 7.3, Red Blood Count 2.57L, Hemoglobin 7.2L, Hematocrit 23L, Mean Corpuscular Volume 89, Mean Corpuscular Hemoglobin 28, Mean Corpuscular Hemoglobin Concent 31L, Red Cell Distribution Width 15.2H, Platelet Count 189, Mean Platelet Volume 9.8, Neutrophils (%) (Auto) 75, Lymphocytes (%) (Auto) 10L, Monocytes (%) (Auto) 7, Eosinophils (%) (Auto) 9, Basophils (%) (Auto) 0, Neutrophils # (Auto) 5.5, Lymphocytes # (Auto) 0.7L, Monocytes # (Auto) 0.5, Eosinophils # (Auto) 0.7H, Basophils # (Auto) 0.0, Sodium Level 136, Potassium Level 4.7, Chloride Level 113H, Carbon Dioxide Level 13L, Anion Gap 10, Blood Urea Nitrogen 39H, Creatinine 2.33H, Estimat Glomerular Filtration Rate 20, BUN/Creatinine Ratio 17, Glucose Level 113H, Calcium Level 8.0L, Corrected Calcium 9.1, Total Bilirubin 0.2, Aspartate Amino Transf (AST/SGOT) 27, Alanine Aminotransferase (ALT/SGPT) 31, Alkaline Phosphatase 85, Total Protein 4.9L, Albumin 2.6L Microbiology 05/03/20 Urine Culture - Preliminary, Resulted Culture In Progress 05/03/20 Gram Stain - Final, Resulted 05/03/20 Sputum Culture - Preliminary, Resulted Usual upper respiratory shailesh 05/03/20 Blood Culture - Preliminary, Resulted No growth A/P: Assessment/Dx: UTI Sepsis Coronary artery disease Hypertension Plan: UTI, sepsis, managed by primary care team Fever and chills secondary to sepsis History of coronary artery disease, history of cardiac arrhythmia, following with Dr. Pacheco, currently asymptomatic Cough and shortness of breath, feeling better at this time. Managed by primary care team Hypertension, restart home medication and monitor blood pressure Hyperlipidemia, monitor lipids COVID negative. Thank you for your consultation. Please call me if you have any questions. Ivania Roberson MD, FACP, FACC, FSCAI, FHRS, CCDS Interventional Cardiology Cardiac Electrophysiology Vascular Medicine and Endovascular Interventions Focused Exam Lactate Level 05/03/20 22:28: Lactic Acid Level 0.87 Time of Focused Exam: 23:19 Merary ROBERSON MD May 06, 2020 15:14
[2020-05-06] MEDS: CEFEPIME 1,000 MG/SWFI 10 ML IV PUSH IV SCH ×2 (15:44)
[2020-05-06] MEDS: amLODIPine 5 MG (NORVASC) TAB PO SCH (15:45)
[2020-05-06 16:00] VITALS: BP 137/58
[2020-05-06] MEDS: CHLORASEPTIC SPRAY 177 ML LIQUID MC PRN (16:15)
--- NOTE | 2020-05-06 16:25 | NUR ---
NOTE THAT PT C/O SORE THROAT -- PT VOICED IT WAS DUE TO INHALERS -- REMINDED PT TO HAVE RT HAVE HER RINSE HER MOUTH OUT AFTER THE INHALER TREATMENTS -- AND PER PT REQUEST DR VENTURA CALLED AND MESSAGE LEFT FOR CHLORASEPTIC SPRAY -PER PT SHE USES THIS AT HOME -- GOT ORDER AND IT IS AT BEDSIDE
[2020-05-06 20:00] VITALS: BP 157/66
[2020-05-06] MEDS: TEMAZEPAM 15 MG (RESTORIL) CAP PO SCH (20:54)
[2020-05-06] MEDS: LACTULOSE SYRUP 10GM/15ML (ENULOSE) 30ML UDC PO SCH (20:56)
[2020-05-06] MEDS: polyethylene glycoL POWDER 17 GM (MIRALAX) PACK PO SCH (20:57)
[2020-05-06] MEDS ORDERED: TROUGH ORDER-PHARMACY XX NR (21:00)
[2020-05-06] MEDS: VANCOMYCIN 750 MG/NS 250 ML IVPB IV SCH ×2 (21:44)
--- NOTE | 2020-05-06 21:46 | NUR ---
VANCO TROUGH 21.6, PM DOSE OF VANCOMYCIN HELD PER PROTOCOL
[2020-05-07] VITALS (15 sets, daily range): BP systolic 103–151; BP diastolic 39–113
[2020-05-07] MEDS: HYDROcodone/APAP 7.5 MG/325 MG (LORTAB, LORCET PLUS) TABLET PO PRN ×2 (00:53→07:57)
[2020-05-07] MEDS: LEVOTHYROXINE 75 MCG (LEVOTHROID) TABLET PO SCH (05:38)
[2020-05-07] MEDS: MULTIVIT W/MINERALS TAB (THERAGRAN M) PO SCH (05:39)
[2020-05-07] MEDS: 1/2 NS IV SOLUTION 1,000 ML IV SCH (05:39)
[2020-05-07 05:57] LABS: BASOPHILS % (AUTO) 0 % (0-10); EOSINOPHILS # (AUTO) 0.4 10^3/uL (0.0-0.3); EOSINOPHILS % (AUTO) 6 % (0-10); HEMATOCRIT 21 % (35-52); LYMPHOCYTES % (AUTO) 13 % (12-44); MEAN CORPUSCULAR HGB CONC 32 G/DL (32-36); MEAN CORPUSCULAR VOLUME 89 FL (80-99); MEAN PLATELET VOLUME 9.4 FL (7.4-10.4); MONOCYTES # (AUTO) 0.6 X 10^3 (0.0-1.0); MONOCYTES % (AUTO) 8 % (0-12); NEUTROPHILS # (AUTO) 5.4 X 10^3 (1.8-7.8); NEUTROPHILS % (AUTO) 73 % (42-75); PLATELET COUNT 193 10^3/uL (130-400); RED CELL DISTRIBUTION WIDTH 15.4 % (10.0-14.5); WHITE BLOOD COUNT 7.5 10^3/uL (4.3-11.0)
[2020-05-07 05:58] LABS: MEAN CORPUSCULAR HEMOGLOBIN 29 PG (25-34)
[2020-05-07 06:06] LABS: ALBUMIN 2.6 GM/DL (3.2-4.5); POTASSIUM 4.9 MMOL/L (3.6-5.0)
[2020-05-07 06:08] LABS: CALCIUM 8.3 MG/DL (8.5-10.1)
[2020-05-07 06:11] LABS: BILIRUBIN,TOTAL 0.2 MG/DL (0.1-1.0)
[2020-05-07 06:12] LABS: CREATININE SERUM 2.35 MG/DL (0.60-1.30)
[2020-05-07] MEDS: CLOPIDOGREL 75 MG (PLAVIX) TABLET PO SCH (07:57)
[2020-05-07] MEDS: SENNOSIDES 8.6 MG (SENOKOT) TAB PO PRN (07:57)
[2020-05-07] MEDS: ASPIRIN E.C. 81 MG (ECOTRIN) TAB PO SCH (07:57)
[2020-05-07] MEDS: RANOLAZINE ER 500 MG TAB (RANEXA) PO SCH ×2 (07:58→20:40)
[2020-05-07] MEDS: PANTOPRAZOLE 20 MG TABLET (PROTONIX) PO SCH (07:58)
[2020-05-07] MEDS: FLUoxetine HCL 10 MG (PROzac) CAPSULE/TABLET PO SCH (07:58)
[2020-05-07] MEDS: traZODone 50 MG (DESYREL) TAB PO SCH (07:58)
[2020-05-07] MEDS: FLUoxetine HCL 20 MG (PROzac) CAP PO SCH (07:58)
[2020-05-07] MEDS: lisINopril 5 MG (PRINIVIL) TABLET PO SCH (07:59)
[2020-05-07] MEDS: polyethylene glycoL POWDER 17 GM (MIRALAX) PACK PO SCH (08:12)
[2020-05-07] MEDS: LACTULOSE SYRUP 10GM/15ML (ENULOSE) 30ML UDC PO SCH ×2 (08:15→20:49)
[2020-05-07] MEDS: PHENAZOPYRIDINE 100 MG (PYRIDIUM) TABLET PO SCH ×3 (08:19→20:41)
[2020-05-07] MEDS: ONDANSETRON 4 MG/2 ML (SDV) Z0FRAN IV PRN (08:25)
--- NOTE | 2020-05-07 09:50 | NUR ---
DR. VENTURA NOTIFIED OF PT. SOA AND WHEEZES SCATTERED ISAAC WHEN LUNGS ASCULATED. NEW ORDER. SALINE LOCKED IV FLUIDS.
--- NOTE | 2020-05-07 10:10 | NUR ---
DR. VENTURA HERE. NEW ORDER'S NOTED.
[2020-05-07 10:29] LABS: ABG BASE EXCESS -9.8 MMOL/L (-2.5-2.5); ABG OXYGEN SATURATION 94 % (94-100); ABG PCO2 32 MMHG (35-45); ABG PO2 72 MMHG (79-93); ABG TCO2 16.5 MMOL/L (21.0-31.0)
[2020-05-07 10:34] LABS: ALLENS TEST YES-POS
--- NOTE | 2020-05-07 10:34 | Physical Therapy Daily Note ---
PT Daily Note-Current Subjective Pt. in bed, states "Im not doing well at all, they are taking me to ICU" Communication with nurse reveals pt. TRFing to ICU, possible CHF exacerbation Transfers SCALE: Activities may be completed with or without assistive devices. 3-Mcreegxbli-odvsrwl completes the activity by him/herself with no assistance from a helper. 5-Set-up or Clean-up Assistance-helper sets up or cleans up; patient completes activity. [place] assists only prior to or following the activity. 4-Supervision or Touching Assistance-helper provides verbal cues and/or touching/steadying and/or contact guard assistance as patient completes activity. Assistance may be provided throughout the activity or intermittently. 3-Partial/Moderate Assistance-helper does LESS THAN HALF the effort. [place] lifts, holds or supports trunk or limbs, but provides less than half the effort. 2-Substantial/Maximal Assistance-helper does MORE THAN HALF the effort. [place] lifts or holds trunk or limbs and provides more than half the effort. 0-Zozjgjwnh-lewppt does ALL the effort. Patient does none of the effort to complete the activity. Or, the assistance of 2 or more helpers is required for the patient to complete the activity. If activity was not attempted, code reason: 7-Patient Refused. 9-Not Applicable-not attempted and the patient did not perform the activity before the current illness, exacerbation or injury. 10-Not Attempted due to Environmental Limitations-(lack of equipment, weather restraints, etc.). 88-Not Attempted due to Medical Conditions or Safety Concerns. Weight Bearing Full Weight Bearing Full Weight Bearing Assessment Current Status: Hold Per Dr/Nursing pt. TRFing to ICU from medical floor PT Longterm Goals Longterm Goals PT Longterm Goals Time Frame: May 09, 2020 Roll Left & Right (QC): 6 Sit to Lying (QC): 6 Lying-Sitting on Side/Bed(QC): 6 Sit to Stand (QC): 6 Chair/Bxk-ym-Fwffu Xfer(QC): 6 Toilet Transfer (QC): 6 Does the Patient Walk: Yes Walk 10 feet (QC): 6 Walk 50ft with 2 Turns (QC): 5 Walk 150 ft (QC): 5 PT Plan Treatment/Plan Treatment Plan: Modify Plan, see comments (check pt. status in ICU dly) Treatment Plan: Gait, Safety Treatment Duration: May 09, 2020 Frequency: 6 times per week Estimated Hrs Per Day: .25 hour per day Patient and/or Family Agrees t: Yes Time/GCodes Time In: 1025 Time Out: 1030 Total Billed Treatment Time: 0 Total Billed Treatment 1,no RX, no CHG MAT TRIPATHI BUNCH BREAKER May 07, 2020 10:34
[2020-05-07 10:35] LABS: INSPIRED O2 3 L; PATIENT TEMP 36.4; VENTILATOR NO
--- NOTE | 2020-05-07 10:55 | NUR ---
TRANSFERRED TO ICU PER BED.
--- NOTE | 2020-05-07 11:12 | Diagnostic Imaging Report ---
INDICATION: Shortness of air. TECHNIQUE: Single view chest 10:35 AM. CORRELATION STUDY: 05/03/2020 FINDINGS: Heart size is enlarged. There is presence of pulmonary vascular congestion with rather significant perihilar edema, significantly changed from prior study. Superimposed infiltrate would be difficult to exclude. Moderate left pleural effusion also appears present with likely trace right pleural effusion. Surgical clips over the soft tissues left neck as well as prior right rotator cuff surgery. IMPRESSION: 1. Findings suggest development of a pulmonary vascular congestion along with perihilar and likely pulmonary edema. Superimposed infiltrate would be difficult to exclude. Moderate left and small right pleural effusion also adversely changed. Dictated by: Dictated on workstation # [id number]
--- NOTE | 2020-05-07 11:16 | Progress Note - Hospitalist ---
BERNICE BARRAZA MED STUDENT 05/07/20 1116: Subjective HPI/CC On Admission Date Seen by Provider: May 07, 2020 Time Seen by Provider: 11:15 CC: Fever with UTI HPI: This is an 80 year old white female who presented to ER with fever and chest Xray revealed normal no evidence of PNA so she was diagnosed with UTI placed on Cefepime and Vancomycin and culture is pending. Will restart her home meds and oxygen. Consulting Dr. Velasquez and he requested COVID swab to be done and that will be done. Subjective/Events-last exam Ms. Dominguez has been transferred from Med/Surg to ICU due to respiratory distress. Reports that she has had increased cough and SOB today, has continued to have dry heaves, coughing up clear sputum. She denies having any fever, chills, nausea. She had difficulty communicating while on BiPap. Review of Systems General: No Chills, No Other (fever) Pulmonary: Dyspnea, Cough Cardiovascular: No: Chest Pain, Palpitations Gastrointestinal: No: Nausea, Vomiting, Abdominal Pain, Diarrhea Genitourinary: No Dysuria Focused Exam Time of Focused Exam: 23:19 Objective Exam Vital Signs Vital Signs Date Time Temp Pulse Resp B/P (MAP) Pulse Ox O2 Delivery O2 Flow Rate FiO2 05/07/20 11:15 36.4 52 96 50 05/07/20 10:59 NIV Bilevel 50.00 05/07/20 10:55 21 Capillary Refill : Less Than 3 Seconds General Appearance: Chronically ill, Mild Distress HEENT: PERRL/EOMI; No Pale Conjunctivae (L), No Pale Conjunctivae (R), No Scleral Icterus (L), No Scleral Icterus (R) Respiratory: Chest Non Tender, Accessory Muscle Use, Crackles Cardiovascular: No Edema, No Murmur, Normal Peripheral Pulses, Bradycardia Extremity: Normal Capillary Refill, Non Tender, No Calf Tenderness, No Pedal Edema Neurologic/Psychiatric: Alert, Oriented x3, Normal Mood/Affect Skin: Normal Color, Warm/Dry Results/Procedures Lab Laboratory Tests 05/07/20 05:29 Patient resulted labs reviewed. Assessment/Plan Assessment and Plan Assess & Plan/Chief Complaint Assessment: 1. Respiratory distress 2. Sepsis 3. Metabolic acidosis 4. UTI 5. iron deficiency 6. HTN 7. COPD 8. CKD s/p R nephrectomy, stent Plan: 1. continue BiPap 2. continue vanc/cefepime 3. monitor creatinine 4. monitor iron Clinical Quality Measures DVT/VTE Risk/Contraindication: Risk Factor Score Per Nursin RFS Level Per Nursing on Admit: 2=Moderate DIANN VENTURA DO 05/07/20 1244: Subjective Subjective/Events-last exam Having some significant difficulties with respiratory insufficiency and wheezing BNP and ABG ordered Metabolic acidosis from renal failure continues, bicarb: 13 Attempted to transfer into [facility] ICU, but they were on diversion so I spoke with Dr. Newton, although we don't have Nephrology here, her creatinine did remain stable yesterday at 2.3 and we will go ahead and transfer up to the ICU and likely biPAP will be initiated along with IV Lasix and monitor closely. At 80 years old she has a very poor to guarded prognosis, and I will consult palliative care. Hgb 7.0 receiving IV iron infusion. Review of Systems Pulmonary: Dyspnea, Cough Objective Exam General Appearance: Chronically ill, Moderate Distress, Thin, Other (sammy confusion) Respiratory: Crackles, Decreased Breath Sounds, Wheezing Neurologic/Psychiatric: Alert, Oriented x3, No Motor/Sensory Deficits, Normal Mood/Affect, Other (confusion) Assessment/Plan Assessment and Plan Assess & Plan/Chief Complaint Assessment: Respiratory failure Fluid overload UTI enterococcus Chronic renal failure Metabolic acidosis Plan: Transfer to ICU Spoke with Dr. Newton Supervisory-Addendum Brief Verification & Attestation Participated in pt care: history, MDM, physical Personally performed: exam, history, MDM, supervision of care Care discussed with: Medical Student Procedures: n/a Results interpretation: Verified all documentation Verification and Attestation of Medical Student E/M Service A medical student performed and documented this service in my presence. I reviewed and verified all information documented by the medical student and made modifications to such information, when appropriate. I personally performed the physical exam and medical decision making. Diann Ventura, May 07, 2020,21:17 BERNICE BARRAZA MED STUDENT May 07, 2020 11:16 DIANN VENTURA DO May 07, 2020 12:44
[2020-05-07] MEDS: ADVAIR HFA 115/21 MCG INHALER 8 GM IH SCH ×2 (11:40→19:43)
[2020-05-07 12:21] LABS: ABG BASE EXCESS -9.9 MMOL/L (-2.5-2.5); ABG OXYGEN SATURATION 97 % (94-100); ABG PCO2 35 MMHG (35-45); ABG PO2 94 MMHG (79-93); ABG TCO2 16.9 MMOL/L (21.0-31.0)
[2020-05-07 12:25] LABS: ABG PH 7.28 (7.37-7.43); ALLENS TEST YES-POS; INSPIRED O2 50%; PATIENT TEMP 36.2; VENTILATOR NO
--- NOTE | 2020-05-07 12:55 | Physician Query Clarification ---
"Physician Query-General Query to Physician: The medical record reflects the following clinical scenario: History/Risk factors: COPD, Sepsis, Oxygen dependent Clinical Findings: Sp02 decrease to 90%, CXR: Pulmonary vascular Congestion/infiltrates, RR 20s, SOA at rest Treatment: ICU, Bilevel Non invasive ventilation, FIO2 50%, ABX Question: What condition best reflects the above clinical scenario? Please document response in the Progress notes or Discharge Summary. 1. Acute on Chronic Respiratory Failure 2. Respiratory Distress (as currently documented) 3. Other , with explanation of the clinical findings 4. Clinically undetermined, no explanation for the clinical findings Please remember a lack of response to the above will prompt a phone page by CDI/coding staff In responding to this query, please exercise your independent professional judgment. The purpose of this communication is to more accurately reflect the complexity of your patients condition. The fact that a question is asked does not imply that any particular answer is desired or expected. Thank you for timely response to this clarification. Gaby Yost, MSN, RN RN Specialist-Clinical Doc Improvement CD -Health Info Mgmt Operations [address] [facility] t: [phone] | f: [phone] If you are unable to reach me at my extension, I may be working from home. Please contact me at [phone] PHYSICIAN RESPONSE: Based on the clinical findings in the record, please respond to the query above on this document as an addendum. Physician Response: Physician Response acute on chronic resp failure If you have questions please contact: Supervisor Phosphoric Acid: Ext: Thank you for your time and cooperation. Clinical Asic Design Engineer/Supervisor Phosphoric Acid This is a permanent part of the medical record GABY YOST May 07, 2020 12:55 MARTHA VENTURA DO May 07, 2020 20:43"
--- NOTE | 2020-05-07 12:59 | NUR ---
This RN notified Dr. Newton and Dr. Roberson of pt decreased HR. Pt was running in the 60s when down on 4th floor, but has maintained low 40s while in ICU. Pt BP stable, pt lethargic but easy to wake. Dr. Roberson reviewed medications, and gave telephone order to stop cardizem. This RN stopped order. Will continue to monitor.
[2020-05-07] MEDS ORDERED: RT-ALBUTEROL INHALER HFA (VENTOLIN HFA) 18 GM IH SCH (14:00)
[2020-05-07] MEDS ORDERED: SODIUM BICARB 8.4% 50 MEQ/50 ML VIAL IV NR (14:00)
--- NOTE | 2020-05-07 14:08 | Pulmonary Consultation ---
History of Present Illness History of Present Illness Date Seen by Provider: May 07, 2020 Time Seen by Provider: 14:03 Date of Admission History of Present Illness 80yo with hx of CAD, and left ureter stent 6mo ago presented to ED on 05/03 secondary to fever of 103 and not feeling well. She has no known sick contacts but she was at a picnic for her 80th birthday prior to admission. She is followed by nephrology at [place], [place].She was not hypoxic at time of admission. She was admitted to 4th floor and treated for UTI. She has become more SOB and hypoxic. Her renal function has worsened. PT was transferred to ICU and Dr. Last has consulted me for ICU management. Allergies and Home Medications Allergies Coded Allergies: doxycycline (Verified Allergy, Unknown, 04/02/19) isosorbide (Verified Allergy, Unknown, 04/02/19) pitavastatin (Verified Allergy, Unknown, 04/02/19) shrimp (Verified Allergy, Unknown, 04/02/19) Uncoded Allergies: IV CONTRAST (Allergy, Unknown, 04/02/19) MIRATAZAPINE (Allergy, Unknown, 04/02/19) Home Medications Albuterol Sulfate 1 Puff Puff, 2 PUFF IH for SHORTNESS OF BREATH, (Reported) Amlodipine Besylate 5 Mg Tablet, 5 MG PO 1600, (Reported) Ascorbic Acid 250 Mg Tab, 250 MG PO DAILY, (Reported) Aspirin 81 Mg Tablet.dr, 81 MG PO DAILY, (Reported) Cholecalciferol (Vitamin D3) 50 Mcg Capsule, 50 MCG PO DAILY, (Reported) Clopidogrel Bisulfate 75 Mg Tablet, 75 MG PO DAILY, (Reported) Diltiazem HCl 180 Mg Cap.er.24h, 180 MG PO DAILY, (Reported) LAST FILLED 01-21-2020 #90) Ergocalciferol (Vitamin D2) 1,250 Mcg Capsule, 1,250 MCG PO THURSDAY, (Reported) Fexofenadine HCl 180 Mg Tablet, 180 MG PO DAILY PRN for ALLERGY SYMPTOMS, (Reported) Fluoxetine HCl 10 Mg Capsule, 10 MG PO DAILY, (Reported) PT TAKES 10MG & 20MG TO EQUAL 30MG DAILY Fluoxetine HCl 20 Mg Capsule, 20 MG PO DAILY, (Reported) TAKES 10MG + 20MG TO EQUAL 30 MG DAILY Fluticasone Propionate 9.9 Ml [place].susp, 2 SPRAY NSEACH HS PRN for CONGESTION, (Reported) Fluticasone/Salmeterol 1 Each Blst.w.dev, 1 EACH IH BID, (Reported) Levothyroxine Sodium 75 Mcg Tablet, 75 MCG PO DAILY, (Reported) Lisinopril 5 Mg Tablet, 5 MG PO DAILY, (Reported) Melatonin 10 Mg Tab.rapdis, 10 MG PO HS PRN for SLEEP, (Reported) Multivitamin 1 Each Tablet, 1 EACH PO DAILY, (Reported) Omeprazole 20 Mg Capsule.dr, 20 MG PO DAILY, (Reported) Sennosides 8.6 Mg Tablet, 8.6 MG PO DAILY PRN for CONSTIPATION-1ST LINE, (Reported) Temazepam 15 Mg Capsule, 15 MG PO HS, (Reported) Ubidecarenone 50 Mg Capsule, 100 MG PO DAILY, (Reported) Past Kxmhqud-Vqffur-Oesmvt Hx Past Med/Social Hx: Reviewed Nursing Past Med/Soc Hx, Reviewed and Corrections made Patient Social History Alcohol Use: Rarely Uses Recreational Drug Use: No Smoking Status: Former Smoker (quit 20 years ago, smoked cigarettes for 13 years) Type Used: Cigarettes Former Smoker, Quit: Sep 25, 2008 2nd Hand Smoke Exposure: No Recent Foreign Travel: No Contact w/Someone Who Travel: No Recent Infectious Disease Expo: No Recent Hopitalizations: No Physical Abuse: No Sexual Abuse: No Mistreated: No Fear: No Seasonal Allergies Seasonal Allergies: No Past Medical History Surgeries: Yes (carotid endarterectomy, carpal tunnel release, R nephrectomy) Gallbladder, Nephrectomy, Orthopedic Respiratory: Yes (mycobacterium avium-intracellulae complex) COPD Cardiac: Yes High Cholesterol, Hypertension 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 6.0oz. 59.968028mu; 23.46 BMI Method:Stated Exam Exam Vital Signs Date Time Temp Pulse Resp B/P (MAP) Pulse Ox O2 Delivery O2 Flow Rate FiO2 05/07/20 12:00 36.4 05/07/20 12:00 45 13 120/43 (68) 97 NIV Bilevel 50.00 05/07/20 11:30 49 136/46 (76) 97 NIV Bilevel 50.00 05/07/20 11:15 36.4 52 96 50 05/07/20 10:59 36.4 NIV Bilevel 50.00 05/07/20 10:55 52 21 96 50.00 05/07/20 08:00 36.5 62 16 114/45 (68) 92 Nasal Cannula 2.00 05/07/20 08:00 Nasal Cannula 3.50 05/07/20 04:58 37.1 65 20 130/65 (86) 91 Nasal Cannula 3.00 05/07/20 00:04 37.0 65 16 147/66 (93) 90 Nasal Cannula 3.00 05/06/20 20:10 Nasal Cannula 3.00 05/06/20 20:00 37.1 63 20 157/66 (96) 93 Nasal Cannula 3.00 05/06/20 18:31 92 Nasal Cannula 2.00 05/06/20 18:30 92 Nasal Cannula 2.00 05/06/20 16:45 37.0 05/06/20 16:00 37.0 64 20 137/58 (84) 97 Nasal Cannula 3.00 I & O 05/07/20 07:00 Intake Total 2730 ml Balance 2730 ml Height & Weight Height: 5'1.00" Weight: 130lbs. 6.0oz. 59.361226qi; 23.46 BMI Method:Stated General Appearance: No Apparent Distress, WD/WN HEENT: PERRL/EOMI, TMs Normal, Normal ENT Inspection, Pharynx Normal, Moist Mucous Membranes Neck: Full Range of Motion, Normal Inspection Respiratory: Lungs Clear, Normal Breath Sounds, No Accessory Muscle Use, No Respiratory Distress (SpO2 96%) Cardiovascular: Regular Rate, Rhythm, No Edema, Normal Peripheral Pulses Capillary Refill: Less Than 3 Seconds Peripheral Pulses: 2+ Radial Pulses (R), 2+ Radial Pulses (L) Extremity: Normal Capillary Refill, Normal Inspection, No Pedal Edema Neurologic/Psychiatric: Alert, Oriented x3, No Motor/Sensory Deficits, Normal Mood/Affect Skin: Normal Color, Warm/Dry Results Lab Laboratory Tests 05/06/20 06:27 05/07/20 05:29 Assessment/Plan Assessment/Plan Acute respiratory distress secondary to pulmonary edema and metabolic acidosis -Currently on BiPAP. Start Vapotherm PRN -Since this is not a respiratory acidosis will change to Vapotherm as tolerated. BiPAP PRN -COVID negative x 1 . Will repeat COVID swab and IgG -CXR reviewed Acute on chronic renal failure with nonanion gapped metabolic acidosis -Give 2 amps of Bicarb IV -Start 1/2NS with 2 amps of bicarb -repeat labs at 1700 and include phos, and mag -Gore catheter placed and Pt had 300ml of UO -LA is normal Anemia -If Hb drops < 7 or pt becomes hypotensive will transfuse 1 unit PRBC -Hold lovenox secondary to anemia -protonix -Check occult stool -repeat labs at 1700 COPDAE -breathing treatments UTI with enterococcus -Change Vanco to Zyvox secondary to worsening renal failure -Will hold antidepressents secondary to adding zyvox CAD -Cardiology following ARPITA MACARIO DO May 07, 2020 14:08
--- NOTE | 2020-05-07 15:31 | Cardiology Progress Note ---
Cardiology SOAP Progress Note Subjective: Shortness of breath on BiPAP. Objective: I&O/Vital Signs 05/07/20 05/07/20 05/07/20 05/07/20 04:58 08:00 08:00 10:55 Temp 37.1 36.5 Pulse 65 62 52 Resp 20 16 21 B/P (MAP) 130/65 (86) 114/45 (68) Pulse Ox 91 92 96 O2 Delivery Nasal Cannula Nasal Cannula Nasal Cannula O2 Flow Rate 3.00 3.50 2.00 50.00 05/07/20 05/07/20 05/07/20 05/07/20 10:59 11:15 11:30 12:00 Temp 36.4 36.4 Pulse 52 49 45 Resp 13 B/P (MAP) 136/46 (76) 120/43 (68) Pulse Ox 96 97 97 O2 Delivery NIV Bilevel NIV Bilevel NIV Bilevel O2 Flow Rate 50.00 50.00 50.00 FiO2 50 05/07/20 05/07/20 12:00 14:28 Temp 36.4 Pulse Ox 93 O2 Delivery Vapotherm O2 Flow Rate 30.00 FiO2 35 05/07/20 00:00 Intake Total 2530 ml Balance 2530 ml Weight (Pounds): 130 Weight (Ounces): 6.0 Weight (Calculated Kilograms): 59.771923 Constitutional: AAO x 3, PERRL, well-developed, well-nourished Respiratory: respiratory distress, chest is bilaterally symmetric, other (Decreased breath sounds bilaterally.) Cardiovascular: regular rate-rhythm, S1 and S2 Gastrointestional: soft, audible bowel sounds Extremities: normal range of motion, non-tender, normal inspection Neurologic/Psychiatric: no motor/sensory deficits, alert, normal mood/affect, oriented x 3 Skin: normal color, warm/dry Results/Procedures: Labs Laboratory Tests 05/06/20 21:00: Vancomycin Level Trough 21.6H 05/07/20 05:29: White Blood Count 7.5, Red Blood Count 2.41L, Hemoglobin 7.0L, Hematocrit 21L, Mean Corpuscular Volume 89, Mean Corpuscular Hemoglobin 29, Mean Corpuscular Hemoglobin Concent 32, Red Cell Distribution Width 15.4H, Platelet Count 193, Mean Platelet Volume 9.4, Neutrophils (%) (Auto) 73, Lymphocytes (%) (Auto) 13, Monocytes (%) (Auto) 8, Eosinophils (%) (Auto) 6, Basophils (%) (Auto) 0, Neutrophils # (Auto) 5.4, Lymphocytes # (Auto) 1.0, Monocytes # (Auto) 0.6, Eosinophils # (Auto) 0.4H, Basophils # (Auto) 0.0, Sodium Level 133L, Potassium Level 4.9, Chloride Level 111H, Carbon Dioxide Level 13L, Anion Gap 9, Blood Urea Nitrogen 37H, Creatinine 2.35H, Estimat Glomerular Filtration Rate 20, BUN/Creatinine Ratio 16, Glucose Level 103, Calcium Level 8.3L, Corrected Calcium 9.4, Total Bilirubin 0.2, Aspartate Amino Transf (AST/SGOT) 24, Alanine Aminotransferase (ALT/SGPT) 27, Alkaline Phosphatase 107, B-Type Natriuretic Peptide 1494.8H, Total Protein 5.0L, Albumin 2.6L 05/07/20 10:22: Blood Gas Puncture Site LT RAD, Blood Gas Patient Temperature 36.4, Arterial Blood pH 7.30*L, Arterial Blood Partial Pressure CO2 32L, Arterial Blood Partial Pressure O2 72L, Arterial Blood HCO3 16*L, Arterial Blood Total CO2 16.5L, Arterial Blood Oxygen Saturation 94, Arterial Blood Base Excess -9.8L, [place] Test YES-POS, Blood Gas Ventilator Setting NO, Blood Gas Inspired Oxygen 3 L 05/07/20 11:45: Lactic Acid Level 0.36L 05/07/20 12:05: Blood Gas Puncture Site RT RAD, Blood Gas Patient Temperature 36.2, Arterial Blood pH 7.28*L, Arterial Blood Partial Pressure CO2 35, Arterial Blood Partial Pressure O2 94H, Arterial Blood HCO3 16*L, Arterial Blood Total CO2 16.9L, Arterial Blood Oxygen Saturation 97, Arterial Blood Base Excess -9.9L, [place] T est YES-POS, Blood Gas Ventilator Setting NO, Blood Gas Inspired Oxygen 50% Microbiology 05/03/20 Urine Culture - Final, Complete Mixed Bacterial Shailesh Enterococcus faecium 05/03/20 Gram Stain - Final, Complete 05/03/20 Sputum Culture - Final, Complete Usual upper respiratory shailesh 05/03/20 Blood Culture - Preliminary, Resulted No growth A/P: Assessment/Dx: UTI Sepsis Coronary artery disease Hypertension Plan: UTI, sepsis, managed by primary care team Fever and chills secondary to sepsis History of coronary artery disease, history of cardiac arrhythmia, following with Dr. Pacheco, currently asymptomatic Acute respiratory failure, Cough and shortness of breath, feeling better at this time. On BiPAP. Managed by primary care team Hypertension, restart home medication and monitor blood pressure Hyperlipidemia, monitor lipids COVID negative. Thank you for your consultation. Please call me if you have any questions. Ivania Roberson MD, FACP, FACC, FSCAI, FHRS, CCDS Interventional Cardiology Cardiac Electrophysiology Vascular Medicine and Endovascular Interventions Focused Exam Lactate Level 05/07/20 11:45: Lactic Acid Level 0.36L Time of Focused Exam: 23:19 Lactic Acid Level Laboratory Tests Test 05/07/20 11:45 Lactic Acid Level 0.36 MMOL/L (0.50-2.00) Merary GALAVIZ MD May 07, 2020 15:31
--- NOTE | 2020-05-07 15:31 | Diagnostic Imaging Report ---
INDICATION: PICC line placement. Portable chest at 03:17 p.m. FINDINGS: Left upper extremity PICC line tip projects over the SVC. There are some bilateral perihilar infiltrates or atelectasis. There is some basilar atelectasis and possibly small effusions. IMPRESSION: PICC line tip projects over the SVC. There appears to be less vascular congestion and alveolar consolidation compared to earlier in the day. This may be resolving pulmonary edema. Dictated by: Dictated on workstation # [id number]
[2020-05-07] MEDS: amLODIPine 5 MG (NORVASC) TAB PO SCH (16:02)
[2020-05-07] MEDS: SODIUM BICARBONATE 8.4% VIAL 100 MEQ in 1/2 NS IV SOLUTION 1,000 ML IV SCH (16:02)
[2020-05-07 16:05] LABS: BASOPHILS % (AUTO) 0 % (0-10); EOSINOPHILS # (AUTO) 0.6 10^3/uL (0.0-0.3); EOSINOPHILS % (AUTO) 7 % (0-10); HEMATOCRIT 24 % (35-52); HEMOGLOBIN 7.5 G/DL (11.5-16.0); LYMPHOCYTES # (AUTO) 0.9 X 10^3 (1.0-4.0); LYMPHOCYTES % (AUTO) 11 % (12-44); MEAN CORPUSCULAR HEMOGLOBIN 28 PG (25-34); MEAN CORPUSCULAR HGB CONC 32 G/DL (32-36); MEAN CORPUSCULAR VOLUME 89 FL (80-99); MEAN PLATELET VOLUME 9.1 FL (7.4-10.4); MONOCYTES # (AUTO) 0.8 X 10^3 (0.0-1.0); MONOCYTES % (AUTO) 11 % (0-12); NEUTROPHILS # (AUTO) 5.5 X 10^3 (1.8-7.8); NEUTROPHILS % (AUTO) 70 % (42-75); PLATELET COUNT 216 10^3/uL (130-400); RED CELL DISTRIBUTION WIDTH 15.5 % (10.0-14.5); WHITE BLOOD COUNT 7.8 10^3/uL (4.3-11.0)
[2020-05-07 16:18] LABS: ALBUMIN 2.8 GM/DL (3.2-4.5); POTASSIUM 5.3 MMOL/L (3.6-5.0)
[2020-05-07 16:19] LABS: CALCIUM 8.7 MG/DL (8.5-10.1)
[2020-05-07 16:20] LABS: TOTAL PROTEIN 5.5 GM/DL (6.4-8.2)
[2020-05-07 16:22] LABS: BILIRUBIN,TOTAL 0.4 MG/DL (0.1-1.0)
[2020-05-07 16:24] LABS: CREATININE SERUM 2.47 MG/DL (0.60-1.30); PHOSPHORUS 3.3 MG/DL (2.3-4.7)
[2020-05-07 16:26] LABS: MAGNESIUM 1.4 MG/DL (1.6-2.4)
[2020-05-07 17:08] LABS: BAND NEUTROPHILS 1 %; EOSINOPHILS % (MANUAL) 8 %; HYPOCHROMASIA SLIGHT; LYMPHOCYTES % (MANUAL) 14 %; MICROCYTOSIS SLIGHT; MONOCYTES % (MANUAL) 10 %; NEUTROPHILS % (MANUAL) 67 %
[2020-05-07] MEDS: RT-ALBUTEROL INHALER HFA (VENTOLIN HFA) 18 GM IH SCH ×2 (19:44→23:43)
[2020-05-07] MEDS: TEMAZEPAM 15 MG (RESTORIL) CAP PO SCH (20:40)
[2020-05-07] MEDS: LINEZOLID IVPB 300 ML IV SCH (20:41)
[2020-05-08] VITALS (21 sets, daily range): BP systolic 109–147; BP diastolic 44–74
[2020-05-08 01:49] LABS: BASOPHILS % (AUTO) 0 % (0-10); EOSINOPHILS # (AUTO) 0.3 10^3/uL (0.0-0.3); EOSINOPHILS % (AUTO) 5 % (0-10); HEMATOCRIT 21 % (35-52); LYMPHOCYTES # (AUTO) 0.9 X 10^3 (1.0-4.0); LYMPHOCYTES % (AUTO) 14 % (12-44); MEAN CORPUSCULAR HEMOGLOBIN 28 PG (25-34); MEAN CORPUSCULAR HGB CONC 32 G/DL (32-36); MEAN CORPUSCULAR VOLUME 88 FL (80-99); MEAN PLATELET VOLUME 9.3 FL (7.4-10.4); MONOCYTES # (AUTO) 0.7 X 10^3 (0.0-1.0); MONOCYTES % (AUTO) 10 % (0-12); NEUTROPHILS # (AUTO) 4.7 X 10^3 (1.8-7.8); NEUTROPHILS % (AUTO) 71 % (42-75); PLATELET COUNT 212 10^3/uL (130-400); RED CELL DISTRIBUTION WIDTH 15.3 % (10.0-14.5); WHITE BLOOD COUNT 6.6 10^3/uL (4.3-11.0)
[2020-05-08 01:51] LABS: ABG BASE EXCESS -3.3 MMOL/L (-2.5-2.5); ABG OXYGEN SATURATION 98 % (94-100); ABG PCO2 35 MMHG (35-45); ABG PH 7.39 (7.37-7.43); ABG PO2 102 MMHG (79-93); ABG TCO2 21.9 MMOL/L (21.0-31.0)
[2020-05-08 01:54] LABS: HEMOGLOBIN 6.7 G/DL (11.5-16.0)
[2020-05-08 01:55] LABS: ALLENS TEST YES-POS; INSPIRED O2 40%; PATIENT TEMP 36.8; VENTILATOR NO
[2020-05-08 02:01] LABS: POTASSIUM 4.7 MMOL/L (3.6-5.0)
[2020-05-08 02:02] LABS: CALCIUM 8.3 MG/DL (8.5-10.1)
[2020-05-08 02:06] LABS: CREATININE SERUM 2.31 MG/DL (0.60-1.30)
[2020-05-08 02:09] LABS: MAGNESIUM 1.3 MG/DL (1.6-2.4)
--- NOTE | 2020-05-08 02:35 | NUR ---
[facility]oke to [facility] informed doctor that pts hemoglobin critical at 6.7. Also informed dr that magnesium is 1.3 but bun-39 and creat-2.31. Orders received for 2gm magnesium. Addendum: 05/08/20 at 0238 by HECTOR LOVELACE RN Per RADHA no orders for blood at this time until palliative care to speak to pt in am. This rn to call [facility] if pt actively bleeding.
[2020-05-08] MEDS: RT-ALBUTEROL INHALER HFA (VENTOLIN HFA) 18 GM IH SCH ×6 (03:13→21:25)
[2020-05-08] MEDS: MAGNESIUM 1 GM/100 ML IVPB 100 ML IV SCH ×3 (04:58→05:00)
[2020-05-08] MEDS: LEVOTHYROXINE 75 MCG (LEVOTHROID) TABLET PO SCH (04:59)
[2020-05-08] MEDS: KCL 20 MEQ TAB (K-DUR) PO SCH (04:59)
[2020-05-08] MEDS: POTASSIUM CL 10MEQ/50ML IVPB 50 ML IV SCH (04:59)
[2020-05-08] MEDS: MULTIVIT W/MINERALS TAB (THERAGRAN M) PO SCH (04:59)
--- NOTE | 2020-05-08 05:15 | Pulmonary Progress Note ---
Subjective Time Seen by a Provider: 05:10 Sepsis Event Evaluation Height, Weight, BMI Height: 5'1.00" Weight: 130lbs. 6.0oz. 59.860064xo; 23.46 BMI Method:Stated Focused Exam Lactate Level 05/07/20 11:45: Lactic Acid Level 0.36L Time of Focused Exam: 23:19 Exam Exam Vital Signs Date Time Temp Pulse Resp B/P (MAP) Pulse Ox O2 Delivery O2 Flow Rate FiO2 05/08/20 04:00 NIV Bilevel 40 05/08/20 04:00 59 20 135/46 (75) 95 NIV Bilevel 40.00 05/08/20 03:14 61 20 94 35.00 05/08/20 03:00 61 20 141/51 (81) 95 NIV Bilevel 40.00 05/08/20 02:00 67 22 134/63 (86) 94 NIV Bilevel 40.00 05/08/20 01:23 36.8 NIV Bilevel 40.00 05/08/20 01:00 60 05/08/20 01:00 NIV Bilevel 40 05/08/20 01:00 60 17 137/48 (77) 95 Vapotherm 40.00 50.00 05/08/20 00:00 64 20 147/50 (82) 94 Vapotherm 40.00 50.00 05/07/20 23:44 72 27 93 40.00 05/07/20 23:00 62 18 137/49 (78) 95 Vapotherm 40.00 50.00 05/07/20 22:00 71 19 143/51 (81) 95 Vapotherm 40.00 50.00 05/07/20 21:35 96 40.00 50 05/07/20 21:12 Vapotherm 40.00 50.00 05/07/20 21:00 74 32 145/58 (87) 89 Vapotherm 30.00 40.00 05/07/20 20:58 Vapotherm 30.00 40 05/07/20 20:56 36.2 Vapotherm 30.00 40.00 05/07/20 20:00 71 16 151/61 (91) 92 Vapotherm 30.00 40.00 05/07/20 19:44 94 Vapotherm 30.00 35 05/07/20 19:00 62 15 130/52 (78) 95 Vapotherm 30.00 40.00 05/07/20 19:00 62 05/07/20 18:00 62 19 136/47 (76) 91 Vapotherm 30.00 40.00 05/07/20 17:00 59 22 146/57 (86) 93 Vapotherm 30.00 40.00 05/07/20 16:00 49 22 120/113 (115) 92 Vapotherm 30.00 40.00 05/07/20 16:00 36.0 05/07/20 15:00 52 19 91 NIV Bilevel 50.00 05/07/20 14:28 93 Vapotherm 30.00 35 05/07/20 14:00 44 14 99 NIV Bilevel 50.00 05/07/20 13:00 40 13 103/39 (60) 97 NIV Bilevel 50.00 05/07/20 12:50 43 05/07/20 12:00 36.4 05/07/20 12:00 45 13 120/43 (68) 97 NIV Bilevel 50.00 05/07/20 11:30 49 136/46 (76) 97 NIV Bilevel 50.00 05/07/20 11:15 36.4 52 96 50 05/07/20 10:59 36.4 NIV Bilevel 50.00 05/07/20 10:55 52 21 96 50.00 05/07/20 08:00 36.5 62 16 114/45 (68) 92 Nasal Cannula 2.00 05/07/20 08:00 Nasal Cannula 3.50 I & O 05/08/20 07:00 Intake Total 540 ml Output Total 775 ml Balance -235 ml Height & Weight Height: 5'1.00" Weight: 130lbs. 6.0oz. 59.339924ay; 23.46 BMI Method:Stated General Appearance: Chronically ill, Mild Distress, Thin, Other (sammy con fusion) HEENT: PERRL/EOMI, TMs Normal, Normal ENT Inspection, Pharynx Normal, Moist Mucous Membranes Neck: Full Range of Motion, Normal Inspection Respiratory: Crackles, Decreased Breath Sounds, Wheezing Cardiovascular: Regular Rate, Rhythm, No Edema, Normal Peripheral Pulses Capillary Refill: Less Than 3 Seconds Peripheral Pulses: 2+ Radial Pulses (R), 2+ Radial Pulses (L) Extremity: Normal Capillary Refill, Normal Inspection, No Pedal Edema Neurologic/Psychiatric: Alert, Oriented x3, No Motor/Sensory Deficits, Normal Mood/Affect, Other (confusion) Skin: Normal Color, Warm/Dry Results Lab Laboratory Tests 05/06/20 06:27 05/07/20 05:29 05/07/20 15:55 05/08/20 01:35 Assessment/Plan Assessment/Plan Acute respiratory distress secondary to pulmonary edema and metabolic acidosis -Currently on BiPAP. Start Vapotherm PRN -Since this is not a respiratory acidosis will change to Vapotherm as tolerated. BiPAP PRN -COVID negative x 1 . repeat COVID swab- pending -CXR reviewed Acute on chronic renal failure with nonanion gapped metabolic acidosis -Continue 1/2NS with 2 amps of bicarb at 30cc/hr for now -Gore catheter placed and Pt had 300ml of UO -LA is normal Metabolic acidosis - improving Anemia -Transfuse 1 unit PRBC -Hold lovenox secondary to anemia -protonix -Check occult stool COPDAE -breathing treatments UTI with enterococcus - Vanco Changed to Zyvox 05/07 secondary to worsening renal failure - holding antidepressents secondary to adding zyvox Hypomag -replace CAD -Cardiology following ARPITA MACARIO DO May 08, 2020 05:15
[2020-05-08] MEDS: ADVAIR HFA 115/21 MCG INHALER 8 GM IH SCH ×2 (07:04→19:30)
[2020-05-08] MEDS: LACTULOSE SYRUP 10GM/15ML (ENULOSE) 30ML UDC PO SCH ×2 (08:01→21:25)
[2020-05-08] MEDS: ASPIRIN E.C. 81 MG (ECOTRIN) TAB PO SCH (08:01)
[2020-05-08] MEDS: PHENAZOPYRIDINE 100 MG (PYRIDIUM) TABLET PO SCH ×3 (08:01→21:22)
[2020-05-08] MEDS: LINEZOLID IVPB 300 ML IV SCH ×2 (08:01→21:25)
[2020-05-08] MEDS: PANTOPRAZOLE 40 MG (PROTONIX) VIAL IV SCH (08:01)
[2020-05-08] MEDS: RANOLAZINE ER 500 MG TAB (RANEXA) PO SCH ×2 (08:01→21:22)
[2020-05-08] MEDS: CLOPIDOGREL 75 MG (PLAVIX) TABLET PO SCH (08:02)
--- NOTE | 2020-05-08 08:06 | Physical Therapy Progress Note ---
Therapy Progress Note Patient transferred to ICU due to critical labs. PT will require new orders when patient is medically stable and able to actively participate with skilled therapy. FRANSISCO PEREZ PT May 08, 2020 08:06
[2020-05-08] MEDS ORDERED: NS IV 500 ML 500 ML IV SCH (09:45)
[2020-05-08] MEDS: HYDROcodone/APAP 7.5 MG/325 MG (LORTAB, LORCET PLUS) TABLET PO PRN ×2 (09:47→21:22)
--- NOTE | 2020-05-08 10:12 | NUR ---
PALLIATIVE CARE RN in to see patient at the request of initially Dr. Last and then now RADHA. Upon entering the room patient is groaning, having coughing spells which produced a significant amount of blood tinged sputum. She reports pain all over and nausea associated with her coughs. Patient was difficult to talk with due to the previously mentioned complaints but we did manage to discuss her acute on chronic illness. We talked of her drop in Hgb and the need for transfusion. She asks "where is the blood going", I showed her her Kleenex that had bloody sputum as well as explained the role her chronic disease pays int he productions. We discussed CODE status and she indicated that I would need to talk to her daughter Nakia, which I did. At the end of the visit and the discussion with the daughter we are no closer to a decision for a DNR. She will get a blood transfusion today and her daughter will have a conversation with her regarding CODE status once the results from her 2nd COVID swab are back. Daughter did indicate during discussion that in November she almost related to her Kidney disease...but she is tough and bounced back. I will continue to follow and offer support in decision making as needed.
--- NOTE | 2020-05-08 10:42 | Progress Note - Hospitalist ---
Subjective HPI/CC On Admission Date Seen by Provider: May 08, 2020 Time Seen by Provider: 09:30 CC: Fever with UTI HPI: This is an 80 year old white female who presented to ER with fever and chest Xray revealed normal no evidence of PNA so she was diagnosed with UTI placed on Cefepime and Vancomycin and culture is pending. Will restart her home meds and oxygen. Consulting Dr. Velasquez and he requested COVID swab to be done and that will be done. Subjective/Events-last exam Pt on Vapotherm now Transfusion of one unit of blood today Denies any significant pain Gore catheter maintained Creatinine stable at 2.3 Do not intubate Very guarded prognosis considering her advanced age of 80 and significant comorbidities Review of Systems General: Fatigue, Malaise Pulmonary: Dyspnea Cardiovascular: Edema Focused Exam Lactate Level 05/07/20 11:45: Lactic Acid Level 0.36L Time of Focused Exam: 23:19 Objective Exam Vital Signs Vital Signs Date Time Temp Pulse Resp B/P (MAP) Pulse Ox O2 Delivery O2 Flow Rate FiO2 05/08/20 20:00 37.0 67 20 146/69 (94) 93 Vapotherm 40.00 55.00 05/08/20 19:34 50 Capillary Refill : Less Than 3 Seconds General Appearance: No Apparent Distress, WD/WN, Chronically ill Respiratory: Chest Non Tender, Lungs Clear, Normal Breath Sounds, No Accessory Muscle Use, No Respiratory Distress, Decreased Breath Sounds Cardiovascular: Regular Rate, Rhythm, No Edema, No Gallop, No JVD, No Murmur, Normal Peripheral Pulses Results/Procedures Lab Laboratory Tests 05/08/20 01:35 Patient resulted labs reviewed. Assessment/Plan Assessment and Plan Assess & Plan/Chief Complaint Assessment: Respiratory failure Fluid overload UTI enterococcus Chronic renal failure Metabolic acidosis Respiratory distress requiring ICU transfer and Vapotherm in a do not intubate patient AECOPD CRI Anemia requiring transfusion today PVD CAD Plan: Transfer to ICU Spoke with Dr. Newton Transfuse blood today COVID swab pending again she's been swabbed twice Monitor renal function Gore catheter Prognosis guarded Diagnosis/Problems Diagnosis/Problems (1) Sepsis Status: Acute Qualifiers: Sepsis type: sepsis due to unspecified organism Sepsis acute organ dysfunction status: without acute organ dysfunction Qualified Codes: A41.9 - Sepsis, unspecified organism (2) UTI (urinary tract infection) Status: Acute Qualifiers: Urinary tract infection type: acute cystitis Hematuria presence: without hematuria Qualified Codes: N30.00 - Acute cystitis without hematuria (3) Hypertension Status: Acute (4) History of ureter stent Status: Acute (5) FELIPE (acute kidney injury) Status: Acute Clinical Quality Measures DVT/VTE Risk/Contraindication: Risk Factor Score Per Nursin RFS Level Per Nursing on Admit: 2=Moderate MARTHA VENTURA DO May 08, 2020 10:42
[2020-05-08] MEDS ORDERED: NS IV 500 ML 500 ML ONE (15:19)
--- NOTE | 2020-05-08 15:38 | Cardiology Progress Note ---
Cardiology SOAP Progress Note Subjective: Shortness of breath. On BiPAP. Objective: I&O/Vital Signs 05/08/20 05/08/20 05/08/20 05/08/20 04:00 04:00 05:00 05:08 Temp 36.7 Pulse 59 65 Resp 20 25 B/P (MAP) 135/46 (75) 139/45 (76) Pulse Ox 95 94 O2 Delivery NIV Bilevel NIV Bilevel NIV Bilevel NIV Bilevel O2 Flow Rate 40.00 40.00 35.00 FiO2 40 05/08/20 05/08/20 05/08/20 05/08/20 06:00 06:43 07:00 07:00 Pulse 64 69 60 Resp 17 18 B/P (MAP) 136/48 (77) 132/46 (74) Pulse Ox 94 94 O2 Delivery NIV Bilevel Vapotherm Vapotherm O2 Flow Rate 35.00 40.00 40.00 50.00 50.00 05/08/20 05/08/20 05/08/20 05/08/20 07:04 08:00 08:00 09:00 Pulse 60 67 76 Resp 18 18 29 B/P (MAP) 134/51 (78) 142/56 (84) Pulse Ox 94 93 87 O2 Delivery Vapotherm Vapotherm Vapotherm O2 Flow Rate 35.00 40.00 40.00 40.00 50.00 50.00 FiO2 55 05/08/20 05/08/20 05/08/20 05/08/20 09:35 09:45 10:00 11:00 Pulse 76 75 Resp 29 15 B/P (MAP) 143/48 (79) 127/54 (78) Pulse Ox 94 94 95 O2 Delivery Vapotherm Vapotherm Vapotherm Vapotherm O2 Flow Rate 40.00 40.00 40.00 40.00 55.00 55.00 55.00 FiO2 55 05/08/20 05/08/20 05/08/20 05/08/20 12:00 12:00 12:46 14:56 Pulse 64 68 Resp 12 B/P (MAP) 109/44 (65) Pulse Ox 95 98 O2 Delivery Vapotherm Vapotherm Vapotherm O2 Flow Rate 40.00 40.00 40.00 55.00 FiO2 55 50 05/08/20 00:00 Intake Total 540 ml Output Total 775 ml Balance -235 ml Weight (Pounds): 130 Weight (Ounces): 6.0 Weight (Calculated Kilograms): 59.644266 Constitutional: AAO x 3, PERRL, well-developed, well-nourished Respiratory: respiratory distress, chest is bilaterally symmetric, other (Decreased breath sounds bilaterally.) Cardiovascular: regular rate-rhythm, S1 and S2 Gastrointestional: soft, audible bowel sounds Extremities: normal range of motion, non-tender, normal inspection Neurologic/Psychiatric: no motor/sensory deficits, alert, normal mood/affect, oriented x 3 Skin: normal color, warm/dry Results/Procedures: Labs Laboratory Tests 05/07/20 15:55: White Blood Count 7.8, Red Blood Count 2.67L, Hemoglobin 7.5L, Hematocrit 24L, Mean Corpuscular Volume 89, Mean Corpuscular Hemoglobin 28, Mean Corpuscular Hemoglobin Concent 32, Red Cell Distribution Width 15.5H, Platelet Count 216, Mean Platelet Volume 9.1, Neutrophils (%) (Auto) 70, Lymphocytes (%) (Auto) 11L, Monocytes (%) (Auto) 11, Eosinophils (%) (Auto) 7, Basophils (%) (Auto) 0, Neutrophils # (Auto) 5.5, Lymphocytes # (Auto) 0.9L, Monocytes # (Auto) 0.8, Eosinophils # (Auto) 0.6H, Basophils # (Auto) 0.0, Neutrophils % (Manual) 67, Lymphocytes % (Manual) 14, Monocytes % (Manual) 10, Eosinophils % (Manual) 8, Band Neutrophils 1, Hypochromasia SLIGHT, Microcytosis SLIGHT, Sodium Level 134L , Potassium Level 5.3H, Chloride Level 109H, Carbon Dioxide Level 14L, Anion Gap 11, Blood Urea Nitrogen 40H, Creatinine 2.47H, Estimat Glomerular Filtration Rate 19, BUN/Creatinine Ratio 16, Glucose Level 87, Calcium Level 8.7, Corrected Calcium 9.7, Phosphorus Level 3.3, Magnesium Level 1.4L, Total Bilirubin 0.4, Aspartate Amino Transf (AST/SGOT) 22, Alanine Aminotransferase (ALT/SGPT) 28, Alkaline Phosphatase 128, Total Protein 5.5L, Albumin 2.8L, SARS-CoV-2 IgG Antibody Negative 05/07/20 17:19: 05/08/20 01:35: White Blood Count 6.6, Red Blood Count 2.39L, Hemoglobin 6.7*L, Hematocrit 21L, Mean Corpuscular Volume 88, Mean Corpuscular Hemoglobin 28, Mean Corpuscular Hemoglobin Concent 32, Red Cell Distribution Width 15.3H, Platelet Count 212, Mean Platelet Volume 9.3, Neutrophils (%) (Auto) 71, Lymphocytes (%) (Auto) 14, Monocytes (%) (Auto) 10, Eosinophils (%) (Auto) 5, Basophils (%) (Auto) 0, Neutrophils # (Auto) 4.7, Lymphocytes # (Auto) 0.9L, Monocytes # (Auto) 0.7, Eosinophils # (Auto) 0.3, Basophils # (Auto) 0.0, Sodium Level 137, Potassium Level 4.7, Chloride Level 107, Carbon Dioxide Level 19L, Anion Gap 11, Blood Urea Nitrogen 39H, Creatinine 2.31H, Estimat Glomerular Filtration Rate 20, BUN/Creatinine Ratio 17, Glucose Level 87, Calcium Level 8.3L, Phosphorus Level 3.0, Magnesium Level 1.3L, Blood Gas Puncture Site LEFT RADIAL, Blood Gas Patient Temperature 36.8, Arterial Blood pH 7.39, Arterial Blood Partial Pressure CO2 35, Arterial Blood Partial Pressure O2 102H, Arterial Blood HCO3 21L, Arterial Blood Total CO2 21.9, Arterial Blood Oxygen Saturation 98, Arterial Blood Base Excess -3.3L, [place] Test YES-POS, Blood Gas Ventilator Setting NO, Blood Gas Inspired Oxygen 40% Microbiology 05/07/20 MRSA Screen - Final, Complete MRSA not isolated 05/03/20 Urine Culture - Final, Complete Mixed Bacterial Maria Elena Enterococcus faecium 05/03/20 Blood Culture - Preliminary, Resulted No growth A/P: Assessment/Dx: UTI Sepsis Coronary artery disease Hypertension Plan: UTI, sepsis, managed by primary care team Fever and chills secondary to sepsis History of coronary artery disease, history of cardiac arrhythmia, following with Dr. Pacheco, currently asymptomatic Acute respiratory failure, Cough and shortness of breath. On BiPAP. Managed by primary care team Hypertension, restart home medication and monitor blood pressure Hyperlipidemia, monitor lipids First COVID negative. Dr. Newton has requested repeat COVID testing. Thank you for your consultation. Please call me if you have any questions. Ivania Roberson MD, FACP, FACC, FSCAI, FHRS, CCDS Interventional Cardiology Cardiac Electrophysiology Vascular Medicine and Endovascular Interventions Focused Exam Lactate Level 05/07/20 11:45: Lactic Acid Level 0.36L Time of Focused Exam: 23:19 Merary ROBERSON MD May 08, 2020 15:38
[2020-05-08] MEDS: SODIUM BICARBONATE 8.4% VIAL 100 MEQ in 1/2 NS IV SOLUTION 1,000 ML IV SCH (15:52)
[2020-05-08] MEDS: amLODIPine 5 MG (NORVASC) TAB PO SCH (15:52)
[2020-05-08] MEDS: polyethylene glycoL POWDER 17 GM (MIRALAX) PACK PO SCH (21:21)
[2020-05-08] MEDS: TEMAZEPAM 15 MG (RESTORIL) CAP PO SCH (21:24)
[2020-05-09] VITALS (7 sets, daily range): BP systolic 131–149; BP diastolic 49–76
[2020-05-09] MEDS: RT-ALBUTEROL INHALER HFA (VENTOLIN HFA) 18 GM IH SCH ×6 (02:19→22:28)
[2020-05-09 03:26] LABS: BASOPHILS % (AUTO) 1 % (0-10); EOSINOPHILS # (AUTO) 0.5 10^3/uL (0.0-0.3); EOSINOPHILS % (AUTO) 8 % (0-10); HEMATOCRIT 26 % (35-52); HEMOGLOBIN 8.5 G/DL (11.5-16.0); LYMPHOCYTES # (AUTO) 1.1 X 10^3 (1.0-4.0); LYMPHOCYTES % (AUTO) 16 % (12-44); MEAN CORPUSCULAR HEMOGLOBIN 29 PG (25-34); MEAN CORPUSCULAR HGB CONC 32 G/DL (32-36); MEAN CORPUSCULAR VOLUME 89 FL (80-99); MONOCYTES # (AUTO) 0.9 X 10^3 (0.0-1.0); MONOCYTES % (AUTO) 13 % (0-12); NEUTROPHILS # (AUTO) 4.1 X 10^3 (1.8-7.8); NEUTROPHILS % (AUTO) 62 % (42-75); PLATELET COUNT 222 10^3/uL (130-400); RED CELL DISTRIBUTION WIDTH 15.1 % (10.0-14.5); WHITE BLOOD COUNT 6.6 10^3/uL (4.3-11.0)
[2020-05-09 03:39] LABS: POTASSIUM 4.5 MMOL/L (3.6-5.0)
[2020-05-09 03:40] LABS: CALCIUM 8.5 MG/DL (8.5-10.1)
[2020-05-09 03:45] LABS: CREATININE SERUM 2.15 MG/DL (0.60-1.30); PHOSPHORUS 3.7 MG/DL (2.3-4.7)
[2020-05-09 03:47] LABS: MAGNESIUM 1.9 MG/DL (1.6-2.4)
[2020-05-09] MEDS: KCL 20 MEQ TAB (K-DUR) PO SCH (04:04)
[2020-05-09] MEDS: POTASSIUM CL 10MEQ/50ML IVPB 50 ML IV SCH (04:04)
[2020-05-09] MEDS: MAGNESIUM 1 GM/100 ML IVPB 100 ML IV SCH (04:04)
[2020-05-09] MEDS: LEVOTHYROXINE 75 MCG (LEVOTHROID) TABLET PO SCH (05:55)
[2020-05-09] MEDS: MULTIVIT W/MINERALS TAB (THERAGRAN M) PO SCH (05:55)
--- NOTE | 2020-05-09 06:24 | Pulmonary Progress Note ---
Subjective Time Seen by a Provider: 06:18 Subjective/Events-last exam Pt appears to be improving Sepsis Event Evaluation Height, Weight, BMI Height: 5'1.00" Weight: 130lbs. 6.0oz. 59.418939py; 23.46 BMI Method:Stated Focused Exam Lactate Level 05/07/20 11:45: Lactic Acid Level 0.36L Time of Focused Exam: 23:19 Exam Exam Vital Signs Date Time Temp Pulse Resp B/P (MAP) Pulse Ox O2 Delivery O2 Flow Rate FiO2 05/09/20 06:00 92 Vapotherm 25.00 35.00 05/09/20 03:48 Vapotherm 30.00 40 05/09/20 03:16 93 Vapotherm 30.00 40.00 05/09/20 03:02 36.7 70 22 131/49 (76) 92 Vapotherm 40.00 45.00 05/09/20 02:19 95 Vapotherm 40.00 40 05/09/20 00:01 36.5 69 20 136/52 (80) 94 05/08/20 23:52 Vapotherm 40.00 45 05/08/20 21:33 94 40.00 45.00 05/08/20 21:32 94 Vapotherm 40.00 45 05/08/20 20:15 Vapotherm 40.00 45 05/08/20 20:00 37.0 67 20 146/69 (94) 93 Vapotherm 40.00 55.00 05/08/20 20:00 37.0 67 20 146/69 93 NIV Bilevel 40.00 55 05/08/20 19:34 98 Vapotherm 40.00 50 05/08/20 16:20 36.7 58 16 126/74 95 Vapotherm 05/08/20 16:04 36.8 78 22 128/72 94 Vapotherm 40.00 50 05/08/20 16:00 Vapotherm 40.00 55.00 05/08/20 15:59 Vapotherm 40.00 50 05/08/20 15:49 64 12 109/44 (65) 95 Vapotherm 40.00 55.00 05/08/20 15:00 65 46 123/50 (74) 96 Vapotherm 40.00 55.00 05/08/20 14:56 98 Vapotherm 40.00 50 05/08/20 14:00 62 12 117/50 (72) 97 Vapotherm 40.00 55.00 05/08/20 13:00 61 11 120/50 (73) 97 Vapotherm 40.00 55.00 05/08/20 12:46 68 05/08/20 12:00 64 12 109/44 (65) 95 Vapotherm 40.00 55.00 05/08/20 12:00 Vapotherm 40.00 55 05/08/20 11:00 75 15 127/54 (78) 95 Vapotherm 40.00 55.00 05/08/20 10:00 76 29 143/48 (79) 94 Vapotherm 40.00 55.00 05/08/20 09:45 Vapotherm 40.00 55.00 05/08/20 09:35 94 Vapotherm 40.00 55 05/08/20 09:00 76 29 142/56 (84) 87 Vapotherm 40.00 50.00 05/08/20 08:00 67 18 134/51 (78) 93 Vapotherm 40.00 50.00 05/08/20 08:00 Vapotherm 40.00 55 05/08/20 07:04 60 18 94 35.00 05/08/20 07:00 60 18 132/46 (74) 94 Vapotherm 40.00 50.00 05/08/20 07:00 Vapotherm 40.00 50.00 05/08/20 06:43 69 I & O 05/09/20 07:00 Intake Total 1900 ml Output Total 1625 ml Balance 275 ml Height & Weight Height: 5'1.00" Weight: 130lbs. 6.0oz. 59.656177gj; 23.46 BMI Method:Stated General Appearance: No Apparent Distress, WD/WN, Chronically ill HEENT: PERRL/EOMI, TMs Normal, Normal ENT Inspection, Pharynx Normal, Moist Mucous Membranes Neck: Full Range of Motion, Normal Inspection Respiratory: Chest Non Tender, Lungs Clear, Normal Breath Sounds, No Accessory Muscle Use, No Respiratory Distress, Decreased Breath Sounds Cardiovascular: Regular Rate, Rhythm, No Edema, No Gallop, No JVD, No Murmur, Normal Peripheral Pulses Capillary Refill: Less Than 3 Seconds Peripheral Pulses: 2+ Radial Pulses (R), 2+ Radial Pulses (L) Extremity: Normal Capillary Refill, Normal Inspection, No Pedal Edema Neurologic/Psychiatric: Alert, Oriented x3, No Motor/Sensory Deficits, Normal Mood/Affect, Other (confusion) Skin: Normal Color, Warm/Dry Results Lab Laboratory Tests 05/07/20 15:55 05/08/20 01:35 05/09/20 03:10 Assessment/Plan Assessment/Plan Acute respiratory distress secondary to pulmonary edema and metabolic acidosis -Currently on Vapotherm -- Change to regular NC. -Since this is not a respiratory acidosis will change to Vapotherm as tolerated. BiPAP PRN -COVID negative x 1 . repeat COVID swab- pending -CXR reviewed Acute on chronic renal failure with nonanion gapped metabolic acidosis - improving -Continue 1/2NS with 2 amps of bicarb at 30cc/hr for now -Will most likely d/c tomorrow morning -Gore catheter placed and Pt had 300ml of UO -LA is normal Metabolic acidosis - improving Anemia -s/p 1 unit PRBC -Hold lovenox secondary to anemia -protonix -Check occult stool COPDAE -breathing treatments UTI with enterococcus - Vanco Changed to Zyvox 05/07 secondary to worsening renal failure - holding antidepressents secondary to adding zyvox Hypomag -replace CAD -Cardiology following ARPITA MACARIO DO May 09, 2020 06:24
[2020-05-09] MEDS: ADVAIR HFA 115/21 MCG INHALER 8 GM IH SCH ×2 (06:43→18:38)
[2020-05-09] MEDS: LACTULOSE SYRUP 10GM/15ML (ENULOSE) 30ML UDC PO SCH ×2 (10:48→20:45)
[2020-05-09] MEDS: PHENAZOPYRIDINE 100 MG (PYRIDIUM) TABLET PO SCH ×3 (10:49→18:18)
[2020-05-09] MEDS: LINEZOLID IVPB 300 ML IV SCH ×2 (10:49→22:12)
[2020-05-09] MEDS: PANTOPRAZOLE 40 MG (PROTONIX) VIAL IV SCH (10:49)
[2020-05-09] MEDS: ASPIRIN E.C. 81 MG (ECOTRIN) TAB PO SCH (10:49)
[2020-05-09] MEDS: CLOPIDOGREL 75 MG (PLAVIX) TABLET PO SCH (10:49)
[2020-05-09] MEDS: RANOLAZINE ER 500 MG TAB (RANEXA) PO SCH ×2 (10:49→20:45)
--- NOTE | 2020-05-09 11:50 | Progress Note - Hospitalist ---
BERNICE BARRAZA MED STUDENT 05/09/20 1150: Subjective HPI/CC On Admission Date Seen by Provider: May 09, 2020 Time Seen by Provider: 09:15 CC: Fever with UTI HPI: This is an 80 year old white female who presented to ER with fever and chest Xray revealed normal no evidence of PNA so she was diagnosed with UTI placed on Cefepime and Vancomycin and culture is pending. Will restart her home meds and oxygen. Consulting Dr. Velasquez and he requested COVID swab to be done and that will be done. Subjective/Events-last exam Ms. Dominguez reports having a productive cough of white sputum with occasional hemoptysis, as well as SOB that she reports has improved somewhat but is still bothersome. Has a ko catheter placed, denies having any dysuria. Denies CP, palpitations, n/v, fever, or chills. Review of Systems General: No Chills; Fatigue; No Other (fever) HEENT: No Sinus Congestion, No Post Nasal Drip, No Sore Throat Pulmonary: Dyspnea, Cough, Other (hemoptosis) Cardiovascular: No: Chest Pain, Palpitations, Lt Headedness Gastrointestinal: Constipation; No: Nausea, Vomiting, Abdominal Pain, Diarrhea Genitourinary: No Dysuria; Other (ko) Focused Exam Lactate Level 05/07/20 11:45: Lactic Acid Level 0.36L Time of Focused Exam: 23:19 Objective Exam Vital Signs Vital Signs Date Time Temp Pulse Resp B/P (MAP) Pulse Ox O2 Delivery O2 Flow Rate FiO2 05/09/20 10:22 94 Nasal Cannula 3.00 05/09/20 03:48 40 05/09/20 03:02 36.7 70 22 131/49 (76) Capillary Refill : Less Than 3 Seconds General Appearance: WD/WN, Chronically ill HEENT: PERRL/EOMI; No Pale Conjunctivae (L), No Pale Conjunctivae (R), No Scleral Icterus (L), No Scleral Icterus (R) Neck: Non Tender, Supple; No Lymphadenopathy (L), No Lymphadenopathy (R) Respiratory: Crackles (lower lung posts bilaterally), Wheezing Cardiovascular: Regular Rate, Rhythm, No Murmur, Normal Peripheral Pulses Gastrointestinal: No Organomegaly, Non Tender, Soft, Abnormal Bowel Sounds (decreased) Extremity: Non Tender, No Calf Tenderness Neurologic/Psychiatric: Alert, Oriented x3, Normal Mood/Affect Skin: Normal Color, Warm/Dry Results/Procedures Lab Laboratory Tests 05/09/20 03:10 Patient resulted labs reviewed. Assessment/Plan Assessment and Plan Assess & Plan/Chief Complaint Assessment: 1. Respiratory distress 2. Sepsis 3. non gap Metabolic acidosis 4. anemia 5. UTI 6. iron deficiency 7. HTN 8. COPD 9. CKD s/p R nephrectomy, stent Plan: 1. oxygen to change from vapotherm to NC 2. continue linezolid 3. continue 1/2 NS and bicarb 4. monitor creatinine 5. monitor anemia s/p packed RBC infusion 6. COVID negative x1, second swab pending Clinical Quality Measures DVT/VTE Risk/Contraindication: Risk Factor Score Per Nursin RFS Level Per Nursing on Admit: 2=Moderate DIANN VENTURA DO 05/09/20 1324: Subjective Subjective/Events-last exam Pt having improvement but slow Creatinine 2.1 Hgb 8.5 after one unit of blood yesterday Bicarb drip managed by Dr. Newton Still wheezing a bit on breathing treatments and O2 supplementation Maintain on broad spectrum antibiotics Guarded prognosis still at age 80 and so many comorbidities Review of Systems General: Fatigue, Malaise HEENT: Dysphasia Pulmonary: Dyspnea Objective Exam General Appearance: No Apparent Distress, WD/WN, Chronically ill Respiratory: Crackles (lower lung posts bilaterally), Wheezing Assessment/Plan Assessment and Plan Assess & Plan/Chief Complaint Assessment/Plan: Transferred to 4th floor Creatinine monitored closely COVID swab pending for the second time Supervisory-Addendum Brief Verification & Attestation Participated in pt care: history, MDM, physical Personally performed: exam, history, MDM, supervision of care Care discussed with: Medical Student Procedures: n/a Results interpretation: Verified all documentation Verification and Attestation of Medical Student E/M Service A medical student performed and documented this service in my presence. I reviewed and verified all information documented by the medical student and made modifications to such information, when appropriate. I personally performed the physical exam and medical decision making. Diann Ventura, May 09, 2020,20:58 BERNICE BARRAZA MED STUDENT May 09, 2020 11:50 DIANN VENTURA DO May 09, 2020 13:24
[2020-05-09] MEDS: HYDROcodone/APAP 7.5 MG/325 MG (LORTAB, LORCET PLUS) TABLET PO PRN ×2 (12:06→20:45)
[2020-05-09] MEDS: ALPRAZolam 0.25 MG (XANAX) TAB PO PRN (12:06)
--- NOTE | 2020-05-09 13:53 | NUR ---
"RD ASSESSMENT PMHx: COPD; hypercholesterolemia; HTN; GERD; DM PT INTERACTION: Note pt is PUI for COVID-19. Note all information gathered is per chart review. Note avg PO intake 43% x3d. Note no BM has been recorded, and pt currently on bowel regimen of miralax HS. Note recent 22# wt gain x5mon. Note unable to determine current level of DM management or recent HbA1c. ABNORMAL NUTRITION-RELATED LAB VALUES LOW: HIGH: BUN 38; cr 2.15 Est. kcal needs: 1350 kcal | 20 kcal/kg Est. Pro needs: 54 g Pro | 0.8 g Pro/kg PES STATEMENT: Inadequate oral intake (NI-2.1) related to loss of appetite as evidenced by chart review | avg PO intake 43% x3d INTERVENTION: Continue with current diet order of DYS2 Mechanically Altered diet. Pt may benefit from consistent CHO restriction if blood glucose levels become elevated. Pt may benefit from nutrition supplementation if PO intake declines. Did not offer DM education at this time, d/t pt isolation status. May offer again when isolation is lifted. Will continue to follow and reassess as pt needs, intake, and status change. MONITOR/EVALUATE: PO Intake; Plan of Care; Hydration Status; Weight Status; Lab Values Yue Benitez, MS, RD, LD"
--- NOTE | 2020-05-09 14:40 | Physical Therapy Daily Note ---
PT Daily Note-Current Subjective Pt supine in bed upon arrival to room, agreeable to work with therapy at this time. Pt has no complaints of pain. New orders received following pts change of status and transfer to higher level of care, pt reassessed this visit Appearance Following session, pt supine in bed with call light and tray within reach. All needs met Mental Status Patient Orientation: Person, Place, Situation Attachments: Oxygen, Gore Catheter, IV Transfers SCALE: Activities may be completed with or without assistive devices. 9-[id number]-[id number] completes the activity by him/herself with no assistance from a helper. 5-Set-up or Clean-up Assistance-helper sets up or cleans up; patient completes activity. [place] assists only prior to or following the activity. 4-Supervision or Touching Assistance-helper provides verbal cues and/or touching/steadying and/or contact guard assistance as patient completes activity. Assistance may be provided throughout the activity or intermittently. 3-Partial/Moderate Assistance-helper does LESS THAN HALF the effort. [place] lifts, holds or supports trunk or limbs, but provides less than half the effort. 2-Substantial/Maximal Assistance-helper does MORE THAN HALF the effort. [place] lifts or holds trunk or limbs and provides more than half the effort. 5-[place]-tmtwuq does ALL the effort. Patient does none of the effort to complete the activity. Or, the assistance of 2 or more helpers is required for the patient to complete the activity. If activity was not attempted, code reason: 7-Patient Refused. 9-Not Applicable-not attempted and the patient did not perform the activity before the current illness, exacerbation or injury. 10-Not Attempted due to Environmental Limitations-(lack of equipment, weather restraints, etc.). 88-Not Attempted due to Medical Conditions or Safety Concerns. Sit to Lying (QC): 4 Lying to Sitting/Side of Bed(Q: 4 Sit to Stand (QC): 3 Min A to achieve standing position at EOB. Pt initially has trouble catching her balance, requiring min A to steady her. Then is able to stand 3 x 30 sec each. Weight Bearing Full Weight Bearing Full Weight Bearing Gait Training Does the Patient Walk?: Yes Distance: 5 Gait Assistive Device: Cane Single Point Pt able to take steps to head of bed with min A for safety. Pt refuses to use a walker this visit, states that she only needs her cane but is very off balance with cane, requires physical assistance to maintain upright posture. Exercises Supine Ex: Bridging, Quad Set, Glut sets Supine Reps: 20 Seated Therapy Exercises: Long arc quads, Hip abd/add Seated Reps: 20 Treatments Pt seated EOB and completed seated exercises x 20 reps. Pt then completed sit- stand x 3 for 30 seconds each then took steps to head of bed. Pt returned to supine and gown and linens changed due to them being wet. Pt positioned supine in bed following treatment, Assessment Current Status: Fair Progress Pt is a 80 year old female with limitations in strength, balance, activity tolerance and safety which impact her overall functional mobility. Pt is a fall risk and not safe to return home at this time, would benefit from continued therapy. PT Supervisor Malted Milk Goals Supervisor [place] Goals PT Senior Living Goals Time Frame: May 09, 2020 Roll Left & Right (QC): 6 Sit to Lying (QC): 6 Lying-Sitting on Side/Bed(QC): 6 Sit to Stand (QC): 6 Chair/Kby-nr-Ggfjr Xfer(QC): 6 Toilet Transfer (QC): 6 Does the Patient Walk: Yes Walk 10 feet (QC): 6 Walk 50ft with 2 Turns (QC): 5 Walk 150 ft (QC): 5 PT Plan Problem List Problem List: Activity Tolerance, Functional Strength, Safety, Balance, Gait, Transfer, Bed Mobility Treatment/Plan Treatment Plan: Continue Plan of Care Treatment Plan: Gait, Safety Treatment Duration: May 09, 2020 Frequency: 6 times per week Estimated Hrs Per Day: .25 hour per day Patient and/or Family Agrees t: Yes New orders received and pt reassessed, will continue with POC of 6x/week for .25 hours/day. Time/GCodes Time In: 1340 Time Out: 1400 Total Billed Treatment 1 visit 1 FA (15 min) AUSTIN HINTON PT May 09, 2020 14:40
[2020-05-09] MEDS: SODIUM BICARBONATE 8.4% VIAL 100 MEQ in 1/2 NS IV SOLUTION 1,000 ML IV SCH (15:15)
[2020-05-09] MEDS: amLODIPine 5 MG (NORVASC) TAB PO SCH (15:19)
[2020-05-09] MEDS: SENNOSIDES 8.6 MG (SENOKOT) TAB PO PRN (15:29)
--- NOTE | 2020-05-09 18:18 | Cardiology Progress Note ---
Cardiology SOAP Progress Note Subjective: Improved shortness of breath. Objective: I&O/Vital Signs 05/09/20 05/09/20 05/09/20 05/09/20 06:43 06:43 08:00 08:00 Temp 37.2 Pulse 68 Resp 20 B/P (MAP) 146/76 (99) Pulse Ox 93 93 94 O2 Delivery Nasal Cannula Nasal Cannula Nasal Cannula Nasal Cannula O2 Flow Rate 4.00 4.00 4.00 4.00 05/09/20 05/09/20 05/09/20 05/09/20 09:00 10:22 12:00 12:00 Temp 37.2 Pulse 78 Resp 24 B/P (MAP) 138/68 (91) Pulse Ox 94 94 O2 Delivery Nasal Cannula Nasal Cannula Nasal Cannula Nasal Cannula O2 Flow Rate 4.00 3.00 4.00 4.00 05/09/20 05/09/20 05/09/20 15:29 15:37 16:00 Temp 37.0 Pulse 72 Resp 20 B/P (MAP) 135/53 (80) Pulse Ox 94 95 O2 Delivery Nasal Cannula Nasal Cannula Nasal Cannula O2 Flow Rate 5.00 4.00 4.00 05/09/20 00:00 Intake Total 1400 ml Output Total 1275 ml Balance 125 ml Weight (Pounds): 130 Weight (Ounces): 6.0 Weight (Calculated Kilograms): 59.187999 Constitutional: AAO x 3, PERRL, well-developed, well-nourished Respiratory: chest is bilaterally symmetric, other (Decreased breath sounds bilaterally.) Cardiovascular: regular rate-rhythm, S1 and S2 Gastrointestional: soft, audible bowel sounds Extremities: normal range of motion, non-tender, normal inspection Neurologic/Psychiatric: no motor/sensory deficits, alert, normal mood/affect, oriented x 3 Skin: normal color, warm/dry Results/Procedures: Labs Laboratory Tests 05/09/20 03:10: White Blood Count 6.6, Red Blood Count 2.97L, Hemoglobin 8.5#L, Hematocrit 26L, Mean Corpuscular Volume 89, Mean Corpuscular Hemoglobin 29, Mean Corpuscular He moglobin Concent 32, Red Cell Distribution Width 15.1H, Platelet Count 222, Mean Platelet Volume 9.0, Neutrophils (%) (Auto) 62, Lymphocytes (%) (Auto) 16, Monocytes (%) (Auto) 13H, Eosinophils (%) (Auto) 8, Basophils (%) (Auto) 1, Neutrophils # (Auto) 4.1, Lymphocytes # (Auto) 1.1, Monocytes # (Auto) 0.9, Eosinophils # (Auto) 0.5H, Basophils # (Auto) 0.0, Sodium Level 136, Potassium Level 4.5, Chloride Level 105, Carbon Dioxide Level 20L, Anion Gap 11, Blood Urea Nitrogen 38H, Creatinine 2.15H, Estimat Glomerular Filtration Rate 22, BUN/Creatinine Ratio 18, Glucose Level 87, Calcium Level 8.5, Phosphorus Level 3.7, Magnesium Level 1.9 Microbiology 05/07/20 MRSA Screen - Final, Complete MRSA not isolated 05/03/20 Urine Culture - Final, Complete Mixed Bacterial Maria Elena Enterococcus faecium 05/03/20 Blood Culture - Final, Complete No growth A/P: Assessment/Dx: UTI Sepsis Coronary artery disease Hypertension Plan: UTI, sepsis, managed by primary care team Fever and chills secondary to sepsis History of coronary artery disease, history of cardiac arrhythmia, following with Dr. Pacheco, currently asymptomatic Acute respiratory failure, Cough and shortness of breath. On BiPAP. Managed by primary care team. Improved today. Hypertension, restart home medication and monitor blood pressure Hyperlipidemia, monitor lipids First COVID negative. Dr. Newton has requested repeat COVID testing. Thank you for your consultation. Please call me if you have any questions. Ivania Roberson MD, FACP, FACC, FSCAI, FHRS, CCDS Interventional Cardiology Cardiac Electrophysiology Vascular Medicine and Endovascular Interventions Focused Exam Lactate Level 05/07/20 11:45: Lactic Acid Level 0.36L Time of Focused Exam: 23:19 Merary ROBERSON MD May 09, 2020 18:18
[2020-05-09] MEDS: polyethylene glycoL POWDER 17 GM (MIRALAX) PACK PO SCH (20:46)
[2020-05-09] MEDS: TEMAZEPAM 15 MG (RESTORIL) CAP PO SCH (20:46)
[2020-05-10] MEDS: RT-ALBUTEROL INHALER HFA (VENTOLIN HFA) 18 GM IH SCH ×6 (02:19→22:18)
[2020-05-10 04:07] VITALS: BP 128/47
[2020-05-10] MEDS: HYDROcodone/APAP 7.5 MG/325 MG (LORTAB, LORCET PLUS) TABLET PO PRN ×4 (04:15→21:07)
[2020-05-10 04:19] LABS: BASOPHILS % (AUTO) 0 % (0-10); EOSINOPHILS # (AUTO) 0.6 10^3/uL (0.0-0.3); EOSINOPHILS % (AUTO) 9 % (0-10); HEMATOCRIT 26 % (35-52); HEMOGLOBIN 8.5 G/DL (11.5-16.0); LYMPHOCYTES # (AUTO) 1.3 X 10^3 (1.0-4.0); LYMPHOCYTES % (AUTO) 18 % (12-44); MEAN CORPUSCULAR HEMOGLOBIN 29 PG (25-34); MEAN CORPUSCULAR HGB CONC 33 G/DL (32-36); MEAN CORPUSCULAR VOLUME 88 FL (80-99); MEAN PLATELET VOLUME 8.8 FL (7.4-10.4); MONOCYTES # (AUTO) 0.8 X 10^3 (0.0-1.0); MONOCYTES % (AUTO) 11 % (0-12); NEUTROPHILS # (AUTO) 4.4 X 10^3 (1.8-7.8); NEUTROPHILS % (AUTO) 62 % (42-75); PLATELET COUNT 222 10^3/uL (130-400); RED CELL DISTRIBUTION WIDTH 14.9 % (10.0-14.5); WHITE BLOOD COUNT 7.1 10^3/uL (4.3-11.0)
[2020-05-10 04:40] LABS: ALBUMIN 2.5 GM/DL (3.2-4.5); BILIRUBIN,TOTAL 0.4 MG/DL (0.1-1.0); CALCIUM 8.5 MG/DL (8.5-10.1); CREATININE SERUM 1.86 MG/DL (0.60-1.30); POTASSIUM 4.8 MMOL/L (3.6-5.0); TOTAL PROTEIN 5.1 GM/DL (6.4-8.2)
[2020-05-10] MEDS: POTASSIUM CL 10MEQ/50ML IVPB 50 ML IV SCH (05:06)
[2020-05-10] MEDS: KCL 20 MEQ TAB (K-DUR) PO SCH (05:06)
[2020-05-10] MEDS: MAGNESIUM 1 GM/100 ML IVPB 100 ML IV SCH (05:07)
--- NOTE | 2020-05-10 05:16 | Pulmonary Progress Note ---
Subjective Time Seen by a Provider: 05:11 Subjective/Events-last exam Pt appears to be doing better. Sepsis Event Evaluation Height, Weight, BMI Height: 5'1.00" Weight: 130lbs. 6.0oz. 59.650361lq; 23.46 BMI Method:Stated Focused Exam Lactate Level 05/07/20 11:45: Lactic Acid Level 0.36L Time of Focused Exam: 23:19 Exam Exam Vital Signs Date Time Temp Pulse Resp B/P (MAP) Pulse Ox O2 Delivery O2 Flow Rate FiO2 05/10/20 04:17 Nasal Cannula 4.00 05/10/20 04:07 36.6 70 14 128/47 (74) 91 Nasal Cannula 4.00 05/10/20 02:19 93 Nasal Cannula 4.00 05/10/20 00:00 Nasal Cannula 4.00 05/09/20 23:11 37.1 74 18 149/56 (87) 94 Nasal Cannula 4.00 05/09/20 22:29 94 Nasal Cannula 4.00 05/09/20 20:48 Nasal Cannula 4.00 05/09/20 20:00 Nasal Cannula 4.00 05/09/20 19:30 37.0 71 20 143/53 (83) 92 Nasal Cannula 4.00 05/09/20 18:38 94 Nasal Cannula 5.00 05/09/20 16:00 Nasal Cannula 4.00 05/09/20 15:37 37.0 72 20 135/53 (80) 95 Nasal Cannula 4.00 05/09/20 15:29 94 Nasal Cannula 5.00 05/09/20 12:00 Nasal Cannula 4.00 05/09/20 12:00 37.2 78 24 138/68 (91) 94 Nasal Cannula 4.00 05/09/20 10:22 94 Nasal Cannula 3.00 05/09/20 09:00 Nasal Cannula 4.00 05/09/20 08:00 37.2 68 20 146/76 (99) 94 Nasal Cannula 4.00 05/09/20 08:00 Nasal Cannula 4.00 05/09/20 06:43 93 Nasal Cannula 4.00 05/09/20 06:43 93 Nasal Cannula 4.00 05/09/20 06:00 92 Vapotherm 25.00 35.00 I & O 05/10/20 07:00 Intake Total 1675 ml Output Total 2350 ml Balance -675 ml Height & Weight Height: 5'1.00" Weight: 130lbs. 6.0oz. 59.142334yk; 23.46 BMI Method:Stated General Appearance: No Apparent Distress, WD/WN, Chronically ill HEENT: PERRL/EOMI; No Pale Conjunctivae (L), No Pale Conjunctivae (R), No Scleral Icterus (L), No Scleral Icterus (R) Neck: Non Tender, Supple; No Lymphadenopathy (L), No Lymphadenopathy (R) Respiratory: Crackles (lower lung posts bilaterally), Wheezing Cardiovascular: Regular Rate, Rhythm, No Murmur, Normal Peripheral Pulses Capillary Refill: Less Than 3 Seconds Peripheral Pulses: 2+ Radial Pulses (R), 2+ Radial Pulses (L) Extremity: Non Tender, No Calf Tenderness Neurologic/Psychiatric: Alert, Oriented x3, Normal Mood/Affect Skin: Normal Color, Warm/Dry Results Lab Laboratory Tests 05/09/20 03:10 05/10/20 04:05 Assessment/Plan Assessment/Plan Acute respiratory distress secondary to pulmonary edema and metabolic acidosis -Currently on regular NC. -Since this is not a respiratory acidosis will change to Vapotherm as tolerated. BiPAP PRN -COVID negative x 1 . repeat COVID swab- pending -CXR reviewed Acute on chronic renal failure with nonanion gapped metabolic acidosis - improving -D/C bicarb gtt. Will SL IVF for now. If Cr goes up tomorrow may need to start LR at a low rate. -Gore catheter placed and Pt had 300ml of UO -LA is normal Metabolic acidosis - improving Anemia -s/p 1 unit PRBC -Hold lovenox secondary to anemia -protonix -Check occult stool COPDAE -breathing treatments UTI with enterococcus - s/p Zyvox tx Hypomag -replace CAD -Cardiology following ARPITA MACARIO DO May 10, 2020 05:16
[2020-05-10] MEDS: LEVOTHYROXINE 75 MCG (LEVOTHROID) TABLET PO SCH (06:12)
[2020-05-10] MEDS: MULTIVIT W/MINERALS TAB (THERAGRAN M) PO SCH (06:12)
[2020-05-10] MEDS: ADVAIR HFA 115/21 MCG INHALER 8 GM IH SCH ×3 (06:54→21:08)
[2020-05-10 07:46] VITALS: BP 145/59
[2020-05-10] MEDS: PANTOPRAZOLE 40 MG (PROTONIX) VIAL IV SCH (07:54)
[2020-05-10] MEDS: RANOLAZINE ER 500 MG TAB (RANEXA) PO SCH ×2 (07:55→21:20)
[2020-05-10] MEDS: ASPIRIN E.C. 81 MG (ECOTRIN) TAB PO SCH (07:55)
[2020-05-10] MEDS: CLOPIDOGREL 75 MG (PLAVIX) TABLET PO SCH (07:55)
[2020-05-10] MEDS: LACTULOSE SYRUP 10GM/15ML (ENULOSE) 30ML UDC PO SCH ×2 (07:56→21:00)
--- NOTE | 2020-05-10 09:36 | Progress Note - Hospitalist ---
Subjective HPI/CC On Admission Date Seen by Provider: May 10, 2020 Time Seen by Provider: 09:30 CC: Fever with UTI HPI: This is an 80 year old white female who presented to ER with fever and chest Xray revealed normal no evidence of PNA so she was diagnosed with UTI placed on Cefepime and Vancomycin and culture is pending. Will restart her home meds and oxygen. Consulting Dr. Velasquez and he requested COVID swab to be done and that will be done. Subjective/Events-last exam Pt doing much better Bicarb drip discontinued Upper airway wheezing but lungs sound good Creatinine down to 1.86 Hgb 8.5 maintain since 1 unit of blood transfusion two days ago Bowels not moving, gave her Senna and will give her an additional MiraLax Re-swabbing for COVID because the reagent was unavailable Inpatient rehab candidate Updated daughter Nakia on the phone on speakerphone Review of Systems Pulmonary: Dyspnea Gastrointestinal: Constipation Focused Exam Lactate Level Time of Focused Exam: 23:19 Objective Exam Vital Signs Vital Signs Date Time Temp Pulse Resp B/P (MAP) Pulse Ox O2 Delivery O2 Flow Rate FiO2 05/10/20 18:43 95 Nasal Cannula 4.00 05/10/20 17:04 36.0 68 20 141/63 (89) 05/09/20 03:48 40 Capillary Refill : Less Than 3 Seconds General Appearance: No Apparent Distress, WD/WN, Anxious, Chronically ill Respiratory: Chest Non Tender, Lungs Clear, Normal Breath Sounds, No Accessory Muscle Use, No Respiratory Distress, Decreased Breath Sounds Cardiovascular: Regular Rate, Rhythm, No Edema, No Gallop, No JVD, No Murmur, Normal Peripheral Pulses Neurologic/Psychiatric: Alert, Oriented x3, No Motor/Sensory Deficits, Normal Mood/Affect Results/Procedures Lab Laboratory Tests 05/10/20 04:05 Patient resulted labs reviewed. Assessment/Plan Assessment and Plan Assess & Plan/Chief Complaint Assessment: Respiratory distress Sepsis Non gap Metabolic acidosis Anemia UTI Iron deficiency HTN COPD CKD s/p R nephrectomy, stent Plan: Oxygen to change from vapotherm to NC Continue linezolid Monitor creatinine Monitor anemia s/p packed RBC infusion COVID negative x1, second swab pending Transferred to 4th floor Creatinine monitored closely COVID swab pending for the second time Re-swab for COVID since reagent was unavailable Bowel treatment for constipation Inpatient rehab for Thursday or Thursday Diagnosis/Problems Diagnosis/Problems (1) Sepsis Status: Acute Qualifiers: Sepsis type: sepsis due to unspecified organism Sepsis acute organ dysfunction status: without acute organ dysfunction Qualified Codes: A41.9 - Sepsis, unspecified organism (2) UTI (urinary tract infection) Status: Acute Qualifiers: Urinary tract infection type: acute cystitis Hematuria presence: without hematuria Qualified Codes: N30.00 - Acute cystitis without hematuria (3) Hypertension Status: Acute (4) History of ureter stent Status: Acute (5) FELIPE (acute kidney injury) Status: Acute Clinical Quality Measures DVT/VTE Risk/Contraindication: Risk Factor Score Per Nursin RFS Level Per Nursing on Admit: 2=Moderate MARTHA VENTURA DO May 10, 2020 09:36
[2020-05-10] MEDS: PHENAZOPYRIDINE 100 MG (PYRIDIUM) TABLET PO SCH ×3 (09:51→18:59)
[2020-05-10] MEDS: SENNOSIDES 8.6 MG (SENOKOT) TAB PO PRN (09:51)
[2020-05-10] MEDS: LINEZOLID (ZYVOX) 600 MG TAB PO SCH ×2 (09:52→21:19)
[2020-05-10 10:34] VITALS: BP 145/59
[2020-05-10] MEDS ORDERED: polyethylene glycoL POWDER 17 GM (MIRALAX) PACK PO ONE (10:45)
[2020-05-10] MEDS: ONDANSETRON 4 MG/2 ML (SDV) Z0FRAN IV PRN (11:52)
--- NOTE | 2020-05-10 12:03 | Physical Therapy Daily Note ---
PT Daily Note-Current Subjective Patient agrees to PT. C/o nausea. Mental Status Patient Orientation: Normal For Age Attachments: Oxygen, Gore Catheter Transfers SCALE: Activities may be completed with or without assistive devices. 8-Hqdczbasun-rpdbxuv completes the activity by him/herself with no assistance from a helper. 5-Set-up or Clean-up Assistance-helper sets up or cleans up; patient completes activity. [place] assists only prior to or following the activity. 4-Supervision or Touching Assistance-helper provides verbal cues and/or touching/steadying and/or contact guard assistance as patient completes activity. Assistance may be provided throughout the activity or intermittently. 3-Partial/Moderate Assistance-helper does LESS THAN HALF the effort. [place] lifts, holds or supports trunk or limbs, but provides less than half the effort. 2-Substantial/Maximal Assistance-helper does MORE THAN HALF the effort. [place] lifts or holds trunk or limbs and provides more than half the effort. 1-Bbewxscii-nimdxe does ALL the effort. Patient does none of the effort to complete the activity. Or, the assistance of 2 or more helpers is required for the patient to complete the activity. If activity was not attempted, code reason: 7-Patient Refused. 9-Not Applicable-not attempted and the patient did not perform the activity before the current illness, exacerbation or injury. 10-Not Attempted due to Environmental Limitations-(lack of equipment, weather restraints, etc.). 88-Not Attempted due to Medical Conditions or Safety Concerns. Sit to Stand (QC): 3 up in recliner performed sit to stand x 4 sets Weight Bearing Full Weight Bearing Full Weight Bearing Gait Training Does the Patient Walk?: Yes Distance: 10' x 3 Walk 10 feet (QC): 3 Gait Assistive Device: Cane Single Point unsteady with cane/will utilize FWW in a.m. due to patient vomiting and treatment ceased. Exercises Seated Therapy Exercises: Ankle pumps, Long arc quads, Hip flexion Seated Reps: 12 (3 sets) Standing: Sit to Stand (4), Weight shifts Assessment Patient tolerated treatment well and remains up in recliner with needs met. Patient vomiting after session with RN notified. PT to increase activity as tolerated by patient. PT Musical String Maker Goals Mcfp Goals PT Mcfp Goals Time Frame: May 16, 2020 Roll Left & Right (QC): 6 Sit to Lying (QC): 6 Lying-Sitting on Side/Bed(QC): 6 Sit to Stand (QC): 6 Chair/Oxy-xe-Nuipc Xfer(QC): 6 Toilet Transfer (QC): 6 Does the Patient Walk: Yes Walk 10 feet (QC): 6 Walk 50ft with 2 Turns (QC): 5 Walk 150 ft (QC): 5 PT Plan Treatment/Plan Treatment Plan: Continue Plan of Care Treatment Plan: Gait, Safety Treatment Duration: May 16, 2020 Frequency: 6 times per week Estimated Hrs Per Day: .25 hour per day Patient and/or Family Agrees t: Yes Time/GCodes Time In: 1130 Time Out: 1153 Total Billed Treatment Time: 23 Total Billed Treatment 1 visit EX x 2 23 min FRANSISCO PEREZ PT May 10, 2020 12:03
--- NOTE | 2020-05-10 12:06 | Occupational Therapy Eval ---
OT Evaluation-General/PLF Medical Diagnosis Admission Date May 04, 2020 at 02:30 Medical Diagnosis: UTI; sepsis Onset Date: Apr 25, 2020 Therapy Diagnosis Therapy Diagnosis: Decreased ADL status Height/Weight Height (Feet): 5 Height (Inches): 1.00 Weight (Pounds): 130 Weight (Ounces): 6.0 Precautions Precautions/Isolations: Airborne Isolation, Fall Prevention, Standard Precautions Referral Physician: Berhane Referral Reason: Activity Tolerance, Self Care, Evaluation/Treatment, Strengthening/ROM Medical History Pertinent Medical History: COPD, HTN Current History Pt admits to ER due to fever, UTI found. Sepsis. 1st COVID test neg 2nd COVID test pending (7.16) Reviewed History: Yes Social History Home: Single Level Current Living Status: Alone Entry Into Home: Stairs With Railing Steps Into Home: 3 ADL-Prior Level of Function SCALE: Activities may be completed with or without assistive devices. 6-Wunggxeuje-qlzikui completes the activity by him/herself with no assistance from a helper. 5-Set-up or Clean-up Assistance-helper sets up or cleans up; patient completes activity. [place] assists only prior to or following the activity. 4-Supervision or Touching Assistance-helper provides verbal cues and/or touching/steadying and/or contact guard assistance as patient completes activity. Assistance may be provided throughout the activity or intermittently. 3-Partial/Moderate Assistance-helper does LESS THAN HALF the effort. [place] lifts, holds or supports trunk or limbs, but provides less than half the effort. 2-Substantial/Maximal Assistance-helper does MORE THAN HALF the effort. [place] lifts or holds trunk or limbs and provides more than half the effort. 3-Dvdqtkyhb-oghjli does ALL the effort. Patient does none of the effort to complete the activity. Or, the assistance of 2 or more helpers is required for the patient to complete the activity. If activity was not attempted, code reason: 7-Patient Refused. 9-Not Applicable-not attempted and the patient did not perform the activity before the current illness, exacerbation or injury. 10-Not Attempted due to Environmental Limitations-(lack of equipment, weather restraints, etc.). 88-Not Attempted due to Medical Conditions or Safety Concerns. ADL PLOF Comments Pt states IND with use of SPC. Pt states daughter has been assisting with IADLs (grocery shopping). Self Care: Independent Functional Cognition: Independent DME/Equipment: Tub/Shower Occupation: retired. Drive Self: Yes OT Current Status Subjective Pt seen in bed. Pt alert/ oriented. Pt states pain in back, likely due to "being stiff" stating she hasn't been able to move as much. pt agrees to OT eval/ treat. Mental Status/Objective Patient Orientation: Normal For Age Attachments: Gore Catheter, Oxygen (4L) Current Glasses/Contacts: Yes Upper Extremity ROM Decreased R UE shoulder scaption due to "RTC injury", though WFL Upper Extremity Coordination WFL BUE Upper Extremity Sensation WFL BUE Upper Extremity Strength WFL BUE (4-/5) ADL-Treatment Eating (QC): 6 (states no trouble with eating, brings cup to mouth at end of session to drink.) Lower Body Dressing (QC): 2 (Based on clinical judgment pt would require max A with this task in stance due to lack of balance and standing endurance. ) On/Off Footwear (QC): 3 (mod A- pt able to doff, requires assist to don EOB.) Other Treatments Pt seen in bed. Provides hx with clarity. Pt completes bed mob with SBA, doffs sock EOB. No SOB noted through tx. Pt states feels weak/ tired, wishes to move around more. Pt agrees to ambulation to chair. Pt utilizes her SPC from home with CGA and min A for righting 1x to ambulate from bed to chair. Pt stands and gains balance, steps with small steps to recliner .Pt requires cues to continue stepping to bring bottom to mid-chair. Pt sits with mod control. Pt's ROM/ MMT tested, WFL though pt states feels weak. Pt will benefit from skilled OT to ad dress fx activities and home d/c. Pt left in chair with all needs met, call light in reach. Education OT Patient Education: Correct positioning, Purpose of tx/functional activities, Safety issues, Transfer techniques Teaching Recipient: Patient Teaching Methods: Demonstration, Discussion Response to Teaching: Verbalize Understanding, Return Demonstration, Reinforcement Needed OT Correction Goals Dye Worker Goals Time Frame: May 17, 2020 Eating (QC): 6 Oral Hygiene (QC): 6 Toileting Hygiene (QC): 4 Shower/Bathe Self (QC): 4 Upper Body Dressing (QC): 6 Lower Body Dressing (QC): 4 On/Off Footwear (QC): 6 Additional Goals: 1-Demonstrate ADL Tasks, 2-Verbalize Understanding, 3- ImproveStrength/Morales 1=Demonstrate adherence to instructed precautions during ADL tasks. 2=Patient will verbalize/demonstrate understanding of assistive devices/modifications for ADL. 3=Patient will improve strength/tolerance for activity to enable patient to perform ADL's. OT Education/Plan Problem List/Assessment Assessment: Decreased Activ Tolerance, Decreased UE Strength, Dependent Transfers, Impaired Funct Balance, Impaired I ADL's, Impaired Self-Care Skills, Restricted Funct UE ROM Discharge Recommendations Plan/Recommendations: Continue POC Therapy Discharge Recommendati: Intermittent Supervision, Post Acute OT Treatment Plan/Plan of Care Treatment,Training & Education: Yes Patient would benefit from OT for education, treatment and training to promote independence in ADL's, mobility, safety and/or upper extremity function for ADL's. Plan of Care: ADL Retraining, Functional Mobility, UE Funct Exercise/Act Treatment Duration: May 17, 2020 Frequency: 5 times per week Estimated Hrs Per Day: .25 hour per day Agreement: Yes Rehab Potential: Good Time/GCodes Start Time: 10:30 Stop Time: 10:42 Total Time Billed (hr/min): 12 Billed Treatment Time ERIN Rios (12) VANCE RODRIGUEZ OTR May 10, 2020 12:06
[2020-05-10 13:02] VITALS: BP 154/63
[2020-05-10] MEDS: ALPRAZolam 0.25 MG (XANAX) TAB PO PRN ×2 (14:02→21:06)
--- NOTE | 2020-05-10 15:44 | NUR ---
IRF Evaluation Determination: Accepted Chart review complete and findings discussed with Dr. Last. Anticipate admission, 05/12/20. Thank you for this referral.
[2020-05-10 17:04] VITALS: BP 141/63
[2020-05-10] MEDS: amLODIPine 5 MG (NORVASC) TAB PO SCH (17:07)
--- NOTE | 2020-05-10 17:09 | Cardiology Progress Note ---
Cardiology SOAP Progress Note Subjective: Improved shortness of breath. Objective: I&O/Vital Signs 05/10/20 05/10/20 05/10/20 05/10/20 07:02 07:46 08:00 09:34 Pulse 82 Resp 18 B/P (MAP) 145/59 (87) Pulse Ox 90 95 O2 Delivery Nasal Cannula Nasal Cannula Nasal Cannula Nasal Cannula O2 Flow Rate 4.00 3.00 4.00 4.00 05/10/20 05/10/20 05/10/20 05/10/20 10:31 10:34 13:02 13:14 Temp 36.6 37.0 Pulse 82 85 Resp 20 B/P (MAP) 154/63 (93) Pulse Ox 91 91 95 O2 Delivery Nasal Cannula Nasal Cannula Nasal Cannula O2 Flow Rate 4.00 3.00 3.00 05/10/20 05/10/20 05/10/20 14:59 16:11 17:04 Temp 36.0 Pulse 68 Resp 20 B/P (MAP) 141/63 (89) Pulse Ox 95 O2 Delivery Nasal Cannula Nasal Cannula Nasal Cannula O2 Flow Rate 4.00 3.00 4.00 05/10/20 00:00 Intake Total 1675 ml Output Total 2350 ml Balance -675 ml Weight (Pounds): 130 Weight (Ounces): 6.0 Weight (Calculated Kilograms): 59.340156 Constitutional: AAO x 3, PERRL, well-developed, well-nourished Respiratory: other (Decreased breath sounds bilaterally.) Extremities: normal range of motion, normal inspection Neurologic/Psychiatric: alert, normal mood/affect, oriented x 3 Skin: normal color Results/Procedures: Labs Laboratory Tests 05/10/20 04:05: White Blood Count 7.1, Red Blood Count 2.94L, Hemoglobin 8.5L, Hematocrit 26L, Mean Corpuscular Volume 88, Mean Corpuscular Hemoglobin 29, Mean Corpuscular Hemoglobin Concent 33, Red Cell Distribution Width 14.9H, Platelet Count 222, Mean Platelet Volume 8.8, Neutrophils (%) (Auto) 62, Lymphocytes (%) (Auto) 18, Monocytes (%) (Auto) 11, Eosinophils (%) (Auto) 9, Basophils (%) (Auto) 0, N eutrophils # (Auto) 4.4, Lymphocytes # (Auto) 1.3, Monocytes # (Auto) 0.8, Eosinophils # (Auto) 0.6H, Basophils # (Auto) 0.0, Sodium Level 132L, Potassium Level 4.8, Chloride Level 101, Carbon Dioxide Level 22, Anion Gap 9, Blood Urea Nitrogen 36H, Creatinine 1.86H, Estimat Glomerular Filtration Rate 26, BUN/Creatinine Ratio 19, Glucose Level 86, Calcium Level 8.5, Corrected Calcium 9.7, Phosphorus Level 3.6, Magnesium Level 1.5L, Total Bilirubin 0.4, Aspartate Amino Transf (AST/SGOT) 20, Alanine Aminotransferase (ALT/SGPT) 21, Alkaline Phosphatase 195H, Total Protein 5.1L, Albumin 2.5L 05/10/20 11:20: Microbiology 05/07/20 MRSA Screen - Final, Complete MRSA not isolated 05/03/20 Urine Culture - Final, Complete Mixed Bacterial Maria Elena Enterococcus faecium 05/03/20 Blood Culture - Final, Complete No growth A/P: Assessment/Dx: UTI Sepsis Coronary artery disease Hypertension Plan: UTI, sepsis, managed by primary care team Fever and chills secondary to sepsis History of coronary artery disease, history of cardiac arrhythmia, following with Dr. Pacheco, currently asymptomatic Acute respiratory failure, Cough and shortness of breath. On BiPAP. Managed by primary care team. Improved today. Hypertension, restart home medication and monitor blood pressure Hyperlipidemia, monitor lipids First COVID negative. Dr. Newton has requested repeat COVID testing. Thank you for your consultation. Please call me if you have any questions. Ivania Roberson MD, FACP, FACC, FSCAI, FHRS, CCDS Interventional Cardiology Cardiac Electrophysiology Vascular Medicine and Endovascular Interventions Focused Exam Time of Focused Exam: 23:19 Merary ROBERSON MD May 10, 2020 17:09
--- NOTE | 2020-05-10 19:00 | NUR ---
TRANSFERRED TO MED/SURG ROOM 424, WITH PORTABLE O2 AT 4 LITERS, REPORT TO CECE ARROYO, PICC LINE WITHOUT REDNESS OR SWELLING, NÚÑEZ PATENT, ORIENTED TO ROOM, CALL LIGHT WITHIN REACH
[2020-05-10 20:00] VITALS: BP 133/63
[2020-05-10] MEDS: polyethylene glycoL POWDER 17 GM (MIRALAX) PACK PO SCH (21:00)
[2020-05-10] MEDS: TEMAZEPAM 15 MG (RESTORIL) CAP PO SCH (21:07)
[2020-05-10] MEDS: MELATONIN 10 MG TABLET PO PRN (21:20)
[2020-05-11] VITALS (7 sets, daily range): BP systolic 122–173; BP diastolic 65–82
[2020-05-11] MEDS: RT-ALBUTEROL INHALER HFA (VENTOLIN HFA) 18 GM IH SCH ×6 (02:00→22:12)
[2020-05-11] MEDS: LEVOTHYROXINE 75 MCG (LEVOTHROID) TABLET PO SCH (06:36)
[2020-05-11] MEDS: MULTIVIT W/MINERALS TAB (THERAGRAN M) PO SCH (06:36)
[2020-05-11] MEDS: HYDROcodone/APAP 7.5 MG/325 MG (LORTAB, LORCET PLUS) TABLET PO PRN ×3 (06:37→20:16)
[2020-05-11 07:11] LABS: BASOPHILS % (AUTO) 0 % (0-10); EOSINOPHILS # (AUTO) 0.6 10^3/uL (0.0-0.3); EOSINOPHILS % (AUTO) 9 % (0-10); HEMATOCRIT 28 % (35-52); HEMOGLOBIN 8.8 G/DL (11.5-16.0); LYMPHOCYTES # (AUTO) 1.2 X 10^3 (1.0-4.0); LYMPHOCYTES % (AUTO) 16 % (12-44); MEAN CORPUSCULAR HGB CONC 32 G/DL (32-36); MEAN CORPUSCULAR VOLUME 89 FL (80-99); MEAN PLATELET VOLUME 8.9 FL (7.4-10.4); MONOCYTES # (AUTO) 0.6 X 10^3 (0.0-1.0); MONOCYTES % (AUTO) 8 % (0-12); NEUTROPHILS # (AUTO) 4.9 X 10^3 (1.8-7.8); NEUTROPHILS % (AUTO) 67 % (42-75); PLATELET COUNT 257 10^3/uL (130-400); RED CELL DISTRIBUTION WIDTH 14.9 % (10.0-14.5); WHITE BLOOD COUNT 7.3 10^3/uL (4.3-11.0)
[2020-05-11 07:12] LABS: MEAN CORPUSCULAR HEMOGLOBIN 28 PG (25-34)
[2020-05-11 07:24] LABS: ALBUMIN 2.5 GM/DL (3.2-4.5); BILIRUBIN,TOTAL 0.3 MG/DL (0.1-1.0); CALCIUM 8.6 MG/DL (8.5-10.1); CREATININE SERUM 1.76 MG/DL (0.60-1.30); POTASSIUM 4.6 MMOL/L (3.6-5.0)
[2020-05-11] MEDS: MAGNESIUM 1 GM/100 ML IVPB 100 ML IV SCH (07:36)
[2020-05-11] MEDS: POTASSIUM CL 10MEQ/50ML IVPB 50 ML IV SCH (07:36)
[2020-05-11] MEDS: KCL 20 MEQ TAB (K-DUR) PO SCH (07:37)
[2020-05-11] MEDS: LACTULOSE SYRUP 10GM/15ML (ENULOSE) 30ML UDC PO SCH ×2 (08:13→21:12)
[2020-05-11] MEDS: CLOPIDOGREL 75 MG (PLAVIX) TABLET PO SCH (08:13)
[2020-05-11] MEDS: LINEZOLID (ZYVOX) 600 MG TAB PO SCH ×2 (08:13→20:16)
[2020-05-11] MEDS: ASPIRIN E.C. 81 MG (ECOTRIN) TAB PO SCH (08:13)
[2020-05-11] MEDS: RANOLAZINE ER 500 MG TAB (RANEXA) PO SCH ×2 (08:13→20:16)
[2020-05-11] MEDS: PANTOPRAZOLE 40 MG (PROTONIX) TAB PO SCH (08:13)
[2020-05-11] MEDS: PHENAZOPYRIDINE 100 MG (PYRIDIUM) TABLET PO SCH ×3 (08:13→18:36)
[2020-05-11] MEDS: CHLORASEPTIC SPRAY 177 ML LIQUID MC PRN (08:17)
[2020-05-11] MEDS ORDERED: IRON SUCROSE 200 MG/10 ML (VENOFER) VIAL IV SCH (09:00)
--- NOTE | 2020-05-11 09:06 | NUR ---
PT NOTIFIED BY THIS RN THAT SHE IS NEGATIVE FOR COVID PER LAB TEST RESULTS THAT CAME THRU THIS MORNING. HEALTH INFORMATION CLERK RN, DEBRA GARCIA, NOTIFIED DOCTOR TO SEE WHAT NEXT STEP IS FOR PT.
--- NOTE | 2020-05-11 09:19 | NUR ---
DR ROMERO ROUNDED ON PT AND ORDERED FOR NÚÑEZ TO BE REMOVED, DO ANOTHER UA ON PT AND PUSH FLUIDS TODAY. DR SAID THAT PT GOING TO REHAB WAS UP TO DR VENTURA.
--- NOTE | 2020-05-11 09:35 | Occupational Ther Daily Note ---
OT Current Status-Daily Note Subjective Pt seen in bed. No c/o pain, states fatigue. Pt agrees to OT eval. Pt pleasant, alert, oriented. Mental Status/Objective Patient Orientation: Normal For Age Attachments: Gore Catheter, Oxygen ADL-Treatment Therapy Code Descriptions/Definitions Functional [place]er Measure: 0=Not Assessed/NA 4=Minimal Assistance 1=Total Assistance 5=Supervision or Setup 2=Maximal Assistance 6=Modified [place]er 3=Moderate Assistance 7=Complete IndependenceSCALE: Activities may be completed with or without assistive devices. 7-Axbbsjodlx-lukyeoc completes the activity by him/herself with no assistance from a helper. 5-Set-up or Clean-up Assistance-helper sets up or cleans up; patient completes activity. [place] assists only prior to or following the activity. 4-Supervision or Touching Assistance-helper provides verbal cues and/or touching/steadying and/or contact guard assistance as patient completes acti vity. Assistance may be provided throughout the activity or intermittently. 3-Partial/Moderate Assistance-helper does LESS THAN HALF the effort. [place] lifts, holds or supports trunk or limbs, but provides less than half the effort. 2-Substantial/Maximal Assistance-helper does MORE THAN HALF the effort. [place] lifts or holds trunk or limbs and provides more than half the effort. 3-Evtnswlmj-lrysbq does ALL the effort. Patient does none of the effort to complete the activity. Or, the assistance of 2 or more helpers is required for the patient to complete the activity. If activity was not attempted, code reason: 7-Patient Refused. 9-Not Applicable-not attempted and the patient did not perform the activity before the current illness, exacerbation or injury. 10-Not Attempted due to Environmental Limitations-(lack of equipment, weather restraints, etc.). 88-Not Attempted due to Medical Conditions or Safety Concerns. Eating (QC): 6 (preps coffee and drinks IND.) Bathing Location: L Arm, R Arm, L Upper Leg, R Upper Leg, Chest, Abdomen, Perineal Area Shower/Bathe Self (QC): 3 (min A for LB (feet) and bottom (CGA in stance, use of SPC)) Upper Body Dressing (QC): 5 (s/u gown.) On/Off Footwear: 2 (able to attempt socks- pushes down, requires assist to doff/ don.) Other Treatment Nursing states COVID negative. Pt seen in bed. Iron removed by nursing. Pt completes bed mob with min A to reach EOB. pt completes sponge bath EOB, no LOB. Pt not able to reach B feet. Completes with assist. Pt requires min A sit to stand from low bed position. Stands with SPC, bottom washed with TD while pt maintains stance/ balance. Pt ambulates to chair with SPC and CGA. Pt positioned in chair, all needs met, BLE elevated. Call light in reach. Education OT Patient Education: Correct positioning, Modified ADL techniques, Progress toward Goal/Update tx plan, Purpose of tx/functional activities, Transfer techniques Teaching Recipient: Patient Teaching Methods: Demonstration, Discussion Response to Teaching: Verbalize Understanding, Return Demonstration OT Care Home Goals Senior Designer/Art Director Goals Time Frame: May 17, 2020 Eating (QC): 6 Oral Hygiene (QC): 6 Toileting Hygiene (QC): 4 Shower/Bathe Self (QC): 4 Upper Body Dressing (QC): 6 Lower Body Dressing (QC): 4 On/Off Footwear (QC): 6 Additional Goals: 1-Demonstrate ADL Tasks, 2-Verbalize Understanding, 3- ImproveStrength/Morales 1=Demonstrate adherence to instructed precautions during ADL tasks. 2=Patient will verbalize/demonstrate understanding of assistive devices/modifications for ADL. 3=Patient will improve strength/tolerance for activity to enable patient to perform ADL's. OT Education/Plan Problem List/Assessment Assessment: Decreased Activ Tolerance, Decreased UE Strength, Dependent Transfers, Edema (minimal pitting L ankle.), Impaired Bed Mobility, Impaired Funct Balance, Impaired I ADL's, Impaired Self-Care Skills, Restricted Funct UE ROM Discharge Recommendations Plan/Recommendations: Continue POC Therapy Discharge Recommendati: Post Acute OT Treatment Plan/Plan of Care Treatment,Training & Education: Yes Patient would benefit from OT for education, treatment and training to promote independence in ADL's, mobility, safety and/or upper extremity function for ADL's. Plan of Care: ADL Retraining, Functional Mobility, UE Funct Exercise/Act Treatment Duration: May 17, 2020 Frequency: 5 times per week Estimated Hrs Per Day: .25 hour per day Agreement: Yes Rehab Potential: Good Time/GCodes Start Time: 09:00 Stop Time: 09:30 Total Time Billed (hr/min): 30 Billed Treatment Time 1, ADL 2 (30) VANCE RODRIGUEZ OTR May 11, 2020 09:35
--- NOTE | 2020-05-11 10:04 | Progress Note - Hospitalist ---
Subjective HPI/CC On Admission Date Seen by Provider: May 11, 2020 Time Seen by Provider: 10:00 CC: Fever with UTI HPI: This is an 80 year old white female who presented to ER with fever and chest Xray revealed normal no evidence of PNA so she was diagnosed with UTI placed on Cefepime and Vancomycin and culture is pending. Will restart her home meds and oxygen. Consulting Dr. Velasquez and he requested COVID swab to be done and that will be done. Subjective/Events-last exam Patient is requesting to go home to see her dog. She doesn't really want her Gore catheter out but she'll allow for it. She is COVID negative. She is not sure she wants to go to rehabilitation she is on Zyvox. Almost appears jaundiced today but Bili is normal Review of Systems Neurological: Weakness Focused Exam Time of Focused Exam: 23:19 Objective Exam Vital Signs Vital Signs Date Time Temp Pulse Resp B/P (MAP) Pulse Ox O2 Delivery O2 Flow Rate FiO2 05/11/20 13:57 95 Nasal Cannula 4.00 05/11/20 12:29 36.5 78 18 146/72 (96) 05/09/20 03:48 40 Capillary Refill : Less Than 3 Seconds General Appearance: No Apparent Distress HEENT: Normal ENT Inspection Neck: Non Tender, Supple Respiratory: Lungs Clear, Normal Breath Sounds, No Accessory Muscle Use, No Respiratory Distress Cardiovascular: Regular Rate, Rhythm, No Gallop, Systolic Murmur Gastrointestinal: Normal Bowel Sounds, Non Tender, Soft Back: Normal Inspection, No CVA Tenderness Extremity: No Pedal Edema Results/Procedures Lab Laboratory Tests 05/11/20 06:00 Patient resulted labs reviewed. Assessment/Plan Assessment and Plan Assess & Plan/Chief Complaint Respiratory distress-resolved Sepsis-resolved Non gap Metabolic acidosis-resolved Anemia-chronic UTI-on Zyvox Iron deficiency HTN COPD CKD s/p R nephrectomy, stent Weakness-PT/ot Clinical Quality Measures DVT/VTE Risk/Contraindication: Risk Factor Score Per Nursin RFS Level Per Nursing on Admit: 2=Moderate ALLEGRA ROMERO MD May 11, 2020 10:04
[2020-05-11] MEDS: ADVAIR HFA 115/21 MCG INHALER 8 GM IH SCH ×2 (10:10→20:19)
--- NOTE | 2020-05-11 10:17 | Physical Therapy Daily Note ---
PT Daily Note-Current Subjective Patient agrees to PT. No c/o. Pain Numeric Pain Scale: 0-No Pain Location: No Pain Reported Mental Status Patient Orientation: Normal For Age Attachments: Oxygen (4-5L NC), Gore Catheter Transfers SCALE: Activities may be completed with or without assistive devices. 0-Mbdvgdodjj-kfyvsgm completes the activity by him/herself with no assistance from a helper. 5-Set-up or Clean-up Assistance-helper sets up or cleans up; patient completes activity. [place] assists only prior to or following the activity. 4-Supervision or Touching Assistance-helper provides verbal cues and/or touching/steadying and/or contact guard assistance as patient completes activity. Assistance may be provided throughout the activity or intermittently. 3-Partial/Moderate Assistance-helper does LESS THAN HALF the effort. [place] lifts, holds or supports trunk or limbs, but provides less than half the effort. 2-Substantial/Maximal Assistance-helper does MORE THAN HALF the effort. [place] lifts or holds trunk or limbs and provides more than half the effort. 7-Mjabuzssa-ssbtgj does ALL the effort. Patient does none of the effort to complete the activity. Or, the assistance of 2 or more helpers is required for the patient to complete the activity. If activity was not attempted, code reason: 7-Patient Refused. 9-Not Applicable-not attempted and the patient did not perform the activity before the current illness, exacerbation or injury. 10-Not Attempted due to Environmental Limitations-(lack of equipment, weather restraints, etc.). 88-Not Attempted due to Medical Conditions or Safety Concerns. Sit to Stand (QC): 4 Weight Bearing Full Weight Bearing Full Weight Bearing Gait Training Does the Patient Walk?: Yes Distance: 275' Walk 10 feet (QC): 4 Walk 50 ft with 2 Turns(QC): 4 Walk 150 ft (QC): 4 Gait Assistive Device: FWW extended UE's and shuffle gait sequence Assessment Patient is up in recliner with needs met. PT to increase activity as tolerated by patient. PT Election Judge Goals Election Judge Goals PT Election Judge Goals Time Frame: May 16, 2020 Roll Left & Right (QC): 6 Sit to Lying (QC): 6 Lying-Sitting on Side/Bed(QC): 6 Sit to Stand (QC): 6 Chair/Xhb-cq-Jabgr Xfer(QC): 6 Toilet Transfer (QC): 6 Does the Patient Walk: Yes Walk 10 feet (QC): 6 Walk 50ft with 2 Turns (QC): 5 Walk 150 ft (QC): 5 PT Plan Treatment/Plan Treatment Plan: Continue Plan of Care Treatment Plan: Gait, Safety Treatment Duration: May 16, 2020 Frequency: 6 times per week Estimated Hrs Per Day: .25 hour per day Patient and/or Family Agrees t: Yes Time/GCodes Time In: 955 Time Out: 1009 Total Billed Treatment Time: 14 Total Billed Treatment 1 visit GT 14 min FRANSISCO PEREZ PT May 11, 2020 10:17
[2020-05-11 10:27] LABS: CLARITY,URINE CLEAR; COLOR,URINE ORANGE; GLUCOSE, URINE (UA) TRACE (NEGATIVE); KETONES,URINE NEGATIVE (NEGATIVE); LEUKOCYTE ESTERASE ,URINE TRACE (NEGATIVE); NITRITE,URINE POSITIVE (NEGATIVE); PROTEIN,URINE 3+ (NEGATIVE)
[2020-05-11 10:35] LABS: BACTERIA,URINE FEW /HPF; BILIRUBIN,URINE 1+ (NEGATIVE)
--- NOTE | 2020-05-11 14:15 | NUR ---
ASSUMED PT CARE
--- NOTE | 2020-05-11 14:21 | Cardiology Progress Note ---
Cardiology SOAP Progress Note Subjective: No cardiac complaints. Objective: I&O/Vital Signs 05/11/20 05/11/20 05/11/20 05/11/20 04:00 06:37 07:44 08:00 Temp 36.4 36.4 36.0 Pulse 88 83 Resp 20 18 B/P (MAP) 159/65 (96) 173/65 (101) Pulse Ox 98 97 96 O2 Delivery Nasal Cannula Nasal Cannula Nasal Cannula O2 Flow Rate 4.00 4.00 4.00 05/11/20 05/11/20 05/11/20 05/11/20 09:00 10:10 12:29 13:57 Temp 36.5 Pulse 78 Resp 18 B/P (MAP) 146/72 (96) Pulse Ox 95 95 95 O2 Delivery Nasal Cannula Nasal Cannula Nasal Cannula Nasal Cannula O2 Flow Rate 4.00 4.00 4.00 4.00 05/11/20 00:00 Intake Total 1200 ml Output Total 1500 ml Balance -300 ml Weight (Pounds): 130 Weight (Ounces): 6.0 Weight (Calculated Kilograms): 59.237441 Constitutional: AAO x 3, PERRL, well-developed, well-nourished Respiratory: chest is bilaterally symmetric, lungs clear to auscultation, other (Decreased breath sounds bilaterally.) Cardiovascular: regular rate-rhythm, S1 and S2 Gastrointestional: soft Extremities: normal range of motion, non-tender, normal inspection, no lower extremity edema bilateral Neurologic/Psychiatric: no motor/sensory deficits, alert, normal mood/affect, oriented x 3, power is 5/5 both on sides Skin: normal color, warm/dry Results/Procedures: Labs Laboratory Tests 05/11/20 06:00: White Blood Count 7.3, Red Blood Count 3.09L, Hemoglobin 8.8L, Hematocrit 28L, Mean Corpuscular Volume 89, Mean Corpuscular Hemoglobin 28, Mean Corpuscular Hemoglobin Concent 32, Red Cell Distribution Width 14.9H, Platelet Count 257, Mean Platelet Volume 8.9, Neutrophils (%) (Auto) 67, Lymphocytes (%) (Auto) 16, Monocytes (%) (Auto) 8, Eosinophils (%) (Auto) 9, Basophils (%) (Auto) 0, Neutrophils # (Auto) 4.9, Lymphocytes # (Auto) 1.2, Monocytes # (Auto) 0.6, Eosinophils # (Auto) 0.6H, Basophils # (Auto) 0.0, Sodium Level 133L, Potassium Level 4.6, Chloride Level 101, Carbon Dioxide Level 23, Anion Gap 9, Blood Urea Nitrogen 34H, Creatinine 1.76H, Estimat Glomerular Filtration Rate 28, BUN/Creatinine Ratio 19, Glucose Level 118H, Calcium Level 8.6, Corrected Calcium 9.8, Total Bilirubin 0.3, Aspartate Amino Transf (AST/SGOT) 21, Alanine Aminotransferase (ALT/SGPT) 19, Alkaline Phosphatase 203H, Total Protein 5.0L, Albumin 2.5L 05/11/20 10:17: Urine Color ORANGE, Urine Clarity CLEAR, Urine pH 7.0, Urine Specific [place] 1.015L, Urine Protein 3+H, Urine Glucose (UA) TRACEH, Urine Ketones NEGATIVE, Urine Nitrite POSITIVEH, Urine Bilirubin 1+H, Urine Urobilinogen 2.0, Urine Leukocyte Esterase TRACEH, Urine RBC (Auto) TRACE-L, Urine RBC 2-5H, Urine WBC 2-5, Urine Squamous Epithelial Cells 2-5, Urine Crystals NONE, Urine Bacteria FEWH, Urine Casts NONE, Urine Mucus NEGATIVE, Urine Culture Indicated YES 05/11/20 11:30: Lab Scanned Report Transfusion Reaction Form Microbiology 05/07/20 MRSA Screen - Final, Complete MRSA not isolated 05/03/20 Urine Culture - Final, Complete Mixed Bacterial Maria Elena Enterococcus faecium 05/03/20 Blood Culture - Final, Complete No growth A/P: Assessment/Dx: UTI Sepsis Coronary artery disease Hypertension Plan: UTI, sepsis, managed by primary care team. Resolved. Fever and chills secondary to sepsis. Resolved. History of coronary artery disease, history of cardiac arrhythmia, following with Dr. Pacheco, currently asymptomatic Acute respiratory failure, Cough and shortness of breath. On BiPAP. Managed by primary care team. Resolved. Hypertension, slightly elevated. Hyperlipidemia, monitor lipids COVID negative 2. Thank you for your consultation. Please call me if you have any questions. Ivania Roberson MD, FACP, FACC, FSCAI, FHRS, CCDS Interventional Cardiology Cardiac Electrophysiology Vascular Medicine and Endovascular Interventions Focused Exam Time of Focused Exam: 23:19 Merary ROBERSON MD May 11, 2020 14:21
[2020-05-11] MEDS: amLODIPine 5 MG (NORVASC) TAB PO SCH (15:58)
[2020-05-11] MEDS: MELATONIN 10 MG TABLET PO PRN (20:16)
[2020-05-11] MEDS: TEMAZEPAM 15 MG (RESTORIL) CAP PO SCH (20:16)
[2020-05-11] MEDS: ALPRAZolam 0.25 MG (XANAX) TAB PO PRN (20:16)
[2020-05-11] MEDS: polyethylene glycoL POWDER 17 GM (MIRALAX) PACK PO SCH (20:16)
[2020-05-12] MEDS: RT-ALBUTEROL INHALER HFA (VENTOLIN HFA) 18 GM IH SCH ×2 (02:56→06:46)
[2020-05-12 04:40] VITALS: BP 168/71
[2020-05-12 06:34] LABS: POTASSIUM 5.2 MMOL/L (3.6-5.0)
[2020-05-12 06:36] LABS: CALCIUM 8.8 MG/DL (8.5-10.1)
[2020-05-12] MEDS: POTASSIUM CL 10MEQ/50ML IVPB 50 ML IV SCH (06:37)
[2020-05-12] MEDS: KCL 20 MEQ TAB (K-DUR) PO SCH (06:37)
[2020-05-12 06:40] LABS: CREATININE SERUM 1.81 MG/DL (0.60-1.30)
[2020-05-12 06:42] LABS: MAGNESIUM 1.6 MG/DL (1.6-2.4)
[2020-05-12] MEDS: ADVAIR HFA 115/21 MCG INHALER 8 GM IH SCH (06:46)
[2020-05-12] MEDS: MAGNESIUM 1 GM/100 ML IVPB 100 ML IV SCH ×3 (06:46→07:24)
[2020-05-12] MEDS: MULTIVIT W/MINERALS TAB (THERAGRAN M) PO SCH (06:51)
[2020-05-12] MEDS: LEVOTHYROXINE 75 MCG (LEVOTHROID) TABLET PO SCH (06:51)
[2020-05-12] MEDS: HYDROcodone/APAP 7.5 MG/325 MG (LORTAB, LORCET PLUS) TABLET PO PRN (07:02)
[2020-05-12 08:00] VITALS: BP 151/67
[2020-05-12] MEDS: LACTULOSE SYRUP 10GM/15ML (ENULOSE) 30ML UDC PO SCH (08:00)
[2020-05-12] MEDS ORDERED: RANO500T3 PO (08:49)
[2020-05-12] MEDS: CLOPIDOGREL 75 MG (PLAVIX) TABLET PO SCH (08:56)
[2020-05-12] MEDS: PHENAZOPYRIDINE 100 MG (PYRIDIUM) TABLET PO SCH (08:56)
[2020-05-12] MEDS: PANTOPRAZOLE 40 MG (PROTONIX) TAB PO SCH (08:56)
[2020-05-12] MEDS: LINEZOLID (ZYVOX) 600 MG TAB PO SCH (08:56)
[2020-05-12] MEDS: ASPIRIN E.C. 81 MG (ECOTRIN) TAB PO SCH (08:56)
[2020-05-12] MEDS: RANOLAZINE ER 500 MG TAB (RANEXA) PO SCH (08:56)
--- NOTE | 2020-05-12 09:21 | NUR ---
TO ARU WITH PT. REPORT TO JESUS ALBERTO ARROYO. PT PACKED ALL PERSONAL BELONGINGS AND TRANSFERRED WITH THEM.
--- NOTE | 2020-05-12 10:23 | Discharge Summary ---
Diagnosis/Chief Complaint Date of Admission May 04, 2020 at 02:30 Date of Discharge May 12, 2020 at 09:22 Discharge Date: May 12, 2020 Discharge Time: 1000 Admission Diagnosis Assessment: Sepsis UTI Oxygen dependent Dyspnea COVID swab pending PVD CAD Plan: Broad spectrum antibiotics COVID swab Dr. Velasquez consultation Primary Care Self,Jose Manuel ELAINE Discharge Diagnosis Sepsis secondary to urinary tract infection Anemia Hypertension COPD Coronary artery disease Acute kidney injury Chronic renal insufficiency (1) Sepsis Status: Acute (2) UTI (urinary tract infection) Status: Acute (3) Hypertension Status: Acute (4) History of ureter stent Status: Acute (5) FELIPE (acute kidney injury) Status: Acute Discharge Summary Procedures/Consulations Dr. [facility] Discharge Physical Exam Allergies: Coded Allergies: doxycycline (Verified Allergy, Unknown, 04/02/19) isosorbide (Verified Allergy, Unknown, 04/02/19) pitavastatin (Verified Allergy, Unknown, 04/02/19) shrimp (Verified Allergy, Unknown, 04/02/19) Uncoded Allergies: IV CONTRAST (Allergy, Unknown, 04/02/19) MIRATAZAPINE (Allergy, Unknown, 04/02/19) Vitals & I&Os Vital Signs Date Time Temp Pulse Resp B/P (MAP) Pulse Ox O2 Delivery O2 Flow Rate FiO2 05/12/20 09:02 96 Nasal Cannula 4.50 05/12/20 08:00 36.4 71 20 151/67 (95) 05/09/20 03:48 40 General Appearance: No Apparent Distress, WD/WN HEENT: Normal ENT Inspection Respiratory: Chest Non Tender, No Accessory Muscle Use, No Respiratory Distress, Wheezing Cardiovascular: Systolic Murmur, Tachycardia Gastrointestinal: Normal Bowel Sounds, No Organomegaly, Non Tender, Soft Extremity: No Calf Tenderness, No Pedal Edema Skin: Normal Color, Warm/Dry Neurologic/Psychiatric: Alert, Oriented x3, No Motor/Sensory Deficits, semi driver II- XII Norm as Tested, Depressed Affect Hospital Course Was the Problem List Reviewed?: Yes Patient was admitted with sepsis and placed on vancomycin and meropenem. She turned around quickly but has remained weak and will be going to inpatient rehabilitation to improve her strength. Labs (last 24 hrs) Laboratory Tests 05/11/20 11:30: Lab Scanned Report Transfusion Reaction Form 05/12/20 06:05: Sodium Level 134L, Potassium Level 5.2H, Chloride Level 102, Carbon Dioxide Level 21, Anion Gap 11, Blood Urea Nitrogen 35H, Creatinine 1.81H, Estimat Glomerular Filtration Rate 27, BUN/Creatinine Ratio 19, Glucose Level 85, Calcium Level 8.8, Magnesium Level 1.6 Microbiology 05/11/20 Urine Culture - Final, Complete NO GROWTH 05/07/20 MRSA Screen - Final, Complete MRSA not isolated 05/03/20 Blood Culture - Final, Complete No growth Patient resulted labs reviewed. Pending Labs Laboratory Tests 05/12/20 06:05: Sodium Level 134, Potassium Level 5.2, Chloride Level 102, Carbon Dioxide Level 21, Anion Gap 11, Blood Urea Nitrogen 35, Creatinine 1.81, Estimat Glomerular Filtration Rate 27, BUN/Creatinine Ratio 19, Glucose Level 85, Calcium Level 8.8, Magnesium Level 1.6 Discussion & Recommendations Discharge Planning: <30 minutes discharge planning Discharge Home Medications: Active Scripts Active Ranexa (Ranolazine) 500 Mg Tab.er.12h 500 Mg PO BID 30 Days Reported Advair 250-50 Diskus (Fluticasone/Salmeterol) 1 Each Blst.w.dev 1 Each IH BID Diltiazem 24Hr ER (Diltiazem HCl) 180 Mg Cap.er.24h 180 Mg PO DAILY LAST FILLED 01-21-2020 #90) Fluoxetine HCl 20 Mg Capsule 20 Mg PO DAILY TAKES 10MG + 20MG TO EQUAL 30 MG DAILY Lisinopril 5 Mg Tablet 5 Mg PO DAILY Fluoxetine HCl 10 Mg Capsule 10 Mg PO DAILY PT TAKES 10MG & 20MG TO EQUAL 30MG DAILY Temazepam 15 Mg Capsule 15 Mg PO HS Clopidogrel (Clopidogrel Bisulfate) 75 Mg Tablet 75 Mg PO DAILY Vitamin D2 (Ergocalciferol (Vitamin D2)) 1,250 Mcg Capsule 1,250 Mcg PO THURSDAY Vitamin D3 (Cholecalciferol (Vitamin D3)) 50 Mcg Capsule 50 Mcg PO DAILY Multivitamin 1 Each Tablet 1 Each PO DAILY Natural Vegetable Laxative (Sennosides) 8.6 Mg Tablet 8.6 Mg PO DAILY PRN Melatonin 10 Mg Tab.rapdis 10 Mg PO HS PRN Flonase Allergy Relief (Fluticasone Propionate) 9.9 Ml [place].susp 2 [place] NSEACH HS PRN Vitamin C (Ascorbic Acid) 250 Mg Tab 250 Mg PO DAILY Coenzyme Q-10 (Ubidecarenone) 50 Mg Capsule 100 Mg PO DAILY Omeprazole 20 Mg Capsule.dr 20 Mg PO DAILY Levothyroxine Sodium 75 Mcg Tablet 75 Mcg PO DAILY Aspir 81 (Aspirin) 81 Mg Tablet.dr 81 Mg PO DAILY Proair Hfa (Albuterol Sulfate) 1 Puff Puff 2 Puff IH PRN Amlodipine Besylate 5 Mg Tablet 5 Mg PO 1600 Zuly Allergy (Fexofenadine HCl) 180 Mg Tablet 180 Mg PO DAILY PRN Condition at discharge Stable Instructions to patient/family Please see electronic discharge instructions given to patient. Clinical Quality Measures DVT/VTE Risk/Contraindication: Risk Factor Score Per Nursin RFS Level Per Nursing on Admit: 2=Moderate Problem Qualifiers (1) Sepsis: Sepsis type: sepsis due to unspecified organism Sepsis acute organ dysfunction status: without acute organ dysfunction Qualified Codes: A41.9 - Sepsis, unspecified organism (2) UTI (urinary tract infection): Urinary tract infection type: acute cystitis Hematuria presence: without hematuria Qualified Codes: N30.00 - Acute cystitis without hematuria ALLEGRA ROMERO MD May 12, 2020 10:23
[2020-05-15] MEDS ORDERED: IRON100V2 IV (08:09)
[2020-05-15] MEDS ORDERED: METH40VI2 IV (08:09)
[2020-05-15] MEDS ORDERED: FURO20TA4 PO (08:09)
== END 2020-05-12 09:22 | DRG 871 ==
LOC: EDUNIT# 21:39 → ER FS 21:40 → 4TH 05-04 02:30 → ICU 05-07 10:48 → CSD 05-08 15:40 → 4TH 05-10 19:00
PROVIDERS: ADMIT Family Medicine; ATTEND Family Medicine
DX: A41.9 Sepsis, unspecified organism (principal); J96.20 Acute and chronic respiratory failure, unspecified whether with hypoxia or hypercapnia; N39.0 Urinary tract infection, site not specified; E87.2 Acidosis; N17.9 Acute kidney failure, unspecified; J44.1 Chronic obstructive pulmonary disease with (acute) exacerbation; D50.9 Iron deficiency anemia, unspecified; E11.22 Type 2 diabetes mellitus with diabetic chronic kidney disease; E83.42 Hypomagnesemia; I12.9 Hypertensive chronic kidney disease with stage 1 through stage 4 chronic kidney disease, or unspecified chronic kidney disease; I25.10 Atherosclerotic heart disease of native coronary artery without angina pectoris; Z20.828 Contact with and (suspected) exposure to other viral communicable diseases; E78.00 Pure hypercholesterolemia, unspecified; N18.9 Chronic kidney disease, unspecified; K21.9 Gastro-esophageal reflux disease without esophagitis; E03.9 Hypothyroidism, unspecified; F41.9 Anxiety disorder, unspecified; Z96.0 Presence of urogenital implants; Z90.5 Acquired absence of kidney; Z87.891 Personal history of nicotine dependence; Z99.81 Dependence on supplemental oxygen
CPT/HCPCS: 36415; 36600; 71045; 74176; 80048; 80053; 80202; 81000; 82805; 83540; 83605; 83735; 83880; 84100; 85007; 85025; 85027; 85610; 85730; 86769; 86850; 86900; 86901; 86920; 87040; 87070; 87077; 87081; 87088; 87186; 87205; 87635; 93306; 94640; 94660; 94664; 94760; 96361; 96365; 96375

== ENCOUNTER 2020-05-12 09:10 | Inpatient (IN) | payer MEDICARE ==
[~2020-05-12] VITALS: Ht 158 cm; Wt 64.2 kg
[~2020-05-12 09:10] MED LIST changes: +ALPRAZolam 0.25 MG (XANAX) TAB PO PRN; +BISACODYL 10 MG SUPP (DULCOLAX) PR PRN; +CALCIUM CARBONATE 500 MG (TUMS) TAB.CHEW PO PRN; +CHOL20002 PO; +CLOP75TA28 PO; +DILT180C85 PO; +DOCUSATE SODIUM 100 MG (COLACE) CAP PO PRN; +FLEET ENEMA ADULT 1 EA BTL PR PRN; +FLUO10CA30 PO; +FLUO20CA46 PO; +FLUT1DIS26 IH; +LACTULOSE SYRUP 10GM/15ML (ENULOSE) 30ML UDC PO PRN; +LISI-556 PO; +LOPERAMIDE 2 MG (IMODIUM) TABLET PO PRN; +MELATONIN 3 MG TABLET PO PRN; +MULT-1136 PO; +ONDANSETRON 4 MG (ZOFRAN) ORAL DISSOLVE TAB PO PRN; +TEMA15CA PO; +diphenhydrAMINE 25 MG TAB (BENADRYL) PO PRN
--- NOTE | 2020-05-12 09:10 | NUR ---
ALISHA STACK admitted to room 230-1, with an admitting diagnosis of GENERAL DEBILITY, on 05/12/20 from via , accompanied by STAFF.SEDAALISHA E introduced to surroundings, call light, bed controls, phone, TV, temperature control, lights, meal times, smoking policy, visitor policy, side rail policy, bathrooms and showers. Patient Rights given to patient in the handbook.ALISHA STACK verbalizes understanding that [facility] is not responsible for the loss or damage to any personal effects or valuables that are kept in the patients posession during their hospitalization. The following Patient Care Plans were discussed with the PATIENT: Discharge Planning, IMPAIRED MOBILITY,ALTERED COMFORT, and SELF CARE DEFICIT. ALISHA STACK verbalizes understanding of Interdisciplinary Patient Education. Patient and/or family were informed about the Rapid Response Team and its purpose. Patient received Patient Rights Booklet, which includes Privacy Act Statement and Data Collection Information Summary. Addendum: 05/12/20 at 1016 by JESUS ALBERTO COOL RN REPORT FROM Lesly GREER RN
--- NOTE | 2020-05-12 09:39 | Physical Therapy Evaluation ---
PT Evaluation-General Medical Diagnosis Admission Date April Medical Diagnosis: UTI/sepsis Onset Date: May 03, 2020 Therapy Diagnosis Therapy Diagnosis: debility/weakness Height/Weight Height (Feet): 5 Height (Inches): 1.00 Weight (Pounds): 130 Weight (Ounces): 6.0 Precautions Precautions/Isolations: Fall Prevention, Standard Precautions Referral Physician: Berhane Reason for Referral: Evaluation/Treatment Medical History Pertinent Medical History: COPD, HTN Current History Transfer to ARU Reviewed History: Yes Social History Home: Single Level Current Living Status: Alone Entry Into Home: Stairs With Railing PT Steps Into Home: 3 Prior Prior Level of Function SCALE: Activities may be completed with or without assistive devices. 5-Cfsmkdqmgw-blwaihw completes the activity by him/herself with no assistance from a helper. 5-Set-up or Clean-up Assistance-helper sets up or cleans up; patient completes activity. [place] assists only prior to or following the activity. 4-Supervision or Touching Assistance-helper provides verbal cues and/or touching/steadying and/or contact guard assistance as patient completes activity. Assistance may be provided throughout the activity or intermittently. 3-Partial/Moderate Assistance-helper does LESS THAN HALF the effort. [place] lifts, holds or supports trunk or limbs, but provides less than half the effort. 2-Substantial/Maximal Assistance-helper does MORE THAN HALF the effort. [place] lifts or holds trunk or limbs and provides more than half the effort. 6-Hrviujakz-tmkyot does ALL the effort. Patient does none of the effort to complete the activity. Or, the assistance of 2 or more helpers is required for the patient to complete the activity. If activity was not attempted, code reason: 7-Patient Refused. 9-Not Applicable-not attempted and the patient did not perform the activity before the current illness, exacerbation or injury. 10-Not Attempted due to Environmental Limitations-(lack of equipment, weather restraints, etc.). 88-Not Attempted due to Medical Conditions or Safety Concerns. Bed Mobility: 6 Transfers (B,C,W/C): 6 Gait: 6 Stairs: 6 Indoor Mobility (Ambulation): Independent Stairs: Independent Prior Devices Use: Other-see list below (cane) PT Evaluation-Current Subjective Patient reports fatigue but agrees to PT. Pain Numeric Pain Scale: 0-No Pain Location: No Pain Reported Objective Patient Orientation: Normal For Age Attachments: Oxygen (4L NC) ROM/Strength ROM Lower Extremities bilateral LE WFL Strength Lower Extremities 3/5 grossly bilateral LE Integumentary/Posture Integumentary refer to nursing notes Bowel Incontinence: No Bladder Incontinence: No Posture WFL Neuromuscular (Tone, Coordination, Reflexes) grossly intact with all Sensory Vision: Wears Glasses Hearing: Impaired Sensation Right Lower Extremit: Intact Sensation Left Lower Extremity: Intact Transfers Roll Left to Right (QC): 4 Sit to Lying (QC): 4 Lying to Sitting/Side of Bed(Q: 4 Sit to Stand (QC): 3 Chair/Ztc-bu-Ngbke Xfer(QC): 3 Toilet Transfer (QC): 3 Car Transfer (QC): 3 Gait Does the Patient Walk?: Yes Mode of Locomotion: Walk Anticipated Mode of Locomotion: Walk Walk 10 feet (QC): 3 Walk 50 ft with 2 Turns(QC): 3 Walk 150 ft (QC): 3 Walking 10ft/uneven surface-QC: 3 Distance: 200' x 2 Gait Assistive Device: FWW Comments/Gait Description assistance to turn FWW for safe mobility Wheelchair Training Does the Pt Use a Wheelchair?: No Wheel 50 ft with 2 turns (QC): 9 Wheel 150 ft (QC): 9 Stairs #of Steps: 1 1 Step (curb) (QC): 2 4 Steps (QC): 88 (unsafe to perform due to weakness) 12 Steps (QC): 9 (reports she does not go anywhere with 12 steps) Balance Sitting Static: Normal Sitting Dynamic: Normal Standing Static: Fair Standing Dynamic: Fair Picking up an Object (QC): 3 Assessment/Needs 80 y.o. female, will benefit from skilled PT to address functional strength and mobility to improve current LOF to safely return to home with home health at maximum LOF. Rehab Potential: Fair PT Civil Drafting Technician Goals Civil Drafting Technician Goals PT Civil Drafting Technician Goals Time Frame: Jun 09, 2020 Roll Left & Right (QC): 6 Sit to Lying (QC): 6 Lying-Sitting on Side/Bed(QC): 6 Sit to Stand (QC): 6 Chair/Ojp-dc-Bxywj Xfer(QC): 6 Toilet Transfer (QC): 6 Car Transfer (QC): 6 Does the Patient Walk: Yes Walk 10 feet (QC): 6 Walk 50ft with 2 Turns (QC): 6 Walk 150 ft (QC): 6 Walking 10ft on Uneven Surface: 6 1 Step (curb) (QC): 6 4 Steps (QC): 5 12 Steps (QC): 9 Picking up an Object (QC): 6 Does the Pt use WC or Scooter?: No Wheel 50 feet with 2 turns (QC: 9 Wheel 150 feet: 9 PT Plan Problem List Problem List: Activity Tolerance, Functional Strength, Safety, Balance, Gait, Transfer, Bed Mobility Treatment/Plan Treatment Plan: Continue Plan of Care Treatment Plan: Bed Mobility, Concurrent Therapy, Education, Functional Activity Morales, Functional Strength, Group Therapy, Gait, Safety, Therapeutic Exercise, Transfers Treatment Duration: Jun 09, 2020 Frequency: At least 5 of 7 days/Wk (IRF) Estimated Hrs Per Day: 1.5 hours per day Patient and/or Family Agrees t: Yes Time/GCodes Time In: 910 Time Out: 930 Total Billed Treatment Time: 20 Total Billed Treatment 1 visit EVMod 20 min FRANSISCO PEREZ PT May 12, 2020 09:39
[2020-05-12] MEDS: polyethylene glycoL POWDER 17 GM (MIRALAX) PACK PO SCH ×2 (10:23→20:56)
[2020-05-12] MEDS: DOCUSATE SODIUM 100 MG (COLACE) CAP PO SCH ×2 (10:24→20:56)
[2020-05-12] MEDS: SENNA W/DOCUSATE (SENOKOT S) TABLET PO SCH ×2 (10:24→20:56)
--- NOTE | 2020-05-12 10:27 | PM&R Post Admission Assessment ---
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 Patient uses O2 at home 2L/min and now is near baseline requirements and does not require biPAP now. Diuresis managed volume overload and bicarb is near baseline from the lowest at 13 with compensatory tachypnea when she was moved to ICU and creatinine increased to 2.8. PLOF was independent and lives alone and uses walker on occasion with family involved in her care. Checked meds and labs on transfer and noted Zyvox will be soon completed from Enterococcus UTI. Iron infusions will be completed while in IRU. Past Fejnajd-Aogqgu-Xeowrh Hx Past Med/Social Hx: Reviewed Nursing Past Med/Soc Hx, Reviewed and Corrections made Patient Social History Marrital Status: single Employed/Student: retired Alcohol Use: Denies Use Smoking Status: Former Smoker Former Smoker, Quit: Sep 25, 2008 Type Used: Cigarettes 2nd Hand Smoke Exposure: No Recent Hopitalizations: No Seasonal Allergies Seasonal Allergies: No Past Medical History Surgeries: Gallbladder, Nephrectomy, Orthopedic Respiratory: COPD, Pneumonia Cardiac: Chronic Edema/Swelling, Coronary Artery Disease, High Cholesterol, Hypertension, Peripheral Vascular Hysterectomy Genitourinary: Kidney Infection, Bladder Infection, Renal Failure Gastrointestinal: Gastroesophageal Reflux Musculoskeletal: Chronic Back Pain Endocrine: Diabetes, Non-Insulin dep Psychosocial: Anxiety History of Blood Disorders: No Family History Diabetes, Stroke, Other Conditions/Hx Prior Level of Function Bed Mobility: 6 Transfers: 6 Gait: 6 Stairs: 6 Indoor Mobility (Ambulation): Independent Stairs: Independent Prior Devices Use: Other-see list below (cane) Occupation: retired. Current Level of Fuctioning Roll Left to Right: 4 Sit to Lyin Lying to Sitting/Side of Bed: 4 Sit to Stand: 3 Chair/Ron-rs-Senbf Xfer: 3 Car Transfer: 3 Does the Patient Walk: Yes Mode of Locomotion: Walk Anticipated Mode of Locomotion: Walk Walk 10 feet: 3 Walk 50 ft with 2 Turns: 3 Walk 150 ft: 3 Walking 10ft on uneven surface: 3 Gait Assistive Device: FWW Does the Pt Use a Wheelchair: No Wheel 50 ft with 2 turns: 9 Wheel 150 ft: 9 #of Steps: 1 1 Step (curb): 2 4 Steps: 88 (unsafe to perform due to weakness) 12 Steps: 9 (reports she does not go anywhere with 12 steps) Picking up an Object: 3 PM&R Allergy/Meds/Data Review Allergies Coded Allergies: doxycycline (Verified Allergy, Unknown, 04/02/19) isosorbide (Verified Allergy, Unknown, 04/02/19) pitavastatin (Verified Allergy, Unknown, 04/02/19) shrimp (Verified Allergy, Unknown, 04/02/19) Uncoded Allergies: IV CONTRAST (Allergy, Unknown, 04/02/19) MIRATAZAPINE (Allergy, Unknown, 04/02/19) Home Medications Scheduled Amlodipine Besylate (Amlodipine Besylate), 5 MG PO 1600, (Reported) Ascorbic Acid (Vitamin C), 250 MG PO DAILY, (Reported) Aspirin (Aspir 81), 81 MG PO DAILY, (Reported) Cholecalciferol (Vitamin D3) (Vitamin D3), 50 MCG PO DAILY, (Reported) Clopidogrel Bisulfate (Clopidogrel), 75 MG PO DAILY, (Reported) Diltiazem HCl (Diltiazem 24Hr ER), 180 MG PO DAILY, (Reported) Ergocalciferol (Vitamin D2) (Vitamin D2), 1,250 MCG PO THURSDAY, (Reported) Fluoxetine HCl (Fluoxetine HCl), 10 MG PO DAILY, (Reported) Fluoxetine HCl (Fluoxetine HCl), 20 MG PO DAILY, (Reported) Fluticasone/Salmeterol (Advair 250-50 Diskus), 1 EACH IH BID, (Reported) Levothyroxine Sodium (Levothyroxine Sodium), 75 MCG PO DAILY, (Reported) Lisinopril (Lisinopril), 5 MG PO DAILY, (Reported) Multivitamin (Multivitamin), 1 EACH PO DAILY, (Reported) Omeprazole (Omeprazole), 20 MG PO DAILY, (Reported) Ranolazine (Ranexa), 500 MG PO BID Temazepam (Temazepam), 15 MG PO HS, (Reported) Ubidecarenone (Coenzyme Q-10), 100 MG PO DAILY, (Reported) Scheduled PRN Albuterol Sulfate (Proair Hfa), 2 PUFF IH for SHORTNESS OF BREATH, (Reported) Fexofenadine HCl (Zuly Allergy), 180 MG PO DAILY PRN for ALLERGY SYMPTOMS, (Reported) Fluticasone Propionate (Flonase Allergy Relief), 2 SPRAY NSEACH HS PRN for CONGESTION, (Reported) Melatonin (Melatonin), 10 MG PO HS PRN for SLEEP, (Reported) Sennosides (Natural Vegetable Laxative), 8.6 MG PO DAILY PRN for CONSTIPATION- 1ST LINE, (Reported) Current Medications Current Medications Reviewed Review of Systems Constitutional: see HPI, malaise, weakness EENTM: no symptoms reported Respiratory: no symptoms reported Cardiovascular: no symptoms reported Gastrointestinal: no symptoms reported Genitourinary: no symptoms reported Musculoskeletal: back pain, joint pain Skin: lesions (arms) Psychiatric/Neurological: Anxiety, Depressed All Other Systems Reviewed Negative Unless Noted: Yes Physical Exam Physical Exam Vital Signs Capillary Refill : Height, Weight, BMI Height: 5'1.00" Weight: 130lbs. 6.0oz. 59.994583wq; 23.46 BMI Method:Stated General Appearance: No Apparent Distress, WD/WN, Anxious, Chronically ill, Thin Eyes: Bilateral Eye Normal Inspection, Bilateral Eye PERRL HEENT: PERRL/EOMI, Normal ENT Inspection, Pharynx Normal Neck: Full Range of Motion, Normal Inspection, Non Tender, Supple, Carotid Bruit Respiratory: Chest Non Tender, No Accessory Muscle Use, No Respiratory Distress, Crackles, Decreased Breath Sounds, Wheezing Cardiovascular: Regular Rate, Rhythm, No Gallop, No JVD, No Murmur, Normal Peripheral Pulses Gastrointestinal: Normal Bowel Sounds, No Organomegaly, No Pulsatile Mass, Non Tender, Soft Back: Normal Inspection, No CVA Tenderness, No Vertebral Tenderness Extremity: Normal Capillary Refill, Normal Inspection, Normal Range of Motion, Non Tender, No Calf Tenderness, Pedal Edema Neurologic/Psychiatric: Alert, Oriented x3, No Motor/Sensory Deficits, Normal Mood/Affect, analytical laboratory technician II-XII Norm as Tested, Abnormal Gait, Motor Weakness (generalized weakness 4/5) Skin: Normal Color, Warm/Dry Lymphatic: No Adenopathy PM&R Medical Assessment & Plan REHAB/MEDICAL ASSESSMENT AND PLAN: REHAB IMPAIRMENT GROUP: 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 ETIOLOGIC DIAGNOSIS: 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 The comorbidities that impact the patients function and/or functional outcome by: advanced age, CRI, anemia, COPD O2 dependence, lives alone, renal stent, labile creatinine REHAB PLAN: The patient is being admitted to our comprehensive inpatient rehabilitation facility and can tolerate the intensity of service consisting of at least: 180 minutes of therapy a day, 5 out of 7 days a week Rehab treatment will consist of: PT OT will focus on regaining function and energy with strength in order to return home to live independently and to prevent falls and obtain energy conservation guidance The patient/family has a good understanding of our discharge process and will benefit from an interdisciplinary inpatient rehabilitation program. The patient has potential to make improvement and is in need of at least two of the following multidisciplinary therapies including but not limited to physical, occupational, speech, and prosthetics and orthotics. Additionally the patient will need services from respiratory, nutritional services, wound care, psychology, etc. (Customize this to each patient). Given the patients complex condition and risk of further medical complications, rehabilitation services cannot be safely or effectively provided at a lower level of care such as a senior living facility. BARRIERS TO DISCHARGE: Lives alone with severe co-morbidities ESTIMATED LOS: 7 days DISPOSITION: Home RELEVANT CHANGES SINCE PREADMISSION SCREENING: I have compared the patients medical and functional status at the time of the preadmission screening and there are: no changes PROGNOSIS: Good REHABILITATION GOALS: 1. PT OT will focus on regaining function and energy with strength in order to return home to live independently and to prevent falls and obtain energy conservation guidance All the above goals were reviewed with the patient and he/she is in agreement. By signing this document, I acknowledge that I have personally performed a full physical examination on this patient within 24 hours of admission to this inpatient rehabilitation facility and have determined the patient to be able to tolerate the above course of treatment at an intensive level for a reasonable period of time. I will be completing a detailed individualized Plan of Care for this patient by day #4 of the patients stay based upon the Preadmission Screen, the Post-Admission Evaluation, and the therapy evaluations. Admission Dx/Comorbidities: (1) Metabolic acidosis ICD Codes: E87.2 - Acidosis (2) UTI (urinary tract infection) Status: Acute ICD Codes: N39.0 - Urinary tract infection, site not specified (3) Sepsis Status: Acute ICD Codes: A41.9 - Sepsis, unspecified organism (4) Orthostasis Status: Acute ICD Codes: I95.1 - Orthostatic hypotension (5) Hypertension Status: Acute ICD Codes: I10 - Essential (primary) hypertension (6) COPD (chronic obstructive pulmonary disease) ICD Codes: J44.9 - Chronic obstructive pulmonary disease, unspecified (7) Oxygen dependent ICD Codes: Z99.81 - Dependence on supplemental oxygen (8) PVD (peripheral vascular disease) ICD Codes: I73.9 - Peripheral vascular disease, unspecified (9) CAD (coronary artery disease) ICD Codes: I25.10 - Atherosclerotic heart disease of [place] coronary artery without angina pectoris (10) Renal failure (ARF), acute on chronic ICD Codes: N17.9 - Acute kidney failure, unspecified; N18.9 - Chronic kidney disease, unspecified (11) Anemia, iron deficiency ICD Codes: D50.9 - Iron deficiency anemia, unspecified (12) FELIPE (acute kidney injury) Status: Acute ICD Codes: N17.9 - Acute kidney failure, unspecified Assessment/Plan Assessment and Plan Assess & Plan/Chief Complaint Assessment: Myopathy of critical illness Debility CRF Anemia iron def receiving iron infusions and s/p 1 unit of blood 05/08/20 COPD O2 dependent Metabolic acidosis UTI Enterococcus s/p respiratory insufficiency requiring biPAP Volume overload PVD CAD Plan: Home meds Complete Zyvox IRF protocol O2 Nebs/MDI Lovenox help due to severe anemia requiring blood transfusion and elevated creatinine MARTHA VENTURA DO May 12, 2020 10:27
[2020-05-12] MEDS ORDERED: SENNOSIDES 8.6 MG (SENOKOT) TAB PO PRN (10:30)
[2020-05-12] MEDS ORDERED: diphenhydrAMINE 25 MG TAB (BENADRYL) PO PRN (10:30)
[2020-05-12] MEDS ORDERED: CHLORASEPTIC SPRAY 177 ML LIQUID MC PRN (10:30)
[2020-05-12] MEDS ORDERED: ACETAMINOPHEN 325 MG TABLET PO PRN (10:30)
[2020-05-12] MEDS ORDERED: LORATADINE (CLARITIN) 10 MG TAB PO PRN (10:30)
[2020-05-12] MEDS ORDERED: ONDANSETRON 4 MG/2 ML (SDV) Z0FRAN IV PRN (10:30)
[2020-05-12] MEDS ORDERED: ALPRAZolam 0.25 MG (XANAX) TAB PO PRN (10:30)
[2020-05-12] MEDS ORDERED: CALCIUM CARBONATE 500 MG (TUMS) TAB.CHEW PO PRN (10:30)
[2020-05-12] MEDS ORDERED: BISACODYL 10 MG SUPP (DULCOLAX) PR PRN (10:30)
[2020-05-12] MEDS ORDERED: DOCUSATE SODIUM 100 MG (COLACE) CAP PO PRN (10:30)
[2020-05-12 11:00] VITALS: BP 137/62
[2020-05-12] MEDS: RT-ALBUTEROL INHALER HFA (VENTOLIN HFA) 18 GM IH SCH ×3 (13:38→22:46)
--- NOTE | 2020-05-12 14:27 | Cardiology Progress Note ---
Cardiology SOAP Progress Note Subjective: No cardiac complaints. Objective: I&O/Vital Signs 05/12/20 05/12/20 11:00 13:39 Temp 36.4 Pulse 74 Resp 20 B/P (MAP) 137/62 Pulse Ox 98 94 O2 Delivery Room Air Room Air Weight (Pounds): 130 Weight (Ounces): 6.0 Weight (Calculated Kilograms): 59.828764 Constitutional: AAO x 3 Respiratory: chest is bilaterally symmetric, lungs clear to auscultation Cardiovascular: regular rate-rhythm, S1 and S2 Gastrointestional: soft, audible bowel sounds Extremities: normal range of motion, non-tender, normal inspection, no lower extremity edema bilateral Neurologic/Psychiatric: no motor/sensory deficits, alert, normal mood/affect, oriented x 3 A/P: Assessment/Dx: UTI Sepsis Coronary artery disease Hypertension Plan: UTI, sepsis, managed by primary care team. Resolved. Fever and chills secondary to sepsis. Resolved. History of coronary artery disease, history of cardiac arrhythmia, following with Dr. Pacheco, currently asymptomatic Acute respiratory failure, Cough and shortness of breath. Previously On BiPAP. Managed by primary care team. Resolved. Hypertension, slightly elevated. Hyperlipidemia, monitor lipids COVID negative 2. Thank you for your consultation. Please call me if you have any questions. Ivania Roberson MD, FACP, FACC, FSCAI, FHRS, CCDS Interventional Cardiology Cardiac Electrophysiology Vascular Medicine and Endovascular Interventions Merary ROBERSON MD May 12, 2020 14:27
[2020-05-12] MEDS: PHENAZOPYRIDINE 100 MG (PYRIDIUM) TABLET PO SCH ×2 (14:32→20:46)
[2020-05-12 16:00] VITALS: BP 179/79
[2020-05-12] MEDS: amLODIPine 5 MG (NORVASC) TAB PO SCH (16:17)
[2020-05-12] MEDS: guaiFENesin/CODEINE (ROBITUSSIN AC) 10ML UDC PO PRN (20:46)
[2020-05-12] MEDS: LINEZOLID (ZYVOX) 600 MG TAB PO SCH (20:46)
[2020-05-12] MEDS: RANOLAZINE ER 500 MG TAB (RANEXA) PO SCH (20:46)
[2020-05-12] MEDS: LACTULOSE SYRUP 10GM/15ML (ENULOSE) 30ML UDC PO SCH (20:56)
[2020-05-12] MEDS ORDERED: TEMAZEPAM 15 MG (RESTORIL) CAP PO SCH (21:00)
[2020-05-12] MEDS ORDERED: polyethylene glycoL POWDER 17 GM (MIRALAX) PACK PO SCH (21:00)
[2020-05-13] MEDS: RT-ALBUTEROL INHALER HFA (VENTOLIN HFA) 18 GM IH SCH ×4 (02:26→15:24)
[2020-05-13 05:03] VITALS: BP 178/77
[2020-05-13] MEDS ORDERED: LEVOTHYROXINE 75 MCG (LEVOTHROID) TABLET PO SCH (06:30)
[2020-05-13 06:56] LABS: BASOPHILS % (AUTO) 0 % (0-10); EOSINOPHILS # (AUTO) 0.5 10^3/uL (0.0-0.3); EOSINOPHILS % (AUTO) 8 % (0-10); HEMATOCRIT 27 % (35-52); HEMOGLOBIN 8.3 G/DL (11.5-16.0); LYMPHOCYTES # (AUTO) 1.2 X 10^3 (1.0-4.0); LYMPHOCYTES % (AUTO) 17 % (12-44); MEAN CORPUSCULAR HEMOGLOBIN 28 PG (25-34); MEAN CORPUSCULAR HGB CONC 31 G/DL (32-36); MEAN CORPUSCULAR VOLUME 91 FL (80-99); MEAN PLATELET VOLUME 8.4 FL (7.4-10.4); MONOCYTES # (AUTO) 0.4 X 10^3 (0.0-1.0); MONOCYTES % (AUTO) 6 % (0-12); NEUTROPHILS # (AUTO) 4.8 X 10^3 (1.8-7.8); NEUTROPHILS % (AUTO) 68 % (42-75); PLATELET COUNT 258 10^3/uL (130-400); RED CELL DISTRIBUTION WIDTH 14.9 % (10.0-14.5)
[2020-05-13] MEDS ORDERED: MULTIVIT W/MINERALS TAB (THERAGRAN M) PO SCH (07:00)
[2020-05-13 07:07] LABS: ALBUMIN 2.6 GM/DL (3.2-4.5); BILIRUBIN,TOTAL 0.3 MG/DL (0.1-1.0); CALCIUM 8.6 MG/DL (8.5-10.1); CREATININE SERUM 1.65 MG/DL (0.60-1.30); POTASSIUM 5.5 MMOL/L (3.6-5.0); TOTAL PROTEIN 5.3 GM/DL (6.4-8.2)
[2020-05-13] MEDS: LINEZOLID (ZYVOX) 600 MG TAB PO SCH (07:58)
[2020-05-13] MEDS: RANOLAZINE ER 500 MG TAB (RANEXA) PO SCH (07:58)
[2020-05-13] MEDS: PHENAZOPYRIDINE 100 MG (PYRIDIUM) TABLET PO SCH ×3 (07:58→18:27)
[2020-05-13] MEDS: HYDROcodone/APAP 7.5 MG/325 MG (LORTAB, LORCET PLUS) TABLET PO PRN ×2 (07:59→14:47)
[2020-05-13] MEDS ORDERED: ASPIRIN E.C. 81 MG (ECOTRIN) TAB PO SCH (09:00)
[2020-05-13] MEDS ORDERED: PANTOPRAZOLE 40 MG (PROTONIX) TAB PO SCH (09:00)
[2020-05-13] MEDS ORDERED: CLOPIDOGREL 75 MG (PLAVIX) TABLET PO SCH (09:00)
[2020-05-13] MEDS ORDERED: IRON SUCROSE 200 MG/10 ML (VENOFER) VIAL IV SCH (09:00)
[2020-05-13] MEDS: DOCUSATE SODIUM 100 MG (COLACE) CAP PO SCH ×2 (11:29→19:31)
[2020-05-13] MEDS: LACTULOSE SYRUP 10GM/15ML (ENULOSE) 30ML UDC PO SCH ×2 (11:30→19:31)
[2020-05-13] MEDS: polyethylene glycoL POWDER 17 GM (MIRALAX) PACK PO SCH ×2 (11:30→19:31)
[2020-05-13] MEDS: SENNA W/DOCUSATE (SENOKOT S) TABLET PO SCH ×2 (11:30→19:31)
--- NOTE | 2020-05-13 11:48 | PM&R Progress Note ---
Subjective HPI/CC On Admission Date Seen by Provider: May 13, 2020 Time Seen by Provider: 16:00 Subjective/Events-last exam Patient had been doing pretty well since settled in on IRF Daughter at bedside Patient wants Urology locally and Vascular renal stent changed here locally so I will speak to Dr Yates and Dr Roberson Hgb 8.3 Creat 1.65 her baseline 3 liters/O2 maintained Pain meds for her right shoulder Venofer given today and tolerated well Bowels are loose now HCO3 21 today Checked meds and labs Conferred wtih RN Reviewed therapy notes After rounds patient started having dyspnea and elevated BP and hypoxia promoting rapid response so she was transferred to ICU at 2029 Review of Systems General: Fatigue Pulmonary: Dyspnea Objective Exam Vital Signs Vital Signs Date Time Temp Pulse Resp B/P (MAP) Pulse Ox O2 Delivery O2 Flow Rate FiO2 05/13/20 20:35 94 Vapotherm 30.00 50 05/13/20 17:03 36.4 71 18 169/72 (104) Capillary Refill : Less Than 3 Seconds General Appearance: No Apparent Distress, WD/WN, Anxious, Chronically ill, Thin HEENT: PERRL/EOMI, Normal ENT Inspection, Pharynx Normal Neck: Full Range of Motion, Normal Inspection, Non Tender, Supple, Carotid Bruit Respiratory: Chest Non Tender, No Accessory Muscle Use, No Respiratory Distress, Crackles, Decreased Breath Sounds, Wheezing Cardiovascular: Regular Rate, Rhythm, No Gallop, No JVD, No Murmur, Normal Peripheral Pulses Gastrointestinal: Normal Bowel Sounds, No Organomegaly, No Pulsatile Mass, Non Tender, Soft Back: Normal Inspection, No CVA Tenderness, No Vertebral Tenderness Extremity: Normal Capillary Refill, Normal Inspection, Normal Range of Motion, Non Tender, No Calf Tenderness, Pedal Edema Neurologic/Psychiatric: Alert, Oriented x3, No Motor/Sensory Deficits, Normal Mood/Affect, reheater II-XII Norm as Tested, Abnormal Gait, Motor Weakness (generalized weakness 4/5) Skin: Normal Color, Warm/Dry Lymphatic: No Adenopathy Results/Procedures Lab Laboratory Tests 05/13/20 06:38 Patient resulted labs reviewed. FIM Transfers Therapy Code Descriptions/Definitions Functional Orwell Measure: 0=Not Assessed/NA 4=Minimal Assistance 1=Total Assistance 5=Supervision or Setup 2=Maximal Assistance 6=Modified Orwell 3=Moderate Assistance 7=Complete IndependenceSCALE: Activities may be completed with or without assistive devices. 4-Hvgcciuvpx-rgpzijw completes the activity by him/herself with no assistance from a helper. 5-Set-up or Clean-up Assistance-helper sets up or cleans up; patient completes activity. [place] assists only prior to or following the activity. 4-Supervision or Touching Assistance-helper provides verbal cues and/or touching/steadying and/or contact guard assistance as patient completes activity. Assistance may be provided throughout the activity or intermittently. 3-Partial/Moderate Assistance-helper does LESS THAN HALF the effort. Clinton lif ts, holds or supports trunk or limbs, but provides less than half the effort. 2-Substantial/Maximal Assistance-helper does MORE THAN HALF the effort. [place] lifts or holds trunk or limbs and provides more than half the effort. 5-Iamoafhdm-ljegnf does ALL the effort. Patient does none of the effort to complete the activity. Or, the assistance of 2 or more helpers is required for the patient to complete the activity. If activity was not attempted, code reason: 7-Patient Refused. 9-Not Applicable-not attempted and the patient did not perform the activity before the current illness, exacerbation or injury. 10-Not Attempted due to Environmental Limitations-(lack of equipment, weather restraints, etc.). 88-Not Attempted due to Medical Conditions or Safety Concerns. Roll Left to Right (QC): 4 Sit to Lying (QC): 4 Sit to Stand (QC): 3 Chair/Lzw-vg-Zueps Xfer(QC): 3 Car Transfer (QC): 3 Gait Training Does the Patient Walk?: Yes Walk 10 feet (QC): 3 Walk 50 ft with 2 Turns(QC): 3 Walk 150 ft (QC): 3 Walking 10ft/uneven surface-QC: 3 Gait Assistive Device: FWW Wheelchair Training Does the Pt Use a Wheelchair?: No Wheel 50 ft with 2 turns (QC): 9 Wheel 150 ft (QC): 9 Stair Training #of Steps: 1 1 Step (curb) (QC): 2 4 Steps (QC): 88 (unsafe to perform due to weakness) 12 Steps (QC): 9 (reports she does not go anywhere with 12 steps) Balance Picking up an Object (QC): 3 Assessment/Plan Assessment and Plan Assess & Plan/Chief Complaint Assessment: Myopathy of critical illness Debility CRF Anemia iron def receiving iron infusions and s/p 1 unit of blood 05/08/20 COPD O2 dependent Metabolic acidosis UTI Enterococcus s/p respiratory insufficiency requiring biPAP Volume overload PVD CAD Plan: Home meds Complete Zyvox IRF protocol O2 Nebs/MDI Lovenox help due to severe anemia requiring blood transfusion and elevated creatinine Transferred to ICU after rapid response at 2030 and I updated 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
--- NOTE | 2020-05-13 14:06 | Cardiology Progress Note ---
Cardiology SOAP Progress Note Subjective: No acute cardiac complaints. Objective: I&O/Vital Signs 05/13/20 05/13/20 05/13/20 05/13/20 02:26 05:03 09:00 11:40 Temp 36.2 Pulse 80 Resp 20 B/P (MAP) 178/77 (110) Pulse Ox 90 91 93 95 O2 Delivery Nasal Cannula Nasal Cannula Nasal Cannula Nasal Cannula O2 Flow Rate 4.00 3.50 3.50 4.00 05/13/20 00:00 Intake Total 1000 ml Balance 1000 ml Weight (Pounds): 130 Weight (Ounces): 6.0 Weight (Calculated Kilograms): [id number] Constitutional: AAO x 3 Respiratory: chest is bilaterally symmetric, lungs clear to auscultation Cardiovascular: regular rate-rhythm, S1 and S2 Gastrointestional: soft, audible bowel sounds Extremities: normal range of motion, non-tender, normal inspection, no lower extremity edema bilateral Neurologic/Psychiatric: no motor/sensory deficits, alert, normal mood/affect, oriented x 3 Results/Procedures: Labs Laboratory Tests 05/13/20 06:38: White Blood Count 7.0, Red Blood Count 2.94L, Hemoglobin 8.3L, Hematocrit 27L, Mean Corpuscular Volume 91, Mean Corpuscular Hemoglobin 28, Mean Corpuscular Hemoglobin Concent 31L, Red Cell Distribution Width 14.9H, Platelet Count 258, Mean Platelet Volume 8.4, Neutrophils (%) (Auto) 68, Lymphocytes (%) (Auto) 17, Monocytes (%) (Auto) 6, Eosinophils (%) (Auto) 8, Basophils (%) (Auto) 0, Neutrophils # (Auto) 4.8, Lymphocytes # (Auto) 1.2, Monocytes # (Auto) 0.4, Eosinophils # (Auto) 0.5H, Basophils # (Auto) 0.0, Sodium Level 132L, Potassium Level 5.5H, Chloride Level 101, Carbon Dioxide Level 21, Anion Gap 10, Blood Ure a Nitrogen 32H, Creatinine 1.65H, Estimat Glomerular Filtration Rate 30, BUN/Creatinine Ratio 19, Glucose Level 82, Calcium Level 8.6, Corrected Calcium 9.7, Total Bilirubin 0.3, Aspartate Amino Transf (AST/SGOT) 27, Alanine Aminotransferase (ALT/SGPT) 18, Alkaline Phosphatase 173H, Total Protein 5.3L, Albumin 2.6L A/P: Assessment/Dx: UTI Sepsis Coronary artery disease Hypertension Plan: UTI, sepsis, managed by primary care team. Resolved. Fever and chills secondary to sepsis. Resolved. History of coronary artery disease, history of cardiac arrhythmia, following with Dr. Pacheco, currently asymptomatic Acute respiratory failure, Cough and shortness of breath. Previously On BiPAP. Managed by primary care team. Resolved. Hypertension, slightly elevated. Hyperlipidemia, monitor lipids COVID negative 2. Thank you for your consultation. Please call me if you have any questions. Ivania Roberson MD, FACP, FACC, FSCAI, FHRS, CCDS Interventional Cardiology Cardiac Electrophysiology Vascular Medicine and Endovascular Interventions Merary ROBERSON MD May 13, 2020 14:06
[2020-05-13] MEDS: amLODIPine 5 MG (NORVASC) TAB PO SCH (16:44)
[2020-05-13 17:03] VITALS: BP 169/72
[2020-05-13] MEDS: guaiFENesin/CODEINE (ROBITUSSIN AC) 10ML UDC PO PRN (17:44)
--- NOTE | 2020-05-13 19:45 | NUR ---
Patient very anxious and c/o of difficulty breathing. O2 sat 85% on 4 L. Patient turned up to 6 and sat was 88%. RT called. Patient turned up to 7 L and sat went to 90%. RT gave patient inhaler. Patient still c/o difficulty breathing. Patient given Xanax to help anxiety. Dr. Last notified. Dr. Last said to do rapid response. Rapid response called. EKG, ABG, and chest xray done. Patient given zofran for nausea. Dr. Last given update on patient. New order to transfer patient to ICU and update Dr. Roberson on patient's condition. Dr. Roberson updated.
--- NOTE | 2020-05-13 20:25 | NUR ---
Patient transferred to ICU. Report given to Werner.
[2020-05-13 20:30] LABS: ABG BASE EXCESS -1.9 MMOL/L (-2.5-2.5); ABG OXYGEN SATURATION 94 % (94-100); ABG PCO2 47 MMHG (35-45); ABG PO2 86 MMHG (79-93); ABG TCO2 25.1 MMOL/L (21.0-31.0)
[2020-05-13 20:33] LABS: ABG PH 7.31 (7.37-7.43); ALLENS TEST POSITIVE
[2020-05-13 20:34] LABS: INSPIRED O2 5; PATIENT TEMP 36.4; VENTILATOR NO
[2020-05-13] MEDS ORDERED: ADVAIR HFA 115/21 MCG INHALER 8 GM IH SCH (21:00)
--- NOTE | 2020-05-13 21:25 | Discharge Summary ---
Diagnosis/Chief Complaint Date of Admission May 12, 2020 at 09:10 Date of Discharge Discharge Diagnosis Assessment: Acute respiratory failure requiring ICU transfer Myopathy of critical illness Debility CRF Anemia iron def receiving iron infusions and s/p 1 unit of blood 05/08/20 COPD O2 dependent Metabolic acidosis UTI Enterococcus s/p respiratory insufficiency requiring biPAP Volume overload PVD CAD Plan: Home meds Complete Zyvox IRF protocol O2 Nebs/MDI Lovenox help due to severe anemia requiring blood transfusion and elevated creatinine Transferred to ICU after rapid response at 2029 and I updated [facility] doctor organizational development director Dr Temple and hotel services supervisor (1) Metabolic acidosis (2) UTI (urinary tract infection) Status: Acute (3) Sepsis Status: Acute (4) Orthostasis Status: Acute (5) Hypertension Status: Acute (6) COPD (chronic obstructive pulmonary disease) (7) Oxygen dependent (8) PVD (peripheral vascular disease) (9) CAD (coronary artery disease) (10) Renal failure (ARF), acute on chronic (11) Anemia, iron deficiency (12) FELIPE (acute kidney injury) Status: Acute Discharge Summary Discharge Physical Examination Allergies: Coded Allergies: doxycycline (Verified Allergy, Unknown, 04/02/19) isosorbide (Verified Allergy, Unknown, 04/02/19) pitavastatin (Verified Allergy, Unknown, 04/02/19) shrimp (Verified Allergy, Unknown, 04/02/19) Uncoded Allergies: IV CONTRAST (Allergy, Unknown, 04/02/19) MIRATAZAPINE (Allergy, Unknown, 04/02/19) Vitals & I&Os Vital Signs Date Time Temp Pulse Resp B/P (MAP) Pulse Ox O2 Delivery O2 Flow Rate FiO2 05/13/20 20:35 94 Vapotherm 30.00 50 05/13/20 17:03 36.4 71 18 169/72 (104) General Appearance: Alert, Oriented X3, Cooperative Respiratory: Other (crackles) Hospital Course Was the Problem List Reviewed?: Yes Hospital Course: Pt had a very brief hospital course in inpatient rehab after I transferred her from the 4th floor to rehab on Thursday late morning. Pt underwent assessment and participated in all therapies and was doing well. I saw her on Thursday afternoon and pt was deemed stable but did have coarse breath sounds, and she reports no significant changes in her lung status from baseline and she was actually asking to go home but a few hours later she began having high elevated BP and low O2 requiring 7 liters of O2 to get the O2 saturation to 90% from the low 80s. A rapid response was called on pt and she was deemed in need of ICU transfer for impending respiratory failure and will be monitored closely to be sure that she improves enough to be participating in therapy. Labs (last 24 hrs) Laboratory Tests 05/13/20 06:38: White Blood Count 7.0, Red Blood Count 2.94L, Hemoglobin 8.3L, Hematocrit 27L, Mean Corpuscular Volume 91, Mean Corpuscular Hemoglobin 28, Mean Corpuscular Hemoglobin Concent 31L, Red Cell Distribution Width 14.9H, Platelet Count 258, Mean Platelet Volume 8.4, Neutrophils (%) (Auto) 68, Lymphocytes (%) (Auto) 17, Monocytes (%) (Auto) 6, Eosinophils (%) (Auto) 8, Basophils (%) (Auto) 0, Neutrophils # (Auto) 4.8, Lymphocytes # (Auto) 1.2, Monocytes # (Auto) 0.4, Eosinophils # (Auto) 0.5H, Basophils # (Auto) 0.0, Sodium Level 132L, Potassium Level 5.5H, Chloride Level 101, Carbon Dioxide Level 21, Anion Gap 10, Blood Urea Nitrogen 32H, Creatinine 1.65H, Estimat Glomerular Filtration Rate 30, BUN/Creatinine Ratio 19, Glucose Level 82, Calcium Level 8.6, Corrected Calcium 9.7, Total Bilirubin 0.3, Aspartate Amino Transf (AST/SGOT) 27, Alanine Aminotransferase (ALT/SGPT) 18, Alkaline Phosphatase 173H, Total Protein 5.3L, Albumin 2.6L 05/13/20 20:14: Blood Gas Puncture Site RIGHT BRACHIAL, Blood Gas Patient Temperature 36.4, Arterial Blood pH 7.31*L, Arterial Blood Partial Pressure CO2 47H, Arterial Blood Partial Pressure O2 86, Arterial Blood HCO3 24, Arterial Blood Total CO2 25.1, Arterial Blood Oxygen Saturation 94, Arterial Blood Base Excess -1.9, [place] Test POSITIVE, Blood Gas Ventilator Setting NO, Blood Gas Inspired Oxygen 5 Pending Labs Laboratory Tests 05/13/20 06:38: White Blood Count 7.0, Red Blood Count 2.94, Hemoglobin 8.3, Hematocrit 27, Mean Corpuscular Volume 91, Mean Corpuscular Hemoglobin 28, Mean Corpuscular Hemog lobin Concent 31, Red Cell Distribution Width 14.9, Platelet Count 258, Mean Platelet Volume 8.4, Neutrophils (%) (Auto) 68, Lymphocytes (%) (Auto) 17, Monocytes (%) (Auto) 6, Eosinophils (%) (Auto) 8, Basophils (%) (Auto) 0, Neutrophils # (Auto) 4.8, Lymphocytes # (Auto) 1.2, Monocytes # (Auto) 0.4, Eosinophils # (Auto) 0.5, Basophils # (Auto) 0.0, Sodium Level 132, Potassium Level 5.5, Chloride Level 101, Carbon Dioxide Level 21, Anion Gap 10, Blood Urea Nitrogen 32, Creatinine 1.65, Estimat Glomerular Filtration Rate 30, BUN/Creatinine Ratio 19, Glucose Level 82, Calcium Level 8.6, Corrected Calcium 9.7, Total Bilirubin 0.3, Aspartate Amino Transf (AST/SGOT) 27, Alanine Aminotransferase (ALT/SGPT) 18, Alkaline Phosphatase 173, Total Protein 5.3, Albumin 2.6 05/13/20 20:14: Blood Gas Puncture Site RIGHT BRACHIAL, Blood Gas Patient Temperature 36.4, Arterial Blood pH 7.31, Arterial Blood Partial Pressure CO2 47, Arterial Blood Partial Pressure O2 86, Arterial Blood HCO3 24, Arterial Blood Total CO2 25.1, Arterial Blood Oxygen Saturation 94, Arterial Blood Base Excess -1.9, [place] Test POSITIVE, Blood Gas Ventilator Setting NO, Blood Gas Inspired Oxygen 5 Discharge Home Medications: Active Scripts Active Ranexa (Ranolazine) 500 Mg Tab.er.12h 500 Mg PO BID 30 Days Reported Advair 250-50 Diskus (Fluticasone/Salmeterol) 1 Each Blst.w.dev 1 Each IH BID Diltiazem 24Hr ER (Diltiazem HCl) 180 Mg Cap.er.24h 180 Mg PO DAILY LAST FILLED 01-21-2020 #90) Fluoxetine HCl 20 Mg Capsule 20 Mg PO DAILY TAKES 10MG + 20MG TO EQUAL 30 MG DAILY Lisinopril 5 Mg Tablet 5 Mg PO DAILY Fluoxetine HCl 10 Mg Capsule 10 Mg PO DAILY PT TAKES 10MG & 20MG TO EQUAL 30MG DAILY Temazepam 15 Mg Capsule 15 Mg PO HS Clopidogrel (Clopidogrel Bisulfate) 75 Mg Tablet 75 Mg PO DAILY Vitamin D2 (Ergocalciferol (Vitamin D2)) 1,250 Mcg Capsule 1,250 Mcg PO THURSDAY Vitamin D3 (Cholecalciferol (Vitamin D3)) 50 Mcg Capsule 50 Mcg PO DAILY Multivitamin 1 Each Tablet 1 Each PO DAILY Natural Vegetable Laxative (Sennosides) 8.6 Mg Tablet 8.6 Mg PO DAILY PRN Melatonin 10 Mg Tab.rapdis 10 Mg PO HS PRN Flonase Allergy Relief (Fluticasone Propionate) 9.9 Ml [place].susp 2 [place] NSEACH HS PRN Vitamin C (Ascorbic Acid) 250 Mg Tab 250 Mg PO DAILY Coenzyme Q-10 (Ubidecarenone) 50 Mg Capsule 100 Mg PO DAILY Omeprazole 20 Mg Capsule.dr 20 Mg PO DAILY Levothyroxine Sodium 75 Mcg Tablet 75 Mcg PO DAILY Aspir 81 (Aspirin) 81 Mg Tablet.dr 81 Mg PO DAILY Proair Hfa (Albuterol Sulfate) 1 Puff Puff 2 Puff IH PRN Amlodipine Besylate 5 Mg Tablet 5 Mg PO 1600 Zuly Allergy (Fexofenadine HCl) 180 Mg Tablet 180 Mg PO DAILY PRN Instructions to patient/family Please see electronic discharge instructions given to patient. Diagnosis/Problems Diagnosis/Problems (1) Metabolic acidosis Status: Resolved (2) UTI (urinary tract infection) Status: Acute (3) Sepsis Status: Acute (4) Orthostasis Status: Acute (5) Hypertension Status: Acute (6) COPD (chronic obstructive pulmonary disease) Status: Chronic (7) Oxygen dependent Status: Chronic (8) PVD (peripheral vascular disease) Status: Chronic (9) CAD (coronary artery disease) Status: Chronic (10) Renal failure (ARF), acute on chronic Status: Acute (11) Anemia, iron deficiency Status: Chronic (12) FELIPE (acute kidney injury) Status: Acute Clinical Quality Measures DVT/VTE Risk/Contraindication: Risk Factor Score Per Nursin RFS Level Per Nursing on Admit: 3=High Contraindications-Pharm: Other *list below* Other: severe anemia requiring transfusion and elevated creatinine MARTHA VENTURA DO May 13, 2020 21:25
--- NOTE | 2020-05-13 21:39 | Diagnostic Imaging Report ---
INDICATION: Difficulty breathing. EXAMINATION: Portable erect AP chest at 8:32 p.m. FINDINGS: The prior exam of 05/07/2020 noted cardiomegaly, pulmonary congestion and left lower lobe pneumonia/atelectasis and fluid. On this study, the appearance of the chest has worsened as a diffuse alveolar/interstitial infiltrate has developed throughout the right upper lung. Most likely this is due to pneumonia/atelectasis. There is also greater involvement of the right lower lobe by pneumonia/atelectasis and fluid. The central pulmonary vasculature is somewhat more prominent than on the prior study and there may also be greater pulmonary congestion than on the prior exam. The mediastinum is not widened. The osseous structures are intact. Left-sided PICC line is similar in position. IMPRESSION: The appearance of the chest has worsened since the prior study as there is greater involvement of the right lung by pneumonia/atelectasis. There may also be greater pulmonary congestion than on the prior exam. A follow up study would be recommend for continued evaluation. Dictated by: Dictated on workstation # [id number]
[2020-05-15] MEDS ORDERED: IRON100V2 IV (08:09)
[2020-05-15] MEDS ORDERED: FURO20TA4 PO (08:09)
[2020-05-15] MEDS ORDERED: METH40VI2 IV (08:09)
--- NOTE | 2020-05-15 09:35 | PM&R Progress Note ---
Subjective HPI/CC On Admission Date Seen by Provider: May 15, 2020 Subjective/Events-last exam Patient had been doing pretty well since settled in on IRF Daughter at bedside Patient wants Urology locally and Vascular renal stent changed here locally so I will speak to Dr Yates and Dr Roberson Hgb 8.3 Creat 1.65 her baseline 3 liters/O2 maintained Pain meds for her right shoulder Venofer given today and tolerated well Bowels are loose now HCO3 21 today Checked meds and labs Conferred wtih RN Reviewed therapy notes After rounds patient started having dyspnea and elevated BP and hypoxia promoting rapid response so she was transferred to ICU at 2029 Objective Exam Vital Signs Vital Signs Date Time Temp Pulse Resp B/P (MAP) Pulse Ox O2 Delivery O2 Flow Rate FiO2 05/13/20 20:35 94 Vapotherm 30.00 50 05/13/20 17:03 36.4 71 18 169/72 (104) Capillary Refill : Less Than 3 Seconds General Appearance: No Apparent Distress, WD/WN, Anxious, Chronically ill, Thin HEENT: PERRL/EOMI, Normal ENT Inspection, Pharynx Normal Neck: Full Range of Motion, Normal Inspection, Non Tender, Supple, Carotid Bruit Respiratory: Chest Non Tender, No Accessory Muscle Use, No Respiratory Distress, Crackles, Decreased Breath Sounds, Wheezing Cardiovascular: Regular Rate, Rhythm, No Gallop, No JVD, No Murmur, Normal Peripheral Pulses Gastrointestinal: Normal Bowel Sounds, No Organomegaly, No Pulsatile Mass, Non Tender, Soft Back: Normal Inspection, No CVA Tenderness, No Vertebral Tenderness Extremity: Normal Capillary Refill, Normal Inspection, Normal Range of Motion, Non Tender, No Calf Tenderness, Pedal Edema Neurologic/Psychiatric: Alert, Oriented x3, No Motor/Sensory Deficits, Normal Mood/Affect, labor commissioner II-XII Norm as Tested, Abnormal Gait, Motor Weakness (generalized weakness 4/5) Skin: Normal Color, Warm/Dry Lymphatic: No Adenopathy Results/Procedures Lab Patient resulted labs reviewed. FIM Transfers Therapy Code Descriptions/Definitions Functional [place] Measure: 0=Not Assessed/NA 4=Minimal Assistance 1=Total Assistance 5=Supervision or Setup 2=Maximal Assistance 6=Modified [place] 3=Moderate Assistance 7=Complete IndependenceSCALE: Activities may be completed with or without assistive devices. 4-Rwdaoamsrj-mhxovzj completes the activity by him/herself with no assistance from a helper. 5-Set-up or Clean-up Assistance-helper sets up or cleans up; patient completes activity. Miller assists only prior to or following the activity. 4-Supervision or Touching Assistance-helper provides verbal cues and/or touc robel/steadying and/or contact guard assistance as patient completes activity. Assistance may be provided throughout the activity or intermittently. 3-Partial/Moderate Assistance-helper does LESS THAN HALF the effort. Miller lifts, holds or supports trunk or limbs, but provides less than half the effort. 2-Substantial/Maximal Assistance-helper does MORE THAN HALF the effort. Miller lifts or holds trunk or limbs and provides more than half the effort. 0-Ykasxwxdf-lzzwng does ALL the effort. Patient does none of the effort to complete the activity. Or, the assistance of 2 or more helpers is required for the patient to complete the activity. If activity was not attempted, code reason: 7-Patient Refused. 9-Not Applicable-not attempted and the patient did not perform the activity before the current illness, exacerbation or injury. 10-Not Attempted due to Environmental Limitations-(lack of equipment, weather restraints, etc.). 88-Not Attempted due to Medical Conditions or Safety Concerns. Roll Left to Right (QC): 4 Sit to Lying (QC): 4 Sit to Stand (QC): 3 Chair/Qrd-nf-Fqmog Xfer(QC): 3 Car Transfer (QC): 3 Gait Training Does the Patient Walk?: Yes Walk 10 feet (QC): 3 Walk 50 ft with 2 Turns(QC): 3 Walk 150 ft (QC): 3 Walking 10ft/uneven surface-QC: 3 Gait Assistive Device: FWW Wheelchair Training Does the Pt Use a Wheelchair?: No Wheel 50 ft with 2 turns (QC): 9 Wheel 150 ft (QC): 9 Stair Training #of Steps: 1 1 Step (curb) (QC): 2 4 Steps (QC): 88 (unsafe to perform due to weakness) 12 Steps (QC): 9 (reports she does not go anywhere with 12 steps) Balance Picking up an Object (QC): 3 Assessment/Plan Assessment and Plan Assess & Plan/Chief Complaint Assessment: Myopathy of critical illness Debility CRF Anemia iron def receiving iron infusions and s/p 1 unit of blood 05/08/20 COPD O2 dependent Metabolic acidosis UTI Enterococcus s/p respiratory insufficiency requiring biPAP Volume overload PVD CAD Plan: Home meds Complete Zyvox IRF protocol O2 Nebs/MDI Lovenox help due to severe anemia requiring blood transfusion and elevated creatinine Transferred to ICU after rapid response at 2030 and I updated [facility] doctor alteration tailor apprentice Dr Temple and mechanical supervisor (1) Metabolic acidosis Status: Resolved (2) UTI (urinary tract infection) Status: Acute (3) Sepsis Status: Acute (4) Orthostasis Status: Acute (5) Hypertension Status: Acute (6) COPD (chronic obstructive pulmonary disease) Status: Chronic (7) Oxygen dependent Status: Chronic (8) PVD (peripheral vascular disease) Status: Chronic (9) CAD (coronary artery disease) Status: Chronic (10) Renal failure (ARF), acute on chronic Status: Acute (11) Anemia, iron deficiency Status: Chronic (12) FELIPE (acute kidney injury) Status: Acute MARTHA VENTURA DO May 15, 2020 09:35
--- NOTE | 2020-05-15 10:44 | Therapy Team Discharge Summary ---
Therapy Discharge Summary Discharge Recommendations Date of Discharge Physical Therapy This patient admitted to ARU with dx of UTI/sepsis after a fairly complicated acute stay. Prior to her initial hospital admission, she was indep at home. Upon admission to ARU, pt was min to CGA with bed mobility, transfers and gait. She was only seen for initial evaluation and no further treatment rendered due to transfer back to ICU. No functional gains noted. Will DC from ARU at this time. PT Asphalt Plant Operator Goals Assisted Goals PT Assisted Goals Time Frame: Jun 09, 2020 Roll Left to Right (QC): 6 Sit to Lying (QC): 6 Lying-Sitting on Side/Bed(QC): 6 Sit to Stand (QC): 6 Chair/Tdy-je-Hkcmq Xfer(QC): 6 Car Transfer (QC): 6 Does the Patient Walk: Yes Walk 10 feet (QC): 6 Walk 10ft-Uneven Surface(QC): 6 Walk 50ft with 2 Turns (QC): 6 Walk 150 ft (QC): 6 Does the Pt use WC or Scooter?: No Wheel 50 feet with 2 turns (QC: 9 1 Step (curb) (QC): 6 4 Steps (QC): 5 12 Steps (QC): 9 Picking up an Object (QC): 6 OT Assisted Goals Asphalt Plant Operator Goals Toilet/Commode Transfer (QC): 6 1=Demonstrate adherence to instructed precautions during ADL tasks. 2=Patient will verbalize/demonstrate understanding of assistive devices/modifications for ADL. 3=Patient will improve strength/tolerance for activity to enable patient to perform ADL's. KRISHNA DAY PT May 15, 2020 10:43
== END 2020-05-13 20:25 | disposition short-term general hospital (02) | DRG 91 ==
LOC: UNDOLOA 05-13 20:25
PROVIDERS: ADMIT Internal Medicine; ATTEND Internal Medicine
DX: G72.81 Critical illness myopathy (principal); J96.01 Acute respiratory failure with hypoxia; N17.9 Acute kidney failure, unspecified; E87.2 Acidosis; N39.0 Urinary tract infection, site not specified; E87.70 Fluid overload, unspecified; J44.9 Chronic obstructive pulmonary disease, unspecified; N18.9 Chronic kidney disease, unspecified; I73.9 Peripheral vascular disease, unspecified; I25.10 Atherosclerotic heart disease of native coronary artery without angina pectoris; I10 Essential (primary) hypertension; E78.5 Hyperlipidemia, unspecified; K21.9 Gastro-esophageal reflux disease without esophagitis; M54.9 Dorsalgia, unspecified; E11.9 Type 2 diabetes mellitus without complications; F41.9 Anxiety disorder, unspecified; F32.9 Major depressive disorder, single episode, unspecified; D50.9 Iron deficiency anemia, unspecified; B95.2 Enterococcus as the cause of diseases classified elsewhere; Z99.81 Dependence on supplemental oxygen; Z87.891 Personal history of nicotine dependence; Z90.5 Acquired absence of kidney; Z90.710 Acquired absence of both cervix and uterus
CPT/HCPCS: 36415; 71045; 80053; 82805; 85025; 94640; 94760